=== PATIENT | female | born 1960 | race Caucasian/White ===

== ENCOUNTER → 2017-12-23 12:51 | Outpatient (CLI) | payer OTHER, MEDICAID, SELFPAY ==
[2017-12-23 13:17] LABS: Add Manual Diff / Slide Review NO; Basophils Percent Auto 0.8 % (0-2); Eosinophils Percent Auto 1.4 % (2-4); Hematocrit 26.3 % (36-46); Hemoglobin 8.2 g/dL (12.0-16.0); Mean Corpuscular HGB Conc 31.3 % (30-36); Mean Corpuscular Hemoglobin 22.5 PG (26-34); Mean Corpuscular Volume 71.9 fL (80-100); Monocytes Percent Auto 8.5 % (3-14); Neutrophils Absolute Auto 4800 /uL (3000-5900); Neutrophils Percent Auto 75.3 % (50-75); Platelet Count 290 X10^3/uL (150-400); Red Blood Cell Count 3.66 X10^6/uL (4.0-5.2); Red Cell Distribution Width 19.9 % (11.6-14.8); White Blood Cell Count 6.4 X10^3/uL (4.5-11.0)
[2017-12-23 14:29] LABS: Alanine Aminotransferase 22 IU/L (9-52); Albumin 3.9 g/dL (3.5-5.0); Albumin Globulin Ratio 1.4 (1.0-2.8); Alkaline Phosphatase 90 U/L (38-126); Aspartate Aminotransferase 16 IU/L (14-36); Bilirubin Total 0.4 mg/dL (0.2-1.3); Blood Urea Nitrogen 9 mg/dL (7-17); Calcium 8.9 mg/dL (8.4-10.2); Carbon Dioxide 27 mmol/L (22-32); Chloride 104 mmol/L (98-107); Estimated Glomerular Filt Rate > 60.0 mL/min (>60); Globulin 2.8 g/dL (1.7-4.1); Glucose 91 mg/dL (70-100); HEMOLYSIS < 15 (0-50); Potassium 4.1 mmol/L (3.4-5.1); Sodium 142 mmol/L (137-145); Total Protein 6.7 g/dL (6.3-8.2)
== END ==
PROVIDERS: PCP Family Medicine; Visit Provider Family Medicine
DX: D64.9 Anemia, unspecified (principal)
CPT/HCPCS: 36415; 80053; 85025

== ENCOUNTER → 2017-12-31 09:29 | Outpatient (CLI) | payer OTHER, MEDICAID, SELFPAY ==
--- NOTE | 2017-12-31 10:10 | DI.CT.S_ITS ---
PROCEDURE: CT ABDOMEN PELVIS W CON INDICATIONS: COLON MASS TECHNIQUE: After the administration of oral and intravenous contrast, 5 mm thick sections acquired from the diaphragms to the symphysis. 5 mm thick coronal and sagittal reformats were performed. For radiation dose reduction, the following was used: automated exposure control, adjustment of mA and/or kV according to patient size. COMPARISON: None. FINDINGS: Image quality: Excellent. ABDOMEN: Lung bases: There is a 4 mm hyperdense nodule in the right lung base, probably old granuloma. Heart size is normal. There is a [id number] sized hiatal hernia. Solid organs: There are multiple low density nodules in the liver involving both the right and left hepatic lobes. Liver is normal in size and enhancement. Gallbladder is normal. Biliary system is non-dilated. Pancreas enhances normally. Spleen is normal in size and enhancement. No adrenal nodules. Kidneys are normal in size and enhancement, without hydronephrosis. There are multiple parapelvic cysts in left kidney. No renal stone hydronephrosis. Peritoneum and bowel: Stomach, small bowel, and colon loops are normal in caliber and wall thickness. A moderate amount of stool in colon. No free fluid or air. Nodes and vessels: No retroperitoneal or mesenteric adenopathy. Aorta and inferior vena cava are normal in caliber. Miscellaneous: No ventral hernias. PELVIS: Genitourinary: Bladder wall thickness is normal. There is a long fat containing mass in the right adnexa measuring 3.5 cm, most likely an ovarian dermoid. Miscellaneous: No inguinal hernias or adenopathy. Bones: There are round lucent lesions L2 and L3 measuring 1.3 and 1.5 cm in diameter. No vertebral body compression fractures. Degenerative changes noted in lumbar spine. IMPRESSION: 1. A moderate stool in colon. No colon mass is identified. Please correlate with endoscopic exam. 2. Multiple low-density nodules in liver. Statistically, these lesions are most likely hepatic cysts; but some lesions are too small to further characterize, therefore, considered indeterminate. 3. No lymphadenopathy. 4. A 3.5 cm fat-containing mass in the right adnexa, most likely an ovarian dermoid. 5. Parapelvic cysts in left kidney. 6. Two round lucent lesions L2 and L3 measuring 1.3 and 1.5 cm in diameter, which could be intraosseous hemangiomas. If there is clinical concern for metastatic disease, MRI of lumbar spine with and without contrast is recommended. 7. Moderate to large sized hiatal hernia. Dictated by: Sally Mancini M.D. on 12/31/2017 at 15:19 Approved by: Sally Mancini M.D. on 12/31/2017 at 15:32
== END ==
PROVIDERS: Family Provider Family Medicine; PCP Family Medicine; Visit Provider Family Medicine
DX: R19.09 Other intra-abdominal and pelvic swelling, mass and lump (principal); N28.1 Cyst of kidney, acquired; K44.9 Diaphragmatic hernia without obstruction or gangrene
CPT/HCPCS: 74177; Q9967

== ENCOUNTER → 2018-01-04 13:29 | Outpatient (CLI) | payer OTHER, MEDICAID, SELFPAY ==
[2018-01-04 14:05] LABS: Hemoglobin 7.4 g/dL (12.0-16.0); Mean Corpuscular HGB Conc 30.9 % (30-36); Mean Corpuscular Hemoglobin 22.2 PG (26-34); Mean Corpuscular Volume 71.9 fL (80-100); Platelet Count 388 X10^3/uL (150-400); Red Blood Cell Count 3.35 X10^6/uL (4.0-5.2); Red Cell Distribution Width 20.7 % (11.6-14.8); White Blood Cell Count 7.6 X10^3/uL (4.5-11.0)
[2018-01-04 14:06] LABS: Hematocrit 24.1 % (36-46)
[2018-01-04 14:23] LABS: Neutrophils Absolute Manual 6232 /uL (3000-5900); Total Cells Counted 100
[2018-01-04 14:24] LABS: Anisocytosis 2+; Hypochromasia 1+; Microcytosis 1+
== END ==
PROVIDERS: Family Provider Family Medicine; PCP Family Medicine; Visit Provider Family Medicine
DX: D50.9 Iron deficiency anemia, unspecified (principal)
CPT/HCPCS: 36415; 85025

== ENCOUNTER → 2018-01-10 12:44 | Outpatient (CLI) | payer OTHER, MEDICAID, SELFPAY ==
[2018-01-10 13:00] LABS: Add Manual Diff / Slide Review NO; Eosinophils Percent Auto 1.9 % (2-4); Hematocrit 30.7 % (36-46); Hemoglobin 9.7 g/dL (12.0-16.0); Lymphocytes Percent Auto 17.1 % (25-40); Mean Corpuscular HGB Conc 31.5 % (30-36); Mean Corpuscular Hemoglobin 23.6 PG (26-34); Mean Corpuscular Volume 74.8 fL (80-100); Monocytes Percent Auto 8.8 % (3-14); Neutrophils Absolute Auto 3800 /uL (3000-5900); Neutrophils Percent Auto 71.2 % (50-75); Platelet Count 366 X10^3/uL (150-400); Red Blood Cell Count 4.11 X10^6/uL (4.0-5.2); Red Cell Distribution Width 22.1 % (11.6-14.8); White Blood Cell Count 5.3 X10^3/uL (4.5-11.0)
[2018-01-10 13:40] LABS: Anisocytosis 2+; Hypochromasia 1+
== END ==
PROVIDERS: PCP Family Medicine; Visit Provider Family Medicine
DX: D64.9 Anemia, unspecified (principal)
CPT/HCPCS: 36415; 85025

== ENCOUNTER → 2018-01-24 13:23 | Outpatient (CLI) | payer OTHER, MEDICAID, SELFPAY ==
[2018-01-24 14:41] LABS: Add Manual Diff / Slide Review NO; Basophils Percent Auto 0.7 % (0-2); Eosinophils Percent Auto 1.5 % (2-4); Hematocrit 31.1 % (36-46); Hemoglobin 9.9 g/dL (12.0-16.0); Lymphocytes Percent Auto 18.5 % (25-40); Mean Corpuscular Hemoglobin 24.4 PG (26-34); Mean Corpuscular Volume 76.2 fL (80-100); Monocytes Percent Auto 11.3 % (3-14); Neutrophils Absolute Auto 3700 /uL (3000-5900); Platelet Count 247 X10^3/uL (150-400); Red Blood Cell Count 4.07 X10^6/uL (4.0-5.2); Red Cell Distribution Width 22.3 % (11.6-14.8); White Blood Cell Count 5.4 X10^3/uL (4.5-11.0)
[2018-01-24 15:02] LABS: Anisocytosis 1+; Hypochromasia 1+; Ovalocytes 1+
== END ==
PROVIDERS: PCP Family Medicine; Visit Provider Family Medicine
DX: D64.9 Anemia, unspecified (principal)
CPT/HCPCS: 36415; 85025

== ENCOUNTER → 2018-02-28 16:58 | Outpatient (CLI) | payer OTHER, MEDICAID, SELFPAY ==
[2018-02-28 17:23] LABS: Add Manual Diff / Slide Review NO; Basophils Percent Auto 1.5 % (0-2); Eosinophils Percent Auto 2.3 % (2-4); Hemoglobin 8.1 g/dL (12.0-16.0); Lymphocytes Percent Auto 17.3 % (25-40); Mean Corpuscular HGB Conc 31.1 % (30-36); Mean Corpuscular Hemoglobin 22.1 PG (26-34); Mean Corpuscular Volume 71.1 fL (80-100); Monocytes Percent Auto 8.7 % (3-14); Neutrophils Absolute Auto 4200 /uL (3000-5900); Neutrophils Percent Auto 70.2 % (50-75); Platelet Count 331 X10^3/uL (150-400); Red Blood Cell Count 3.65 X10^6/uL (4.0-5.2)
== END ==
PROVIDERS: Family Provider Family Medicine; PCP Family Medicine; Visit Provider Family Medicine
DX: D64.9 Anemia, unspecified (principal); D50.9 Iron deficiency anemia, unspecified
CPT/HCPCS: 36415; 85025

== ENCOUNTER → 2018-03-02 08:15 | Outpatient (CLI) | payer OTHER, MEDICAID, SELFPAY | PROVIDERS: PCP Family Medicine; Visit Provider Family Medicine | DX: Z53.8 Procedure and treatment not carried out for other reasons (principal) | CPT/HCPCS: 36415 ==

== ENCOUNTER 2018-03-04 11:56 | Emergency (ER) | payer OTHER, MEDICAID, SELFPAY ==
[2018-03-04 12:01] VITALS: BP 139/79; PULSE 86; RESP 16; O2SAT 99; BMI 40.7
[2018-03-04 12:26] VITALS: BP 125/62; PULSE 78; RESP 14; O2SAT 100
--- NOTE | 2018-03-04 12:36 | ED_ITS ---
HPI - Chest Pain General Chief Complaint: Chest Pain Stated Complaint: PAIN IN JAW&NECK ON LEFT SIDE, TIGHTNESS IN CHEST Time Seen by Provider: 03/04/18 12:30 Source: patient, family and old records reviewed Mode of arrival: ambulatory Limitations: no limitations History of Present Illness HPI narrative: patient is a 57-year-old female who presents with chest pain. She had chest pain last evening she actually received a blood transfusion yesterday for anemia. She has received intermittent blood transfusions for anemia which the cannot find where she is losing blood. I think likely GI but that is currently being worked up. As she has no shortness of breath. she had chest pain last evening briefly while she was trying to go to sleep it was her all left side arm and jaw. It lasted under 30 min all and has not returned. As of this morning she was a little dizzy lightheaded She said she saw squiggly lines but no loss of vision or blackening of vision she called and was instructed to come in the emergency department for further evaluation. Her symptoms have all now completely resolved. She no longer has chest pain dizziness lightheadedness or headache. MD complaint: chest pain Duration: now resolved Onset: during rest Pain location: left chest Severity: mild Related Data Previous Rx's Medication Instructions Recorded disabled parking permit See Label Instructions .ROUTE 02/07/18 .COMPLEX #1 each Allergies Allergy/AdvReac Type Severity Reaction Status Date / Time codeine [CODEINE] Allergy Unknown Verified 03/04/18 12:00 Review of Systems Review of Systems All systems reviewed & are unremarkable except as noted in HPI and below Constitutional Denies chills, Denies fever(s), Denies lethargy and Denies weakness Eyes Reports as per HPI ENT Ears, Nose, Mouth, and Throat: Denies change in voice, Denies neck pain and Denies sore throat Cardiovascular Reports as per HPI, Denies syncope, Denies dyspnea and Denies dyspnea on exertion Respiratory Denies cough, Denies dyspnea, Denies dyspnea on exertion and Denies wheezing Gastrointestinal Gastrointestinal: Denies abdominal pain, Denies change in bowel habits, Denies diarrhea, Denies nausea and Denies vomiting Genitourinary Denies hematuria, Denies flank pain, Denies urinary incontinence and Denies urinary urgency Musculoskeletal Denies back pain and Denies neck pain Integumentary/Breasts Denies pruritus, Denies erythema, Denies rash and Denies wounds Neurologic Denies abnormal speech, Denies confusion, Denies syncope and Denies weakness Psychiatric Denies confusion and Denies hopelessness Allergic/Immunologic Denies wheezing [facility] Medical History 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) Fatigue associated with anemia (Chronic) Mass of colon (Acute) Plantar fascial fibromatosis (Chronic 07/23/17) Pain in both feet (Chronic 07/23/17) Iron deficiency anemia (Chronic 07/23/17) Female bladder prolapse (Chronic 07/23/17) Dysphagia (Chronic 09/09/17) GERD (gastroesophageal reflux disease) (Resolved) Surgical History S/P colonoscopic polypectomy (Chronic) S/P knee surgery (Chronic 1978) History of carpal tunnel release (Resolved ~1991) Hx of hernia repair (Resolved) Hx of surgical procedure (Resolved) Family History Father Age: 83 Hypertension High cholesterol Mother Age: 79 Hypertension High cholesterol Sister Age: 59 Cervical cancer Social History Smoking Status: Never smoker Exam Initial Vital Signs Initial Vital Signs: Vital Signs Pulse Rate 86 03/04/18 12:01 Respiratory Rate 16 03/04/18 12:01 Blood Pressure 139/79 03/04/18 12:01 Pulse Oximetry 99 03/04/18 12:01 GENERAL: [Well-appearing, well-nourished] and in [no acute] distress. HEENT: Head atraumatic,EOMI, pupils reactive, face symmetric CARDIOVASCULAR: Regular rate and rhythm without murmurs, rubs or gallops. RESPIRATORY: Breath sounds equal bilaterally, no wheezes rales or rhonchi. speaks in full sentences no d ABDOMEN: Soft, nontender. Normoactive bowel sounds all 4 quadrants. No guarding or rebound. EXTREMITIES: Normal range of motion, no clubbing or edema. Neurovascularly intact NEUROLOGICAL: Alert and oriented x4.Normal gait and speech. Cranial nerves II through XII grossly intact. SKIN: Warm, dry, no laceration, no petechiae, no rashes or lesions. Scores HEART Score Heart Score history: Slightly Suspicious Heart Score EKG: Normal Heart Score Age: 45-64 years old Heart Score risk factors: No known risk factors Heart Score troponin: < or = to normal limit Heart Score Total: 1 NIH Stroke Scale Level of Conciousness: Alert, keenly responsive Ask month/age: Answers both questions correctly. Open/close eyes, close hand: Performs both tasks correctly Best gaze horizontal: Normal Visual chavez: No visual loss Facial palsy: Normal symetrical movement Left arm drift: No drift for full 10 sec Right arm drift: No drift for full 10 sec Left leg drift: No drift for full 10 sec Right leg drift: No drift for full 10 sec Limb ataxia: Absent Sensory on face/arms/legs: Normal, no sensory loss Best language: No aphasia, normal Dysarthria: Normal Extinction or inattention: No abnormality Total NIH Stroke scale score: 0 Course Orders Ordered: Discontinued Medications Sodium Chloride (Normal Saline 0.9%) 1,000 mls @ 150 mls/hr IV CONT LAURENCE Vital Signs - 8 hr 03/04/18 12:01 03/04/18 12:26 Pulse Rate 86 78 Respiratory Rate 16 14 Blood Pressure 139/79 Blood Pressure [Left Arm] 125/62 Pulse Oximetry 99 100 MDM - Chest Pain Lab Data Attestation: I reviewed the patient's lab results. Result diagrams: 03/04/18 12:20 03/04/18 12:20 Lab Results 03/04/18 03/04/18 03/04/18 Range/Units 12:20 12:20 12:20 WBC 6.9 (4.5-11.0) X10^3/uL RBC 4.14 (4.0-5.2) X10^6/uL Hgb 9.9 L (12.0-16.0) g/dL Hct 30.6 L (36-46) % MCV 74.0 L D (80-100) fL MCH 23.9 L (26-34) PG MCHC 32.3 (30-36) % RDW 19.4 H (11.6-14.8) % Plt Count 319 (150-400) X10^3/uL Neut % (Auto) 76.9 H (50-75) % Lymph % (Auto) 13.1 L (25-40) % Greenlee % (Auto) 7.5 (3-14) % Eos % (Auto) 1.8 L (2-4) % Baso % (Auto) 0.7 (0-2) % Neut # (Auto) 5300 (1125-5912) /uL PT 11.6 (10.1-12.7) SECONDS INR 1.1 (0.9-1.3) APTT 28 (26.4-36.2) SECONDS Sodium (137-145) mmol/L Potassium (3.4-5.1) mmol/L Chloride (98-107) mmol/L Carbon Dioxide (22-32) mmol/L BUN (7-17) mg/dL Creatinine (0.52-1.04) mg/dL Estimated GFR (>60) mL/min BUN/Creatinine Ratio (6-22) Glucose (70-100) mg/dL Calcium (8.4-10.2) mg/dL Total Bilirubin (0.2-1.3) mg/dL AST (14-36) IU/L ALT (9-52) IU/L Alkaline Phosphatase (38-126) U/L Total Creatine Kinase (30-135) U/L Troponin I (0.01-0.034) ng/mL B-Natriuretic Peptide 284.0 H (<100) Total Protein (6.3-8.2) g/dL Albumin (3.5-5.0) g/dL Globulin (1.7-4.1) g/dL Albumin/Globulin Ratio (1.0-2.8) Lipase (23-300) U/L 03/04/18 Range/Units 12:20 WBC (4.5-11.0) X10^3/uL RBC (4.0-5.2) X10^6/uL Hgb (12.0-16.0) g/dL Hct (36-46) % MCV (80-100) fL MCH (26-34) PG MCHC (30-36) % RDW (11.6-14.8) % Plt Count (150-400) X10^3/uL Neut % (Auto) (50-75) % Lymph % (Auto) (25-40) % Greenlee % (Auto) (3-14) % Eos % (Auto) (2-4) % Baso % (Auto) (0-2) % Neut # (Auto) (3318-9455) /uL PT (10.1-12.7) SECONDS INR (0.9-1.3) APTT (26.4-36.2) SECONDS Sodium 144 (137-145) mmol/L Potassium 4.7 (3.4-5.1) mmol/L Chloride 105 (98-107) mmol/L Carbon Dioxide 30 (22-32) mmol/L BUN 12 (7-17) mg/dL Creatinine 0.60 (0.52-1.04) mg/dL Estimated GFR > 60.0 (>60) mL/min BUN/Creatinine Ratio 20.0 (6-22) Glucose 92 (70-100) mg/dL Calcium 9.2 (8.4-10.2) mg/dL Total Bilirubin 1.0 (0.2-1.3) mg/dL AST 43 H (14-36) IU/L ALT 23 (9-52) IU/L Alkaline Phosphatase 101 (38-126) U/L Total Creatine Kinase 44 (30-135) U/L Troponin I < 0.012 (0.01-0.034) ng/mL B-Natriuretic Peptide (<100) Total Protein 7.5 (6.3-8.2) g/dL Albumin 4.4 (3.5-5.0) g/dL Globulin 3.1 (1.7-4.1) g/dL Albumin/Globulin Ratio 1.4 (1.0-2.8) Lipase 71 (23-300) U/L Imaging Data Chest x-ray: Radiologist's impression: PROCEDURE: XR CHEST 1V INDICATIONS: chest pain TECHNIQUE: One view of the chest was acquired. COMPARISON: None. FINDINGS: Surgical changes and devices: None. Lungs and pleura: No pleural effusions or pneumothorax. Lungs are clear. Mediastinum: Mediastinal contours appear normal, except for a moderately large lateral hernia behind the heart. Heart size is normal. Bones and chest wall: No suspicious bony lesions. Overlying soft tissues appear unremarkable. IMPRESSION: Moderately large hiatal hernia behind the heart. Dictated by: Kevin Pavon M.D. on 03/04/2018 at 13:17 ECG Data Attestation: I personally reviewed and interpreted this ECG as follows: Prior ECG tracings: not available for review Interpretation: normal sinus rhythm rate [address] elevations no T-wave inversions no Q-waves do not appreciate ST depression MDM Narrative Medical decision making narrative: patient no longer has any symptoms. I do not suspect transfusion related reaction or TRALI. she has no respiratory distress is not hypoxic. Troponin x-ray and EKG are all reassuring. Discharge Plan Departure Patient Disposition: Home Clinical Impression: Atypical chest pain Discharge Date/Time: 03/04/18 14:41 Interventions: ED Discharge Assessment Last Done: 03/04/18 14:39 Instructions: DI for Atypical Chest Pain Activity Restrictions/Additional Instructions: *You have been diagnosed with atypical chest pain *What to do: Chest x-ray does reveal a hiatal hernia otherwise workup is negative. Continue to see her doctors for further workup of bleeding and anemia *Continue to take medications as directed *Follow up with your primary care provider in 2-3 days *Return to ER if you should have chest pain, shortness of breath lightheaded or any new, worsening or concerning symptoms Prescriptions: No Action disabled parking permit See Label Instructions .ROUTE .COMPLEX Qty: 1 RF: 0 Referrals: David Rodriguez MD [Primary Care Provider] -
--- NOTE | 2018-03-04 12:40 | DI.RAD.S_ITS ---
PROCEDURE: XR CHEST 1V INDICATIONS: chest pain TECHNIQUE: One view of the chest was acquired. COMPARISON: None. FINDINGS: Surgical changes and devices: None. Lungs and pleura: No pleural effusions or pneumothorax. Lungs are clear. Mediastinum: Mediastinal contours appear normal, except for a moderately large lateral hernia behind the heart. Heart size is normal. Bones and chest wall: No suspicious bony lesions. Overlying soft tissues appear unremarkable. IMPRESSION: Moderately large hiatal hernia behind the heart. Dictated by: Kevin Pavon M.D. on 03/04/2018 at 13:17 Approved by: Kevin Pavon M.D. on 03/04/2018 at 13:17
[2018-03-04 12:54] LABS: INR 1.1 (0.9-1.3); Prothrombin Time 11.6 SECONDS (10.1-12.7)
[2018-03-04 12:56] LABS: Add Manual Diff / Slide Review NO; Basophils Percent Auto 0.7 % (0-2); Eosinophils Percent Auto 1.8 % (2-4); Hematocrit 30.6 % (36-46); Hemoglobin 9.9 g/dL (12.0-16.0); Lymphocytes Percent Auto 13.1 % (25-40); Mean Corpuscular HGB Conc 32.3 % (30-36); Mean Corpuscular Hemoglobin 23.9 PG (26-34); Monocytes Percent Auto 7.5 % (3-14); Neutrophils Absolute Auto 5300 /uL (3000-5900); Neutrophils Percent Auto 76.9 % (50-75); Platelet Count 319 X10^3/uL (150-400); Red Blood Cell Count 4.14 X10^6/uL (4.0-5.2); Red Cell Distribution Width 19.4 % (11.6-14.8); White Blood Cell Count 6.9 X10^3/uL (4.5-11.0)
[2018-03-04 12:57] LABS: PTT Partial Thromboplastin Tim 28 SECONDS (26.4-36.2)
[2018-03-04 12:59] LABS: Alanine Aminotransferase 23 IU/L (9-52); Albumin 4.4 g/dL (3.5-5.0); Albumin Globulin Ratio 1.4 (1.0-2.8); Alkaline Phosphatase 101 U/L (38-126); Aspartate Aminotransferase 43 IU/L (14-36); Blood Urea Nitrogen 12 mg/dL (7-17); Calcium 9.2 mg/dL (8.4-10.2); Carbon Dioxide 30 mmol/L (22-32); Chloride 105 mmol/L (98-107); Creatine Kinase 44 U/L (30-135); Estimated Glomerular Filt Rate > 60.0 mL/min (>60); Globulin 3.1 g/dL (1.7-4.1); Glucose 92 mg/dL (70-100); Lipase 71 U/L (23-300); Potassium 4.7 mmol/L (3.4-5.1); Sodium 144 mmol/L (137-145); Total Protein 7.5 g/dL (6.3-8.2)
[2018-03-04 13:00] VITALS: BP 102/61; PULSE 77; RESP 24; O2SAT 100
[2018-03-04 13:03] LABS: HEMOLYSIS 72 (0-50)
[2018-03-04 13:10] LABS: Troponin I < 0.012 ng/mL (0.01-0.034)
[2018-03-04 13:30] VITALS: BP 113/77; PULSE 75; RESP 23; O2SAT 100
[2018-03-04 14:00] VITALS: BP 110/67; PULSE 72; RESP 16; O2SAT 100
[2018-03-04 14:39] VITALS: BP 117/78; PULSE 76; RESP 17; TEMP 36.6; O2SAT 99
== END 2018-03-04 14:41 | disposition home or self-care (01) ==
PROVIDERS: Emergency Provider Emergency Medicine; PCP Family Medicine
DX: R07.89 Other chest pain (principal)
CPT/HCPCS: 36591; 71045; 80053; 81003; 82550; 82553; 83690; 83880; 84484; 85025; 85610; 85730; 93005; 93010; 99283; 99285

== ENCOUNTER → 2018-03-17 16:15 | Outpatient (CLI) | payer OTHER, MEDICAID, SELFPAY ==
[2018-03-17 17:40] LABS: Add Manual Diff / Slide Review NO; Basophils Percent Auto 1.3 % (0-2); Eosinophils Percent Auto 1.4 % (2-4); Hematocrit 29.1 % (36-46); Hemoglobin 9.3 g/dL (12.0-16.0); Lymphocytes Percent Auto 17.4 % (25-40); Mean Corpuscular HGB Conc 32.1 % (30-36); Mean Corpuscular Hemoglobin 23.9 PG (26-34); Mean Corpuscular Volume 74.6 fL (80-100); Neutrophils Absolute Auto 4800 /uL (3000-5900); Neutrophils Percent Auto 71.9 % (50-75); Platelet Count 396 X10^3/uL (150-400); Red Blood Cell Count 3.91 X10^6/uL (4.0-5.2); Red Cell Distribution Width 20.3 % (11.6-14.8); White Blood Cell Count 6.6 X10^3/uL (4.5-11.0)
[2018-03-17 18:30] LABS: Poikilocytosis 1+
[2018-03-17 18:32] LABS: Anisocytosis 2+
== END ==
PROVIDERS: PCP Family Medicine; Visit Provider Family Medicine
DX: D64.9 Anemia, unspecified (principal)
CPT/HCPCS: 85025

== ENCOUNTER → 2018-03-30 15:03 | Outpatient (CLI) | payer OTHER, MEDICAID, SELFPAY ==
[2018-03-30 15:41] LABS: Add Manual Diff / Slide Review NO; Basophils Percent Auto 1.4 % (0-2); Eosinophils Percent Auto 2.5 % (2-4); Hematocrit 27.3 % (36-46); Hemoglobin 8.6 g/dL (12.0-16.0); Lymphocytes Percent Auto 18.1 % (25-40); Mean Corpuscular HGB Conc 31.5 % (30-36); Mean Corpuscular Hemoglobin 23.1 PG (26-34); Mean Corpuscular Volume 73.3 fL (80-100); Monocytes Percent Auto 8.1 % (3-14); Neutrophils Absolute Auto 4100 /uL (3000-5900); Neutrophils Percent Auto 69.9 % (50-75); Platelet Count 301 X10^3/uL (150-400); Red Blood Cell Count 3.72 X10^6/uL (4.0-5.2); Red Cell Distribution Width 20.5 % (11.6-14.8); White Blood Cell Count 5.8 X10^3/uL (4.5-11.0)
[2018-03-30 16:05] LABS: Anisocytosis 2+; Microcytosis 1+; Ovalocytes 1+
== END ==
PROVIDERS: PCP Student in an Organized Health Care Education/Training Program; Visit Provider Nurse Practitioner Family
DX: D64.9 Anemia, unspecified (principal)
CPT/HCPCS: 36415; 85025

== ENCOUNTER → 2018-04-08 15:41 | Outpatient (CLI) | payer OTHER, MEDICAID, SELFPAY ==
[2018-04-08 16:30] LABS: Reticulocyte Count, Percent 1.3 % (1.06-2.63)
[2018-04-08 16:35] LABS: Hematocrit 28.6 % (36-46); Hemoglobin 8.7 g/dL (12.0-16.0); Mean Corpuscular HGB Conc 30.4 % (30-36); Mean Corpuscular Hemoglobin 21.8 PG (26-34); Mean Corpuscular Volume 71.8 fL (80-100); Platelet Count 278 X10^3/uL (150-400); Red Blood Cell Count 3.98 X10^6/uL (4.0-5.2); Red Cell Distribution Width 19.8 % (11.6-14.8); White Blood Cell Count 7.1 X10^3/uL (4.5-11.0)
[2018-04-08 16:46] LABS: HEMOLYSIS < 15 (0-50)
[2018-04-08 16:51] LABS: Iron < 10 ug/dL (37-170)
[2018-04-08 16:54] LABS: Transferrin 322 mg/dL (206-381)
[2018-04-08 16:58] LABS: Percent Iron Saturation 3 % (15-50); Total Iron Binding Capacity 398 ug/dL (265-497)
== END ==
PROVIDERS: PCP Student in an Organized Health Care Education/Training Program; Visit Provider Student in an Organized Health Care Education/Training Program
DX: D50.9 Iron deficiency anemia, unspecified (principal); K92.2 Gastrointestinal hemorrhage, unspecified
CPT/HCPCS: 83540; 83550; 85027; 85045

== ENCOUNTER → 2018-04-12 12:09 | Outpatient (CLI) | payer OTHER, MEDICAID, SELFPAY ==
[2018-04-12 12:57] LABS: Hematocrit 29.6 % (36-46); Hemoglobin 9.2 g/dL (12.0-16.0)
[2018-04-12 13:16] LABS: HEMOLYSIS < 15 (0-50); Iron 17 ug/dL (37-170)
[2018-04-12 13:27] LABS: Percent Iron Saturation 4 % (15-50); Total Iron Binding Capacity 393 ug/dL (265-497); Transferrin 329 mg/dL (206-381)
== END ==
PROVIDERS: Nurse Practitioner Family; PCP Student in an Organized Health Care Education/Training Program; Visit Provider Student in an Organized Health Care Education/Training Program
DX: D50.9 Iron deficiency anemia, unspecified (principal); K92.2 Gastrointestinal hemorrhage, unspecified
CPT/HCPCS: 36415; 83540; 83550; 85014; 85018

== ENCOUNTER → 2018-04-28 17:06 | Outpatient (CLI) | payer OTHER, MEDICAID, SELFPAY | PROVIDERS: PCP Student in an Organized Health Care Education/Training Program; Visit Provider Physician Assistant | DX: R52 Pain, unspecified (principal) | CPT/HCPCS: 87077; 87086; 87186 ==

== ENCOUNTER → 2018-05-10 13:24 | Outpatient (CLI) | payer OTHER, MEDICAID, SELFPAY ==
[2018-05-10 13:45] LABS: Hematocrit 32.6 % (36-46); Hemoglobin 10.1 g/dL (12.0-16.0); Mean Corpuscular HGB Conc 30.8 % (30-36); Mean Corpuscular Hemoglobin 22.6 PG (26-34); Mean Corpuscular Volume 73.2 fL (80-100); Platelet Count 281 X10^3/uL (150-400); Red Blood Cell Count 4.45 X10^6/uL (4.0-5.2); White Blood Cell Count 5.9 X10^3/uL (4.5-11.0)
[2018-05-10 14:17] LABS: Anisocytosis 3+; Hypochromasia 2+; Ovalocytes 1+
[2018-05-10 14:36] LABS: HEMOLYSIS < 15 (0-50); Iron 21 ug/dL (37-170)
[2018-05-10 14:47] LABS: Percent Iron Saturation 6 % (15-50); Total Iron Binding Capacity 370 ug/dL (265-497); Transferrin 303 mg/dL (206-381)
== END ==
PROVIDERS: PCP Student in an Organized Health Care Education/Training Program; Visit Provider Student in an Organized Health Care Education/Training Program
DX: D50.9 Iron deficiency anemia, unspecified (principal)
CPT/HCPCS: 36415; 83540; 83550; 85027; 85045

== ENCOUNTER → 2018-06-20 12:07 | Outpatient (CLI) | payer OTHER, MEDICAID, SELFPAY ==
[2018-06-20 12:33] LABS: Hematocrit 37.5 % (36-46); Hemoglobin 12.1 g/dL (12.0-16.0); Mean Corpuscular HGB Conc 32.1 % (30-36); Mean Corpuscular Hemoglobin 24.7 PG (26-34); Mean Corpuscular Volume 76.9 fL (80-100); Platelet Count 294 X10^3/uL (150-400); Red Blood Cell Count 4.88 X10^6/uL (4.0-5.2); Red Cell Distribution Width 23.5 % (11.6-14.8); White Blood Cell Count 4.7 X10^3/uL (4.5-11.0)
[2018-06-20 13:04] LABS: HEMOLYSIS < 15 (0-50); Iron 82 ug/dL (37-170)
[2018-06-20 13:16] LABS: Percent Iron Saturation 25 % (15-50); Total Iron Binding Capacity 334 ug/dL (265-497); Transferrin 274 mg/dL (206-381)
[2018-06-20 13:46] LABS: Blood Urea Nitrogen 12 mg/dL (7-17); Calcium 9.5 mg/dL (8.4-10.2); Carbon Dioxide 28 mmol/L (22-32); Chloride 103 mmol/L (98-107); Estimated Glomerular Filt Rate > 60.0 mL/min (>60); Glucose 78 mg/dL (70-100); HEMOLYSIS < 15 (0-50); Potassium 5.2 mmol/L (3.4-5.1); Sodium 143 mmol/L (137-145)
[2018-06-20 19:37] LABS: Poikilocytosis 2+
[2018-06-20 19:38] LABS: Anisocytosis 1+; Microcytosis 1+; Ovalocytes 2+
== END ==
PROVIDERS: PCP Student in an Organized Health Care Education/Training Program; Visit Provider Student in an Organized Health Care Education/Training Program
DX: D50.9 Iron deficiency anemia, unspecified (principal); K25.7 Chronic gastric ulcer without hemorrhage or perforation; Z79.899 Other long term (current) drug therapy
CPT/HCPCS: 36415; 80048; 83540; 83550; 85027; 85045

== ENCOUNTER 2018-07-28 14:30 | Outpatient (RCR) | payer OTHER, MEDICAID, SELFPAY ==
--- NOTE | 2018-05-31 17:40 | PT.OIE ---
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) Fatigue associated with anemia (Chronic) Mass of colon (Acute) Plantar fascial fibromatosis (Chronic 07/23/17) Pain in both feet (Chronic 07/23/17) Iron deficiency anemia (Chronic 07/23/17) Female bladder prolapse (Chronic 07/23/17) Dysphagia (Chronic 09/09/17) Morbid obesity with BMI of 40.0-44.9, adult (Acute) GERD (gastroesophageal reflux disease) (Resolved) Past Surgical History (Last Reviewed 04/07/18 @ 07:59 by Ar Ruffin MD) S/P colonoscopic polypectomy (Chronic) S/P knee surgery (Chronic 1978) History of esophagogastroduodenoscopy (EGD) (Acute) History of carpal tunnel release (Resolved ~1991) Hx of hernia repair (Resolved) Hx of surgical procedure (Resolved) Provider Visit Care Team Role Provider Type Gavin Curry MD Primary Care Provider Physician Specialty: Internal Medicine Address: [address] [place] [address], [id number] Email: Dwight Esparza DPM Attending Provider Non-Staff Specialty: Podiatry Address: [address] [place] [address], [id number] Email: Physical Therapy Initial Evaluation PT-OP-A Visit Information Start: 06/01/18 07:14 Freq: Status: Active Protocol: Document 05/31/18 17:20 EA (Rec: 06/01/18 07:31 EA [id number]) Out-Patient Physical Therapy Visit Information Visit Information Visit Type Initial Evaluation Visit Start Time 16:00 Visit Stop Time 16:35 Total Visit Minutes 35 Visit Number 1 Evaluation Information Evaluation Date 05/31/18 PT-OP-B Current Condition Start: 06/01/18 07:14 Freq: Status: Active Protocol: Document 05/31/18 17:20 EA (Rec: 06/01/18 07:31 EA [id number]) Current Condition History of Current Condition Onset Date one year ago Current Complaints Difficulty of walking/standing due to bilat foot pain History of Current Condition Present complaint of pain to both feet has been on and off for almost 30 years with a history of left foot surgery. 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 Steroid injection 2 months ago have helped to decreased pain but not increasing deformity. Patient referred to Pt for further evaluation with no current or recent X-ray. Current referring diagnosis is bilat plantar fasciitis. Prior Treatments and Tests Steroid injection 2 months ago . Future Testing and Treatments Planned None identified. Treatment Goals Patient/Caregiver Goals 1. Patients wants decreased or prevent further clubfoot deformity 2. Decreased pain level to both feet to at least 2/10 with WB activities. 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 Patient Reported Progress Same Patient Questionnaires Foot & Ankle Ability Measure- ADL and Sports FAAM-ADL Score 25 FAAM-ADL Impairment 60 to 79% Impaired (Score 16- 32) Lower Extremity Functional Scale LEFS Score 34 LEFS Impairment 40 to 59% Impaired (Score 32- 47) OP-PT Pain Assessment Location Bilateral Volar Foot Pain Location Details Plantar side of the foot Intensity 6 Scale Used Numeric (1 - 10) Description Pulling Tender Tightness Frequency weight bearing activities Pain Aggravating Factors Activity Standing Walking Patient Stated Pain Goal 2 Home Pain Medication Use Pain Medications Used No Pain Behaviors Pain Behaviors Facial Grimacing PT-OP-D Balance Start: 06/01/18 07:14 Freq: Status: Active Protocol: Document 05/31/18 17:42 EA (Rec: 06/02/18 07:42 EA [id number]) Balance Tests Single Limb Standing Single Limb- Right unable Single Limb- Left unable PT-OP-E Functional Tests Start: 06/01/18 07:14 Freq: Status: Active Protocol: Document 05/31/18 17:41 EA (Rec: 06/02/18 07:42 EA [id number]) Functional Tests Other 2 Name of Test Toe walking Comment Unable 1 Name of Test Heel walking Comment Unable PT-OP-F Manual Assessment Start: 06/01/18 07:14 Freq: Status: Active Protocol: Document 05/31/18 17:28 EA (Rec: 06/01/18 16:45 EA [id number]) Manual Assessments Soft Tissue Assessment Soft Tissue Mobility Assessment Tightness to both platat fascia, FHL,FD, tibialis post Joint Mobility Assessment Joint Mobility Assessment Bilateral ankle joint, bilat calcaneo navicular joint hypomobility PT-OP-G Mobility & Gait Start: 06/01/18 07:14 Freq: Status: Active Protocol: Document 05/31/18 17:40 EA (Rec: 06/02/18 07:41 EA [id number]) OP Gait Assessment Comments Gait Comments Decreased push off bilateral with supinated feet. Weight bearing base mostly to lateral side of the foot. PT-OP-J Posture/Palpation/Skin Start: 06/01/18 07:14 Freq: Status: Active Protocol: Document 05/31/18 17:28 EA (Rec: 06/01/18 16:45 EA [id number]) Posture Evaluation Comments Posture Comments Bilateral knee Valgus, Bilateral mild club foot deformity Palpation Assessment Location One Palpation Location Bilateral posterior leg Palpation Findings Soft Tissue Tightness Tenderness Palpation Details Grade 2/4 tenderness to both plantar fascia PT-OP-K Range of Motion Start: 06/01/18 07:14 Freq: Status: Active Protocol: Document 06/02/18 07:31 EA (Rec: 06/02/18 07:36 EA [id number]) Ankle and Foot Goniometric Range of Motion Ankle and Foot Measured in Degrees Right Active Testing Position Sitting Dorsiflexion with Knee Flexed 10 Dorsiflexion with Knee Extended 5 Plantarflexion 30 Inversion 30 Eversion 5 Left Testing Position Sitting Dorsiflexion with Knee Flexed 10 Dorsiflexion with Knee Extended 5 Plantarflexion 30 Inversion 30 Eversion 5 PT-OP-M Strength Start: 06/01/18 07:14 Freq: Status: Active Protocol: Document 05/31/18 17:36 EA (Rec: 06/02/18 07:38 EA [id number]) Ankle/Foot Strength Ankle and Foot Manual Muscle Testing Right Dorsiflexion (L4) 4 Good Plantarflexion (S1) 4- Good- Inversion 4 Good Eversion (S1) 4- Good- Reason Not Measured Pain Left Dorsiflexion (L4) 4 Good Plantarflexion (S1) 4- Good- Inversion 4 Good Eversion (S1) 4- Good- Reason Not Measured Pain Toe Strength Toe Manual Muscle Testing Great Toe Flexion 4+ Good+ Extension 4+ Good+ PT-OP-T Assessment and Plan Start: 06/01/18 07:14 Freq: Status: Active Protocol: Document 05/31/18 17:28 EA (Rec: 06/01/18 16:45 EA [id number]) Physical Therapy Assessment Rehab Potential Rehabilitation Potential Fair Evaluation Complexity Number of Personal Factors/Comorbidities 3 or More Number of Body Systems Impaired 1-2 Clinical Presentation at Evaluation Evolving Impairments Impairments Activity Tolerance Functional Mobility Gait Pain Posture ROM Soft Tissue Mobility Strength Other Concerns Barriers to Rehabilitation Current body weight (obese) Knee pain, chronicity of the condition Goals Five Impairment FAAM score of 25 Drop Hammer Operator Helper Goal (LTG) Patient will have FAAM score of > 50 LTG Duration 5 wks Four Impairment LEFS score of 34 Senior Living Goal (LTG) Patient will have LEFS score of more than 45 LTG Duration 5 wks Three Impairment Subjective pain complaint of 6 /10 Drop Hammer Operator Helper Goal (LTG) Patient complain both feet pain to 2/10 with all standing activities. LTG Duration 4 wks Two Impairment Decreased walking tolerance Senior Living Goal (LTG) Patient will ambulate on even surface more than 1000 ft with no increase in symptoms LTG Duration 5 wks One Impairment Decreased standing tolerance Drop Hammer Operator Helper Goal (LTG) Patient will stand on both feet > 15 mins without increase in symptoms LTG Duration 5 wks Assessment Summary Assessment Pleasant 57 y/o F patient with a referring diagnosis of bilateral plantar fasciitis. Today patient presented with bilateral foot pain during weight bearing such as standing and walking activities. Supinated foot bilaterally was evident with weight distributed mostly to lateral side of the foot. 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 Palpation reveals tight posterior leg muscles ( tibialis post, FHL,FDL); plantar fascia on both feet is tight and tender with limitation of DF and eversion motion. No acute swelling noted to both feet. Sensory changes to both feet at L5 dermatome. Due to above mentioned dysfunction, patient unable to perform or tolerate weight bearing activities that is supposed to normal at her age. Patient would benefit with skilled PT to address the aforementioned issue and so to improve quality of life. Physical Therapy Plan Frequency and Duration Frequency of Treatment 2x/Week Duration of Treatment 8 wks Plan of Care Start Date 05/31/18 Plan of Care End Date 07/26/18 Therapeutic Interventions Therapeutic Interventions Home Exercise Program Joint Mobilizations Manual Therapy Patient/Caregiver Education Self-Care/Home Management Soft Tissue Mobilization Taping Therapeutic Exercises Modalities Cold Pack/Ice Massage Hot Packs Paraffin Bath Next Visit Focus/Plan Next Note Type Treatment Note
--- NOTE | 2018-05-31 17:40 | PT.OPPOC ---
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) Provider Visit Care Team Role Provider Type Gavin Curry MD Primary Care Provider Physician Specialty: Internal Medicine Address: [address] [place] [address], [id number] Email: Dwight Esparza DPM Attending Provider Non-Staff Specialty: Podiatry Address: [address] [place] [address], [phone] Email: Plan Of Care PT-OP-T Assessment and Plan Start: 06/01/18 07:14 Freq: Status: Active Protocol: Document 05/31/18 17:28 EA (Rec: 06/01/18 16:45 EA [id number]) Physical Therapy Assessment Rehab Potential Rehabilitation Potential Fair Evaluation Complexity Number of Personal Factors/Comorbidities 3 or More Number of Body Systems Impaired 1-2 Clinical Presentation at Evaluation Evolving Impairments Impairments Activity Tolerance Functional Mobility Gait Pain Posture ROM Soft Tissue Mobility Strength Other Concerns Barriers to Rehabilitation Current body weight (obese) Knee pain, chronicity of the condition Goals Five Impairment FAAM score of 25 Cigar Sorter Goal (LTG) Patient will have FAAM score of > 50 LTG Duration 5 wks Four Impairment LEFS score of 34 [facility] Goal (LTG) Patient will have LEFS score of more than 45 LTG Duration 5 wks Three Impairment Subjective pain complaint of 6 /10 Cigar Sorter Goal (LTG) Patient complain both feet pain to 2/10 with all standing activities. LTG Duration 4 wks Two Impairment Decreased walking tolerance [facility] Goal (LTG) Patient will ambulate on even surface more than 1000 ft with no increase in symptoms LTG Duration 5 wks One Impairment Decreased standing tolerance [facility] Goal (LTG) Patient will stand on both feet > 15 mins without increase in symptoms LTG Duration 5 wks Assessment Summary Assessment Pleasant 57 y/o F patient with a referring diagnosis of bilateral plantar fasciitis. Today patient presented with bilateral foot pain during weight bearing such as standing and walking activities. Supinated foot bilaterally was evident with weight distributed mostly to lateral side of the foot. 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 Palpation reveals tight posterior leg muscles ( tibialis post, FHL,FDL); plantar fascia on both feet is tight and tender with limitation of DF and eversion motion. No acute swelling noted to both feet. Sensory changes to both feet at L5 dermatome. Due to above mentioned dysfunction, patient unable to perform or tolerate weight bearing activities that is supposed to normal at her age. Patient would benefit with skilled PT to address the aforementioned issue and so to improve quality of life. Physical Therapy Plan Frequency and Duration Frequency of Treatment 2x/Week Duration of Treatment 8 wks Plan of Care Start Date 05/31/18 Plan of Care End Date 07/26/18 Therapeutic Interventions Therapeutic Interventions Home Exercise Program Joint Mobilizations Manual Therapy Patient/Caregiver Education Self-Care/Home Management Soft Tissue Mobilization Taping Therapeutic Exercises Modalities Cold Pack/Ice Massage Hot Packs Paraffin Bath Next Visit Focus/Plan Next Note Type Treatment Note Plan of Care Dates Plan of Care Start Date 05/31/18 Plan of Care End Date 07/26/18 Please Sign and Return: I have reviewed this Plan of Care and certify that the skilled therapy services above are required to meet the patient?s needs. Physician Signature Date Printed Name and Credentials Clinical Instructor Signature Printed Name and Credentials
--- NOTE | 2018-06-06 15:28 | PT.OTN ---
Current Diagnoses Plantar fascial fibromatosis (06/06/18) Pain in unspecified foot (06/06/18) Congenital metatarsus adductus (06/06/18) Physical Therapy Treatment Note PT-OP-A Visit Information Start: 06/01/18 07:14 Freq: Status: Active Protocol: Document 06/06/18 15:15 EA (Rec: 06/06/18 15:25 EA [id number]) Out-Patient Physical Therapy Visit Information Visit Information Visit Type Treatment Note Visit Start Time 09:00 Visit Stop Time 09:38 Total Visit Minutes 38 Visit Number 2 Number of RN TEAM LEADER Visits 0 PT-OP-B Current Condition Start: 06/01/18 07:14 Freq: Status: Active Protocol: Document 05/31/18 17:20 EA (Rec: 06/01/18 07:31 EA [id number]) Current Condition History of Current Condition Onset Date one year ago Current Complaints Difficulty of walking/standing due to bilat feet pain History of Current Condition Present complaint of pain to both feet has been on and off for almost 30 years with a history of left foot surgery. 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 Steroid injection 2 months ago have helped to decreased pain but not increasing deformity. Patient referred to Pt for further evaluation with no current or recent X-ray. Current reffering diagnosis is bilat plantar fasciitis. Prior Treatments and Tests Steroid injection 2 months ago . Future Testing and Treatments Planned None identified. Treatment Goals Patient/Caregiver Goals 1. Patients wants decreased or prevent further clubfoot deformity 2. Decreased pain level to both feet to at least 2/10 with WB activities. 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/Hobbies None identified Current Functional Impairments (Reported) Functional Limitations- ADL's Independent Functional Limitations- Mobility/Gait Able to ambulate Less than 500 feet with difficulty Functional Limitations- Work/School Unable to stand up more than 10 mins PT-OP-C Subjective Start: 06/01/18 07:14 Freq: Status: Active Protocol: Document 06/06/18 15:15 EA (Rec: 06/06/18 15:25 EA [id number]) OP-PT Subjective Patient Comments Patient Comments Pt brought her doctor reports and home exercises program prexcribed by the docotr; states there were no pre- cautions with a right calcaneus nondisplace fracture ; states they don't know if thats old or new fracture. Patient denies any injury to right foot in the past years. Patient Reported Progress Same PT-OP-D Balance Start: 06/01/18 07:14 Freq: Status: Active Protocol: Document 05/31/18 17:42 EA (Rec: 06/02/18 07:42 EA [id number]) Balance Tests Single Limb Standing Single Limb- Right unable Single Limb- Left unable PT-OP-E Functional Tests Start: 06/01/18 07:14 Freq: Status: Active Protocol: Document 05/31/18 17:41 EA (Rec: 06/02/18 07:42 EA [id number]) Functional Tests Other 2 Name of Test Toe walking Comment Unable 1 Name of Test Heel walking Comment Unable PT-OP-F Manual Assessment Start: 06/01/18 07:14 Freq: Status: Active Protocol: Document 05/31/18 17:28 EA (Rec: 06/01/18 16:45 EA [id number]) Manual Assessments Soft Tissue Assessment Soft Tissue Mobility Assessment Tightness to both platat fascia, FHL,FD, tibialis post Joint Mobility Assessment Joint Mobility Assessment Bilateral ankle joint, bilat calcaneo navicular joint hypomobility PT-OP-G Mobility & Gait Start: 06/01/18 07:14 Freq: Status: Active Protocol: Document 05/31/18 17:40 EA (Rec: 06/02/18 07:41 EA [id number]) OP Gait Assessment Comments Gait Comments Decreased push off bilateral with supinated feet. Weight bearing base mostly to lateral side of the foot. PT-OP-J Posture/Palpation/Skin Start: 06/01/18 07:14 Freq: Status: Active Protocol: Document 05/31/18 17:28 EA (Rec: 06/01/18 16:45 EA [id number]) Posture Evaluation Comments Posture Comments Bilateral knee Valgus, Bilateral mild club foot deformity Palpation Assessment Location One Palpation Location Bilateral posterior leg Palpation Findings Soft Tissue Tightness Tenderness Palpation Details Grade 2/4 tenderness to both planta fascia PT-OP-K Range of Motion Start: 06/01/18 07:14 Freq: Status: Active Protocol: Document 06/02/18 07:31 EA (Rec: 06/02/18 07:36 EA [id number]) Ankle and Foot Goniometric Range of Motion Ankle and Foot Measured in Degrees Right Active Testing Position Sitting Dorsiflexion with Knee Flexed 10 Dorsiflexion with Knee Extended 5 Plantarflexion 30 Inversion 30 Eversion 5 Left Testing Position Sitting Dorsiflexion with Knee Flexed 10 Dorsiflexion with Knee Extended 5 Plantarflexion 30 Inversion 30 Eversion 5 PT-OP-M Strength Start: 06/01/18 07:14 Freq: Status: Active Protocol: Document 05/31/18 17:36 EA (Rec: 06/02/18 07:38 EA [id number]) Ankle/Foot Strength Ankle and Foot Manual Muscle Testing Right Dorsiflexion (L4) 4 Good Plantarflexion (S1) 4- Good- Inversion 4 Good Eversion (S1) 4- Good- Reason Not Measured Pain Left Dorsiflexion (L4) 4 Good Plantarflexion (S1) 4- Good- Inversion 4 Good Eversion (S1) 4- Good- Reason Not Measured Pain Toe Strength Toe Manual Muscle Testing Great Toe Flexion 4+ Good+ Extension 4+ Good+ PT-OP-Q Treatments Start: 06/01/18 07:14 Freq: Status: Active Protocol: Document 06/06/18 15:15 EA (Rec: 06/06/18 15:25 EA [id number]) Cardio Equipment Recumbent Stepper (Sci-Fit) Duration (Minutes) 5 Resistance 2 Therapeutic Exercises Sitting Exercises 2 Sitting Exercise Name Passive soleus stretch Side bilateral Reps/Minutes x 15 SH x 2 reps 1 Sitting Exercise Name Ankle DF, Eversion Side bilateral Resistance Lv 1 Reps/Minutes x 12 repsx 2 sets Standing Exercises 2 Standing Exercise Name Corrected standing: weight to the medial side of the feet. Side bilateral Reps/Minutes x 10 reps x 2 sets 1 Standing Exercise Name Calves stretch straight knees Side bilateral Reps/Minutes x30SH x 2 reps Manual Therapy Treatment Soft Tissue Mobilization 1 Body Location Both plantar fascii, Tib post, FHL,FDL, Calves Mobilization Type Cross-Friction Myofascial Release Rolling Sustained Pressure Intensity/Depth Moderate Body Position Sitting Comments Start effleurage to muscle bulks PT-OP-T Assessment and Plan Start: 06/01/18 07:14 Freq: Status: Active Protocol: Document 06/06/18 15:15 EA (Rec: 06/06/18 15:25 EA [id number]) Physical Therapy Assessment Assessment Summary Assessment Pt tolerated treatment; HEP given by her doctor was reviewed. Cont. with current plan. Physical Therapy Plan Next Visit Focus/Plan Next Note Type Treatment Note
--- NOTE | 2018-06-09 12:12 | PT.OTN ---
Current Diagnoses Plantar fascial fibromatosis (06/09/18) Pain in unspecified foot (06/09/18) Congenital metatarsus adductus (06/09/18) Physical Therapy Treatment Note PT-OP-A Visit Information Start: 06/01/18 07:14 Freq: Status: Active Protocol: Document 06/09/18 09:56 EA (Rec: 06/09/18 10:43 EA [id number]) Out-Patient Physical Therapy Visit Information Visit Information Visit Type Treatment Note Visit Start Time 09:00 Visit Stop Time 09:38 Total Visit Minutes 38 Visit Number 3 Number of MOTORCYCLE ASSEMBLER Visits 0 PT-OP-B Current Condition Start: 06/01/18 07:14 Freq: Status: Active Protocol: Document 05/31/18 17:20 EA (Rec: 06/01/18 07:31 EA [id number]) Current Condition History of Current Condition Onset Date one year ago Current Complaints Difficulty of walking/standing due to bilat feet pain History of Current Condition Present complaint of pain to both feet has been on and off for almost 30 years with a history of left foot surgery. 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 Steroid injection 2 months ago have helped to decreased pain but not increasing deformity. Patient referred to Pt for further evaluation with no current or recent X-ray. Current reffering diagnosis is bilat plantar fasciitis. Prior Treatments and Tests Steroid injection 2 months ago . Future Testing and Treatments Planned None identified. Treatment Goals Patient/Caregiver Goals 1. Patients wants decreased or prevent further clubfoot deformity 2. Decreased pain level to both feet to at least 2/10 with WB activities. 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 Patient Reported Progress Improving PT-OP-D Balance Start: 06/01/18 07:14 Freq: Status: Active Protocol: Document 05/31/18 17:42 EA (Rec: 06/02/18 07:42 EA [id number]) Balance Tests Single Limb Standing Single Limb- Right unable Single Limb- Left unable PT-OP-E Functional Tests Start: 06/01/18 07:14 Freq: Status: Active Protocol: Document 05/31/18 17:41 EA (Rec: 06/02/18 07:42 EA [id number]) Functional Tests Other 2 Name of Test Toe walking Comment Unable 1 Name of Test Heel walking Comment Unable PT-OP-F Manual Assessment Start: 06/01/18 07:14 Freq: Status: Active Protocol: Document 05/31/18 17:28 EA (Rec: 06/01/18 16:45 EA [id number]) Manual Assessments Soft Tissue Assessment Soft Tissue Mobility Assessment Tightness to both platat fascia, FHL,FD, tibialis post Joint Mobility Assessment Joint Mobility Assessment Bilateral ankle joint, bilat calcaneo navicular joint hypomobility PT-OP-G Mobility & Gait Start: 06/01/18 07:14 Freq: Status: Active Protocol: Document 05/31/18 17:40 EA (Rec: 06/02/18 07:41 EA [id number]) OP Gait Assessment Comments Gait Comments Decreased push off bilateral with supinated feet. Weight bearing base mostly to lateral side of the foot. PT-OP-J Posture/Palpation/Skin Start: 06/01/18 07:14 Freq: Status: Active Protocol: Document 05/31/18 17:28 EA (Rec: 06/01/18 16:45 EA [id number]) Posture Evaluation Comments Posture Comments Bilateral knee Valgus, Bilateral mild club foot deformity Palpation Assessment Location One Palpation Location Bilateral posterior leg Palpation Findings Soft Tissue Tightness Tenderness Palpation Details Grade 2/4 tenderness to both planta fascia PT-OP-K Range of Motion Start: 06/01/18 07:14 Freq: Status: Active Protocol: Document 06/02/18 07:31 EA (Rec: 06/02/18 07:36 EA [id number]) Ankle and Foot Goniometric Range of Motion Ankle and Foot Measured in Degrees Right Active Testing Position Sitting Dorsiflexion with Knee Flexed 10 Dorsiflexion with Knee Extended 5 Plantarflexion 30 Inversion 30 Eversion 5 Left Testing Position Sitting Dorsiflexion with Knee Flexed 10 Dorsiflexion with Knee Extended 5 Plantarflexion 30 Inversion 30 Eversion 5 PT-OP-M Strength Start: 06/01/18 07:14 Freq: Status: Active Protocol: Document 05/31/18 17:36 EA (Rec: 06/02/18 07:38 EA [id number]) Ankle/Foot Strength Ankle and Foot Manual Muscle Testing Right Dorsiflexion (L4) 4 Good Plantarflexion (S1) 4- Good- Inversion 4 Good Eversion (S1) 4- Good- Reason Not Measured Pain Left Dorsiflexion (L4) 4 Good Plantarflexion (S1) 4- Good- Inversion 4 Good Eversion (S1) 4- Good- Reason Not Measured Pain Toe Strength Toe Manual Muscle Testing Great Toe Flexion 4+ Good+ Extension 4+ Good+ PT-OP-Q Treatments Start: 06/01/18 07:14 Freq: Status: Active Protocol: Document 06/09/18 09:56 EA (Rec: 06/09/18 10:43 EA [id number]) Cardio Equipment Recumbent Stepper (Sci-Fit) Duration (Minutes) 5 Resistance 2 Therapeutic Exercises Sitting Exercises 3 Sitting Exercise Name HIP ER Side bilateral Resistance Lv1 Reps/Minutes x 12 reps x 2 2 Sitting Exercise Name Passive soleus stretch Side bilateral Reps/Minutes x 15 SH x 2 reps 1 Sitting Exercise Name Ankle DF, Eversion Side bilateral Resistance Lv 1 Reps/Minutes x 12 repsx 2 sets Standing Exercises 2 Standing Exercise Name Corrected standing: weight to the medial side of the feet. Side bilateral Reps/Minutes x 10 reps x 2 sets 1 Standing Exercise Name Calves stretch straight knees Side bilateral Reps/Minutes x30SH x 2 reps Manual Therapy Treatment Soft Tissue Mobilization 1 Body Location Both plantar fascii, Tib post, FHL,FDL, Calves Mobilization Type Cross-Friction Myofascial Release Rolling Sustained Pressure Intensity/Depth Moderate Body Position Sitting Comments Start effleurage to muscle bulks PT-OP-T Assessment and Plan Start: 06/01/18 07:14 Freq: Status: Active Protocol: Document 06/09/18 09:56 EA (Rec: 06/09/18 10:43 EA [id number]) Physical Therapy Assessment Assessment Summary Assessment Pt has improved weight bearing distribution during mobility. Continue with current plan. Physical Therapy Plan Next Visit Focus/Plan Next Note Type Treatment Note
--- NOTE | 2018-06-13 12:11 | PT.OTN ---
Current Diagnoses Plantar fascial fibromatosis (06/13/18) Pain in unspecified foot (06/13/18) Congenital metatarsus adductus (06/13/18) Physical Therapy Treatment Note PT-OP-A Visit Information Start: 06/01/18 07:14 Freq: Status: Active Protocol: Document 06/13/18 10:29 EA (Rec: 06/13/18 10:33 EA [id number]) Out-Patient Physical Therapy Visit Information Visit Information Visit Type Treatment Note Visit Start Time 09:45 Visit Stop Time 10:27 Total Visit Minutes 38 Visit Number 4 Number of MEN'S GOLF COACH Visits 0 PT-OP-B Current Condition Start: 06/01/18 07:14 Freq: Status: Active Protocol: Document 05/31/18 17:20 EA (Rec: 06/01/18 07:31 EA [id number]) Current Condition History of Current Condition Onset Date one year ago Current Complaints Difficulty of walking/standing due to bilat feet pain History of Current Condition Present complaint of pain to both feet has been on and off for almost 30 years with a history of left foot surgery. 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 Steroid injection 2 months ago have helped to decreased pain but not increasing deformity. Patient referred to Pt for further evaluation with no current or recent X-ray. Current reffering diagnosis is bilat plantar fasciitis. Prior Treatments and Tests Steroid injection 2 months ago . Future Testing and Treatments Planned None identified. Treatment Goals Patient/Caregiver Goals 1. Patients wants decreased or prevent further clubfoot deformity 2. Decreased pain level to both feet to at least 2/10 with WB activities. 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 Patient Reported Progress Improving PT-OP-D Balance Start: 06/01/18 07:14 Freq: Status: Active Protocol: Document 05/31/18 17:42 EA (Rec: 06/02/18 07:42 EA [id number]) Balance Tests Single Limb Standing Single Limb- Right unable Single Limb- Left unable PT-OP-E Functional Tests Start: 06/01/18 07:14 Freq: Status: Active Protocol: Document 05/31/18 17:41 EA (Rec: 06/02/18 07:42 EA [id number]) Functional Tests Other 2 Name of Test Toe walking Comment Unable 1 Name of Test Heel walking Comment Unable PT-OP-F Manual Assessment Start: 06/01/18 07:14 Freq: Status: Active Protocol: Document 05/31/18 17:28 EA (Rec: 06/01/18 16:45 EA [id number]) Manual Assessments Soft Tissue Assessment Soft Tissue Mobility Assessment Tightness to both platat fascia, FHL,FD, tibialis post Joint Mobility Assessment Joint Mobility Assessment Bilateral ankle joint, bilat calcaneo navicular joint hypomobility PT-OP-G Mobility & Gait Start: 06/01/18 07:14 Freq: Status: Active Protocol: Document 05/31/18 17:40 EA (Rec: 06/02/18 07:41 EA [id number]) OP Gait Assessment Comments Gait Comments Decreased push off bilateral with supinated feet. Weight bearing base mostly to lateral side of the foot. PT-OP-J Posture/Palpation/Skin Start: 06/01/18 07:14 Freq: Status: Active Protocol: Document 05/31/18 17:28 EA (Rec: 06/01/18 16:45 EA [id number]) Posture Evaluation Comments Posture Comments Bilateral knee Valgus, Bilateral mild club foot deformity Palpation Assessment Location One Palpation Location Bilateral posterior leg Palpation Findings Soft Tissue Tightness Tenderness Palpation Details Grade 2/4 tenderness to both planta fascia PT-OP-K Range of Motion Start: 06/01/18 07:14 Freq: Status: Active Protocol: Document 06/02/18 07:31 EA (Rec: 06/02/18 07:36 EA [id number]) Ankle and Foot Goniometric Range of Motion Ankle and Foot Measured in Degrees Right Active Testing Position Sitting Dorsiflexion with Knee Flexed 10 Dorsiflexion with Knee Extended 5 Plantarflexion 30 Inversion 30 Eversion 5 Left Testing Position Sitting Dorsiflexion with Knee Flexed 10 Dorsiflexion with Knee Extended 5 Plantarflexion 30 Inversion 30 Eversion 5 PT-OP-M Strength Start: 06/01/18 07:14 Freq: Status: Active Protocol: Document 05/31/18 17:36 EA (Rec: 06/02/18 07:38 EA [id number]) Ankle/Foot Strength Ankle and Foot Manual Muscle Testing Right Dorsiflexion (L4) 4 Good Plantarflexion (S1) 4- Good- Inversion 4 Good Eversion (S1) 4- Good- Reason Not Measured Pain Left Dorsiflexion (L4) 4 Good Plantarflexion (S1) 4- Good- Inversion 4 Good Eversion (S1) 4- Good- Reason Not Measured Pain Toe Strength Toe Manual Muscle Testing Great Toe Flexion 4+ Good+ Extension 4+ Good+ PT-OP-Q Treatments Start: 06/01/18 07:14 Freq: Status: Active Protocol: Document 06/13/18 10:29 EA (Rec: 06/13/18 10:33 EA [id number]) Cardio Equipment Recumbent Stepper (Sci-Fit) Duration (Minutes) 7 Resistance 2 Gym Equipment Shuttle Recovery Bilateral Squats Resistance 100# Reps/Time x 15 reps x 2 Unilateral Squats Resistance 50# Reps/Time x 15 reps Bilateral Heel Raises Resistance 50# Reps/Time x 15 reps Therapeutic Exercises Sitting Exercises 3 Sitting Exercise Name HIP ER Side bilateral Resistance Lv1 Reps/Minutes x 12 reps x 2 2 Sitting Exercise Name Passive soleus stretch Side bilateral Reps/Minutes x 15 SH x 2 reps 1 Sitting Exercise Name Ankle DF, Eversion Side bilateral Resistance Lv 1, and 2 Reps/Minutes x 12 repsx 2 sets Standing Exercises 3 Standing Exercise Name Heel to toe gait Reps/Minutes x 5 lines Comments Cues to decreased lat trunk shifting. 2 Standing Exercise Name Corrected standing: weight to the medial side of the feet. Side bilateral Reps/Minutes x 10 reps x 2 sets 1 Standing Exercise Name Calves stretch straight knees Side bilateral Reps/Minutes x30SH x 2 reps Manual Therapy Treatment Soft Tissue Mobilization 1 Body Location Both plantar fascii, Tib post, FHL,FDL, Calves Mobilization Type Cross-Friction Myofascial Release Rolling Sustained Pressure Intensity/Depth Moderate Body Position Sitting Comments Start effleurage to muscle bulks PT-OP-T Assessment and Plan Start: 06/01/18 07:14 Freq: Status: Active Protocol: Document 06/13/18 10:29 EA (Rec: 06/13/18 10:33 EA [id number]) Physical Therapy Assessment Assessment Summary Assessment Tolerated treatment well; advised to practice heel to toe gait at home. Physical Therapy Plan Next Visit Focus/Plan Next Note Type Treatment Note
--- NOTE | 2018-06-15 15:12 | PT.OTN ---
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) Physical Therapy Treatment Note PT-OP-A Visit Information Start: 06/01/18 07:14 Freq: Status: Active Protocol: Document 06/15/18 12:25 EA (Rec: 06/15/18 13:09 EA [id number]) Out-Patient Physical Therapy Visit Information Visit Information Visit Type Treatment Note Visit Start Time 12:20 Visit Stop Time 13:00 Total Visit Minutes 38 Visit Number 5 Number of CONTAMINATED LAND CONSULTANT Visits 0 PT-OP-B Current Condition Start: 06/01/18 07:14 Freq: Status: Active Protocol: Document 05/31/18 17:20 EA (Rec: 06/01/18 07:31 EA [id number]) Current Condition History of Current Condition Onset Date one year ago Current Complaints Difficulty of walking/standing due to bilat feet pain History of Current Condition Present complaint of pain to both feet has been on and off for almost 30 years with a history of left foot surgery. 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 Steroid injection 2 months ago have helped to decreased pain but not increasing deformity. Patient referred to Pt for further evaluation with no current or recent X-ray. Current reffering diagnosis is bilat plantar fasciitis. Prior Treatments and Tests Steroid injection 2 months ago . Future Testing and Treatments Planned None identified. Treatment Goals Patient/Caregiver Goals 1. Patients wants decreased or prevent further clubfoot deformity 2. Decreased pain level to both feet to at least 2/10 with WB activities. 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 Patient Reported Progress Improving PT-OP-D Balance Start: 06/01/18 07:14 Freq: Status: Active Protocol: Document 05/31/18 17:42 EA (Rec: 06/02/18 07:42 EA [id number]) Balance Tests Single Limb Standing Single Limb- Right unable Single Limb- Left unable PT-OP-E Functional Tests Start: 06/01/18 07:14 Freq: Status: Active Protocol: Document 05/31/18 17:41 EA (Rec: 06/02/18 07:42 EA [id number]) Functional Tests Other 2 Name of Test Toe walking Comment Unable 1 Name of Test Heel walking Comment Unable PT-OP-F Manual Assessment Start: 06/01/18 07:14 Freq: Status: Active Protocol: Document 05/31/18 17:28 EA (Rec: 06/01/18 16:45 EA [id number]) Manual Assessments Soft Tissue Assessment Soft Tissue Mobility Assessment Tightness to both platat fascia, FHL,FD, tibialis post Joint Mobility Assessment Joint Mobility Assessment Bilateral ankle joint, bilat calcaneo navicular joint hypomobility PT-OP-G Mobility & Gait Start: 06/01/18 07:14 Freq: Status: Active Protocol: Document 05/31/18 17:40 EA (Rec: 06/02/18 07:41 EA [id number]) OP Gait Assessment Comments Gait Comments Decreased push off bilateral with supinated feet. Weight bearing base mostly to lateral side of the foot. PT-OP-J Posture/Palpation/Skin Start: 06/01/18 07:14 Freq: Status: Active Protocol: Document 05/31/18 17:28 EA (Rec: 06/01/18 16:45 EA [id number]) Posture Evaluation Comments Posture Comments Bilateral knee Valgus, Bilateral mild club foot deformity Palpation Assessment Location One Palpation Location Bilateral posterior leg Palpation Findings Soft Tissue Tightness Tenderness Palpation Details Grade 2/4 tenderness to both planta fascia PT-OP-K Range of Motion Start: 06/01/18 07:14 Freq: Status: Active Protocol: Document 06/02/18 07:31 EA (Rec: 06/02/18 07:36 EA [id number]) Ankle and Foot Goniometric Range of Motion Ankle and Foot Measured in Degrees Right Active Testing Position Sitting Dorsiflexion with Knee Flexed 10 Dorsiflexion with Knee Extended 5 Plantarflexion 30 Inversion 30 Eversion 5 Left Testing Position Sitting Dorsiflexion with Knee Flexed 10 Dorsiflexion with Knee Extended 5 Plantarflexion 30 Inversion 30 Eversion 5 PT-OP-M Strength Start: 06/01/18 07:14 Freq: Status: Active Protocol: Document 05/31/18 17:36 EA (Rec: 06/02/18 07:38 EA [id number]) Ankle/Foot Strength Ankle and Foot Manual Muscle Testing Right Dorsiflexion (L4) 4 Good Plantarflexion (S1) 4- Good- Inversion 4 Good Eversion (S1) 4- Good- Reason Not Measured Pain Left Dorsiflexion (L4) 4 Good Plantarflexion (S1) 4- Good- Inversion 4 Good Eversion (S1) 4- Good- Reason Not Measured Pain Toe Strength Toe Manual Muscle Testing Great Toe Flexion 4+ Good+ Extension 4+ Good+ PT-OP-Q Treatments Start: 06/01/18 07:14 Freq: Status: Active Protocol: Document 06/15/18 12:25 EA (Rec: 06/15/18 13:09 EA [id number]) Therapeutic Exercises Sitting Exercises 3 Sitting Exercise Name HIP ER Side bilateral Resistance Lv1 Reps/Minutes x 12 reps x 2 2 Sitting Exercise Name Passive soleus stretch Side bilateral Reps/Minutes x 15 SH x 2 reps 1 Sitting Exercise Name Ankle DF, Eversion Side bilateral Resistance Lv 1, and 2 Reps/Minutes x 12 repsx 2 sets Standing Exercises 3 Standing Exercise Name Heel to toe gait Reps/Minutes x 5 lines Comments Cues to decreased lat trunk shifting. 2 Standing Exercise Name Corrected standing: weight to the medial side of the feet. Side bilateral Reps/Minutes x 10 reps x 2 sets 1 Standing Exercise Name Calves stretch straight knees Side bilateral Reps/Minutes x30SH x 2 reps Manual Therapy Treatment Soft Tissue Mobilization 1 Body Location Both plantar fascii, Tib post, FHL,FDL, Calves Mobilization Type Cross-Friction Myofascial Release Rolling Sustained Pressure Intensity/Depth Moderate Body Position Sitting Comments Start effleurage to muscle bulks PT-OP-T Assessment and Plan Start: 06/01/18 07:14 Freq: Status: Active Protocol: Document 06/15/18 12:25 EA (Rec: 06/15/18 13:09 EA [id number]) Physical Therapy Assessment Assessment Summary Assessment [id number] tenderness to both calves. Patient able to control waddling gait at this time. Patient is progressing well. Physical Therapy Plan Next Visit Focus/Plan Next Note Type Treatment Note
--- NOTE | 2018-06-21 13:35 | PT.OTN ---
Current Diagnoses Plantar fascial fibromatosis (06/21/18) Pain in unspecified foot (06/21/18) Congenital metatarsus adductus (06/21/18) Physical Therapy Treatment Note PT-OP-A Visit Information Start: 06/01/18 07:14 Freq: Status: Active Protocol: Document 06/21/18 11:30 HH (Rec: 06/21/18 13:34 HH [email or web address]) Out-Patient Physical Therapy Visit Information Visit Information Visit Type Treatment Note Visit Start Time 11:30 Visit Stop Time 12:05 Total Visit Minutes 35 Visit Number 6 Number of COUNTER SERVER Visits 0 PT-OP-B Current Condition Start: 06/01/18 07:14 Freq: Status: Active Protocol: Document 05/31/18 17:20 EA (Rec: 06/01/18 07:31 EA [id number]) Current Condition History of Current Condition Onset Date one year ago Current Complaints Difficulty of walking/standing due to bilat feet pain History of Current Condition Present complaint of pain to both feet has been on and off for almost 30 years with a history of left foot surgery. 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 Steroid injection 2 months ago have helped to decreased pain but not increasing deformity. Patient referred to Pt for further evaluation with no current or recent X-ray. Current reffering diagnosis is bilat plantar fasciitis. Prior Treatments and Tests Steroid injection 2 months ago . Future Testing and Treatments Planned None identified. Treatment Goals Patient/Caregiver Goals 1. Patients wants decreased or prevent further clubfoot deformity 2. Decreased pain level to both feet to at least 2/10 with WB activities. 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 Patient Reported Progress Improving PT-OP-D Balance Start: 06/01/18 07:14 Freq: Status: Active Protocol: Document 05/31/18 17:42 EA (Rec: 06/02/18 07:42 EA [id number]) Balance Tests Single Limb Standing Single Limb- Right unable Single Limb- Left unable PT-OP-E Functional Tests Start: 06/01/18 07:14 Freq: Status: Active Protocol: Document 05/31/18 17:41 EA (Rec: 06/02/18 07:42 EA [id number]) Functional Tests Other 2 Name of Test Toe walking Comment Unable 1 Name of Test Heel walking Comment Unable PT-OP-F Manual Assessment Start: 06/01/18 07:14 Freq: Status: Active Protocol: Document 05/31/18 17:28 EA (Rec: 06/01/18 16:45 EA [id number]) Manual Assessments Soft Tissue Assessment Soft Tissue Mobility Assessment Tightness to both platat fascia, FHL,FD, tibialis post Joint Mobility Assessment Joint Mobility Assessment Bilateral ankle joint, bilat calcaneo navicular joint hypomobility PT-OP-G Mobility & Gait Start: 06/01/18 07:14 Freq: Status: Active Protocol: Document 05/31/18 17:40 EA (Rec: 06/02/18 07:41 EA [id number]) OP Gait Assessment Comments Gait Comments Decreased push off bilateral with supinated feet. Weight bearing base mostly to lateral side of the foot. PT-OP-J Posture/Palpation/Skin Start: 06/01/18 07:14 Freq: Status: Active Protocol: Document 05/31/18 17:28 EA (Rec: 06/01/18 16:45 EA [id number]) Posture Evaluation Comments Posture Comments Bilateral knee Valgus, Bilateral mild club foot deformity Palpation Assessment Location One Palpation Location Bilateral posterior leg Palpation Findings Soft Tissue Tightness Tenderness Palpation Details Grade 2/4 tenderness to both planta fascia PT-OP-K Range of Motion Start: 06/01/18 07:14 Freq: Status: Active Protocol: Document 06/02/18 07:31 EA (Rec: 06/02/18 07:36 EA [id number]) Ankle and Foot Goniometric Range of Motion Ankle and Foot Measured in Degrees Right Active Testing Position Sitting Dorsiflexion with Knee Flexed 10 Dorsiflexion with Knee Extended 5 Plantarflexion 30 Inversion 30 Eversion 5 Left Testing Position Sitting Dorsiflexion with Knee Flexed 10 Dorsiflexion with Knee Extended 5 Plantarflexion 30 Inversion 30 Eversion 5 PT-OP-M Strength Start: 06/01/18 07:14 Freq: Status: Active Protocol: Document 05/31/18 17:36 EA (Rec: 06/02/18 07:38 EA [id number]) Ankle/Foot Strength Ankle and Foot Manual Muscle Testing Right Dorsiflexion (L4) 4 Good Plantarflexion (S1) 4- Good- Inversion 4 Good Eversion (S1) 4- Good- Reason Not Measured Pain Left Dorsiflexion (L4) 4 Good Plantarflexion (S1) 4- Good- Inversion 4 Good Eversion (S1) 4- Good- Reason Not Measured Pain Toe Strength Toe Manual Muscle Testing Great Toe Flexion 4+ Good+ Extension 4+ Good+ PT-OP-Q Treatments Start: 06/01/18 07:14 Freq: Status: Active Protocol: Document 06/21/18 11:30 HH (Rec: 06/21/18 13:34 HH [email or web address]) Therapeutic Exercises Sitting Exercises 4 Sitting Exercise Name seated B foot eversion Resistance RTB Reps/Minutes 8 Standing Exercises 5 Standing Exercise Name Concentric PF to neutral on stair Resistance concentric Equipment Used stair Reps/Minutes 8 4 Standing Exercise Name Eccentric lowering with everted foot from stair Side bilateral Resistance eccentric Equipment Used stair Reps/Minutes 8 3 Standing Exercise Name Heel to toe gait Reps/Minutes x 5 lines Comments with mirror 1 Standing Exercise Name Calves stretch straight knees Side bilateral Reps/Minutes x30SH x 2 reps Manual Therapy Treatment Soft Tissue Mobilization 2 Body Location both posterior tibialis Mobilization Type Cross-Friction Sustained Pressure Intensity/Depth Moderate Body Position Supine PT-OP-T Assessment and Plan Start: 06/01/18 07:14 Freq: Status: Active Protocol: Document 06/21/18 11:30 HH (Rec: 06/21/18 13:34 HH [email or web address]) Physical Therapy Assessment Progress Towards Goals Progress Towards Goals Progressing Toward Goals Assessment Summary Assessment pt demonstrates significant tenderness at B post tibialis due to tighness and weak evertors. Pt also demonstrates weakness at B PFs for eccentric and concentric strengthening on stair who c/o fatigue after 8 reps. However , pt presents improved gait control with reduced waddling gait and increase WB on B big toes and plantar fascia. Pt is progressing well. Physical Therapy Plan Next Visit Focus/Plan Next Note Type Treatment Note Next Visit Plan cont eccentric and concentric strengthening of B calves, evertor strengthening, STM on invertors, hip ER and abd strengthening
--- NOTE | 2018-06-23 16:29 | PT.OTN ---
Current Diagnoses Plantar fascial fibromatosis (06/23/18) Pain in unspecified foot (06/23/18) Congenital metatarsus adductus (06/23/18) Physical Therapy Treatment Note PT-OP-A Visit Information Start: 06/01/18 07:14 Freq: Status: Active Protocol: Document 06/23/18 16:25 [facility] (Rec: 06/23/18 16:29 [facility]H [id number]) Out-Patient Physical Therapy Visit Information Visit Information Visit Type Treatment Note Visit Start Time 13:00 Visit Stop Time 13:45 Total Visit Minutes 40 Visit Number 7 Number of DIRECTOR OPERATING Visits 0 PT-OP-B Current Condition Start: 06/01/18 07:14 Freq: Status: Active Protocol: Document 05/31/18 17:20 EA (Rec: 06/01/18 07:31 EA [id number]) Current Condition History of Current Condition Onset Date one year ago Current Complaints Difficulty of walking/standing due to bilat feet pain History of Current Condition Present complaint of pain to both feet has been on and off for almost 30 years with a history of left foot surgery. 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 Steroid injection 2 months ago have helped to decreased pain but not increasing deformity. Patient referred to Pt for further evaluation with no current or recent X-ray. Current reffering diagnosis is bilat plantar fasciitis. Prior Treatments and Tests Steroid injection 2 months ago . Future Testing and Treatments Planned None identified. Treatment Goals Patient/Caregiver Goals 1. Patients wants decreased or prevent further clubfoot deformity 2. Decreased pain level to both feet to at least 2/10 with WB activities. 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 She says her pain is better overall Patient Reported Progress Improving PT-OP-D Balance Start: 06/01/18 07:14 Freq: Status: Active Protocol: Document 05/31/18 17:42 EA (Rec: 06/02/18 07:42 EA [id number]) Balance Tests Single Limb Standing Single Limb- Right unable Single Limb- Left unable PT-OP-E Functional Tests Start: 06/01/18 07:14 Freq: Status: Active Protocol: Document 05/31/18 17:41 EA (Rec: 06/02/18 07:42 EA [id number]) Functional Tests Other 2 Name of Test Toe walking Comment Unable 1 Name of Test Heel walking Comment Unable PT-OP-F Manual Assessment Start: 06/01/18 07:14 Freq: Status: Active Protocol: Document 05/31/18 17:28 EA (Rec: 06/01/18 16:45 EA [id number]) Manual Assessments Soft Tissue Assessment Soft Tissue Mobility Assessment Tightness to both platat fascia, FHL,FD, tibialis post Joint Mobility Assessment Joint Mobility Assessment Bilateral ankle joint, bilat calcaneo navicular joint hypomobility PT-OP-G Mobility & Gait Start: 06/01/18 07:14 Freq: Status: Active Protocol: Document 05/31/18 17:40 EA (Rec: 06/02/18 07:41 EA [id number]) OP Gait Assessment Comments Gait Comments Decreased push off bilateral with supinated feet. Weight bearing base mostly to lateral side of the foot. PT-OP-J Posture/Palpation/Skin Start: 06/01/18 07:14 Freq: Status: Active Protocol: Document 05/31/18 17:28 EA (Rec: 06/01/18 16:45 EA [id number]) Posture Evaluation Comments Posture Comments Bilateral knee Valgus, Bilateral mild club foot deformity Palpation Assessment Location One Palpation Location Bilateral posterior leg Palpation Findings Soft Tissue Tightness Tenderness Palpation Details Grade 2/4 tenderness to both planta fascia PT-OP-K Range of Motion Start: 06/01/18 07:14 Freq: Status: Active Protocol: Document 06/02/18 07:31 EA (Rec: 06/02/18 07:36 EA [id number]) Ankle and Foot Goniometric Range of Motion Ankle and Foot Measured in Degrees Right Active Testing Position Sitting Dorsiflexion with Knee Flexed 10 Dorsiflexion with Knee Extended 5 Plantarflexion 30 Inversion 30 Eversion 5 Left Testing Position Sitting Dorsiflexion with Knee Flexed 10 Dorsiflexion with Knee Extended 5 Plantarflexion 30 Inversion 30 Eversion 5 PT-OP-M Strength Start: 06/01/18 07:14 Freq: Status: Active Protocol: Document 05/31/18 17:36 EA (Rec: 06/02/18 07:38 EA [id number]) Ankle/Foot Strength Ankle and Foot Manual Muscle Testing Right Dorsiflexion (L4) 4 Good Plantarflexion (S1) 4- Good- Inversion 4 Good Eversion (S1) 4- Good- Reason Not Measured Pain Left Dorsiflexion (L4) 4 Good Plantarflexion (S1) 4- Good- Inversion 4 Good Eversion (S1) 4- Good- Reason Not Measured Pain Toe Strength Toe Manual Muscle Testing Great Toe Flexion 4+ Good+ Extension 4+ Good+ PT-OP-Q Treatments Start: 06/01/18 07:14 Freq: Status: Active Protocol: Document 06/23/18 16:25 [facility] (Rec: 06/23/18 16:29 AMH [email or web address]) Therapeutic Exercises Sitting Exercises 1 Sitting Exercise Name Ankle DF, Eversion Side bilateral Resistance Lv 1, and 2 Reps/Minutes x 12 repsx 2 sets Standing Exercises 5 Standing Exercise Name Concentric PF to neutral on stair Resistance concentric Equipment Used stair Reps/Minutes 8 4 Standing Exercise Name Eccentric lowering with everted foot from stair Side bilateral Resistance eccentric Equipment Used stair Reps/Minutes 8 3 Standing Exercise Name Heel to toe gait Reps/Minutes x 5 lines Comments with mirror 2 Standing Exercise Name Corrected standing: weight to the medial side of the feet. Side bilateral Reps/Minutes x 10 reps x 2 sets 1 Standing Exercise Name Calves stretch straight knees Side bilateral Reps/Minutes x30SH x 2 reps Manual Therapy Treatment Soft Tissue Mobilization 2 Body Location both posterior tibialis Mobilization Type Cross-Friction Sustained Pressure Intensity/Depth Moderate Body Position Supine PT-OP-T Assessment and Plan Start: 06/01/18 07:14 Freq: Status: Active Protocol: Document 06/23/18 16:25 AM[facility] (Rec: 12/20/18 16:29 AMH [email or web address]) Physical Therapy Assessment Assessment Summary Assessment pt reports significant decreased tenderness to bilateral tibialis posterior, no pain to palpation in the plantar fascia Physical Therapy Plan Frequency and Duration Frequency of Treatment 2x/Week Duration of Treatment 8 wks Plan of Care Start Date 05/31/18 Plan of Care End Date 07/26/18 Next Visit Focus/Plan Next Note Type Treatment Note Next Visit Plan cont eccentric and concentric strengthening of B calves, evertor strengthening, STM on invertors, hip ER and abd strengthening
--- NOTE | 2018-07-12 14:44 | PT.OTN ---
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) Physical Therapy Treatment Note PT-OP-A Visit Information Start: 06/01/18 07:14 Freq: Status: Active Protocol: Document 07/12/18 14:35 EA (Rec: 07/12/18 14:44 EA [id number]) Out-Patient Physical Therapy Visit Information Visit Information Visit Type Treatment Note Visit Start Time 13:45 Visit Stop Time 14:23 Total Visit Minutes 38 Visit Number 8 Number of [employer] Visits 0 PT-OP-B Current Condition Start: 06/01/18 07:14 Freq: Status: Active Protocol: Document 05/31/18 17:20 EA (Rec: 06/01/18 07:31 EA [id number]) Current Condition History of Current Condition Onset Date one year ago Current Complaints Difficulty of walking/standing due to bilat feet pain History of Current Condition Present complaint of pain to both feet has been on and off for almost 30 years with a history of left foot surgery. 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 Steroid injection 2 months ago have helped to decreased pain but not increasing deformity. Patient referred to Pt for further evaluation with no current or recent X-ray. Current reffering diagnosis is bilat plantar fasciitis. Prior Treatments and Tests Steroid injection 2 months ago . Future Testing and Treatments Planned None identified. Treatment Goals Patient/Caregiver Goals 1. Patients wants decreased or prevent further clubfoot deformity 2. Decreased pain level to both feet to at least 2/10 with WB activities. 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 Patient Reported Progress Improving PT-OP-D Balance Start: 06/01/18 07:14 Freq: Status: Active Protocol: Document 05/31/18 17:42 EA (Rec: 06/02/18 07:42 EA [id number]) Balance Tests Single Limb Standing Single Limb- Right unable Single Limb- Left unable PT-OP-E Functional Tests Start: 06/01/18 07:14 Freq: Status: Active Protocol: Document 05/31/18 17:41 EA (Rec: 06/02/18 07:42 EA [id number]) Functional Tests Other 2 Name of Test Toe walking Comment Unable 1 Name of Test Heel walking Comment Unable PT-OP-F Manual Assessment Start: 06/01/18 07:14 Freq: Status: Active Protocol: Document 05/31/18 17:28 EA (Rec: 06/01/18 16:45 EA [id number]) Manual Assessments Soft Tissue Assessment Soft Tissue Mobility Assessment Tightness to both platat fascia, FHL,FD, tibialis post Joint Mobility Assessment Joint Mobility Assessment Bilateral ankle joint, bilat calcaneo navicular joint hypomobility PT-OP-G Mobility & Gait Start: 06/01/18 07:14 Freq: Status: Active Protocol: Document 05/31/18 17:40 EA (Rec: 06/02/18 07:41 EA [id number]) OP Gait Assessment Comments Gait Comments Decreased push off bilateral with supinated feet. Weight bearing base mostly to lateral side of the foot. PT-OP-J Posture/Palpation/Skin Start: 06/01/18 07:14 Freq: Status: Active Protocol: Document 05/31/18 17:28 EA (Rec: 06/01/18 16:45 EA [id number]) Posture Evaluation Comments Posture Comments Bilateral knee Valgus, Bilateral mild club foot deformity Palpation Assessment Location One Palpation Location Bilateral posterior leg Palpation Findings Soft Tissue Tightness Tenderness Palpation Details Grade 2/4 tenderness to both planta fascia PT-OP-K Range of Motion Start: 06/01/18 07:14 Freq: Status: Active Protocol: Document 06/02/18 07:31 EA (Rec: 06/02/18 07:36 EA [id number]) Ankle and Foot Goniometric Range of Motion Ankle and Foot Measured in Degrees Right Active Testing Position Sitting Dorsiflexion with Knee Flexed 10 Dorsiflexion with Knee Extended 5 Plantarflexion 30 Inversion 30 Eversion 5 Left Testing Position Sitting Dorsiflexion with Knee Flexed 10 Dorsiflexion with Knee Extended 5 Plantarflexion 30 Inversion 30 Eversion 5 PT-OP-M Strength Start: 06/01/18 07:14 Freq: Status: Active Protocol: Document 05/31/18 17:36 EA (Rec: 06/02/18 07:38 EA [id number]) Ankle/Foot Strength Ankle and Foot Manual Muscle Testing Right Dorsiflexion (L4) 4 Good Plantarflexion (S1) 4- Good- Inversion 4 Good Eversion (S1) 4- Good- Reason Not Measured Pain Left Dorsiflexion (L4) 4 Good Plantarflexion (S1) 4- Good- Inversion 4 Good Eversion (S1) 4- Good- Reason Not Measured Pain Toe Strength Toe Manual Muscle Testing Great Toe Flexion 4+ Good+ Extension 4+ Good+ PT-OP-Q Treatments Start: 06/01/18 07:14 Freq: Status: Active Protocol: Document 07/12/18 14:35 EA (Rec: 07/12/18 14:44 EA [id number]) Cardio Equipment Recumbent Stepper (Sci-Fit) Duration (Minutes) 7 Resistance 2 Gym Equipment Cable Column (Body Solid) Leg Extension Resistance 10# Reps/Time x 12 reps Shuttle Recovery Bilateral Squats Resistance 100# Reps/Time x 15 reps x 2 Unilateral Squats Resistance 50# Reps/Time x 15 repsx 2 Bilateral Heel Raises Resistance 50# Reps/Time x 15 reps x 2 Therapeutic Exercises Sitting Exercises 2 Sitting Exercise Name Passive soleus stretch Side bilateral Reps/Minutes x 15 SH x 2 reps 1 Sitting Exercise Name Ankle DF, Eversion Side bilateral Resistance Lv 1, and 2 Reps/Minutes x 12 repsx 2 sets Standing Exercises 3 Standing Exercise Name Heel to toe gait Reps/Minutes x 5 lines Comments with mirror 2 Standing Exercise Name Corrected standing: weight to the medial side of the feet. Side bilateral Reps/Minutes x 10 reps x 2 sets 1 Standing Exercise Name Calves stretch straight knees Side bilateral Reps/Minutes x30SH x 2 reps Self-Care/Home Management Treatment Education Patient Education Home Exercise Program Joint Protection PT-OP-T Assessment and Plan Start: 06/01/18 07:14 Freq: Status: Active Protocol: Document 07/12/18 14:35 EA (Rec: 07/12/18 14:44 EA [id number]) Physical Therapy Assessment Assessment Summary Assessment Patient has improved gait with heel to toe gait and improved terminal knee extension at stance phase. Noted decrease in toeing of both at this time with almost equal weight bearing surface to both plantar surface. Patient to see after two weeks. Physical Therapy Plan Next Visit Focus/Plan Next Note Type Re-Evaluation Next Visit Plan discharge if nor more complaint.
--- NOTE | 2018-07-28 16:00 | PT.OTN ---
Current Diagnoses Plantar fascial fibromatosis (07/28/18) Pain in unspecified foot (07/28/18) Congenital metatarsus adductus (07/28/18) Physical Therapy Treatment Note PT-OP-A Visit Information Start: 06/01/18 07:14 Freq: Status: Active Protocol: Document 07/28/18 15:56 EA (Rec: 07/28/18 15:59 EA [id number]) Out-Patient Physical Therapy Visit Information Visit Information Visit Type Treatment Note Visit Note Discharge to this date Visit Start Time 14:30 Visit Stop Time 14:55 Total Visit Minutes 25 Visit Number 9 PT-OP-B Current Condition Start: 06/01/18 07:14 Freq: Status: Active Protocol: Document 05/31/18 17:20 EA (Rec: 06/01/18 07:31 EA [id number]) Current Condition History of Current Condition Onset Date one year ago Current Complaints Difficulty of walking/standing due to bilat feet pain History of Current Condition Present complaint of pain to both feet has been on and off for almost 30 years with a history of left foot surgery. 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 Steroid injection 2 months ago have helped to decreased pain but not increasing deformity. Patient referred to Pt for further evaluation with no current or recent X-ray. Current reffering diagnosis is bilat plantar fasciitis. Prior Treatments and Tests Steroid injection 2 months ago . Future Testing and Treatments Planned None identified. Treatment Goals Patient/Caregiver Goals 1. Patients wants decreased or prevent further clubfoot deformity 2. Decreased pain level to both feet to at least 2/10 with WB activities. 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 PT-OP-D Balance Start: 06/01/18 07:14 Freq: Status: Active Protocol: Document 05/31/18 17:42 EA (Rec: 06/02/18 07:42 EA [id number]) Balance Tests Single Limb Standing Single Limb- Right unable Single Limb- Left unable PT-OP-E Functional Tests Start: 06/01/18 07:14 Freq: Status: Active Protocol: Document 05/31/18 17:41 EA (Rec: 06/02/18 07:42 EA [id number]) Functional Tests Other 2 Name of Test Toe walking Comment Unable 1 Name of Test Heel walking Comment Unable PT-OP-F Manual Assessment Start: 06/01/18 07:14 Freq: Status: Active Protocol: Document 05/31/18 17:28 EA (Rec: 06/01/18 16:45 EA [id number]) Manual Assessments Soft Tissue Assessment Soft Tissue Mobility Assessment Tightness to both platat fascia, FHL,FD, tibialis post Joint Mobility Assessment Joint Mobility Assessment Bilateral ankle joint, bilat calcaneo navicular joint hypomobility PT-OP-G Mobility & Gait Start: 06/01/18 07:14 Freq: Status: Active Protocol: Document 05/31/18 17:40 EA (Rec: 06/02/18 07:41 EA [id number]) OP Gait Assessment Comments Gait Comments Decreased push off bilateral with supinated feet. Weight bearing base mostly to lateral side of the foot. PT-OP-J Posture/Palpation/Skin Start: 06/01/18 07:14 Freq: Status: Active Protocol: Document 05/31/18 17:28 EA (Rec: 06/01/18 16:45 EA [id number]) Posture Evaluation Comments Posture Comments Bilateral knee Valgus, Bilateral mild club foot deformity Palpation Assessment Location One Palpation Location Bilateral posterior leg Palpation Findings Soft Tissue Tightness Tenderness Palpation Details Grade 2/4 tenderness to both planta fascia PT-OP-K Range of Motion Start: 06/01/18 07:14 Freq: Status: Active Protocol: Document 06/02/18 07:31 EA (Rec: 06/02/18 07:36 EA [id number]) Ankle and Foot Goniometric Range of Motion Ankle and Foot Measured in Degrees Right Active Testing Position Sitting Dorsiflexion with Knee Flexed 10 Dorsiflexion with Knee Extended 5 Plantarflexion 30 Inversion 30 Eversion 5 Left Testing Position Sitting Dorsiflexion with Knee Flexed 10 Dorsiflexion with Knee Extended 5 Plantarflexion 30 Inversion 30 Eversion 5 PT-OP-M Strength Start: 06/01/18 07:14 Freq: Status: Active Protocol: Document 05/31/18 17:36 EA (Rec: 06/02/18 07:38 EA [id number]) Ankle/Foot Strength Ankle and Foot Manual Muscle Testing Right Dorsiflexion (L4) 4 Good Plantarflexion (S1) 4- Good- Inversion 4 Good Eversion (S1) 4- Good- Reason Not Measured Pain Left Dorsiflexion (L4) 4 Good Plantarflexion (S1) 4- Good- Inversion 4 Good Eversion (S1) 4- Good- Reason Not Measured Pain Toe Strength Toe Manual Muscle Testing Great Toe Flexion 4+ Good+ Extension 4+ Good+ PT-OP-Q Treatments Start: 06/01/18 07:14 Freq: Status: Active Protocol: Document 07/28/18 15:56 EA (Rec: 07/28/18 15:59 EA [id number]) Self-Care/Home Management Treatment Education Patient Education Fall Risk Home Exercise Program Joint Protection Pain Management Safety Other Education Discussed importance of ideal body weight to her condition and safe weight bearing activities. PT-OP-T Assessment and Plan Start: 06/01/18 07:14 Freq: Status: Active Protocol: Document 07/28/18 15:56 EA (Rec: 07/28/18 15:59 EA [id number]) Physical Therapy Assessment Assessment Summary Assessment Patient is discharge today to [facility] per patient request. Physical Therapy Plan Discharge Physical Therapy Discharge Reasons Patient Request
== END 2018-10-31 12:19 | disposition home or self-care (01) ==
LOC: PHYS 14:30
PROVIDERS: PCP Student in an Organized Health Care Education/Training Program; Visit Provider Podiatrist Foot & Ankle Surgery
DX: M79.673 Pain in unspecified foot (principal); M72.2 Plantar fascial fibromatosis; Q66.22 Congenital metatarsus adductus
CPT/HCPCS: 97110; 97140; 97162; 97535

== ENCOUNTER → 2018-09-19 17:39 | Outpatient (CLI) | payer OTHER, MEDICAID, SELFPAY ==
[2018-09-19 18:49] LABS: HEMOLYSIS < 15 (0-50); Iron 70 ug/dL (37-170)
[2018-09-19 18:53] LABS: Hemoglobin 13.2 g/dL (12.0-16.0); Mean Corpuscular HGB Conc 32.9 % (30-36); Mean Corpuscular Volume 84.9 fL (80-100); Platelet Count 300 X10^3/uL (150-400); Red Blood Cell Count 4.71 X10^6/uL (4.0-5.2); Red Cell Distribution Width 16.6 % (11.6-14.8); White Blood Cell Count 6.7 X10^3/uL (4.5-11.0)
[2018-09-19 18:56] LABS: Cholesterol 192 mg/dL (140-199); HDL Cholesterol 44 mg/dL (40-60); HEMOLYSIS < 15 (0-50); LDL Cholesterol Calculated 128 mg/dL (<100); Potassium 3.9 mmol/L (3.4-5.1); Triglycerides 101 mg/dL (35-150)
[2018-09-19 19:02] LABS: Percent Iron Saturation 19 % (15-50); Total Iron Binding Capacity 368 ug/dL (265-497); Transferrin 281 mg/dL (206-381)
[2018-09-19 19:07] LABS: Vitamin D 25 Hydroxy (D3) 23.1 ng/mL (30.0-100.0)
== END ==
PROVIDERS: PCP Student in an Organized Health Care Education/Training Program; Visit Provider Student in an Organized Health Care Education/Training Program
DX: D50.9 Iron deficiency anemia, unspecified (principal); E87.5 Hyperkalemia; E55.9 Vitamin D deficiency, unspecified; Z13.220 Encounter for screening for lipoid disorders
CPT/HCPCS: 36415; 80061; 82306; 83540; 83550; 84132; 85027

== ENCOUNTER → 2018-12-06 16:44 | Outpatient (CLI) | payer OTHER, MEDICAID, SELFPAY ==
[2018-12-06 18:39] LABS: Appearance Urine UA CLEAR; Bilirubin Urine UA NEGATIVE (NEGATIVE); Color Urine UA YELLOW; Glucose Urine UA NEGATIVE (Negative); Ketones Urine UA TRACE (NEGATIVE); Leukocyte Esterase Urine UA 2+ (NEGATIVE); Nitrite Urine UA NEGATIVE (Negative); Occult Blood Urine UA TRACE-LYSED (Negative); Protein Urine UA NEGATIVE (Negative); Urobilinogen Urine UA 0.2 E.U./dL (0.2); pH Urine UA 6.5 (4.5-8.0)
[2018-12-06 18:47] LABS: Bacteria Urine Occasional (0-1); RBC Urine 0-1/HPF (0-5/HPF); WBC Urine 5-10/HPF (0-5/HPF)
== END ==
PROVIDERS: PCP Student in an Organized Health Care Education/Training Program; Visit Provider Student in an Organized Health Care Education/Training Program
DX: R35.0 Frequency of micturition (principal)
CPT/HCPCS: 81001

== ENCOUNTER 2019-07-24 12:36 | Day surgery (SDC) | payer OTHER, MEDICAID, SELFPAY ==
[2019-07-20 14:50] VITALS: BMI 39.4
[2019-07-24] VITALS (12 sets, daily range): BP systolic 105–133; BP diastolic 38–85; PULSE 60–85; RESP 14–28; TEMP 36.6–37; O2SAT 93–99; BMI 39.4
--- NOTE | 2019-07-24 | PATH_ITS ---
[facility] Accession Number: [id number] . 01 Material submitted: . PART A: uterus - UTERUS/CERVIX PART B: ovary - RIGHT OVARIAN CYST . 02 Diagnosis: A. Uterus, Hysterectomy: 1. Adenomyosis. 2. Noncycling/inactive endometrium. 3. No evidence of neoplasia or hyperplasia. . B. 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 Please see comment. [facility] 07/28/2019 1741 Local . 02 Comment: The neoplasm shows a low Ki-67 proliferative rate, and no mitotic figures are identified, consistent with a low grade neuroendocrine tumor. The immunophenotype is compatible with a primary ovarian carcinoid, in the appripriate clinical and radiologic setting. Primary carcinoid tumor of the ovary is uncommon, but when present is most commonly associated with a mature cystic teratoma. . 02 Electronically signed: . Danielle Villeda MD, Pathologist NPI- [id number] . 01 Gross description: . (A) Received in formalin, labeled uterus/cervix, is a uterus (61 grams, 3.2 cm AP, 8.3 cm SI, 3.8 cm ML). The ovaries and fallopian tubes are absent. The cervix (2.1 cm AP, 2.7 cm ML) has a vaginal cuff (up to 0.8 cm in depth), transverse os, and patent endocervical canal. The endometrium (average thickness-0.2 cm) is rodriguez-pink and flat. The myometrium (thickness-1.5 cm) is rodriguez with a focally rodriguez-white lacy pattern. The serosa is pale rodriguez, smooth and shiny. The ectocervical and paracervical margins are inked blue. The parenchyma is rodriguez-white and unremarkable. Section code: (A1) anterior cervix; (A2) posterior cervix; (A3, A4) anterior endomyometrium; (A5, A6) posterior endomyometrium. (B) Received in formalin, labeled right ovarian cyst, is an intact ovarian cyst (4.5 x 3.8 x 2.5 cm). The serosa is rodriguez-yellow, smooth and flat. The cyst contains pale yellow paste-like and waxy material mixed with matted strands of hair. The lining is smooth and flat with no excrescences identified. A minimal amount of normal ovarian parenchyma is identified. Watch [employer] serial sections submitted in cassettes B1-B4. ([id number]) /MRV 07/25/2019 1549 Local . 02 Microscopic: . Immunohistochemical stains were performed to characterize cells of interest. All control stains showed appropriate reactivity. . Results: . Chromogranin: Occasional cells variably positive. Synaptophysin: Uniformly positive. Inhibin: Negative. Calrectinin: Negative. CDX2: Weakly variably positive. CK7: Negative. CK20: Negative. TTF-1: Negative. Ki-67: Less than 2% of cells positive. PAX8: Variably positive. . Interpretation: The immunophenotype is compatible with a carcinoid arising in a mature cystic teratoma, and mitigates against an interpretation of metastasis in the appropriate clinical and radiologic setting. . * This test was developed and its performance characteristics determined by [facility]. It has not been cleared or approved by the U.S. Food and Drug Administration. The FDA has determined that such clearance or approval is not necessary. This test is used for clinical purposes. It should not be regarded as investigational or for research. . 02 Pathologist provided ICD-10: D3A.00, N80.0 . 02 CPT . 007104, 521961, C73798, Z17483 Performed at: 01 [facility] [address] [facility] [place], [place], [place] [id number] MD Manuel David MD Phone: [phone] Performed at: 02 [facility] [address] [place], [place] [id number] MD Danielle Villeda MD Phone: [phone]
[2019-07-24] MEDS: GABAPENTIN 300 MG CAPSULE PO (13:06)
[2019-07-24] MEDS: ACETAMINOPHEN 325 MG TABLET 975 MG PO (13:06)
[2019-07-24] MEDS: SCOPOLAMINE 1 PATCH TOP (13:08)
[2019-07-24] MEDS: LACTATED RINGERS 1,000 ML 100 ML IV ×2 (13:08→16:43)
--- NOTE | 2019-07-24 13:17 | PM.PREOP ---
Pre-operative Note Interval Note History & Physical reviewed/Exam performed by Physician: Yes Changes to H&P: No ASA Class (for procedural sedation): II
[2019-07-24] MEDS: CELECOXIB 200 MG CAPSULE 400 MG PO (13:32)
[2019-07-24] MEDS: CEFOTETAN 2 GM/50 ML PIGGYBACK IV (13:38)
--- NOTE | 2019-07-24 13:54 | SUR.OPER ---
Lithotomy on padded OR bed, head on pillow, arms secured on padded arm boards at <90 degrees abduction. Legs secured in padded yellow fins stirrups.
[2019-07-24] MEDS: BUPIVACAINE 0.5% W/ EPI (PF) 30 ML VIAL INJ (14:07)
--- NOTE | 2019-07-24 15:17 | PM.GYNOP.1 ---
Operative Date/Time/Diagnoses Date of procedure: 07/24/19 Time of procedure: 15:17 Pre-op diagnosis: Uterine descensus Cystocele third-degree Post-op diagnosis: same Procedure & Clinicians Procedure: Procedures Operation Date: 07/24/19 13:30 Actual Procedures Side Surgeon p Vaginal Hysterectomy and Anterior Colporrhaphy Luis Enrique Olvera MD Surgeon: Luis Enrique Olvera Alarm Installation Technician: Sierra Bailon Anesthesia Type: General Operative Notes Findings: Patient had an apparent dermoid on her right ovary which was removed. Patient had a normal uterus and cervix. Patient had a normal left ovary in two Closure Type: primary Specimen(s): uterus and other (Right ovary) Estimated blood loss (mL): 100 Blood products transfused: none Procedure in detail: The patient was placed supine upon the operating table anesthetized. She was then placed in the dorsal lithotomy position examined under anesthesia. Under anesthesia she was felt to have a normal size uterus and no adnexal masses. Patient was draped and prepared in usual fashion. Posterior weighted retractor of set in place the anterior lip of the cervix grabbed with a double tooth tenaculum. Cervix was injected with 0.5% Marcaine 1 to [id number] epinephrine. Circumferential sharp knife incision was then made. Bladder was taken down sharply and pushed in a cephalad direction. [place] retractor was set in place. Perineum was picked up and incised. Posterior peritoneum was then picked up and incised in the long posterior weighted retractor set in place. Uterosacral ligaments were then bilaterally clamped incised and suture ligated with 1. Chromic suture. These pedicles were held. Cardinal ligaments were bilaterally clamped incised and suture ligated. Uterine vessels were bilaterally clamped incised and suture ligated. The ovarian pedicles were taken in two bites the last of which were free tied and suture ligated. At this juncture was noticed the patient had a 5 cm prominent right ovarian cyst which appears to be a dermoid. It was felt advisable to leave this in place. Utero-ovarian ligament was isolated doubly clamped inside free tied x2. This specimen was sent separately for pathologic diagnosis. The left ovary appeared to be normal as did the fallopian tubes. The posterior and anterior peritoneum were grasped with Allis clamps. Pursestring suture of 1. Chromic suture was then used in the perineum closed period angle sutures of 1. Chromic suture replaced. This having been done the anterior portions of the vagina or graft with Allis [place] clamps. The anterior vaginal waterman injected with 0.5% Marcaine and 1 to [id number] epinephrine. The epithelium was dissected in the midline and incised. Lateral edges of the vagina were grasped this incision was extended to the urethrovesical junction. Lateral edges of the vagina on the right were grasped and the pubis cervical vesical fascia was incised with a sharp knife and taken down sharply. With a moistened 4 x 4 it was pushed in a cephalad direction. Similar procedure was performed on the left-hand side. Bladder was dissected away posterior period 0 PDS two suture was then used to reapproximate the pubis cervical vesical fascia in serial bites. This having been done the excess vagina was splayed outward and excised on both sides. The vagina was then closed with 1. Chromic suture. The cuff was then closed transversely. At the end of the procedure the wound is dry. Urine was clear. The patient was taken to the CT room in satisfactory condition. Complications: none Post-operative Condition: stable Disposition: PACU Plan for aftercare: To acute care
--- NOTE | 2019-07-24 15:55 | SUR.PHASEI ---
report to Magali RN in acute care
--- NOTE | 2019-07-24 16:09 | SUR.PHASEI ---
pt transferred to room 218 in stable condition. No update to pt condition upon transfer
[2019-07-24] MEDS: DOCUSATE 250 MG CAPSULE PO (20:48)
[2019-07-24] MEDS: HYDROCODONE/ACET 5/325 TABLET 1 TAB PO (20:50)
--- NOTE | 2019-07-24 21:09 | PC.NURSE ---
Pt voiding q 60 minutes 200-300 mLs now pink urine with occ small clots. She denies pain but c/o of cramping, a feeling of fullness, and requested one [place] 09/11. Blood on pads decreased to approx 15 - 30 mLs.
[2019-07-25 00:05] VITALS: BP 122/93; PULSE 69; RESP 16; TEMP 36.6; O2SAT 94
[2019-07-25] MEDS: LACTATED RINGERS 1,000 ML 100 ML IV (01:49)
[2019-07-25] MEDS: KETOROLAC 30 MG/ML VIAL IV (01:50)
[2019-07-25 04:20] VITALS: BP 109/53; PULSE 58; RESP 16; TEMP 36.7; O2SAT 96
[2019-07-25 05:45] LABS: Add Manual Diff / Slide Review NO; Basophils Absolute Auto 0 /uL (0-100); Basophils Percent Auto 0.3 % (0-2); Eosinophils Absolute Auto 0 /uL (0-450); Hematocrit 36.8 % (36-46); Hemoglobin 12.5 g/dL (12.0-16.0); Lymphocytes Absolute Auto 700 /uL (1100-4500); Lymphocytes Percent Auto 7.2 % (25-40); Mean Corpuscular HGB Conc 33.9 % (30-36); Mean Corpuscular Hemoglobin 30.2 PG (26-34); Mean Corpuscular Volume 89.1 fL (80-100); Monocytes Absolute Auto 600 /uL (0-900); Monocytes Percent Auto 6.2 % (3-14); Neutrophils Absolute Auto 7900 /uL (1500-7000); Neutrophils Percent Auto 86.3 % (50-75); Platelet Count 239 X10^3/uL (150-400); Red Blood Cell Count 4.13 X10^6/uL (4.0-5.2); Red Cell Distribution Width 13.6 % (11.6-14.8); White Blood Cell Count 9.2 X10^3/uL (4.5-11.0)
[2019-07-25 07:40] VITALS: BP 122/69; PULSE 53; RESP 16; TEMP 37.1; O2SAT 96
--- NOTE | 2019-07-25 07:57 | PM.DS.1 ---
History of Present Illness History of Present Illness Date Patient Seen: 07/25/19 Time Patient Seen: 07:57 Chief complaint: [id number] *OPB* Narrative: The patient is a 58-year-old who presented because of uterine descensus and a large cystocele. Patient was taken to surgery where she underwent a vaginal hysterectomy and anterior colporrhaphy. What appeared to be a dermoid tumor of her right ovary was discovered time of surgery and it was removed without incident. Post surgery the patient has done well. She is ambulating well. She is taking p.o. well. And she is voiding in good volumes. Discharge Providers Provider Discharge Date: 07/25/19 Primary care physician: Gavin Curry MD Discharge provider: Luis Enrique Olvera MD Summary Hospital Course Discharge Diagnosis: Uterine descensus Cystocele Probable dermoid cyst right ovary Status post vaginal hysterectomy, anterior colporrhaphy and right oophorectomy Hospital Course: Patient was admitted for elective surgery. She underwent a vaginal hysterectomy and anterior colporrhaphy without incident. She was discovered to have a probable dermoid cyst of her right ovary approximately 5 cm which was removed at time of surgery and explained to the patient. Post surgery the patient did well. She remained afebrile with stable vital signs. She was taking p.o. well. She was ambulating well. She was voiding and good volumes. Status at Discharge Cognitive/behavioral status at discharge: oriented Functional status at discharge: independent ambulation Overall status at discharge: patient is progressing back to baseline Time Spent with Patient Time spent: Less than 30 minutes Exam Vital Signs (past 8 hours): - 07/25/19 00:05 07/25/19 04:20 Temperature 97.8 F 98.1 F Pulse Rate 69 58 L Respiratory Rate 16 16 Blood Pressure 122/93 H 109/53 L Pulse Oximetry 94 96 Oxygen Delivery Method Room Air Oxygen Flow Rate 0 Narrative Exam Narrative: Abdomen soft and nontender Vaginal drainage is scant Objective Labs Result Diagrams: 07/25/19 05:05 Labs: Laboratory Results - last 24 hr 07/25/19 05:05 WBC 9.2 RBC 4.13 Hgb 12.5 Hct 36.8 MCV 89.1 MCH 30.2 MCHC 33.9 RDW 13.6 Plt Count 239 Neut % (Auto) 86.3 H Lymph % (Auto) 7.2 L [place] % (Auto) 6.2 Eos % (Auto) 0.0 L Baso % (Auto) 0.3 Neut # (Auto) 7900 H Lymph # (Auto) 700 L [place] # (Auto) 600 Eos # (Auto) 0 Baso # (Auto) 0 Discharge Plan Discharge Plan Patient Disposition: Home Discharge Med Rec/Prescriptions Prescriptions: New ibuprofen 600 mg tablet 600 mg PO Q6H PRN (Reason: pain) Qty: 14 RF: 1 Continued disabled [address] permit See Rx Instructions .ROUTE .COMPLEX Qty: 1 RF: 0 Follow up/Referrals: Luis Enrique Olvera MD [Physician] - 2 Weeks Discharge Orders: Discharge (Order); Ordered 07/25/19 Ordered By: Luis Enrique Olvera Provider Discharge Instructions Diet: Diet as Tolerated Activity: Up ad gamal No lifting or straining Skin/Wound/Dressing Care Skin care: Keep perineum clean and dry Report to your healthcare provider any signs of infection, such as:: chills, fever, increased pain, unusual drainage and unusual redness Dressing: None Other wound treatment: None Visit Report/Discharge Packet Instructions: DI for Hysterectomy Discharge Data Primary Care Provider: Gavin Curry Attending Provider: Luis Enrique Olvera
[2019-07-25] MEDS: DOCUSATE 250 MG CAPSULE PO (09:52)
[2019-07-25] MEDS: HYDROCODONE/ACET 5/325 TABLET 1 TAB PO (09:56)
--- NOTE | 2019-07-25 11:20 | CM.DANOTE ---
pt. of Dr. Olvera s/p female surgeries. Found pt. sitting up in bed with breakfast tray. at BS. Both in good spirits and joking with this RN. Pt. denies any barriers to discharge or concerns about going home. Verbilizes her understanding about lifting restrictions... Nothing more than 5 pounds and explained to me that a gallon of milk is 8 pounds so she is sure she will be able to be compliant with husbands assistance. Left my name and extension on white board in case pt. or has any questions or concerns I could help with at discharge.
--- NOTE | 2019-07-25 11:24 | PC.NURSE ---
Nurse Note Patient alert and oriented this shift. Patient denies any increase in bleeding, patient states that pain is within a tolerable level. Orders for discharge were received. The patient and family were made aware of the plan for discharge and were agreeable to go. The patient was given teaching and handouts on signs and symptoms to be aware of, follow up instructions, scripts and teaching on their diagnosis. Patient signified understanding of this information, verified with the teach back method. The patient's asymptomatic IV was then removed intact. The patient was then dressed in her own clothing and her belongings gathered. Pt denies any belongings in the hospital safe or pharmacy. The patient then ambulated to a wheelchair and was wheeled to the main entrance where she entered a private vehicle. At the time of discharge the patient was alert and oriented, VSS, denies any new complaints or problems.
== END 2019-07-25 11:25 | disposition home or self-care (01) ==
LOC: OR 12:37 → AC 15:56
PROVIDERS: Family Provider Student in an Organized Health Care Education/Training Program; PCP Student in an Organized Health Care Education/Training Program
PROC: (CPT 58260; principal; 2019-07-24 13:30)
DX: N81.3 Complete uterovaginal prolapse (principal); E66.01 Morbid (severe) obesity due to excess calories; Z68.41 Body mass index [BMI] 40.0-44.9, adult; D50.9 Iron deficiency anemia, unspecified
CPT/HCPCS: 58260; 57240; 36415; 85025; J0330; J1100; J1885; J2405; J2704

== ENCOUNTER 2019-09-18 14:22 | Emergency (ER) | payer OTHER, MEDICAID, SELFPAY ==
[2019-07-24 16:23] VITALS: BMI 39.4
[2019-09-18 14:29] VITALS: BP 141/88; PULSE 89; RESP 16; TEMP 37.1; O2SAT 100; BMI 41.6
--- NOTE | 2019-09-18 14:36 | DI.RAD.S_ITS ---
PROCEDURE: XR CHEST 1V INDICATIONS: chest pain TECHNIQUE: One view of the chest was acquired. COMPARISON: [facility], CR, XR CHEST 2 VIEWS, 03/05/2018, 12:10. [facility], CT, CT ABDOMEN PELVIS W CON, 12/31/2017, 10:23. [facility], CR, XR CHEST 1V, 03/04/2018, 12:51. FINDINGS: Surgical changes and devices: None. Lungs and pleura: Lungs are clear. No pleural effusions or pneumothorax. Mild right diaphragmatic eventration. Mediastinum: Mediastinal contours appear normal. Heart size is normal. Had a hernia seen on the last exam is not well-seen on the current exam. Bones and chest wall: No suspicious bony lesions. Overlying soft tissues appear unremarkable. IMPRESSION: No acute cardiopulmonary disease. Dictated by: Sally Mancini M.D. on 09/18/2019 at 16:10 Approved by: Sally Mancini M.D. on 09/18/2019 at 16:11
[2019-09-18 15:00] VITALS: BP 136/86; PULSE 88; RESP 16; O2SAT 100
--- NOTE | 2019-09-18 15:23 | ED_ITS ---
HPI - Chest Pain General Chief Complaint: Chest Pain Stated Complaint: chest pain Time Seen by Provider: 09/18/19 14:44 Source: patient Mode of arrival: Ambulatory History of Present Illness HPI narrative: 59-year-old woman who notes that she has had the ?sniffles? Much of last week without feeling particularly ill, no cough and no fevers. On Wednesday she started noting that she was having left-sided upper chest pain worse with a deep breath that would radiate toward her scapula in the back upper neck and down her arm and could be reproduced with deep breathing. She has had no nausea or vomiting. And otherwise feels well. She is noticing that she is having some difficulty sleeping because moving and twisting and turning causes pain. She describes no orthopnea, no lower extremity edema. She has never had similar symptoms. Related Data Previous Rx's Medication Instructions Recorded disabled parking permit See Rx Instructions .ROUTE 02/07/18 .COMPLEX #1 each ibuprofen 600 mg PO Q6H PRN #14 tab 07/25/19 oxycodone-acetaminophen [Percocet] 1 tab PO Q8H PRN #10 tab 09/18/19 Allergies Allergy/AdvReac Type Severity Reaction Status Date / Time codeine [CODEINE] Allergy Intermediate Vomiting Verified 09/18/19 14:35 Review of Systems Review of Systems Narrative: Hot flashes related to menopause Denies ? fever ? cough ? cold ? chills ? chest pain ? dyspnea ? orthopnea ? wheezing ? abdominal pain ? change to bowel or bladder habits ? nausea vomiting ? skin changes ? rashes Patient History Medical History Basal cell carcinoma (BCC) of left shoulder (Resolved 08/16/17) Bladder prolapse (Acute) Dermoid cyst (Chronic) Diverticulosis of colon (Chronic 10/28/17) Dysphagia (Chronic 09/09/17) Fatigue associated with anemia (Chronic) Female bladder prolapse (Chronic 07/23/17) GERD (gastroesophageal reflux disease) (Resolved) GI bleed (Acute) Hiatal hernia (Chronic 10/28/17) History of gastrointestinal procedure (Resolved 04/15/18) Iron deficiency anemia (Chronic 07/23/17) Morbid obesity with BMI of 40.0-44.9, adult (Chronic) Never smoked (Acute) Pain in both feet (Chronic 07/23/17) Plantar fascial fibromatosis (Chronic 07/23/17) Tubulovillous adenoma of colon (Resolved 10/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) Uterus descensus (Acute) Surgical History History of basal cell carcinoma excision (Resolved 08/16/17) History of carpal tunnel release (Resolved ~1991) History of colonoscopy with polypectomy (Resolved 12/22/17) History of dermoid cyst excision (Acute) History of esophagogastroduodenoscopy (EGD) (Resolved 10/28/17) History of esophagogastroduodenoscopy (EGD) (Resolved 03/14/18) History of repair of hiatal hernia (Acute) Hx of hernia repair (Resolved 1986) Hx of LASIK (Acute) S/P colonoscopic polypectomy (Resolved 10/28/17) S/P knee surgery (Resolved 1979) Status post LASIK surgery (Resolved) Status post left foot surgery (Resolved ~1996) Family History Father Age: 84 Hypertension High cholesterol Mother Age: 80 Hypertension High cholesterol Sister Age: 60 Cervical cancer Social History marital status: household members: spouse lives independently: Yes housing: house Smoking Status: Never smoker second hand exposure: No alcohol intake: never substance use type: does not use Smoking Status: Never smoker Substance Use Type: does not use Exam Narrative Exam Narrative: General: Healthy appearing, in no acute distress. Able to give a complete and coherent history. Well-nourished well-developed HEENT: Moist mucous membranes, normal sclera with reactive pupils, Neck: No JVD, supple Respiratory: Lungs are clear to auscultation, no wheezing no rales no rhonchi. Full and symmetrical air movement Chest: With manipulation of upper sternum and clavicle her pain is reproduced Cardiac: Regular rate and rhythm no murmurs no bruits Abdomen: Soft nontender good bowel tones, no flank pain Skin: Warm and dry, no rashes Neurologic: Grossly neurologically intact with no obvious asymmetries or abnormalities Extremities: No trauma, well perfused Psych: Cooperative, appropriate insight and affect Initial Vital Signs Initial Vital Signs: Vital Signs Temperature 98.8 F 09/18/19 14:29 Pulse Rate 89 09/18/19 14:29 Respiratory Rate 16 09/18/19 14:29 Blood Pressure 141/88 H 09/18/19 14:29 Pulse Oximetry 100 09/18/19 14:29 Course Orders Ordered: ED Orders 09/18/19 14:36 XR chest 1V Stat EKG-12 Lead Stat 09/18/19 15:25 Complete Blood Count AUTO DIFF Stat Comprehensive Metabolic Panel Stat Lipase Stat Partial Thromboplastin Time Stat Prothrombin Time INR Stat Troponin & CK Cardiac Panel Stat Discontinued Medications Ketorolac Tromethamine (Toradol) 15 mg IV NOW ONE Stop: 09/18/19 16:54 Last Admin: 09/18/19 17:07 Dose: 15 mg Documented by: [email or web address] A Vital Signs Vital signs: Vital Signs - 8 hr 09/18/19 14:29 09/18/19 15:00 09/18/19 15:25 Temperature 98.8 F 97.6 F Pulse Rate 89 88 79 Respiratory Rate 16 16 20 Blood Pressure 141/88 H Blood Pressure [Left Arm] 136/86 123/81 Pulse Oximetry 100 100 99 09/18/19 17:00 09/18/19 17:33 Temperature Pulse Rate 82 76 Respiratory Rate 16 16 Blood Pressure Blood Pressure [Left Arm] 154/70 H 118/59 L Pulse Oximetry 99 100 MDM - Chest Pain Medical Records Data Attestation: I reviewed the patient's medical records. Lab Data Attestation: I reviewed the patient's lab results. Result diagrams: 09/18/19 15:25 09/18/19 15:25 Labs: Lab Results 09/18/19 09/18/19 09/18/19 Range/Units 15:25 15:25 15:25 WBC 8.5 (4.5-11.0) X10^3/uL RBC 4.56 (4.0-5.2) X10^6/uL Hgb 14.0 (12.0-16.0) g/dL Hct 41.1 (36-46) % MCV 90.3 (80-100) fL MCH 30.7 (26-34) PG MCHC 34.0 (30-36) % RDW 13.3 (11.6-14.8) % Plt Count 253 (150-400) X10^3/uL Neut % (Auto) 76.4 H (50-75) % Lymph % (Auto) 12.6 L (25-40) % [place] % (Auto) 9.5 (3-14) % Eos % (Auto) 1.1 L (2-4) % Baso % (Auto) 0.4 (0-2) % Neut # (Auto) 6500 (4851-3290) /uL Lymph # (Auto) 1100 (4332-3790) /uL [place] # (Auto) 800 (0-900) /uL Eos # (Auto) 100 (0-450) /uL Baso # (Auto) 0 (0-100) /uL PT 12.2 (10.1-12.7) SECONDS INR 1.1 (0.9-1.3) APTT 32 D (26.4-36.2) SECONDS Sodium 138 (137-145) mmol/L Potassium 4.3 (3.4-5.1) mmol/L Chloride 102 (98-107) mmol/L Carbon Dioxide 29 (22-32) mmol/L BUN 13 (7-17) mg/dL Creatinine 0.54 (0.52-1.04) mg/dL Estimated GFR > 60.0 (>60) mL/min BUN/Creatinine Ratio 24.1 H (6-22) Glucose 90 (70-100) mg/dL Calcium 9.7 (8.4-10.2) mg/dL Total Bilirubin 0.6 (0.2-1.3) mg/dL AST 22 (14-36) IU/L ALT 22 (<35) IU/L Alkaline Phosphatase 131 H (38-126) U/L Total Creatine Kinase 29 L (30-135) U/L CK-MB (CK-2) TNP CK-MB (CK-2) Rel Index TNP Troponin I < 0.012 (0.01-0.034) ng/mL Total Protein 8.1 (6.3-8.2) g/dL Albumin 4.4 (3.5-5.0) g/dL Globulin 3.7 (1.7-4.1) g/dL Albumin/Globulin Ratio 1.2 (1.0-2.8) Lipase 55 (23-300) U/L Imaging Data Chest x-ray: Radiologist's Impression: IMPRESSION: No acute cardiopulmonary disease. Dictated by: Sally Mancini M.D. on 09/18/2019 at 16:10 ECG Data Attestation: I personally reviewed and interpreted this ECG as follows: Interpretation: Normal sinus rhythm at a rate of 86 Normal intervals normal axis No acute ischemic changes MDM Narrative Medical decision making narrative: 59-year-old woman who has noticed increasing left upper chest pain worse with a deep breath over the last 4 days. EKG is unremarkable as are labs. While in the emergency department, she did have a recurrent episode of chest pain again reproducible pressing on the left upper chest wall and EKG taken it is time did not show any acute ischemic changes. Chest x-ray is unremarkable and does not should just acute pneumothorax or infiltrate or alternative explanation for her pain. Most likely diagnosis at this point is musculoskeletal chest pain versus pleurisy. Will discuss this with patient nonsteroidals are appropriate for both she is safe for home discharge 1745 significantly improved after IV Toradol. Discharge Plan Departure Patient Disposition: Home Clinical Impression: Pleurisy, Chest pain, musculoskeletal Instructions: DI for Pleurisy Activity Restrictions/Additional Instructions: Thank you for coming in today. I did not find any evidence of life-threatening diagnoses such as a heart attack or heart attack like syndrome. You also do not have any evidence for a pneumonia, collapsed lung or blood clots in your lungs. The fact that it is worse when you move and when he take a deep breath suggests pleurisy. When I compress on the front of your chest wall and recreate the pain it makes me think of a musculoskeletal finding. Fortunately both of these diagnoses will heal by themselves and will be better with ibuprofen. It is safe for you to go home at this time. I am going to give you a prescription for some Percocet to use at nighttime and take with the ibuprofen to help with the pain. During the day I think that you will find ibuprofen more effective. If you that you are getting worse, developing new symptoms, fevers, worsening chest pain it would be appropriate to come to the emergency room. I am happy to re-evaluate. I wish you the best Prescriptions: New oxycodone-acetaminophen [Percocet] 5-325 mg tablet 1 tab PO Q8H PRN (Reason: pain) Qty: 10 RF: 0 No Action disabled parking permit See Rx Instructions .ROUTE .COMPLEX Qty: 1 RF: 0 ibuprofen 600 mg tablet 600 mg PO Q6H PRN (Reason: pain) Qty: 14 RF: 1 Referrals: Gavin Curry MD [Primary Care Provider] -
[2019-09-18 15:25] VITALS: BP 123/81; PULSE 79; RESP 20; TEMP 36.4; O2SAT 99
[2019-09-18 15:43] LABS: Add Manual Diff / Slide Review NO; Basophils Absolute Auto 0 /uL (0-100); Basophils Percent Auto 0.4 % (0-2); Eosinophils Absolute Auto 100 /uL (0-450); Eosinophils Percent Auto 1.1 % (2-4); Hematocrit 41.1 % (36-46); Lymphocytes Absolute Auto 1100 /uL (1100-4500); Lymphocytes Percent Auto 12.6 % (25-40); Mean Corpuscular Hemoglobin 30.7 PG (26-34); Mean Corpuscular Volume 90.3 fL (80-100); Monocytes Absolute Auto 800 /uL (0-900); Monocytes Percent Auto 9.5 % (3-14); Neutrophils Absolute Auto 6500 /uL (1500-7000); Neutrophils Percent Auto 76.4 % (50-75); Platelet Count 253 X10^3/uL (150-400); Red Blood Cell Count 4.56 X10^6/uL (4.0-5.2); Red Cell Distribution Width 13.3 % (11.6-14.8); White Blood Cell Count 8.5 X10^3/uL (4.5-11.0)
[2019-09-18 15:45] LABS: INR 1.1 (0.9-1.3); Prothrombin Time 12.2 SECONDS (10.1-12.7)
[2019-09-18 15:47] LABS: PTT Partial Thromboplastin Tim 32 SECONDS (26.4-36.2)
[2019-09-18 15:49] LABS: Alanine Aminotransferase 22 IU/L (<35); Albumin 4.4 g/dL (3.5-5.0); Albumin Globulin Ratio 1.2 (1.0-2.8); Alkaline Phosphatase 131 U/L (38-126); Aspartate Aminotransferase 22 IU/L (14-36); BUN Creatinine Ratio 24.1 (6-22); Bilirubin Total 0.6 mg/dL (0.2-1.3); Blood Urea Nitrogen 13 mg/dL (7-17); Calcium 9.7 mg/dL (8.4-10.2); Carbon Dioxide 29 mmol/L (22-32); Chloride 102 mmol/L (98-107); Creatine Kinase 29 U/L (30-135); Estimated Glomerular Filt Rate > 60.0 mL/min (>60); Globulin 3.7 g/dL (1.7-4.1); Glucose 90 mg/dL (70-100); HEMOLYSIS < 15 (0-50); Lipase 55 U/L (23-300); Potassium 4.3 mmol/L (3.4-5.1); Sodium 138 mmol/L (137-145); Total Protein 8.1 g/dL (6.3-8.2)
[2019-09-18 16:01] LABS: Troponin I < 0.012 ng/mL (0.01-0.034)
[2019-09-18 17:00] VITALS: BP 154/70; PULSE 82; RESP 16; O2SAT 99
[2019-09-18] MEDS: KETOROLAC 60 MG/2 ML VIAL 15 MG IV (17:07)
[2019-09-18 17:33] VITALS: BP 118/59; PULSE 76; RESP 16; O2SAT 100
== END 2019-09-18 18:10 | disposition home or self-care (01) ==
PROVIDERS: Emergency Provider Emergency Medicine; Family Provider Student in an Organized Health Care Education/Training Program; PCP Student in an Organized Health Care Education/Training Program
DX: R09.1 Pleurisy (principal); R07.89 Other chest pain
CPT/HCPCS: 36415; 71045; 80053; 82550; 83690; 84484; 85025; 85610; 85730; 93005; 96374; 99284; J1885

== ENCOUNTER → 2020-09-18 14:33 | Outpatient (CLI) | payer OTHER, MEDICAID, SELFPAY ==
[2019-07-24 16:23] VITALS: BMI 39.4
[2020-09-18] MEDS: COVID-19 VACC #1, MRNA(MOD) 100 MCG/0.5 ML VIAL IM (14:48)
== END ==
PROVIDERS: Family Provider Student in an Organized Health Care Education/Training Program; PCP Student in an Organized Health Care Education/Training Program; Visit Provider Internal Medicine
DX: Z23 Encounter for immunization (principal)
CPT/HCPCS: 0011A; 91301

== ENCOUNTER → 2020-10-17 14:00 | Outpatient (CLI) | payer OTHER, MEDICAID, SELFPAY ==
[2019-07-24 16:23] VITALS: BMI 39.4
[2020-10-17] MEDS: COVID-19 VACC #2, MRNA(MOD) 100 MCG/0.5 ML VIAL IM (14:04)
== END ==
PROVIDERS: Family Provider Student in an Organized Health Care Education/Training Program; PCP Student in an Organized Health Care Education/Training Program; Visit Provider Internal Medicine
DX: Z23 Encounter for immunization (principal)
CPT/HCPCS: 0012A; 91301

== ENCOUNTER → 2021-03-10 14:24 | Outpatient (CLI) | payer OTHER, MEDICAID, SELFPAY ==
[2019-07-24 16:23] VITALS: BMI 39.4
[2021-03-10 16:20] LABS: COVID19 -Nasal RAPID Negative (Negative)
== END ==
PROVIDERS: Family Provider Student in an Organized Health Care Education/Training Program; PCP Student in an Organized Health Care Education/Training Program; Visit Provider Nurse Practitioner Family
DX: R51.9 Headache, unspecified (principal); Z20.822 Contact with and (suspected) exposure to COVID-19; J02.9 Acute pharyngitis, unspecified
CPT/HCPCS: 87635

== ENCOUNTER → 2021-03-21 17:22 | Outpatient (CLI) | payer OTHER, MEDICAID, SELFPAY ==
[2019-07-24 16:23] VITALS: BMI 39.4
--- NOTE | 2021-03-21 17:23 | DI.RAD.S_ITS ---
PROCEDURE: XR KNEE RT 3V INDICATIONS: Knee pain TECHNIQUE: 3 views of the knee were acquired. COMPARISON: None. FINDINGS: Bones: No acute fractures or dislocations. No suspicious bony lesions. Moderate joint space narrowing is seen in the lateral femorotibial compartment with subchondral sclerosis and marginal osteophyte formation. There is mild joint space narrowing in the medial and anterior compartments. Soft tissues: Small joint effusion. Chondrocalcinosis is noted most prominently within the medial compartment. IMPRESSION: 1. 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 2. Chondrocalcinosis. Differential diagnosis includes but is not limited to CPPD, hyperparathyroidism, and hemochromatosis. 3. Small joint effusion. Dictated by: Kev River M.D. on 03/21/2021 at 17:31 Approved by: Kev River M.D. on 03/21/2021 at 17:32
== END ==
PROVIDERS: Family Provider Student in an Organized Health Care Education/Training Program; PCP Student in an Organized Health Care Education/Training Program; Referring Provider Student in an Organized Health Care Education/Training Program; Visit Provider Student in an Organized Health Care Education/Training Program
DX: M25.561 Pain in right knee (principal); M11.261 Other chondrocalcinosis, right knee
CPT/HCPCS: 73562

== ENCOUNTER 2021-08-16 20:41 | Emergency (ER) | payer OTHER, MEDICAID, SELFPAY ==
[2019-07-24 16:23] VITALS: BMI 39.4
[2021-08-16 21:17] VITALS: BP 162/90; PULSE 90; RESP 20; TEMP 36.1; O2SAT 98
== END 2021-08-16 21:30 | disposition left against medical advice (07) ==
LOC: ED 22:08
PROVIDERS: Emergency Provider Emergency Medicine; PCP Student in an Organized Health Care Education/Training Program
DX: F12.929 Cannabis use, unspecified with intoxication, unspecified (principal)

== ENCOUNTER 2021-09-02 11:35 | Emergency (ER) | payer OTHER, MEDICAID, SELFPAY ==
[2019-07-24 16:23] VITALS: BMI 39.4
[2021-09-02 11:52] VITALS: BP 172/89; PULSE 97; RESP 18; TEMP 36.6; O2SAT 99; BMI 35.4
--- NOTE | 2021-09-02 11:57 | DI.RAD.S_ITS ---
PROCEDURE: XR CHEST 1V INDICATIONS: chest pain TECHNIQUE: One view of the chest was acquired. COMPARISON: [facility], CR, XR CHEST 1V, 03/04/2018, 12:51. FINDINGS: Surgical changes and devices: None. Lungs and pleura: Lungs are clear. No pleural effusions or pneumothorax. Mediastinum: Mediastinal contours appear normal. Heart size is normal. Bones and chest wall: No suspicious bony lesions. Overlying soft tissues appear unremarkable. IMPRESSION: No acute cardiopulmonary findings. Dictated by: Dee Dee Castle M.D. on 09/02/2021 at 12:34 Approved by: Dee Dee Castle M.D. on 09/02/2021 at 12:34
[2021-09-02 12:49] VITALS: BP 149/91; PULSE 62; RESP 16; O2SAT 99
[2021-09-02 13:00] LABS: Add Manual Diff / Slide Review NO; Basophils Absolute Auto 0 /uL (0-100); Basophils Percent Auto 0.4 % (0-2); Eosinophils Absolute Auto 0 /uL (0-450); Eosinophils Percent Auto 0.2 % (2-4); Hematocrit 40.9 % (36-46); Lymphocytes Absolute Auto 800 /uL (1100-4500); Lymphocytes Percent Auto 13.9 % (25-40); Mean Corpuscular HGB Conc 34.1 % (30-36); Mean Corpuscular Hemoglobin 30.9 PG (26-34); Mean Corpuscular Volume 90.6 fL (80-100); Monocytes Absolute Auto 300 /uL (0-900); Monocytes Percent Auto 6.1 % (3-14); Neutrophils Absolute Auto 4400 /uL (1500-7000); Neutrophils Percent Auto 79.4 % (50-75); Platelet Count 223 X10^3/uL (150-400); Red Blood Cell Count 4.51 X10^6/uL (4.0-5.2); White Blood Cell Count 5.5 X10^3/uL (4.5-11.0)
[2021-09-02 13:20] LABS: Alanine Aminotransferase 15 IU/L (<35); Albumin 4.1 g/dL (3.5-5.0); Albumin Globulin Ratio 1.4 (1.0-2.8); Alkaline Phosphatase 89 U/L (38-126); Aspartate Aminotransferase 22 IU/L (14-36); BUN Creatinine Ratio 17.3 (6-22); Bilirubin Total 0.6 mg/dL (0.2-1.3); Blood Urea Nitrogen 9 mg/dL (7-17); Carbon Dioxide 28 mmol/L (22-32); Chloride 105 mmol/L (98-107); Creatine Kinase 44 U/L (30-135); Estimated Glomerular Filt Rate > 60.0 mL/min (>60); Glucose 96 mg/dL (80-110); HEMOLYSIS < 15 (0-50); Lipase 50 U/L (23-300); Magnesium 1.9 mg/dL (1.6-2.3); Potassium 3.8 mmol/L (3.4-5.1); Sodium 139 mmol/L (137-145); Total Protein 7.1 g/dL (6.3-8.2)
[2021-09-02 13:32] LABS: Troponin I < 0.012 ng/mL (0.01-0.034)
--- NOTE | 2021-09-02 15:02 | ED.GENADULT ---
HPI - General Adult General Chief complaint: Hypertension Stated complaint: chills, palpitations, hypertensive Time Seen by Provider: 09/02/21 14:51 Source: patient Mode of arrival: Ambulatory History of Present Illness HPI narrative: Patient is a 60-year-old female who presents today with hypertension and dizziness. She says that about 2 weeks ago she accidentally 8 hours crispy treat with marijuana in it she did not like the way it made her feel. Since then she has not been feeling quite right. She has since then been having intermittent hypertension. Last night she started feeling little dizzy lightheaded she felt her heart pounding she counted her heart beats it was 110 today she feels tingling all over she denies any weakness or headache. She is ambulatory without any difficulty. She again is noted to have her blood pressure quite elevated with a systolic of 198. No shortness of breath with exertion no nausea or vomiting. She thinks that the symptoms may be related from to the marijuana rice crispy treat from a few weeks ago. Related Data Allergies Allergy/AdvReac Type Severity Reaction Status Date / Time codeine [CODEINE] Allergy Intermediate Vomiting Verified 09/02/21 11:57 Review of Systems Review of Systems Narrative: GENERAL: Denies chills, fatigue, malaise, fever, sweats, travel HEENT: Denies sinus pain, ear pain, sore throat, difficulty swallowing, neck pain RESPIRATORY: Denies dyspnea, cough, wheezing, hemoptysis, sputum. CARDIOVASCULAR: Denies chest pain, palpitations, orthopnea, edema GASTROINTESTINAL: Denies nausea, vomiting, abdominal pain, diarrhea, constipation, melena. : Denies dysuria, frequency, incontinence, hematuria, urinary retention, flank pain. MUSCULOSKELETAL: Denies weakness, joint pain, or bony pain SKIN: No rash, no erythema, no pruritus NEUROLOGIC: See HPI PSYCHIATRIC: No concerning psychosocial issues. 12 point review of systems is negative except for those stated above and HPI Patient History Medical History Basal cell carcinoma (BCC) of left shoulder (08/16/17) Bladder prolapse Dermoid cyst Diverticulosis of colon (10/28/17) Dysphagia (09/09/17) Elevated blood pressure reading (02/16/11) Fatigue associated with anemia Female bladder prolapse (07/23/17) GERD (gastroesophageal reflux disease) GI bleed Hiatal hernia (10/28/17) History of gastrointestinal procedure (04/15/18) Iron deficiency anemia (07/23/17) Morbid obesity with BMI of 40.0-44.9, adult Never smoked Plantar fascial fibromatosis (07/23/17) 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 Surgical History History of basal cell carcinoma excision (08/16/17) History of carpal tunnel release (~1991) History of colonoscopy with polypectomy (12/22/17) History of dermoid cyst excision History of esophagogastroduodenoscopy (EGD) (10/28/17) History of esophagogastroduodenoscopy (EGD) (03/14/18) History of repair of hiatal hernia Hx of hernia repair (1986) Hx of LASIK S/P colonoscopic polypectomy (10/28/17) S/P knee surgery (1979) Status post LASIK surgery Status post left foot surgery (~1996) Family History Father Age: 86 Hypertension High cholesterol Mother Age: 82 Hypertension High cholesterol Sister Age: 62 Cervical cancer Social History marital status: household members: spouse lives independently: Yes housing: house Smoking Status: Never smoker second hand exposure: No alcohol intake: never substance use type: does not use Smoking Status: Never smoker alcohol intake frequency: 0-2 drinks per day Substance Use Type: does not use Exam Initial Vital Signs Initial Vital Signs: Vital Signs Temperature 97.9 F 09/02/21 11:52 Pulse Rate 97 H 09/02/21 11:52 Respiratory Rate 18 09/02/21 11:52 Blood Pressure 172/89 H 09/02/21 11:52 Pulse Oximetry 99 09/02/21 11:52 GENERAL: Alert well-appearing 60-year-old female and in no acute distress. HEENT: Head atraumatic,EOMI, pupils reactive, face symmetric, moist mucous membranes CARDIOVASCULAR: Regular rate and rhythm without murmurs, rubs or gallops. RESPIRATORY: Breath sounds equal bilaterally, no wheezes rales or rhonchi. ABDOMEN: Soft, nontender. Normoactive bowel sounds all 4 quadrants. No guarding or rebound. EXTREMITIES: Normal range of motion, no clubbing or edema. Neurovascularly intact NEUROLOGICAL: Alert and oriented x4.Normal gait and speech. Cranial nerves II through XII grossly intact. Good [id number], good [id number], strength equal bilaterally, no dysarthria or aphasia, sensation in tact to soft touch bilaterally, no visual changes, no facial droop SKIN: Warm, dry, no laceration, no petechiae, no rashes or lesions. Scores NIH Stroke Scale Level of Conciousness: Alert, keenly responsive Ask month/age: Answers both questions correctly. Open/close eyes, close hand: Performs both tasks correctly Best gaze horizontal: Normal Visual chavez: No visual loss Facial palsy: Normal symetrical movement Left arm drift: No drift for full 10 sec Right arm drift: No drift for full 10 sec Left leg drift: No drift for full 5 sec Right leg drift: No drift for full 5 sec Limb ataxia: Absent Sensory on face/arms/legs: Normal, no sensory loss Best language: No aphasia, normal Dysarthria: Normal Extinction or inattention: No abnormality Total NIH Stroke scale score: 0 Course Orders Ordered: ED Orders 09/02/21 11:57 XR chest 1V Stat 09/02/21 12:04 EKG-12 Lead Stat 09/02/21 12:30 Complete Blood Count AUTO DIFF Stat Comprehensive Metabolic Panel Stat Lipase Stat Magnesium Stat Troponin & CK Cardiac Panel Stat Discontinued Medications Sodium Chloride (Normal Saline 0.9%) 1,000 mls @ 1,000 mls/hr IV BOLUS ONE Stop: 09/02/21 16:26 Last Infusion: 09/02/21 17:06 Dose: 0 mls/hr Documented by: Admin: 09/02/21 15:56 Dose: 1,000 mls/hr Documented by: ANNE Vital Signs Vital signs: Vital Signs - 8 hr 09/02/21 11:52 09/02/21 12:49 09/02/21 15:34 Temperature 97.9 F Pulse Rate 97 H 62 72 Respiratory Rate 18 16 Blood Pressure 172/89 H 149/91 H Pulse Oximetry 99 99 100 09/02/21 16:00 09/02/21 16:29 09/02/21 16:30 Temperature Pulse Rate 74 74 70 Respiratory Rate Blood Pressure 152/71 H 148/68 H Pulse Oximetry 100 99 100 Medical Decision Making Lab Data Result diagrams: 09/02/21 12:30 09/02/21 12:30 Labs: Lab Results 09/02/21 09/02/21 Range/Units 12:30 12:30 WBC 5.5 (4.5-11.0) X10^3/uL RBC 4.51 (4.0-5.2) X10^6/uL Hgb 14.0 (12.0-16.0) g/dL Hct 40.9 (36-46) % MCV 90.6 (80-100) fL MCH 30.9 (26-34) PG MCHC 34.1 (30-36) % RDW 13.0 (11.6-14.8) % Plt Count 223 (150-400) X10^3/uL Neut % (Auto) 79.4 H (50-75) % Lymph % (Auto) 13.9 L (25-40) % [place] % (Auto) 6.1 (3-14) % Eos % (Auto) 0.2 L (2-4) % Baso % (Auto) 0.4 (0-2) % Neut # (Auto) 4400 (0237-7245) /uL Lymph # (Auto) 800 L (5596-1145) /uL [place] # (Auto) 300 (0-900) /uL Eos # (Auto) 0 (0-450) /uL Baso # (Auto) 0 (0-100) /uL Sodium 139 (137-145) mmol/L Potassium 3.8 (3.4-5.1) mmol/L Chloride 105 (98-107) mmol/L Carbon Dioxide 28 (22-32) mmol/L BUN 9 (7-17) mg/dL Creatinine 0.52 (0.52-1.04) mg/dL Estimated GFR > 60.0 (>60) mL/min BUN/Creatinine Ratio 17.3 (6-22) Glucose 96 (80-110) mg/dL Calcium 9.0 (8.4-10.2) mg/dL Magnesium 1.9 (1.6-2.3) mg/dL Total Bilirubin 0.6 (0.2-1.3) mg/dL AST 22 (14-36) IU/L ALT 15 (<35) IU/L Alkaline Phosphatase 89 (38-126) U/L Total Creatine Kinase 44 (30-135) U/L CK-MB (CK-2) TNP CK-MB (CK-2) Rel Index TNP Troponin I < 0.012 (0.01-0.034) ng/mL Total Protein 7.1 (6.3-8.2) g/dL Albumin 4.1 (3.5-5.0) g/dL Globulin 3.0 (1.7-4.1) g/dL Albumin/Globulin Ratio 1.4 (1.0-2.8) Lipase 50 (23-300) U/L Urine Dip Bedside Urine Glucose Negative Bedside Urine Bilirubin - Negative Bedside Urine Ketone - Negative Urine Specific [place] 1.010 Bedside Urine Occult Blood - Negative Bedside Urine pH 6.0 Bedside Urine Protein - Negative Bedside Urine Urobilinogen - Negative Bedside Urine Nitrite - Negative Bedside Urine Leukocytes - Negative Esterase Point of care testing: Urine Dip Bedside Urine Glucose Negative Bedside Urine Bilirubin - Negative Bedside Urine Ketone - Negative Urine Specific [place] 1.010 Bedside Urine Occult Blood - Negative Bedside Urine pH 6.0 Bedside Urine Protein - Negative Bedside Urine Urobilinogen - Negative Bedside Urine Nitrite - Negative Bedside Urine Leukocytes - Negative Esterase Imaging Data Chest x-ray: Radiologist's Impression: PROCEDURE:? XR CHEST 1V ? INDICATIONS:? chest pain ? TECHNIQUE:? One view of the chest was acquired.? ? COMPARISON:? [facility], , XR CHEST 1V, 03/04/2018, 12:51. ? FINDINGS:? ? Surgical changes and devices:? None.? ? Lungs and pleura:? Lungs are clear.? No pleural effusions or pneumothorax.? ? Mediastinum:? Mediastinal contours appear normal.? Heart size is normal.? ? Bones and chest wall:? No suspicious bony lesions.? Overlying soft tissues appear unremarkable.? ? IMPRESSION:? No acute cardiopulmonary findings. ? ? Dictated by: Dee Dee Castle M.D. on 09/02/2021 at 12:34? ECG Data Interpretation: Normal sinus rhythm rate 83 MT interval 164 QRS [address] changes no T-wave inversions similar to previous EKG MDM Narrative Medical decision making narrative: Patient is having palpitations and tingling in her lower extremities. She actually has a lot of stress ongoing with her his health he has multiple issues. She does feel a little bit lightheaded and dizzy but it is worse when she sits down and better when she gets up and moves around. This is not consistent with vertigo she is ambulatory in the ED without any problems. Overall I think that she has some stress and anxiety. Blood work is overall reassuring here. No focal deficits. At this time no need for any further imaging. Her blood pressure has also improved while being in the emergency department, without any intervention. Encouraged her to monitor and check her blood pressure as needed follow up with her primary return as needed. Discharge Plan Departure Patient Disposition: Home Clinical Impression: Hypertension Instructions: DI for High Blood Pressure Activity Restrictions/Additional Instructions: *You have been diagnosed with hypertension *What to do: At this time please take your blood pressure once a day and record it. You may require blood pressure medication. Some of her symptoms may be related to anxiety as well. Please monitor and if symptoms are worsening return to emergency department *Continue to take medications as directed *Follow up with your primary care provider in 2-3 days or call [phone] *Return to ER if you should have increasing chest pain, headache, visual trouble, worsening dizziness, vomiting weakness or any new, worsening or concerning symptoms Referrals: Gavin Curry MD [Primary Care Provider] -
[2021-09-02 15:34] VITALS: PULSE 72; O2SAT 100
[2021-09-02] MEDS: SODIUM CHLORIDE 0.9% 1,000 ML 1000 ML IV (15:56)
[2021-09-02 16:00] VITALS: PULSE 74; O2SAT 100
[2021-09-02 16:29] VITALS: BP 152/71; PULSE 74; O2SAT 99
[2021-09-02 16:30] VITALS: BP 148/68; PULSE 70; O2SAT 100
== END 2021-09-02 17:08 | disposition home or self-care (01) ==
PROVIDERS: Emergency Provider Emergency Medicine; PCP Student in an Organized Health Care Education/Training Program
DX: I10 Essential (primary) hypertension (principal); R42 Dizziness and giddiness
CPT/HCPCS: 36415; 71045; 80053; 81003; 82550; 83690; 83735; 84484; 85025; 93005; 96360; 99284

== ENCOUNTER 2021-09-15 14:13 | Emergency (ER) | payer OTHER, MEDICAID, SELFPAY ==
[2019-07-24 16:23] VITALS: BMI 39.4
[2021-09-15] VITALS (8 sets, daily range): BP systolic 132–165; BP diastolic 61–78; PULSE 63–81; RESP 17–34; TEMP 36.6; O2SAT 97–100; BMI 36.8
--- NOTE | 2021-09-15 14:36 | DI.RAD.S_ITS ---
PROCEDURE: XR CHEST 2V INDICATIONS: chest pain TECHNIQUE: 2 views of the chest were acquired. COMPARISON: [facility], , XR CHEST 1V, 09/02/2021, 12:18. FINDINGS: Surgical changes and devices: None. Lungs and pleura: Lungs are clear. No pleural effusions or pneumothorax. Mediastinum: Mediastinal contours are normal. Heart size is normal. Bones and chest wall: No suspicious bony abnormalities. Soft tissues appear unremarkable. IMPRESSION: No acute process. Dictated by: Lester Dove M.D. on 09/15/2021 at 15:12 Approved by: Lester Dove M.D. on 09/15/2021 at 15:13
[2021-09-15 14:52] LABS: Add Manual Diff / Slide Review NO; Basophils Absolute Auto 0 /uL (0-100); Basophils Percent Auto 0.4 % (0-2); Eosinophils Absolute Auto 0 /uL (0-450); Eosinophils Percent Auto 0.6 % (2-4); Hemoglobin 15.2 g/dL (12.0-16.0); Lymphocytes Absolute Auto 900 /uL (1100-4500); Lymphocytes Percent Auto 15.4 % (25-40); Mean Corpuscular HGB Conc 33.9 % (30-36); Mean Corpuscular Hemoglobin 31.2 PG (26-34); Monocytes Absolute Auto 500 /uL (0-900); Monocytes Percent Auto 7.5 % (3-14); Neutrophils Absolute Auto 4700 /uL (1500-7000); Neutrophils Percent Auto 76.1 % (50-75); Platelet Count 252 X10^3/uL (150-400); Red Blood Cell Count 4.89 X10^6/uL (4.0-5.2); Red Cell Distribution Width 13.4 % (11.6-14.8); White Blood Cell Count 6.2 X10^3/uL (4.5-11.0)
[2021-09-15 15:08] LABS: Alanine Aminotransferase 18 IU/L (<35); Albumin 4.4 g/dL (3.5-5.0); Albumin Globulin Ratio 1.5 (1.0-2.8); Alkaline Phosphatase 84 U/L (38-126); Aspartate Aminotransferase 24 IU/L (14-36); BUN Creatinine Ratio 13.6 (6-22); Bilirubin Total 0.7 mg/dL (0.2-1.3); Blood Urea Nitrogen 9 mg/dL (7-17); Calcium 9.3 mg/dL (8.4-10.2); Carbon Dioxide 29 mmol/L (22-32); Chloride 104 mmol/L (98-107); Creatine Kinase 44 U/L (30-135); Estimated Glomerular Filt Rate > 60.0 mL/min (>60); Glucose 106 mg/dL (80-110); HEMOLYSIS < 15 (0-50); Lipase 64 U/L (23-300); Magnesium 2.1 mg/dL (1.6-2.3); Potassium 4.2 mmol/L (3.4-5.1); Sodium 139 mmol/L (137-145); Total Protein 7.4 g/dL (6.3-8.2)
[2021-09-15 15:19] LABS: Troponin I < 0.012 ng/mL (0.01-0.034)
--- NOTE | 2021-09-15 17:41 | PC.NURSE ---
Pt c/o intermittant L arm and face pressure/numbness, CP, cold chills, palpatations, and anxiety. Was just seen at her PCP and was put on a beta citlalli for said symptoms. Was seen and d/c from this ER last week for same symptoms.
--- NOTE | 2021-09-15 18:24 | ED_ITS ---
HPI - Arrhythmia/Palpitations General Chief Complaint: Arrhythmia/Palpitations Stated Complaint: AFIB, pressure in left arm, tingling in face Time Seen by Provider: 09/15/21 18:19 Source: patient Mode of arrival: Ambulatory Limitations: no limitations History of Present Illness HPI narrative: This is a 61-year-old female who is a twin with history of dermoid cyst, bladder surgery and hysterectomy. Patient denies any medical issues. She was seen recently for anxiety and an accidental ingestion of THC. Patient states that she felt like she was dying not happen she states that she has had a lot of anxiety since then. She is our primary care physician who started her propranolol 20 mg. She only takes it if her blood pressures over 130 systolic but has found helpful. She gets a sensation like there was a wave going through her body and a sensation of doom and she feels awful and her feet get very sweat y. She sometimes has had left shoulder chest discomfort but not persistently or consistently with these episodes. She had an episode today and checked her blood pressure own was in the 80 systolic. She felt lightheaded. She checked her blood pressure later and was 147/92. She denies any chest pain or pressure currently, no shortness of breath. She occasionally has nausea when she has the anxiety type episodes. No vomiting. No issues with bowel movements or urination. She has noticed her ankles swell faster during the day than normal. She denies any other past medical history, no hypertension, discuss lipidemia or diabetes. No tobacco, alcohol or illicit typically. She denies any family history of cardiac, embolic or pulmonary history. She sees Dr. Doe is her primary care physician. Related Data Previous Rx's Medication Instructions Recorded propranolol 20 mg tablet 20 mg PO BID #30 tab 09/08/21 Allergies Allergy/AdvReac Type Severity Reaction Status Date / Time codeine [CODEINE] Allergy Intermediate Vomiting Verified 09/15/21 14:35 Review of Systems Review of Systems ROS Unobtainable: All systems reviewed & are unremarkable except as noted in HPI and below Patient History Medical History Basal cell carcinoma (BCC) of left shoulder (08/16/17) Bladder prolapse Dermoid cyst Diverticulosis of colon (10/28/17) Dysphagia (09/09/17) Elevated blood pressure reading (02/16/11) GERD (gastroesophageal reflux disease) GI bleed Hiatal hernia (10/28/17) History of gastrointestinal procedure (04/15/18) Iron deficiency anemia (07/23/17) Morbid obesity with BMI of 40.0-44.9, adult Never smoked 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 Surgical History History of basal cell carcinoma excision (08/16/17) History of carpal tunnel release (~1991) History of colonoscopy with polypectomy (12/22/17) History of dermoid cyst excision History of esophagogastroduodenoscopy (EGD) (10/28/17) History of esophagogastroduodenoscopy (EGD) (03/14/18) History of repair of hiatal hernia Hx of hernia repair (1986) Hx of LASIK S/P colonoscopic polypectomy (10/28/17) S/P knee surgery (1979) Status post LASIK surgery Status post left foot surgery (~1996) Family History Father Age: 86 Hypertension High cholesterol Mother Age: 82 Hypertension High cholesterol Sister Age: 62 Cervical cancer Social History marital status: household members: spouse lives independently: Yes housing: house Smoking Status: Never smoker second hand exposure: No alcohol intake: never substance use type: does not use Smoking Status: Never smoker alcohol intake frequency: 0-2 drinks per day Substance Use Type: does not use Exam Narrative Exam Narrative: GENERAL: Alert and oriented x three, female in mild distress. HEENT: Head normocephalic, atraumatic, EOMI, pupils reactive, face symmetric, mo ist mucous membranes NECK: Supple, full range of motion CARDIOVASCULAR: Regular rate and rhythm without murmurs, rubs or gallops. No reproducible chest pain. RESPIRATORY: Breath sounds equal bilaterally, no wheezes rales or rhonchi. ABDOMEN: Soft, nontender. Normoactive bowel sounds all 4 quadrants. No guarding or rebound, rigidity, no mass : No CVA tenderness EXTREMITIES: Normal range of motion, no clubbing or edema. Neurovascularly intact NEUROLOGICAL: Cranial nerves II through XII grossly intact. Moving all extremities SKIN: Warm, dry, no petechiae, no rashes or lesions. Initial Vital Signs Initial Vital Signs: Vital Signs Temperature 98 F 09/15/21 14:31 Pulse Rate 81 09/15/21 14:31 Respiratory Rate 17 09/15/21 14:31 Blood Pressure 165/69 H 09/15/21 14:31 Pulse Oximetry 97 09/15/21 14:31 Scores HEART Score Heart Score history: Slightly Suspicious Heart Score EKG: Normal Heart Score Age: 45-64 years old Heart Score risk factors: No known risk factors Heart Score troponin: < or = to normal limit Heart Score Total: 1 Course Orders Ordered: ED Orders 09/15/21 14:36 XR chest 2V Stat EKG-12 Lead Stat 09/15/21 14:45 Complete Blood Count AUTO DIFF Stat Comprehensive Metabolic Panel Stat Lipase Stat Magnesium Stat Troponin & CK Cardiac Panel Stat 09/15/21 18:19 Trop I [Troponin I] Stat EKG-12 Lead Stat Vital Signs Vital signs: Vital Signs - 8 hr 09/15/21 14:31 09/15/21 17:28 09/15/21 17:30 Temperature 98 F Pulse Rate 81 66 63 Respiratory Rate 17 20 20 Blood Pressure 165/69 H 160/73 H Pulse Oximetry 97 100 100 MDM - Arrhythmia/Palpitations Lab Data Result diagrams: 09/15/21 14:45 09/15/21 14:45 Labs: Lab Results 09/15/21 09/15/21 09/15/21 Range/Units 14:45 14:45 18:29 WBC 6.2 (4.5-11.0) X10^3/uL RBC 4.89 (4.0-5.2) X10^6/uL Hgb 15.2 (12.0-16.0) g/dL Hct 45.0 (36-46) % MCV 92.0 (80-100) fL MCH 31.2 (26-34) PG MCHC 33.9 (30-36) % RDW 13.4 (11.6-14.8) % Plt Count 252 (150-400) X10^3/uL Neut % (Auto) 76.1 H (50-75) % Lymph % (Auto) 15.4 L (25-40) % [place] % (Auto) 7.5 (3-14) % Eos % (Auto) 0.6 L (2-4) % Baso % (Auto) 0.4 (0-2) % Neut # (Auto) 4700 (8127-8717) /uL Lymph # (Auto) 900 L (6230-6709) /uL [place] # (Auto) 500 (0-900) /uL Eos # (Auto) 0 (0-450) /uL Baso # (Auto) 0 (0-100) /uL Sodium 139 (137-145) mmol/L Potassium 4.2 (3.4-5.1) mmol/L Chloride 104 (98-107) mmol/L Carbon Dioxide 29 (22-32) mmol/L BUN 9 (7-17) mg/dL Creatinine 0.66 (0.52-1.04) mg/dL Estimated GFR > 60.0 (>60) mL/min BUN/Creatinine Ratio 13.6 (6-22) Glucose 106 (80-110) mg/dL Calcium 9.3 (8.4-10.2) mg/dL Magnesium 2.1 (1.6-2.3) mg/dL Total Bilirubin 0.7 (0.2-1.3) mg/dL AST 24 (14-36) IU/L ALT 18 (<35) IU/L Alkaline Phosphatase 84 (38-126) U/L Total Creatine Kinase 44 (30-135) U/L CK-MB (CK-2) TNP CK-MB (CK-2) Rel Index TNP Troponin I < 0.012 < 0.012 (0.01-0.034) ng/mL Total Protein 7.4 (6.3-8.2) g/dL Albumin 4.4 (3.5-5.0) g/dL Globulin 3.0 (1.7-4.1) g/dL Albumin/Globulin Ratio 1.5 (1.0-2.8) Lipase 64 (23-300) U/L Imaging Data Chest x-ray: Radiologist's Impresson: [address] [id number] XRay Report Signed Patient: Carolyn Grossman MR#: [id number] : 1960 Acct:[id number] Age/Sex: 61 / F Date of Service: 09/15/21 Loc: ED Accession Number: [id number] ?? Procedure: XR chest 2V Ordering Provider: Priya Rodriguez D.O. PROCEDURE:? XR CHEST 2V ? INDICATIONS:? chest pain ? TECHNIQUE:? 2 views of the chest were acquired.? ? COMPARISON:? [facility], CR, XR CHEST 1V, 09/02/2021, 12:18. ? FINDINGS:? ? Surgical changes and devices:? None.? ? Lungs and pleura:? Lungs are clear.? No pleural effusions or pneumothorax.? ? Mediastinum:? Mediastinal contours are normal.? Heart size is normal.? ? Bones and chest wall:? No suspicious bony abnormalities.? Soft tissues appear unremarkable.? ? IMPRESSION:? No acute process. ? ? Dictated by: Lester Dove M.D. on 09/15/2021 at 15:12 ? ? Approved by: Lester Dove M.D. on 09/15/2021 at 15:13 ECG Data Attestation: I personally reviewed and interpreted this ECG as follows: Prior ECG tracings: available for review Interpretation: EKG 1 shows sinus rhythm with a rate of 77, P are 156, QRS 86 and QTC of 423. Q-wave in [address] elevation or depression noted. Patient has prior EKG from 09/02/2021 which appears similar. EKG 2 shows sinus rhythm, rate of 60, P are 166, QRS 88 QTC of 422. Patient has slightly different T-wave morphology in 3 but no other new changes are appreciated today. MDM Narrative Medical decision making narrative: This is a 61-year-old female who comes in with complaint of anxiety type symptoms but also has some left shoulder chest discomfort. Patient's EKGs do not show acute changes with no dynamic changes from prior or today. Chest x-ray and lab work is reassuring. Heart score is 3. Discussed with patient she can continue propranolol for anxiety but would have her follow-up with her physician possibly for stress testing if she continues to have occasional left-sided chest discomfort which does not seem clearly linked to her anxiety episodes. Discharge Plan Departure Patient Disposition: Home Clinical Impression: Atypical chest pain Instructions: DI for Atypical Chest Pain Activity Restrictions/Additional Instructions: Please follow-up with your primary care physician for recheck to discuss possible outpatient stress testing. I do think it is appropriate for you to continue propranolol if your systolic blood pressure is greater than 130 Continue to monitor your blood pressure and keep a record for your physician. Please return for fevers, new or worsening chest pain, shortness of breath, lightheadedness or passing out, persistent vomiting, rapidly worsening swelling in her lower extremities or other new or concerning symptoms. Prescriptions: No Action propranolol 20 mg tablet 20 mg PO BID Qty: 30 0RF Rx Instructions: Check BP before and after dose. Titrate dose up by 20mg increments to effect. Referrals: Gavin Curry MD [Primary Care Provider] -
[2021-09-15 19:04] LABS: Troponin I < 0.012 ng/mL (0.01-0.034)
== END 2021-09-15 19:41 | disposition home or self-care (01) ==
PROVIDERS: Emergency Medicine; Emergency Provider Emergency Medicine; PCP Student in an Organized Health Care Education/Training Program
DX: R07.89 Other chest pain (principal)
CPT/HCPCS: 36415; 71046; 80053; 82550; 83690; 83735; 84484; 85025; 93005; 93010; 99284

== ENCOUNTER 2021-10-08 19:47 | Emergency (ER) | payer OTHER, MEDICAID, SELFPAY ==
[2019-07-24 16:23] VITALS: BMI 39.4
[2021-10-08] VITALS (12 sets, daily range): BP systolic 121–168; BP diastolic 62–100; PULSE 70–97; RESP 17–28; TEMP 36.7; O2SAT 97–100; BMI 36.5
--- NOTE | 2021-10-08 19:56 | DI.RAD.S_ITS ---
PROCEDURE: XR CHEST 1V INDICATIONS: chest pain TECHNIQUE: One view of the chest was acquired. COMPARISON: [facility], CR, XR CHEST 2V, 09/15/2021, 14:48. FINDINGS: Surgical changes and devices: None. Lungs and pleura: Lungs are clear. No pleural effusions or pneumothorax. Mediastinum: Mediastinal contours appear normal. Heart size is normal. Bones and chest wall: No suspicious bony lesions. Overlying soft tissues appear unremarkable. IMPRESSION: 1. No acute cardiopulmonary disease. Dictated by: Manuel Tapia M.D. on 10/08/2021 at 20:34 Approved by: Manuel Tapia M.D. on 10/08/2021 at 20:35
[2021-10-08 20:35] LABS: Add Manual Diff / Slide Review NO; Basophils Absolute Auto 100 /uL (0-100); Basophils Percent Auto 0.7 % (0-2); Eosinophils Absolute Auto 100 /uL (0-450); Eosinophils Percent Auto 1.6 % (2-4); Hematocrit 42.5 % (36-46); Hemoglobin 14.6 g/dL (12.0-16.0); Lymphocytes Absolute Auto 1600 /uL (1100-4500); Lymphocytes Percent Auto 20.7 % (25-40); Mean Corpuscular HGB Conc 34.4 % (30-36); Mean Corpuscular Hemoglobin 31.3 PG (26-34); Mean Corpuscular Volume 91.2 fL (80-100); Monocytes Absolute Auto 600 /uL (0-900); Monocytes Percent Auto 7.9 % (3-14); Neutrophils Absolute Auto 5400 /uL (1500-7000); Neutrophils Percent Auto 69.1 % (50-75); Platelet Count 267 X10^3/uL (150-400); Red Blood Cell Count 4.66 X10^6/uL (4.0-5.2); Red Cell Distribution Width 13.5 % (11.6-14.8); White Blood Cell Count 7.7 X10^3/uL (4.5-11.0)
[2021-10-08 20:50] LABS: Alanine Aminotransferase 16 IU/L (<35); Albumin 4.3 g/dL (3.5-5.0); Albumin Globulin Ratio 1.4 (1.0-2.8); Alkaline Phosphatase 104 U/L (38-126); Aspartate Aminotransferase 21 IU/L (14-36); BUN Creatinine Ratio 21.3 (6-22); Bilirubin Total 0.5 mg/dL (0.2-1.3); Blood Urea Nitrogen 17 mg/dL (7-17); Carbon Dioxide 26 mmol/L (22-32); Chloride 103 mmol/L (98-107); Creatine Kinase 40 U/L (30-135); Estimated Glomerular Filt Rate > 60.0 mL/min (>60); Globulin 3.1 g/dL (1.7-4.1); Glucose 102 mg/dL (80-110); HEMOLYSIS < 15 (0-50); Lipase 95 U/L (23-300); Magnesium 2.1 mg/dL (1.6-2.3); Potassium 3.7 mmol/L (3.4-5.1); Sodium 137 mmol/L (137-145); Total Protein 7.4 g/dL (6.3-8.2)
[2021-10-08 21:01] LABS: Troponin I < 0.012 ng/mL (0.01-0.034)
--- NOTE | 2021-10-08 21:49 | ED.CHESTPAIN ---
HPI - Chest Pain General Chief Complaint: Chest Pain Stated Complaint: chest pain, lt arm pain Time Seen by Provider: 10/08/21 21:49 Source: patient Mode of arrival: Ambulatory Limitations: no limitations History of Present Illness HPI narrative: The patient presents with dizziness for 3 weeks. She has chest discomfort, and left posterior shoulder pain for 3 days. She denies palpitations. This is her 4th ER visit in less than a month. Cardiac testing has been repeatedly normal. She has no history of coronary disease, she does take propranolol as needed for hypertension. She is not diabetic. She has no hyperlipidemia. She is a nonsmoker. There is no significant family history of early cardiac disease. Regarding the dizziness, she has recent sinus congestion, no history of allergies, and no ear pain. She has no visual changes. She has no confusion. She has no peripheral numbness or weakness. Her PCM intensity radiographer cardiac catheterization on her, apparently thinking an arrhythmia may be responsible for her symptoms. She has no history of arrhythmia. She has an overwhelming sense of doom, documented in previous ER records. She has had no syncope. Comparing past medical records, her symptoms seem to be about the same. Anxiety is noted. She has no history of cardiac stress test or echo. Related Data Previous Rx's Medication Instructions Recorded propranolol 20 mg tablet 20 mg PO BID #30 tab 10/02/21 meclizine 25 mg tablet 25 mg PO TID PRN #30 tab 10/09/21 Allergies Allergy/AdvReac Type Severity Reaction Status Date / Time codeine [CODEINE] Allergy Intermediate Vomiting Verified 10/02/21 14:59 Review of Systems Constitutional Constitutional: Reports body ache(s), Denies daytime sleepiness, Denies fatigue, Denies fever(s) and Denies weakness Eyes Eyes: Denies blurry vision, Denies change in vision and Denies loss of vision ENT Ears, Nose, Mouth, and Throat: Denies vertigo, Reports dizziness, Denies ear discharge, Denies otalgia and Denies facial pain Cardiovascular Cardiovascular: Reports as per HPI and Denies dyspnea Respiratory Respiratory: Denies chest congestion, Denies cough and Denies dyspnea Gastrointestinal Gastrointestinal: Denies abdominal pain and Denies nausea Genitourinary Genitourinary: Denies dysuria Musculoskeletal Comments: Left shoulder pain is noted HPI. Integumentary/Breasts Skin/Breast: Denies rash Neurologic Neurologic: Denies confusion, Denies vertigo, Reports dizziness, Denies loss of vision and Denies weakness Psychiatric Psychiatric: Denies confusion Endocrine Endocrine: Denies fatigue Hematologic/Lymphatic On Anticoagulants: No Patient History Medical History Basal cell carcinoma (BCC) of left shoulder (08/16/17) Bladder prolapse Dermoid cyst Diverticulosis of colon (10/28/17) Dysphagia (09/09/17) Elevated blood pressure reading (02/16/11) GERD (gastroesophageal reflux disease) GI bleed Hiatal hernia (10/28/17) History of gastrointestinal procedure (04/15/18) Iron deficiency anemia (07/23/17) Morbid obesity with BMI of 40.0-44.9, adult Never smoked 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 Surgical History History of basal cell carcinoma excision (08/16/17) History of carpal tunnel release (~1991) History of colonoscopy with polypectomy (12/22/17) History of dermoid cyst excision History of esophagogastroduodenoscopy (EGD) (10/28/17) History of esophagogastroduodenoscopy (EGD) (03/14/18) History of repair of hiatal hernia Hx of hernia repair (1986) Hx of LASIK S/P colonoscopic polypectomy (10/28/17) S/P knee surgery (1979) Status post LASIK surgery Status post left foot surgery (~1996) Family History Father Age: 86 Hypertension High cholesterol Mother Age: 82 Hypertension High cholesterol Sister Age: 62 Cervical cancer Social History marital status: household members: spouse lives independently: Yes housing: house Smoking Status: Never smoker second hand exposure: No alcohol intake: never substance use type: does not use Smoking Status: Never smoker alcohol intake frequency: 0-2 drinks per day Substance Use Type: does not use Exam Initial Vital Signs Initial Vital Signs: Vital Signs Temperature 98.0 F 10/08/21 19:49 Pulse Rate 81 10/08/21 19:49 Respiratory Rate 18 10/08/21 19:49 Blood Pressure 157/92 H 10/08/21 19:49 Pulse Oximetry 98 10/08/21 19:49 Const General: cooperative, healthy appearing, well developed, well groomed and anxious [facility] Head: normal to inspection, normocephalic and atraumatic Ears: TM's normal bilaterally and other (Hallpike positive to the left.) Face and sinus: normal facial exam and sinuses nontender Mouth: oral mucosae normal Throat: posterior oropharynx normal Eyes General: appearance normal, both eyes and all related structures Neck Neck: No lymphadenopathy and No JVD Chest Chest: normal inspection of the chest Resp Effort & Inspection: normal respiratory effort Auscultation: clear to auscultation bilaterally Percussion: percussion normal Cardio Rate: regular rate Rhythm: regular rhythm Heart Sounds: S1 normal and S2 normal GI Inspection: normal to inspection Palpation: soft and No tender Back/Spine/Pelvis Back: normal to inspection and No CVA tenderness Skin General: no rashes or lesions noted Neuro General: patient alert, patient awake, patient oriented x3, no focal motor deficits and Naima Hallpike (Normal) Coordination: [id number] test normal Extrem General: normal to inspection, full ROM, no pedal edema and no calf tenderness Other: The left shoulder shows tenderness posterior in the joint line, no limitation of motion. No palpable defects. No laxity. This is shoulder pain, not suggestive of cardiac issues. Psych Mental Status: mental status grossly normal Course Course Course Narrative: It is noted the patient has mild shoulder discomfort, nothing related to cardiac issues. Her EKG and labs are normal. She had a positive Hallpike exam, dizziness has improved but not resolved with meclizine. She is up and ambulatory without discomfort. Orders Ordered: ED Orders 10/08/21 19:56 XR chest 1V Stat EKG-12 Lead Stat 10/08/21 20:15 Complete Blood Count AUTO DIFF Stat Comprehensive Metabolic Panel Stat Lipase Stat Magnesium Stat Troponin & CK Cardiac Panel Stat Discontinued Medications Meclizine HCl (Meclizine Hcl 12.5 Mg Tablet) 50 mg PO NOW ONE Stop: 10/08/21 22:05 Last Admin: 10/08/21 22:29 Dose: 50 mg Documented by: KASSANDRA Vital Signs Vital signs: Vital Signs - 8 hr 10/08/21 19:49 10/08/21 20:51 10/08/21 21:00 Temperature 98.0 F Pulse Rate 81 76 70 Respiratory Rate 18 25 H 20 Blood Pressure 157/92 H 121/77 Pulse Oximetry 98 98 97 10/08/21 21:30 10/08/21 22:00 10/08/21 22:13 Temperature Pulse Rate 77 83 75 Respiratory Rate 19 25 H 20 Blood Pressure 131/62 143/100 H 168/85 H Pulse Oximetry 98 99 99 10/08/21 22:20 10/08/21 22:30 10/08/21 22:41 Temperature Pulse Rate 70 73 75 Respiratory Rate 18 28 H 21 Blood Pressure 156/79 H 139/81 Pulse Oximetry 100 99 99 10/08/21 23:00 Temperature Pulse Rate 79 Respiratory Rate 17 Blood Pressure 142/78 H Pulse Oximetry 97 MDM - Chest Pain Lab Data Result diagrams: 10/08/21 20:15 10/08/21 20:15 Labs: Lab Results 10/08/21 10/08/21 Range/Units 20:15 20:15 WBC 7.7 (4.5-11.0) X10^3/uL RBC 4.66 (4.0-5.2) X10^6/uL Hgb 14.6 (12.0-16.0) g/dL Hct 42.5 (36-46) % MCV 91.2 (80-100) fL MCH 31.3 (26-34) PG MCHC 34.4 (30-36) % RDW 13.5 (11.6-14.8) % Plt Count 267 (150-400) X10^3/uL Neut % (Auto) 69.1 (50-75) % Lymph % (Auto) 20.7 L (25-40) % [place] % (Auto) 7.9 (3-14) % Eos % (Auto) 1.6 L (2-4) % Baso % (Auto) 0.7 (0-2) % Neut # (Auto) 5400 (5483-0286) /uL Lymph # (Auto) 1600 (2744-0853) /uL [place] # (Auto) 600 (0-900) /uL Eos # (Auto) 100 (0-450) /uL Baso # (Auto) 100 (0-100) /uL Sodium 137 (137-145) mmol/L Potassium 3.7 (3.4-5.1) mmol/L Chloride 103 (98-107) mmol/L Carbon Dioxide 26 (22-32) mmol/L BUN 17 (7-17) mg/dL Creatinine 0.80 (0.52-1.04) mg/dL Estimated GFR > 60.0 (>60) mL/min BUN/Creatinine Ratio 21.3 (6-22) Glucose 102 (80-110) mg/dL Calcium 9.0 (8.4-10.2) mg/dL Magnesium 2.1 (1.6-2.3) mg/dL Total Bilirubin 0.5 (0.2-1.3) mg/dL AST 21 (14-36) IU/L ALT 16 (<35) IU/L Alkaline Phosphatase 104 (38-126) U/L Total Creatine Kinase 40 (30-135) U/L CK-MB (CK-2) TNP CK-MB (CK-2) Rel Index TNP Troponin I < 0.012 (0.01-0.034) ng/mL Total Protein 7.4 (6.3-8.2) g/dL Albumin 4.3 (3.5-5.0) g/dL Globulin 3.1 (1.7-4.1) g/dL Albumin/Globulin Ratio 1.4 (1.0-2.8) Lipase 95 (23-300) U/L Imaging Data Chest x-ray: Radiologist's Impression: No acute cardiopulmonary disease. ECG Data Attestation: I personally reviewed and interpreted this ECG as follows: (Normal sinus rhythm rate 80 beats per minute. Minimum avoid stage criteria for LVH. Nonspecific ST T wave changes. Specifically no ST elevation.) Discharge Plan Departure Patient Disposition: Home Clinical Impression: Atypical chest pain, Dizziness Instructions: DI for Atypical Chest Pain, Dizziness, Nonvertigo Activity Restrictions/Additional Instructions: Meclizine every 6 hours as needed for dizziness or nausea. Stop the medication if the dizziness resolves. Continue current medications. Follow-up with your PCM. For ongoing concerns for cardiac disease I would recommend a cardiac stress test as well as cardiac monitoring. Return here as needed. Prescriptions: New meclizine 25 mg tablet 25 mg PO TID PRN (Reason: dizziness) Qty: 30 0RF No Action propranolol 20 mg tablet 20 mg PO BID Qty: 30 1RF Rx Instructions: Check BP before and after dose. Titrate dose up by 20mg increments to effect. Referrals: Gavin Curry MD [Primary Care Provider] -
[2021-10-08] MEDS: MECLIZINE HCL 12.5 MG TABLET 50 MG PO (22:29)
--- NOTE | 2021-10-08 23:26 | PC.NURSE ---
Pt reports 3 days of pain in L side of chest radiating to L shoulder. pain in L shoulder is palpable to touch and goes along back of L neck. Pt appears anxious at baseline and reports taking propranolol daily or multiple times a day for anxiety. c/o labile BP's, lightheadedness, and dizziness. Ambulates with steady gait. States she did not eat dinner tonight and does not remember the last thing she ate today. Given ashok vanessa, egg salad sandwich, and crackers with PB. HR 60's NSR, BP 130-140's systolic. 99% RA. Resting on stretcher with sister at bedside. NAD. Given meclazine for vertigo.
[2021-10-08] MEDS: ACETAMINOPHEN 325 MG TABLET 650 MG PO (23:53)
[2021-10-09] VITALS: BP 131/61; PULSE 92; RESP 18; O2SAT 97
== END 2021-10-09 00:16 | disposition home or self-care (01) ==
PROVIDERS: Emergency Provider Emergency Medicine; PCP Student in an Organized Health Care Education/Training Program
DX: R07.89 Other chest pain (principal); R42 Dizziness and giddiness
CPT/HCPCS: 36415; 71045; 80053; 82550; 83690; 83735; 84484; 85025; 93005; 93010; 99284

== ENCOUNTER → 2021-10-27 14:51 | Outpatient (CLI) | payer OTHER, MEDICAID, SELFPAY ==
[2019-07-24 16:23] VITALS: BMI 39.4
== END ==
PROVIDERS: PCP Student in an Organized Health Care Education/Training Program; Referring Provider Student in an Organized Health Care Education/Training Program; Visit Provider Student in an Organized Health Care Education/Training Program
DX: Z12.31 Encounter for screening mammogram for malignant neoplasm of breast (principal); Z53.8 Procedure and treatment not carried out for other reasons

== ENCOUNTER → 2021-11-03 13:15 | Outpatient (CLI) | payer OTHER, MEDICAID, SELFPAY ==
[2019-07-24 16:23] VITALS: BMI 39.4
--- NOTE | 2021-11-03 | DI.MG.S_ITS ---
BILATERAL DIGITAL SCREENING MAMMOGRAM 3D/2D WITH CAD: 11/03/2021 CLINICAL: Routine screening. Baseline exam. No prior exams were available for comparison. There are scattered fibroglandular elements in both breasts. Current study was also evaluated with a Computer Aided Detection (CAD) system. No significant masses, calcifications, or other findings are seen in either breast. IMPRESSION: NEGATIVE There is no mammographic evidence of malignancy. A 1 year screening mammogram is recommended. This exam was interpreted at Station ID: [id number]. NOTE: For mammograms, a report in lay terms will be sent to the patient. Approximately 15% of breast malignancies will not be visualized mammographically. In the management of a palpable breast mass, a negative mammogram must not discourage biopsy of a clinically suspicious lesion. Electronically Signed By: Klaus hendrickson/she:11/03/2021 16:01:33 letter sent: Normal Exam ACR BI-RADS Category 1: Negative 3341F
== END ==
PROVIDERS: PCP Student in an Organized Health Care Education/Training Program; Referring Provider Student in an Organized Health Care Education/Training Program; Visit Provider Student in an Organized Health Care Education/Training Program
DX: Z12.31 Encounter for screening mammogram for malignant neoplasm of breast (principal)
CPT/HCPCS: 77063; 77067

== ENCOUNTER → 2022-03-05 17:42 | Outpatient (CLI) | payer OTHER, MEDICAID, SELFPAY ==
[2019-07-24 16:23] VITALS: BMI 39.4
--- NOTE | 2022-03-05 17:45 | DI.US.S_ITS ---
PROCEDURE: US PELVIC COMPLETE INDICATIONS: History of dermoid cyst, left ovary TECHNIQUE: Real-time scanning was performed of the pelvic organs, with image documentation. Additional endovaginal scanning was necessary due to incomplete visualization of the adnexal and endometrial structures by transabdominal scanning. COMPARISON: [facility], CT, CT ABDOMEN PELVIS W CON, 12/31/2017, 10:23. [facility], US, US PELVIC COMPLETE, 09/04/2019, 11:37. FINDINGS: Uterus: Removed. Ovaries: The right ovary has been removed. The left ovary measures 2.6 x 2 x 1.5 cm, with a volume of 4.1 cc. Within the left ovary, there is an apparent hyperechoic region that measures 1.4 x 0.9 x 1.1 cm. No adnexal masses are seen on either side. Other: No pathologic free abdominal or pelvic fluid. IMPRESSION: Mildly hyperechoic region seen on within the LEFT ovary. This is nonspecific and may be related to a dermoid. (It is noted that the patient previously had a RIGHT ovarian dermoid, as seen by CT.) We strive to produce accurate, complete, and clear reports of imaging services. To assist us in improving patient care, this report was composed using standard report templates and voice recognition software. Therefore, it may contain abnormal punctuation, insertions and/or omissions. Occasional wrong-word or sound-alike substitutions may occur. Though we review the report and make efforts to correct it, we do recommend that the report be read carefully in proper context to recognize any text inaccuracies. Dictated by: Ashish Cho M.D. on 03/06/2022 at 9:26 Approved by: Ashish Cho M.D. on 03/06/2022 at 9:29
== END ==
PROVIDERS: PCP Student in an Organized Health Care Education/Training Program; Referring Provider Obstetrics & Gynecology; Visit Provider Obstetrics & Gynecology
DX: D27.1 Benign neoplasm of left ovary (principal)
CPT/HCPCS: 76830; 76856

== ENCOUNTER → 2022-03-11 09:13 | Outpatient (CLI) | payer OTHER, MEDICAID, SELFPAY ==
[2019-07-24 16:23] VITALS: BMI 39.4
== END ==
PROVIDERS: PCP Student in an Organized Health Care Education/Training Program; Referring Provider Student in an Organized Health Care Education/Training Program; Visit Provider Student in an Organized Health Care Education/Training Program
DX: F41.9 Anxiety disorder, unspecified (principal)
CPT/HCPCS: 36415; 82533; 83835; 84443

== ENCOUNTER → 2022-11-04 09:41 | Outpatient (RCR) | payer OTHER, MEDICAID, SELFPAY ==
[2019-07-24 16:23] VITALS: BMI 39.4
--- NOTE | 2021-03-31 14:13 | PT-OP ANOTE ---
Pt no showed initial assessment scheduled 03/26/21 despite PT calling her and reminding her about appointment on 03/25/21. Pt's eval was rescheduled.
--- NOTE | 2021-04-07 09:19 | PT.OIE ---
Current Diagnoses Pain in right knee (04/07/21) Past Medical History (Last Updated 03/11/21 @ 08:15 by Gavin Curry MD) Basal cell carcinoma (BCC) of left shoulder (08/16/17) Bladder prolapse Dermoid cyst Diverticulosis of colon (10/28/17) Dysphagia (09/09/17) Elevated blood pressure reading (02/16/11) Fatigue associated with anemia Female bladder prolapse (07/23/17) GERD (gastroesophageal reflux disease) GI bleed Hiatal hernia (10/28/17) History of basal cell carcinoma excision (08/16/17) History of carpal tunnel release (~1991) History of colonoscopy with polypectomy (12/22/17) History of dermoid cyst excision History of esophagogastroduodenoscopy (EGD) (10/28/17) History of esophagogastroduodenoscopy (EGD) (03/14/18) History of gastrointestinal procedure (04/15/18) History of repair of hiatal hernia Hx of hernia repair (1986) Hx of LASIK Iron deficiency anemia (07/23/17) Morbid obesity with BMI of 40.0-44.9, adult Never smoked Plantar fascial fibromatosis (07/23/17) S/P colonoscopic polypectomy (10/28/17) S/P knee surgery (1979) Status post LASIK surgery Status post left foot surgery (~1996) 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 Past Surgical History (Last Updated 03/11/21 @ 08:15 by Gavin Curry MD) History of basal cell carcinoma excision (08/16/17) History of carpal tunnel release (~1991) History of colonoscopy with polypectomy (12/22/17) History of dermoid cyst excision History of esophagogastroduodenoscopy (EGD) (10/28/17) History of esophagogastroduodenoscopy (EGD) (03/14/18) History of repair of hiatal hernia Hx of hernia repair (1986) Hx of LASIK S/P colonoscopic polypectomy (10/28/17) S/P knee surgery (1979) Status post LASIK surgery Status post left foot surgery (~1996) Visit Care Team Role Provider Type Gavin Curry MD Attending Provider Physician Primary Care Provider Referring Provider Specialty: Internal Medicine Address: [address] [place] [address] [address], [address] Email: [email or web address] Physical Therapy Initial Evaluation PT-OP-A Visit Information Start: 03/25/21 13:46 Freq: Status: Active Protocol: Document 04/07/21 08:18 MB (Rec: 04/07/21 08:34 MB [id number]) Out-Patient Physical Therapy Visit Information Visit Information Visit Type Initial Evaluation Visit Note Eval only PT eval charge and then 8 visits Visit Start Time 08:18 Visit Stop Time 08:50 Total Visit Minutes 32 Visit Number 07/13 Evaluation Information Evaluation Date 04/07/21 PT-OP-B Current Condition Start: 03/25/21 13:46 Freq: Status: Active Protocol: Document 04/07/21 08:18 MB (Rec: 04/07/21 08:34 MB [id number]) Current Condition History of Current Condition Onset Date 10 years Current Complaints R knee and lateral distal leg pain and leg popping and giving History of Current Condition Pt reports her right knee cannot bend far, it tends to pop out of place. She has a history of left knee surgery after skiing injury 40 years ago. She has lost about 50 lbs and is continuing to lose weight. She has never gotten in the pool for therapy. 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 Pt reports carpel tunnel right hand, surgery to pull stomach down. Pt reports pain up to 8-9/10 right knee and 4/10 down lower lateral right leg. Pain wakes her up at night if she turns in bed. Pt does not use an AD. She has two steps to get into the house and she uses rail and takes one step at a time. Pt does state that her right great toe and second toe are numb. She thinks it could have been from the foot tumors. Pt has a stationary upright bike and she has an outdoor bike. Prior Treatments and Tests Right x-ray 03/21/21: tricompartmental OA, worst in lateral femorotibial compartment, chondrocalcinosis , CPPD vs hyperparathyroidim vs hemochromatosis, small joint effusion Treatment Goals Patient/Caregiver Goals To strengthen knee and bend it more PT-OP-C Subjective Start: 03/25/21 13:46 Freq: Status: Active Protocol: Document 04/07/21 08:18 MB (Rec: 04/07/21 08:34 MB [id number]) OP-PT Subjective Patient Comments Patient Comments See history of current condition. Patient Questionnaires Lower Extremity Functional Scale LEFS Score 44/80 LEFS Impairment 40 to 59% Impaired (Score 32- 47) PT-OP-G Mobility & Gait Start: 03/25/21 13:46 Freq: Status: Active Protocol: Document 04/07/21 08:18 MB (Rec: 04/07/21 09:19 MB [id number]) OP Gait Assessment Gait Gait Assistance Required: Independent Distance (Feet) 50 Assistive Devices Assistive Device None Gait Deviations General Gait Pattern Decreased Stride Length,Wide Based Gait Factors Limiting Gait Function Factors Limiting Gait Function Limited Range of Motion,Pain Comments Gait Comments Gait with shoes off: slow, wide MT, increased lateral foot WB B, left greater than right great toe adduction and pt walks with feet IR and great toes moving close to one anotherr PT-OP-J Posture/Palpation/Skin Start: 03/25/21 13:46 Freq: Status: Active Protocol: Document 04/07/21 08:18 MB (Rec: 04/07/21 09:19 MB [id number]) Posture Evaluation Comments Posture Comments Standing posture with shoes doffed: Dowager's hump, increased soft tissue body mass, decreased thoracic kyphosis, rounded shoulders, increased lumbar lordosis, anterior tilt pelvis, B great toes adducted, greater on the left, right shoulder slightly higher than the left, right iliac crest higher than the left. PT-OP-K Range of Motion Start: 03/25/21 13:46 Freq: Status: Active Protocol: Document 04/07/21 08:18 MB (Rec: 04/07/21 09:19 MB [id number]) Knee Goniometric Range of Motion Knee ROM Limitations Comments AROM in supine: left 2-79 deg; right 5-85 deg PT-OP-M Strength Start: 03/25/21 13:46 Freq: Status: Active Protocol: Document 04/07/21 08:18 MB (Rec: 04/07/21 09:19 MB [id number]) Hip Strength Hip Manual Muscle Testing Left Flexion (L2) 3+ Fair+ Abduction 4 Good Right Flexion (L2) 3+ Fair+ Abduction 3+ Fair+ Knee Strength Knee Manual Muscle Testing Left Flexion (S2) 5 Normal Extension (L3) 5 Normal Right Comments MMT knee deferred d/t pain Ankle/Foot Strength Ankle and Foot Manual Muscle Testing Right Dorsiflexion (L4) 5 Normal Left Dorsiflexion (L4) 5 Normal Toe Strength Toe Manual Muscle Testing Left Great Toe Extension 5 Normal Right Great Toe Extension 5 Normal PT-OP-T Assessment and Plan Start: 03/25/21 13:46 Freq: Status: Active Protocol: Document 04/07/21 08:18 MB (Rec: 04/07/21 09:12 MB [id number]) Physical Therapy Assessment Rehab Potential Rehabilitation Potential Fair Evaluation Complexity Number of Personal Factors/Comorbidities 1-2 Number of Body Systems Impaired 3 Clinical Presentation at Evaluation Evolving Impairments Impairments Activity Tolerance,Balance, Functional Mobility,Gait,Pain, Posture,ROM,Soft Tissue Mobility,Strength Other Impairments Personal factors include increased body mass. Body systems affected include musculoskeletal, neuromuscular , metabolic. Her clinical presentation is evolving in set of degenerative changes and other changes as reported on x-ray. Other Concerns Fall Risk Yes Goals 3 Certified Teacher Assistant Goal (LTG) Pt will perform progressive HEP including ROM, flexibility , strengthening, gait and balance to improve function and pain by 05/19/21. LTG Duration 5 weeks 2 Certified Teacher Assistant Goal (LTG) Pt will gait train at least 1100 feet in 6 minutes with or without walking stick to improve community ambulation by 05/19/21. LTG Duration 5 weeks 1 Impairment LEF score reflects 45% impairment Certified Teacher Assistant Goal (LTG) Pt will present with an improved LEF score to reflect no more than 30% impairment to improve mobility and quality of life by 05/19/21. LTG Duration 5 weeks Assessment Summary Assessment Pt is a 60 y/o female presenting with increased body mass, history of left knee trauma and surgery, B foot changes and decreased range and strength of both LEs. Her x-ray report reveals degenerative changes of right knee and includes other differential diagnoses that may be pursued by provider. She will benefit from PT to improve range, flexibility, strength and gait. She is only allowed 8 visits per insurance note and this will limit PT intervention. Other barriers to PT include increased body mass, chronicity of presentation and range limitations. Physical Therapy Plan Frequency and Duration Frequency of Treatment 8 visits Duration of Treatment 5 weeks Plan of Care Start Date 04/07/21 Plan of Care End Date 05/19/21 Therapeutic Interventions Therapeutic Interventions Aquatic Therapy,Balance Training,Canalithic Repositioning,Gait Training, Home Exercise Program,Joint Mobilizations,Manual Therapy, Neuromuscular Re-education, Patient/Caregiver Education, Self-Care/Home Management,Soft Tissue Mobilization,Taping, Therapeutic Activities, Therapeutic Exercises Modalities Cold Pack/Ice Massage,Hot Packs Next Visit Focus/Plan Next Note Type Treatment Note Next Visit Plan Start Sheldon, hamstring and calf stretches, teach about core engagement, use of rolling pin and upright bike
--- NOTE | 2021-04-07 09:19 | PT.OPPOC ---
Physical, Occupational & Speech Therapy At [facility] Current Diagnoses Pain in right knee (04/07/21) Visit Care Team Role Provider Type Gavin Curry MD Attending Provider Physician Primary Care Provider Referring Provider Specialty: Internal Medicine Address: [address] [place] [address], [address], [place], [address] Email: [email or web address] Plan Of Care PT-OP-T Assessment and Plan Start: 03/25/21 13:46 Freq: Status: Active Protocol: Document 04/07/21 08:18 MB (Rec: 04/07/21 09:12 MB [id number]) Physical Therapy Assessment Rehab Potential Rehabilitation Potential Fair Evaluation Complexity Number of Personal Factors/Comorbidities 1-2 Number of Body Systems Impaired 3 Clinical Presentation at Evaluation Evolving Impairments Impairments Activity Tolerance,Balance, Functional Mobility,Gait,Pain, Posture,ROM,Soft Tissue Mobility,Strength Other Impairments Personal factors include increased body mass. Body systems affected include musculoskeletal, neuromuscular , metabolic. Her clinical presentation is evolving in set of degenerative changes and other changes as reported on x-ray. Other Concerns Fall Risk Yes Goals 3 Hair Stylist Goal (LTG) Pt will perform progressive HEP including ROM, flexibility , strengthening, gait and balance to improve function and pain by 05/19/21. LTG Duration 5 weeks 2 Detention Goal (LTG) Pt will gait train at least 1100 feet in 6 minutes with or without walking stick to improve community ambulation by 05/19/21. LTG Duration 5 weeks 1 Impairment LEF score reflects 45% impairment Detention Goal (LTG) Pt will present with an improved LEF score to reflect no more than 30% impairment to improve mobility and quality of life by 05/19/21. LTG Duration 5 weeks Assessment Summary Assessment Pt is a 60 y/o female presenting with increased body mass, history of left knee trauma and surgery, B foot changes and decreased range and strength of both LEs. Her x-ray report reveals degenerative changes of right knee and includes other differential diagnoses that may be pursued by provider. She will benefit from PT to improve range, flexibility, strength and gait. She is only allowed 8 visits per insurance note and this will limit PT intervention. Other barriers to PT include increased body mass, chronicity of presentation and range limitations. Physical Therapy Plan Frequency and Duration Frequency of Treatment 8 visits Duration of Treatment 5 weeks Plan of Care Start Date 04/07/21 Plan of Care End Date 05/19/21 Therapeutic Interventions Therapeutic Interventions Aquatic Therapy,Balance Training,Canalithic Repositioning,Gait Training, Home Exercise Program,Joint Mobilizations,Manual Therapy, Neuromuscular Re-education, Patient/Caregiver Education, Self-Care/Home Management,Soft Tissue Mobilization,Taping, Therapeutic Activities, Therapeutic Exercises Modalities Cold Pack/Ice Massage,Hot Packs Next Visit Focus/Plan Next Note Type Treatment Note Next Visit Plan Start Sheldon, hamstring and calf stretches, teach about core engagement, use of rolling pin and upright bike Plan of Care Dates Plan of Care Start Date 04/07/21 Plan of Care End Date 05/19/21 Electronically Signed by: Leann Gomes, PT 04/07/21 0986 Please Sign and Return: I have reviewed this Plan of Care and certify that the skilled therapy services above are required to meet the patient?s needs. Physician Signature Date Printed Name and Credentials Clinical Instructor Signature Printed Name and Credentials
--- NOTE | 2021-04-09 13:40 | PT.OTN ---
Current Diagnoses Pain in right knee (04/09/21) Physical Therapy Treatment Note PT-OP-A Visit Information Start: 03/25/21 13:46 Freq: Status: Active Protocol: Document 04/09/21 13:00 MB (Rec: 04/09/21 13:33 MB [id number]) Out-Patient Physical Therapy Visit Information Visit Information Visit Type Treatment Note Visit Start Time 13:00 Visit Stop Time 13:40 Total Visit Minutes 40 Visit Number 2/ Evaluation Information Evaluation Date 04/07/21 PT-OP-B Current Condition Start: 03/25/21 13:46 Freq: Status: Active Protocol: Document 04/07/21 08:18 MB (Rec: 04/07/21 08:34 MB [id number]) Current Condition History of Current Condition Onset Date 10 years Current Complaints R knee and lateral distal leg pain and leg popping and giving History of Current Condition Pt reports her right knee cannot bend far, it tends to pop out of place. She has a history of left knee surgery after skiing injury 40 years ago. She has lost about 50 lbs and is continuing to lose weight. She has never gotten in the pool for therapy. 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 Pt reports carpel tunnel right hand, surgery to pull stomach down. Pt reports pain up to 8-9/10 right knee and 4/10 down lower lateral right leg. Pain wakes her up at night if she turns in bed. Pt does not use an AD. She has two steps to get into the house and she uses rail and takes one step at a time. Pt does state that her right great toe and second toe are numb. She thinks it could have been from the foot tumors. Pt has a stationary upright bike and she has an outdoor bike. Prior Treatments and Tests Right x-ray 03/21/21: tricompartmental OA, worst in lateral femorotibial compartment, chondrocalcinosis , CPPD vs hyperparathyroidim vs hemochromatosis, small joint effusion Treatment Goals Patient/Caregiver Goals To strengthen knee and bend it more PT-OP-C Subjective Start: 03/25/21 13:46 Freq: Status: Active Protocol: Document 04/09/21 13:00 MB (Rec: 04/09/21 13:33 MB [id number]) OP-PT Subjective Patient Comments Patient Comments Pt states that her knee is doing good. She is working on HS at home. PT-OP-G Mobility & Gait Start: 03/25/21 13:46 Freq: Status: Active Protocol: Document 04/07/21 08:18 MB (Rec: 04/07/21 09:19 MB [id number]) OP Gait Assessment Gait Gait Assistance Required: Independent Distance (Feet) 50 Assistive Devices Assistive Device None Gait Deviations General Gait Pattern Decreased Stride Length,Wide Based Gait Factors Limiting Gait Function Factors Limiting Gait Function Limited Range of Motion,Pain Comments Gait Comments Gait with shoes off: slow, wide MT, increased lateral foot WB B, left greater than right great toe adduction and pt walks with feet IR and great toes moving close to one anotherr PT-OP-J Posture/Palpation/Skin Start: 03/25/21 13:46 Freq: Status: Active Protocol: Document 04/07/21 08:18 MB (Rec: 04/07/21 09:19 MB [id number]) Posture Evaluation Comments Posture Comments Standing posture with shoes doffed: Dowager's hump, increased soft tissue body mass, decreased thoracic kyphosis, rounded shoulders, increased lumbar lordosis, anterior tilt pelvis, B great toes adducted, greater on the left, right shoulder slightly higher than the left, right iliac crest higher than the left. PT-OP-K Range of Motion Start: 03/25/21 13:46 Freq: Status: Active Protocol: Document 04/07/21 08:18 MB (Rec: 04/07/21 09:19 MB [id number]) Knee Goniometric Range of Motion Knee ROM Limitations Comments AROM in supine: left 2-79 deg; right 5-85 deg PT-OP-M Strength Start: 03/25/21 13:46 Freq: Status: Active Protocol: Document 04/07/21 08:18 MB (Rec: 04/07/21 09:19 MB [id number]) Hip Strength Hip Manual Muscle Testing Left Flexion (L2) 3+ Fair+ Abduction 4 Good Right Flexion (L2) 3+ Fair+ Abduction 3+ Fair+ Knee Strength Knee Manual Muscle Testing Left Flexion (S2) 5 Normal Extension (L3) 5 Normal Right Comments MMT knee deferred d/t pain Ankle/Foot Strength Ankle and Foot Manual Muscle Testing Right Dorsiflexion (L4) 5 Normal Left Dorsiflexion (L4) 5 Normal Toe Strength Toe Manual Muscle Testing Left Great Toe Extension 5 Normal Right Great Toe Extension 5 Normal PT-OP-Q Treatments Start: 03/25/21 13:46 Freq: Status: Active Protocol: Document 04/09/21 13:00 MB (Rec: 04/09/21 13:33 MB [id number]) Cardio Equipment Recumbent Elliptical (Biodex) Duration (Minutes) 10 Resistance 10 Seat Position 5 Therapeutic Exercises Supine Exercises Abdominal drawing in Comments Pelvic tilt and stomach tight, perform before Sheldon stretch Sheldon stretch Side bilateral Comments Abdominal drawing in first Hamstring stretch with AP Side bilateral Comments 20 reps AP, opposite leg bent Sitting Exercises Rolling pin massage Side right Comments See saw motion Standing Exercises Gastroc and soleus stretches Side bilateral Comments Leg behind, heel down, knee straight and bent PT-OP-T Assessment and Plan Start: 03/25/21 13:46 Freq: Status: Active Protocol: Document 04/09/21 13:00 MB (Rec: 04/09/21 13:33 MB [id number]) Physical Therapy Assessment Rehab Potential Rehabilitation Potential Fair Evaluation Complexity Number of Personal Factors/Comorbidities 1-2 Number of Body Systems Impaired 3 Clinical Presentation at Evaluation Evolving Impairments Impairments Activity Tolerance,Balance, Functional Mobility,Gait,Pain, Posture,ROM,Soft Tissue Mobility,Strength Other Impairments Personal factors include increased body mass. Body systems affected include musculoskeletal, neuromuscular , metabolic. Her clinical presentation is evolving in set of degenerative changes and other changes as reported on x-ray. Other Concerns Fall Risk Yes Goals 3 Surgical Scheduler Goal (LTG) Pt will perform progressive HEP including ROM, flexibility , strengthening, gait and balance to improve function and pain by 05/19/21. LTG Duration 5 weeks 2 Halfway Goal (LTG) Pt will gait train at least 1100 feet in 6 minutes with or without walking stick to improve community ambulation by 05/19/21. LTG Duration 5 weeks 1 Impairment LEF score reflects 45% impairment Surgical Scheduler Goal (LTG) Pt will present with an improved LEF score to reflect no more than 30% impairment to improve mobility and quality of life by 05/19/21. LTG Duration 5 weeks Assessment Summary Assessment Initiated recumbent stepper today and flexibility exercises. Will progress strengthening in future treatments. Physical Therapy Plan Frequency and Duration Frequency of Treatment 8 visits Duration of Treatment 5 weeks Plan of Care Start Date 04/07/21 Plan of Care End Date 05/19/21 Therapeutic Interventions Therapeutic Interventions Aquatic Therapy,Balance Training,Canalithic Repositioning,Gait Training, Home Exercise Program,Joint Mobilizations,Manual Therapy, Neuromuscular Re-education, Patient/Caregiver Education, Self-Care/Home Management,Soft Tissue Mobilization,Taping, Therapeutic Activities, Therapeutic Exercises Modalities Cold Pack/Ice Massage,Hot Packs Next Visit Focus/Plan Next Note Type Treatment Note Next Visit Plan Consider upright bike, core progression, bridge and clam in hook lying, ankle eversion and DF and LAQ with band, tandem standing
--- NOTE | 2021-04-14 13:43 | PT.OTN ---
Current Diagnoses Pain in right knee (04/14/21) Physical Therapy Treatment Note PT-OP-A Visit Information Start: 03/25/21 13:46 Freq: Status: Active Protocol: Document 04/14/21 13:03 MB (Rec: 04/14/21 13:42 MB [id number]) Out-Patient Physical Therapy Visit Information Visit Information Visit Type Treatment Note Visit Start Time 13:03 Visit Stop Time 13:43 Total Visit Minutes 40 Visit Number 3 Evaluation Information Evaluation Date 04/07/21 PT-OP-B Current Condition Start: 03/25/21 13:46 Freq: Status: Active Protocol: Document 04/07/21 08:18 MB (Rec: 04/07/21 08:34 MB [id number]) Current Condition History of Current Condition Onset Date 10 years Current Complaints R knee and lateral distal leg pain and leg popping and giving History of Current Condition Pt reports her right knee cannot bend far, it tends to pop out of place. She has a history of left knee surgery after skiing injury 40 years ago. She has lost about 50 lbs and is continuing to lose weight. She has never gotten in the pool for therapy. 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 Pt reports carpel tunnel right hand, surgery to pull stomach down. Pt reports pain up to 8-9/10 right knee and 4/10 down lower lateral right leg. Pain wakes her up at night if she turns in bed. Pt does not use an AD. She has two steps to get into the house and she uses rail and takes one step at a time. Pt does state that her right great toe and second toe are numb. She thinks it could have been from the foot tumors. Pt has a stationary upright bike and she has an outdoor bike. Prior Treatments and Tests Right x-ray 03/21/21: tricompartmental OA, worst in lateral femorotibial compartment, chondrocalcinosis , CPPD vs hyperparathyroidim vs hemochromatosis, small joint effusion Treatment Goals Patient/Caregiver Goals To strengthen knee and bend it more PT-OP-C Subjective Start: 03/25/21 13:46 Freq: Status: Active Protocol: Document 04/14/21 13:03 MB (Rec: 04/14/21 13:42 MB [id number]) OP-PT Subjective Patient Comments Patient Comments Pt had a flare-up of her right knee on Wednesday, yesterday it was better and today feels normal. PT-OP-G Mobility & Gait Start: 03/25/21 13:46 Freq: Status: Active Protocol: Document 04/07/21 08:18 MB (Rec: 04/07/21 09:19 MB [id number]) OP Gait Assessment Gait Gait Assistance Required: Independent Distance (Feet) 50 Assistive Devices Assistive Device None Gait Deviations General Gait Pattern Decreased Stride Length,Wide Based Gait Factors Limiting Gait Function Factors Limiting Gait Function Limited Range of Motion,Pain Comments Gait Comments Gait with shoes off: slow, wide MT, increased lateral foot WB B, left greater than right great toe adduction and pt walks with feet IR and great toes moving close to one anotherr PT-OP-J Posture/Palpation/Skin Start: 03/25/21 13:46 Freq: Status: Active Protocol: Document 04/07/21 08:18 MB (Rec: 04/07/21 09:19 MB [id number]) Posture Evaluation Comments Posture Comments Standing posture with shoes doffed: Dowager's hump, increased soft tissue body mass, decreased thoracic kyphosis, rounded shoulders, increased lumbar lordosis, anterior tilt pelvis, B great toes adducted, greater on the left, right shoulder slightly higher than the left, right iliac crest higher than the left. PT-OP-K Range of Motion Start: 03/25/21 13:46 Freq: Status: Active Protocol: Document 04/07/21 08:18 MB (Rec: 04/07/21 09:19 MB [id number]) Knee Goniometric Range of Motion Knee ROM Limitations Comments AROM in supine: left 2-79 deg; right 5-85 deg PT-OP-M Strength Start: 03/25/21 13:46 Freq: Status: Active Protocol: Document 04/07/21 08:18 MB (Rec: 04/07/21 09:19 MB [id number]) Hip Strength Hip Manual Muscle Testing Left Flexion (L2) 3+ Fair+ Abduction 4 Good Right Flexion (L2) 3+ Fair+ Abduction 3+ Fair+ Knee Strength Knee Manual Muscle Testing Left Flexion (S2) 5 Normal Extension (L3) 5 Normal Right Comments MMT knee deferred d/t pain Ankle/Foot Strength Ankle and Foot Manual Muscle Testing Right Dorsiflexion (L4) 5 Normal Left Dorsiflexion (L4) 5 Normal Toe Strength Toe Manual Muscle Testing Left Great Toe Extension 5 Normal Right Great Toe Extension 5 Normal PT-OP-Q Treatments Start: 03/25/21 13:46 Freq: Status: Active Protocol: Document 04/14/21 13:03 MB (Rec: 04/14/21 13:42 MB [id number]) Cardio Equipment Recumbent Bicycle Duration (Minutes) 11 Resistance 10 Seat Position 6 Therapeutic Exercises Supine Exercises Clam in hook lying Side bilateral Equipment Used Level 1 band around knees Comments Glute squeeze first Core progression Supine Exercise Name Abdominal drawing in and pelvic tilt first Equipment Used Level 1 band around knees for bridge Comments Knee rock, HS, mini march, bridge, knee fall out Hamstring stretch with AP Comments Performed today when cramping with bridging Manual Therapy Treatment Other Other Manual Treatments Black KT to support right knee : c trip under patella and B I strips medial and lateral knee PT-OP-T Assessment and Plan Start: 03/25/21 13:46 Freq: Status: Active Protocol: Document 04/14/21 13:03 MB (Rec: 04/14/21 13:42 MB [id number]) Physical Therapy Assessment Rehab Potential Rehabilitation Potential Fair Evaluation Complexity Number of Personal Factors/Comorbidities 1-2 Number of Body Systems Impaired 3 Clinical Presentation at Evaluation Evolving Impairments Impairments Activity Tolerance,Balance, Functional Mobility,Gait,Pain, Posture,ROM,Soft Tissue Mobility,Strength Other Impairments Personal factors include increased body mass. Body systems affected include musculoskeletal, neuromuscular , metabolic. Her clinical presentation is evolving in set of degenerative changes and other changes as reported on x-ray. Other Concerns Fall Risk Yes Goals 3 Senior Care Goal (LTG) Pt will perform progressive HEP including ROM, flexibility , strengthening, gait and balance to improve function and pain by 05/19/21. LTG Duration 5 weeks 2 Senior Care Goal (LTG) Pt will gait train at least 1100 feet in 6 minutes with or without walking stick to improve community ambulation by 05/19/21. LTG Duration 5 weeks 1 Impairment LEF score reflects 45% impairment Carpenter Cradle And Dolly Goal (LTG) Pt will present with an improved LEF score to reflect no more than 30% impairment to improve mobility and quality of life by 05/19/21. LTG Duration 5 weeks Assessment Summary Assessment Hamstring cramp on the right with bridging without pressing out into band and it improves with pressing out. Pt initiates core and hip strengthening today, con't progression. Physical Therapy Plan Frequency and Duration Frequency of Treatment 8 visits Duration of Treatment 5 weeks Plan of Care Start Date 04/07/21 Plan of Care End Date 05/19/21 Therapeutic Interventions Therapeutic Interventions Aquatic Therapy,Balance Training,Canalithic Repositioning,Gait Training, Home Exercise Program,Joint Mobilizations,Manual Therapy, Neuromuscular Re-education, Patient/Caregiver Education, Self-Care/Home Management,Soft Tissue Mobilization,Taping, Therapeutic Activities, Therapeutic Exercises Modalities Cold Pack/Ice Massage,Hot Packs Next Visit Focus/Plan Next Note Type Treatment Note Next Visit Plan Consider upright bike, ankle eversion and DF and LAQ with band, tandem standing
--- NOTE | 2021-04-16 13:51 | PT.OTN ---
Current Diagnoses Pain in right knee (04/16/21) Physical Therapy Treatment Note PT-OP-A Visit Information Start: 03/25/21 13:46 Freq: Status: Active Protocol: Document 04/16/21 13:03 MB (Rec: 04/16/21 13:48 MB [id number]) Out-Patient Physical Therapy Visit Information Visit Information Visit Type Treatment Note Visit Start Time 13:03 Visit Stop Time 13:45 Total Visit Minutes 42 Visit Number 10/11 Evaluation Information Evaluation Date 04/07/21 PT-OP-B Current Condition Start: 03/25/21 13:46 Freq: Status: Active Protocol: Document 04/07/21 08:18 MB (Rec: 04/07/21 08:34 MB [id number]) Current Condition History of Current Condition Onset Date 10 years Current Complaints R knee and lateral distal leg pain and leg popping and giving History of Current Condition Pt reports her right knee cannot bend far, it tends to pop out of place. She has a history of left knee surgery after skiing injury 40 years ago. She has lost about 50 lbs and is continuing to lose weight. She has never gotten in the pool for therapy. 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 Pt reports carpel tunnel right hand, surgery to pull stomach down. Pt reports pain up to 8-9/10 right knee and 4/10 down lower lateral right leg. Pain wakes her up at night if she turns in bed. Pt does not use an AD. She has two steps to get into the house and she uses rail and takes one step at a time. Pt does state that her right great toe and second toe are numb. She thinks it could have been from the foot tumors. Pt has a stationary upright bike and she has an outdoor bike. Prior Treatments and Tests Right x-ray 03/21/21: tricompartmental OA, worst in lateral femorotibial compartment, chondrocalcinosis , CPPD vs hyperparathyroidim vs hemochromatosis, small joint effusion Treatment Goals Patient/Caregiver Goals To strengthen knee and bend it more PT-OP-C Subjective Start: 03/25/21 13:46 Freq: Status: Active Protocol: Document 04/16/21 13:03 MB (Rec: 04/16/21 13:48 MB [id number]) OP-PT Subjective Patient Comments Patient Comments Pt states that she had a flare -up of her right heel the other day. She had some leg spasming. PT-OP-G Mobility & Gait Start: 03/25/21 13:46 Freq: Status: Active Protocol: Document 04/07/21 08:18 MB (Rec: 04/07/21 09:19 MB [id number]) OP Gait Assessment Gait Gait Assistance Required: Independent Distance (Feet) 50 Assistive Devices Assistive Device None Gait Deviations General Gait Pattern Decreased Stride Length,Wide Based Gait Factors Limiting Gait Function Factors Limiting Gait Function Limited Range of Motion,Pain Comments Gait Comments Gait with shoes off: slow, wide MT, increased lateral foot WB B, left greater than right great toe adduction and pt walks with feet IR and great toes moving close to one anotherr PT-OP-J Posture/Palpation/Skin Start: 03/25/21 13:46 Freq: Status: Active Protocol: Document 04/07/21 08:18 MB (Rec: 04/07/21 09:19 MB [id number]) Posture Evaluation Comments Posture Comments Standing posture with shoes doffed: Dowager's hump, increased soft tissue body mass, decreased thoracic kyphosis, rounded shoulders, increased lumbar lordosis, anterior tilt pelvis, B great toes adducted, greater on the left, right shoulder slightly higher than the left, right iliac crest higher than the left. PT-OP-K Range of Motion Start: 03/25/21 13:46 Freq: Status: Active Protocol: Document 04/07/21 08:18 MB (Rec: 04/07/21 09:19 MB [id number]) Knee Goniometric Range of Motion Knee ROM Limitations Comments AROM in supine: left 2-79 deg; right 5-85 deg PT-OP-M Strength Start: 03/25/21 13:46 Freq: Status: Active Protocol: Document 04/07/21 08:18 MB (Rec: 04/07/21 09:19 MB [id number]) Hip Strength Hip Manual Muscle Testing Left Flexion (L2) 3+ Fair+ Abduction 4 Good Right Flexion (L2) 3+ Fair+ Abduction 3+ Fair+ Knee Strength Knee Manual Muscle Testing Left Flexion (S2) 5 Normal Extension (L3) 5 Normal Right Comments MMT knee deferred d/t pain Ankle/Foot Strength Ankle and Foot Manual Muscle Testing Right Dorsiflexion (L4) 5 Normal Left Dorsiflexion (L4) 5 Normal Toe Strength Toe Manual Muscle Testing Left Great Toe Extension 5 Normal Right Great Toe Extension 5 Normal PT-OP-Q Treatments Start: 03/25/21 13:46 Freq: Status: Active Protocol: Document 04/16/21 13:03 MB (Rec: 04/16/21 13:48 MB [id number]) Cardio Equipment Bicycle (Upright) Duration (Minutes) 11 Resistance 11 Seat Position 3 Therapeutic Exercises Sitting Exercises LAQ with AP Side bilateral Resistance Level 2 band around ankles Comments 5 reps each with 10 AP each rep, alternating Ankle DF and eversion Side bilateral Resistance Level 2 band around feet Comments 10 reps Gait Training Gait Activity 6MWT Comments Pt gait trains 1361 feet in 6 minutes and denies pain today. Her gait is with wide MT and with Trendelenburg Neuro Re-Education Treatment Balance Activities Tandem standing Comments In // bars today: 1' each leg, good ankle strategy focus, equally difficult PT-OP-T Assessment and Plan Start: 03/25/21 13:46 Freq: Status: Active Protocol: Document 04/16/21 13:03 MB (Rec: 04/16/21 13:48 MB [id number]) Physical Therapy Assessment Rehab Potential Rehabilitation Potential Fair Evaluation Complexity Number of Personal Factors/Comorbidities 1-2 Number of Body Systems Impaired 3 Clinical Presentation at Evaluation Evolving Impairments Impairments Activity Tolerance,Balance, Functional Mobility,Gait,Pain, Posture,ROM,Soft Tissue Mobility,Strength Other Impairments Personal factors include increased body mass. Body systems affected include musculoskeletal, neuromuscular , metabolic. Her clinical presentation is evolving in set of degenerative changes and other changes as reported on x-ray. Other Concerns Fall Risk Yes Goals 3 Correction Goal (LTG) Pt will perform progressive HEP including ROM, flexibility , strengthening, gait and balance to improve function and pain by 05/19/21. LTG Duration 5 weeks 2 Accounts Receivable Manager Goal (LTG) Pt will gait train at least 1100 feet in 6 minutes with or without walking stick to improve community ambulation by 05/19/21. LTG Duration 5 weeks 1 Impairment LEF score reflects 45% impairment Correction Goal (LTG) Pt will present with an improved LEF score to reflect no more than 30% impairment to improve mobility and quality of life by 05/19/21. LTG Duration 5 weeks Assessment Summary Assessment Progressed strengthening for knees and ankles today. She did well with 6MWT. Physical Therapy Plan Frequency and Duration Frequency of Treatment 8 visits Duration of Treatment 5 weeks Plan of Care Start Date 04/07/21 Plan of Care End Date 05/19/21 Therapeutic Interventions Therapeutic Interventions Aquatic Therapy,Balance Training,Canalithic Repositioning,Gait Training, Home Exercise Program,Joint Mobilizations,Manual Therapy, Neuromuscular Re-education, Patient/Caregiver Education, Self-Care/Home Management,Soft Tissue Mobilization,Taping, Therapeutic Activities, Therapeutic Exercises Modalities Cold Pack/Ice Massage,Hot Packs Next Visit Focus/Plan Next Note Type Treatment Note Next Visit Plan Upright bike, progress hip strengthening with band in standing, teach self-KT
--- NOTE | 2021-04-21 13:51 | PT.OTN ---
Current Diagnoses Pain in right knee (04/21/21) Physical Therapy Treatment Note PT-OP-A Visit Information Start: 03/25/21 13:46 Freq: Status: Active Protocol: Document 04/21/21 13:01 SP (Rec: 04/21/21 13:58 SP [id number]) Out-Patient Physical Therapy Visit Information Visit Information Visit Type Treatment Note Visit Start Time 13:01 Visit Stop Time 13:51 Total Visit Minutes 50 Visit Number 5/9 Number of CARTOGRAPHIC AIDE Visits 1 PT-OP-B Current Condition Start: 03/25/21 13:46 Freq: Status: Active Protocol: Document 04/07/21 08:18 MB (Rec: 04/07/21 08:34 MB [id number]) Current Condition History of Current Condition Onset Date 10 years Current Complaints R knee and lateral distal leg pain and leg popping and giving History of Current Condition Pt reports her right knee cannot bend far, it tends to pop out of place. She has a history of left knee surgery after skiing injury 40 years ago. She has lost about 50 lbs and is continuing to lose weight. She has never gotten in the pool for therapy. 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 Pt reports carpel tunnel right hand, surgery to pull stomach down. Pt reports pain up to 8-9/10 right knee and 4/10 down lower lateral right leg. Pain wakes her up at night if she turns in bed. Pt does not use an AD. She has two steps to get into the house and she uses rail and takes one step at a time. Pt does state that her right great toe and second toe are numb. She thinks it could have been from the foot tumors. Pt has a stationary upright bike and she has an outdoor bike. Prior Treatments and Tests Right x-ray 03/21/21: tricompartmental OA, worst in lateral femorotibial compartment, chondrocalcinosis , CPPD vs hyperparathyroidim vs hemochromatosis, small joint effusion Treatment Goals Patient/Caregiver Goals To strengthen knee and bend it more PT-OP-C Subjective Start: 03/25/21 13:46 Freq: Status: Active Protocol: Document 04/21/21 13:01 SP (Rec: 04/21/21 13:58 SP [id number]) OP-PT Subjective Patient Comments Patient Comments Pt states compliant with exercises at home no problems with feet after last tx. Just took off K taping and wanting to know how apply self and buy for home. PT-OP-G Mobility & Gait Start: 03/25/21 13:46 Freq: Status: Active Protocol: Document 04/07/21 08:18 MB (Rec: 04/07/21 09:19 MB [id number]) OP Gait Assessment Gait Gait Assistance Required: Independent Distance (Feet) 50 Assistive Devices Assistive Device None Gait Deviations General Gait Pattern Decreased Stride Length,Wide Based Gait Factors Limiting Gait Function Factors Limiting Gait Function Limited Range of Motion,Pain Comments Gait Comments Gait with shoes off: slow, wide MT, increased lateral foot WB B, left greater than right great toe adduction and pt walks with feet IR and great toes moving close to one anotherr PT-OP-J Posture/Palpation/Skin Start: 03/25/21 13:46 Freq: Status: Active Protocol: Document 04/07/21 08:18 MB (Rec: 04/07/21 09:19 MB [id number]) Posture Evaluation Comments Posture Comments Standing posture with shoes doffed: Dowager's hump, increased soft tissue body mass, decreased thoracic kyphosis, rounded shoulders, increased lumbar lordosis, anterior tilt pelvis, B great toes adducted, greater on the left, right shoulder slightly higher than the left, right iliac crest higher than the left. PT-OP-K Range of Motion Start: 03/25/21 13:46 Freq: Status: Active Protocol: Document 04/21/21 13:01 SP (Rec: 04/21/21 13:58 SP [id number]) Knee Goniometric Range of Motion Knee R knee Knee ROM WFL No Patient Position Supine Flexion Active (degrees) 99 Extension Passive (degrees) 2 L knee Knee ROM WFL No Patient Position Supine Flexion Active (degrees) 94 Extension Passive (degrees) 1 PT-OP-M Strength Start: 03/25/21 13:46 Freq: Status: Active Protocol: Document 04/07/21 08:18 MB (Rec: 04/07/21 09:19 MB [id number]) Hip Strength Hip Manual Muscle Testing Left Flexion (L2) 3+ Fair+ Abduction 4 Good Right Flexion (L2) 3+ Fair+ Abduction 3+ Fair+ Knee Strength Knee Manual Muscle Testing Left Flexion (S2) 5 Normal Extension (L3) 5 Normal Right Comments MMT knee deferred d/t pain Ankle/Foot Strength Ankle and Foot Manual Muscle Testing Right Dorsiflexion (L4) 5 Normal Left Dorsiflexion (L4) 5 Normal Toe Strength Toe Manual Muscle Testing Left Great Toe Extension 5 Normal Right Great Toe Extension 5 Normal PT-OP-Q Treatments Start: 03/25/21 13:46 Freq: Status: Active Protocol: Document 04/21/21 13:01 SP (Rec: 04/21/21 13:58 SP [id number]) Cardio Equipment Bicycle (Upright) Duration (Minutes) 11 Resistance 11 Seat Position 3 Other cued awareness of ankle ROM into DF Therapeutic Exercises Supine Exercises AAROM Side bilateral Resistance AAROM w/ strap use Equipment Used t ball 55cm or table Reps/Minutes x10 Comments improvement in ROM from eval by 10 + degrees Sitting Exercises LAQ with AP Side bilateral Resistance Level 2 band around ankles Comments 5 reps each with 10 AP each rep, alternating Ankle DF and eversion Side bilateral Resistance Level 2 band around feet Comments 10 reps Rolling pin massage Comments discussed over calf and quad but not performed, uses at home Standing Exercises hip abd Tb Standing Exercise Name added to HEP Side bilateral Resistance Tb #1 loop Equipment Used counter light Reps/Minutes x10 Comments good feedback, cued light contact Gastroc and soleus stretches Comments discussed but not performed performs at work Manual Therapy Treatment Taping K taping Body Location R knee Treatment Focus patella stabilization (med/lat ) Type of Tape Kinesio Tape Comments static SL stance- challenged firm surface- PT-OP-T Assessment and Plan Start: 03/25/21 13:46 Freq: Status: Active Protocol: Document 04/21/21 13:01 SP (Rec: 04/21/21 13:58 SP [id number]) Physical Therapy Assessment Goals 3 Auditor Appraiser Goal (LTG) Pt will perform progressive HEP including ROM, flexibility , strengthening, gait and balance to improve function and pain by 05/19/21. LTG Duration 5 weeks 2 Auditor Appraiser Goal (LTG) Pt will gait train at least 1100 feet in 6 minutes with or without walking stick to improve community ambulation by 05/19/21. LTG Duration 5 weeks 1 Impairment LEF score reflects 45% impairment Auditor Appraiser Goal (LTG) Pt will present with an improved LEF score to reflect no more than 30% impairment to improve mobility and quality of life by 05/19/21. LTG Duration 5 weeks Assessment Summary Assessment Pt responded well to HEP review no adverse affects. Educated importance of continued ROM B knee flexion supine heel slide using gait belt for assist progression. Pt requires Min cues for DF alignment during ther ex to decrease calf recruitment for ROM on bike, supine therex. Initiated standing hip abd against resistance with good feedback painfree, cued contact table doesn't need to Moderate WB BUE. Pt stated felt pretty good end of tx. Reviewed self retaping of R knee. Pt was going to order Ktape for home when sure is really helping, she wasn't sure making significant difference. Physical Therapy Plan Frequency and Duration Frequency of Treatment 8 visits Duration of Treatment 5 weeks Plan of Care Start Date 04/07/21 Plan of Care End Date 05/19/21 Therapeutic Interventions Therapeutic Interventions Aquatic Therapy,Balance Training,Canalithic Repositioning,Gait Training, Home Exercise Program,Joint Mobilizations,Manual Therapy, Neuromuscular Re-education, Patient/Caregiver Education, Self-Care/Home Management,Soft Tissue Mobilization,Taping, Therapeutic Activities, Therapeutic Exercises Modalities Cold Pack/Ice Massage,Hot Packs Next Visit Focus/Plan Next Note Type Treatment Note Next Visit Plan recheck: resisted standing hip abd/ ext, self Ktape if helpful, continue gait and ROM progression. POC: Upright bike, progress hip strengthening with band in standing, teach self-KT
--- NOTE | 2021-04-24 10:37 | PT.OTN ---
Current Diagnoses Pain in right knee (04/24/21) Physical Therapy Treatment Note PT-OP-A Visit Information Start: 03/25/21 13:46 Freq: Status: Active Protocol: Document 04/24/21 09:51 SP (Rec: 04/24/21 10:37 SP [id number]) Out-Patient Physical Therapy Visit Information Visit Information Visit Type Treatment Note Visit Start Time 09:51 Visit Stop Time 10:37 Total Visit Minutes 46 Visit Number 6/9 Number of MEDICAL REFERRAL COORDINATOR Visits 2 Evaluation Information Evaluation Date 04/07/21 PT-OP-B Current Condition Start: 03/25/21 13:46 Freq: Status: Active Protocol: Document 04/07/21 08:18 MB (Rec: 04/07/21 08:34 MB [id number]) Current Condition History of Current Condition Onset Date 10 years Current Complaints R knee and lateral distal leg pain and leg popping and giving History of Current Condition Pt reports her right knee cannot bend far, it tends to pop out of place. She has a history of left knee surgery after skiing injury 40 years ago. She has lost about 50 lbs and is continuing to lose weight. She has never gotten in the pool for therapy. 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 Pt reports carpel tunnel right hand, surgery to pull stomach down. Pt reports pain up to 8-9/10 right knee and 4/10 down lower lateral right leg. Pain wakes her up at night if she turns in bed. Pt does not use an AD. She has two steps to get into the house and she uses rail and takes one step at a time. Pt does state that her right great toe and second toe are numb. She thinks it could have been from the foot tumors. Pt has a stationary upright bike and she has an outdoor bike. Prior Treatments and Tests Right x-ray 03/21/21: tricompartmental OA, worst in lateral femorotibial compartment, chondrocalcinosis , CPPD vs hyperparathyroidim vs hemochromatosis, small joint effusion Treatment Goals Patient/Caregiver Goals To strengthen knee and bend it more PT-OP-C Subjective Start: 03/25/21 13:46 Freq: Status: Active Protocol: Document 04/24/21 09:51 SP (Rec: 04/24/21 10:37 SP [id number]) OP-PT Subjective Patient Comments Patient Comments Pt. reports that she has had less pain recently. Indicated that normally she has pain when in bed rolling back to side but less instances last night. PT-OP-G Mobility & Gait Start: 03/25/21 13:46 Freq: Status: Active Protocol: Document 04/07/21 08:18 MB (Rec: 04/07/21 09:19 MB [id number]) OP Gait Assessment Gait Gait Assistance Required: Independent Distance (Feet) 50 Assistive Devices Assistive Device None Gait Deviations General Gait Pattern Decreased Stride Length,Wide Based Gait Factors Limiting Gait Function Factors Limiting Gait Function Limited Range of Motion,Pain Comments Gait Comments Gait with shoes off: slow, wide MT, increased lateral foot WB B, left greater than right great toe adduction and pt walks with feet IR and great toes moving close to one anotherr PT-OP-J Posture/Palpation/Skin Start: 03/25/21 13:46 Freq: Status: Active Protocol: Document 04/07/21 08:18 MB (Rec: 04/07/21 09:19 MB [id number]) Posture Evaluation Comments Posture Comments Standing posture with shoes doffed: Dowager's hump, increased soft tissue body mass, decreased thoracic kyphosis, rounded shoulders, increased lumbar lordosis, anterior tilt pelvis, B great toes adducted, greater on the left, right shoulder slightly higher than the left, right iliac crest higher than the left. PT-OP-K Range of Motion Start: 03/25/21 13:46 Freq: Status: Active Protocol: Document 04/24/21 09:51 SP (Rec: 04/24/21 10:37 SP [id number]) Knee Goniometric Range of Motion Knee R knee Knee ROM WFL No Patient Position Supine Flexion Active (degrees) 98 Flexion Passive (degrees) 103 Extension Active (degrees) 1 Extension Passive (degrees) 2 L knee Knee ROM WFL No Patient Position Supine Flexion Active (degrees) 89 Flexion Passive (degrees) 92 Comments PROM with strap, passive -4 deg. PT-OP-M Strength Start: 03/25/21 13:46 Freq: Status: Active Protocol: Document 04/07/21 08:18 MB (Rec: 04/07/21 09:19 MB [id number]) Hip Strength Hip Manual Muscle Testing Left Flexion (L2) 3+ Fair+ Abduction 4 Good Right Flexion (L2) 3+ Fair+ Abduction 3+ Fair+ Knee Strength Knee Manual Muscle Testing Left Flexion (S2) 5 Normal Extension (L3) 5 Normal Right Comments MMT knee deferred d/t pain Ankle/Foot Strength Ankle and Foot Manual Muscle Testing Right Dorsiflexion (L4) 5 Normal Left Dorsiflexion (L4) 5 Normal Toe Strength Toe Manual Muscle Testing Left Great Toe Extension 5 Normal Right Great Toe Extension 5 Normal PT-OP-Q Treatments Start: 03/25/21 13:46 Freq: Status: Active Protocol: Document 04/24/21 09:51 SP (Rec: 04/24/21 10:37 SP [id number]) Therapeutic Exercises Supine Exercises AAROM Side bilateral Resistance AAROM w/ strap use Equipment Used on table Reps/Minutes x10 Comments improvement in ROM Clam in hook lying Supine Exercise Name HEP reviewed Side bilateral Equipment Used Level 1> #2 band around knees Reps/Minutes x10 Comments Glute squeeze first Hamstring stretch with AP Side bilateral Reps/Minutes x10 Comments good response decrease HS tension post measurements Sitting Exercises hs curl band Sitting Exercise Name added to HEP Side bilateral Resistance #2 TB Reps/Minutes x10 Comments good feedback results LAQ with AP Sitting Exercise Name reveiwed HEP Side bilateral Resistance Level 2 band around ankles Comments 5 reps each with 10 AP each rep, alternating Ankle DF and eversion Sitting Exercise Name reviewed HEP Side bilateral Resistance Level 2 band around feet Reps/Minutes x10 Comments good feedback response Standing Exercises hip abd Tb Standing Exercise Name not performed but verbalize review Side bilateral Resistance Tb #1 loop Equipment Used counter light Reps/Minutes x10 Comments recheck next tx Manual Therapy Treatment Taping K taping Body Location R knee Treatment Focus patella stabilization (med/lat ) Type of Tape Kinesio Tape Comments instruction self guided application this tx- good patella stabilization PT-OP-T Assessment and Plan Start: 03/25/21 13:46 Freq: Status: Active Protocol: Document 04/24/21 09:51 SP (Rec: 04/24/21 10:37 SP [id number]) Physical Therapy Assessment Goals 3 Retirement Goal (LTG) Pt will perform progressive HEP including ROM, flexibility , strengthening, gait and balance to improve function and pain by 05/19/21. LTG Duration 5 weeks 2 Retirement Goal (LTG) Pt will gait train at least 1100 feet in 6 minutes with or without walking stick to improve community ambulation by 05/19/21. LTG Duration 5 weeks 1 Impairment LEF score reflects 45% impairment Retirement Goal (LTG) Pt will present with an improved LEF score to reflect no more than 30% impairment to improve mobility and quality of life by 05/19/21. LTG Duration 5 weeks Assessment Summary Assessment Pt good response to last tx. This tx reviewed self application of Ktaping R knee patella stabilization good feedback response at home helpful. HEP review and progressed ROM LE with use of strap for assist. Pt improving in decreased instance of pain rolling over in sleep compared to when started. Physical Therapy Plan Frequency and Duration Frequency of Treatment 8 visits Duration of Treatment 5 weeks Plan of Care Start Date 04/07/21 Plan of Care End Date 05/19/21 Therapeutic Interventions Therapeutic Interventions Aquatic Therapy,Balance Training,Canalithic Repositioning,Gait Training, Home Exercise Program,Joint Mobilizations,Manual Therapy, Neuromuscular Re-education, Patient/Caregiver Education, Self-Care/Home Management,Soft Tissue Mobilization,Taping, Therapeutic Activities, Therapeutic Exercises Modalities Cold Pack/Ice Massage,Hot Packs Next Visit Focus/Plan Next Note Type Treatment Note Next Visit Plan Start warm up on bike: recheck resisted standing hip abd/ ext, self Ktape if helpful, continue gait and ROM progression. POC: Upright bike, progress hip strengthening with band in standing, teach self-KT
--- NOTE | 2021-05-07 13:44 | PT.OTN ---
Current Diagnoses Pain in right knee (05/07/21) Physical Therapy Treatment Note PT-OP-A Visit Information Start: 03/25/21 13:46 Freq: Status: Active Protocol: Document 05/07/21 12:58 MB (Rec: 05/07/21 13:30 MB [id number]) Out-Patient Physical Therapy Visit Information Visit Information Visit Type Treatment Note Visit Start Time 12:58 Visit Stop Time 13:36 Total Visit Minutes 38 Visit Number 7/9 Number of ROOM ATTENDANT Visits 0 Evaluation Information Evaluation Date 04/07/21 PT-OP-B Current Condition Start: 03/25/21 13:46 Freq: Status: Active Protocol: Document 04/07/21 08:18 MB (Rec: 04/07/21 08:34 MB [id number]) Current Condition History of Current Condition Onset Date 10 years Current Complaints R knee and lateral distal leg pain and leg popping and giving History of Current Condition Pt reports her right knee cannot bend far, it tends to pop out of place. She has a history of left knee surgery after skiing injury 40 years ago. She has lost about 50 lbs and is continuing to lose weight. She has never gotten in the pool for therapy. 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 Pt reports carpel tunnel right hand, surgery to pull stomach down. Pt reports pain up to 8-9/10 right knee and 4/10 down lower lateral right leg. Pain wakes her up at night if she turns in bed. Pt does not use an AD. She has two steps to get into the house and she uses rail and takes one step at a time. Pt does state that her right great toe and second toe are numb. She thinks it could have been from the foot tumors. Pt has a stationary upright bike and she has an outdoor bike. Prior Treatments and Tests Right x-ray 03/21/21: tricompartmental OA, worst in lateral femorotibial compartment, chondrocalcinosis , CPPD vs hyperparathyroidim vs hemochromatosis, small joint effusion Treatment Goals Patient/Caregiver Goals To strengthen knee and bend it more PT-OP-C Subjective Start: 03/25/21 13:46 Freq: Status: Active Protocol: Document 05/07/21 12:58 MB (Rec: 05/07/21 13:30 MB [id number]) OP-PT Subjective Patient Comments Patient Comments Pt states that she does not even have as much pain on rainy days anymore. She went on a short cruise to and had a good time. She did good with her knee on the cruise. PT-OP-G Mobility & Gait Start: 03/25/21 13:46 Freq: Status: Active Protocol: Document 04/07/21 08:18 MB (Rec: 04/07/21 09:19 MB [id number]) OP Gait Assessment Gait Gait Assistance Required: Independent Distance (Feet) 50 Assistive Devices Assistive Device None Gait Deviations General Gait Pattern Decreased Stride Length,Wide Based Gait Factors Limiting Gait Function Factors Limiting Gait Function Limited Range of Motion,Pain Comments Gait Comments Gait with shoes off: slow, wide MT, increased lateral foot WB B, left greater than right great toe adduction and pt walks with feet IR and great toes moving close to one anotherr PT-OP-J Posture/Palpation/Skin Start: 03/25/21 13:46 Freq: Status: Active Protocol: Document 04/07/21 08:18 MB (Rec: 04/07/21 09:19 MB [id number]) Posture Evaluation Comments Posture Comments Standing posture with shoes doffed: Dowager's hump, increased soft tissue body mass, decreased thoracic kyphosis, rounded shoulders, increased lumbar lordosis, anterior tilt pelvis, B great toes adducted, greater on the left, right shoulder slightly higher than the left, right iliac crest higher than the left. PT-OP-K Range of Motion Start: 03/25/21 13:46 Freq: Status: Active Protocol: Document 04/24/21 09:51 SP (Rec: 04/24/21 10:37 SP [id number]) Knee Goniometric Range of Motion Knee R knee Knee ROM WFL No Patient Position Supine Flexion Active (degrees) 98 Flexion Passive (degrees) 103 Extension Active (degrees) 1 Extension Passive (degrees) 2 L knee Knee ROM WFL No Patient Position Supine Flexion Active (degrees) 89 Flexion Passive (degrees) 92 Comments PROM with strap, passive -4 deg. PT-OP-M Strength Start: 03/25/21 13:46 Freq: Status: Active Protocol: Document 04/07/21 08:18 MB (Rec: 04/07/21 09:19 MB [id number]) Hip Strength Hip Manual Muscle Testing Left Flexion (L2) 3+ Fair+ Abduction 4 Good Right Flexion (L2) 3+ Fair+ Abduction 3+ Fair+ Knee Strength Knee Manual Muscle Testing Left Flexion (S2) 5 Normal Extension (L3) 5 Normal Right Comments MMT knee deferred d/t pain Ankle/Foot Strength Ankle and Foot Manual Muscle Testing Right Dorsiflexion (L4) 5 Normal Left Dorsiflexion (L4) 5 Normal Toe Strength Toe Manual Muscle Testing Left Great Toe Extension 5 Normal Right Great Toe Extension 5 Normal PT-OP-Q Treatments Start: 03/25/21 13:46 Freq: Status: Active Protocol: Document 05/07/21 12:58 MB (Rec: 05/07/21 13:30 MB [id number]) Cardio Equipment Bicycle (Upright) Duration (Minutes) 10 Resistance 11 Seat Position 3 Therapeutic Exercises Supine Exercises Clam in hook lying Side bilateral Equipment Used Level 2 band around knees Comments 10 reps and cues to squeeze glutes first Core progression Supine Exercise Name Abd drawing in, HS, mini march , knee fall out, lumbar rotation Resistance Level 2 band around knees for bridge Comments Short reps of bridge x5, holds less than 5 sec Sheldon stretch Side bilateral Comments Tip pelvis up, opposite leg bent Hamstring stretch with AP Side bilateral Comments Hands behind thigh, 20 APs Sitting Exercises Rolling pin massage Sitting Exercise Name Lateral calf and quads Equipment Used Green roller Comments Pt rolls and PT ed to try with see saw motion Standing Exercises Gastroc and soleus stretches Side bilateral Comments Back knee straight and bent, hang out where feel need the stretch PT-OP-T Assessment and Plan Start: 03/25/21 13:46 Freq: Status: Active Protocol: Document 05/07/21 12:58 MB (Rec: 05/07/21 13:30 MB [id number]) Physical Therapy Assessment Goals 3 Senior Living Goal (LTG) Pt will perform progressive HEP including ROM, flexibility , strengthening, gait and balance to improve function and pain by 05/19/21. LTG Duration 5 weeks 2 Dye Weigher Helper Goal (LTG) Pt will gait train at least 1100 feet in 6 minutes with or without walking stick to improve community ambulation by 05/19/21. LTG Duration 5 weeks 1 Impairment LEF score reflects 45% impairment Dye Weigher Helper Goal (LTG) Pt will present with an improved LEF score to reflect no more than 30% impairment to improve mobility and quality of life by 05/19/21. LTG Duration 5 weeks Assessment Summary Assessment Initiated HEP review today for form and it is limited d/t some exercises not yet scanned in and pt does not bring in handouts. Encouraged pt to bring in her handouts next treatment date. Physical Therapy Plan Frequency and Duration Frequency of Treatment 8 visits Duration of Treatment 5 weeks Plan of Care Start Date 04/07/21 Plan of Care End Date 05/19/21 Therapeutic Interventions Therapeutic Interventions Aquatic Therapy,Balance Training,Canalithic Repositioning,Gait Training, Home Exercise Program,Joint Mobilizations,Manual Therapy, Neuromuscular Re-education, Patient/Caregiver Education, Self-Care/Home Management,Soft Tissue Mobilization,Taping, Therapeutic Activities, Therapeutic Exercises Modalities Cold Pack/Ice Massage,Hot Packs Next Visit Focus/Plan Next Note Type Treatment Note Next Visit Plan HEP review as pt to bring in handouts as her latest exercises have not been uploaded to the EMR
--- NOTE | 2021-05-09 14:32 | PT.OTN ---
Current Diagnoses Pain in right knee (05/09/21) Physical Therapy Treatment Note PT-OP-A Visit Information Start: 03/25/21 13:46 Freq: Status: Active Protocol: Document 05/09/21 13:48 MB (Rec: 05/09/21 14:32 MB [id number]) Out-Patient Physical Therapy Visit Information Visit Information Visit Type Treatment Note Visit Start Time 13:48 Visit Stop Time 14:30 Total Visit Minutes 43 Visit Number 8/9 Number of PHLEBOTOMY INSTRUCTOR Visits 0 Evaluation Information Evaluation Date 04/07/21 PT-OP-B Current Condition Start: 03/25/21 13:46 Freq: Status: Active Protocol: Document 04/07/21 08:18 MB (Rec: 04/07/21 08:34 MB [id number]) Current Condition History of Current Condition Onset Date 10 years Current Complaints R knee and lateral distal leg pain and leg popping and giving History of Current Condition Pt reports her right knee cannot bend far, it tends to pop out of place. She has a history of left knee surgery after skiing injury 40 years ago. She has lost about 50 lbs and is continuing to lose weight. She has never gotten in the pool for therapy. 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 Pt reports carpel tunnel right hand, surgery to pull stomach down. Pt reports pain up to 8-9/10 right knee and 4/10 down lower lateral right leg. Pain wakes her up at night if she turns in bed. Pt does not use an AD. She has two steps to get into the house and she uses rail and takes one step at a time. Pt does state that her right great toe and second toe are numb. She thinks it could have been from the foot tumors. Pt has a stationary upright bike and she has an outdoor bike. Prior Treatments and Tests Right x-ray 03/21/21: tricompartmental OA, worst in lateral femorotibial compartment, chondrocalcinosis , CPPD vs hyperparathyroidim vs hemochromatosis, small joint effusion Treatment Goals Patient/Caregiver Goals To strengthen knee and bend it more PT-OP-C Subjective Start: 03/25/21 13:46 Freq: Status: Active Protocol: Document 05/09/21 13:48 MB (Rec: 05/09/21 14:32 MB [id number]) OP-PT Subjective Patient Comments Patient Comments I'm feeling great. PT-OP-G Mobility & Gait Start: 03/25/21 13:46 Freq: Status: Active Protocol: Document 04/07/21 08:18 MB (Rec: 04/07/21 09:19 MB [id number]) OP Gait Assessment Gait Gait Assistance Required: Independent Distance (Feet) 50 Assistive Devices Assistive Device None Gait Deviations General Gait Pattern Decreased Stride Length,Wide Based Gait Factors Limiting Gait Function Factors Limiting Gait Function Limited Range of Motion,Pain Comments Gait Comments Gait with shoes off: slow, wide MT, increased lateral foot WB B, left greater than right great toe adduction and pt walks with feet IR and great toes moving close to one anotherr PT-OP-J Posture/Palpation/Skin Start: 03/25/21 13:46 Freq: Status: Active Protocol: Document 04/07/21 08:18 MB (Rec: 04/07/21 09:19 MB [id number]) Posture Evaluation Comments Posture Comments Standing posture with shoes doffed: Dowager's hump, increased soft tissue body mass, decreased thoracic kyphosis, rounded shoulders, increased lumbar lordosis, anterior tilt pelvis, B great toes adducted, greater on the left, right shoulder slightly higher than the left, right iliac crest higher than the left. PT-OP-K Range of Motion Start: 03/25/21 13:46 Freq: Status: Active Protocol: Document 04/24/21 09:51 SP (Rec: 04/24/21 10:37 SP [id number]) Knee Goniometric Range of Motion Knee R knee Knee ROM WFL No Patient Position Supine Flexion Active (degrees) 98 Flexion Passive (degrees) 103 Extension Active (degrees) 1 Extension Passive (degrees) 2 L knee Knee ROM WFL No Patient Position Supine Flexion Active (degrees) 89 Flexion Passive (degrees) 92 Comments PROM with strap, passive -4 deg. PT-OP-M Strength Start: 03/25/21 13:46 Freq: Status: Active Protocol: Document 04/07/21 08:18 MB (Rec: 04/07/21 09:19 MB [id number]) Hip Strength Hip Manual Muscle Testing Left Flexion (L2) 3+ Fair+ Abduction 4 Good Right Flexion (L2) 3+ Fair+ Abduction 3+ Fair+ Knee Strength Knee Manual Muscle Testing Left Flexion (S2) 5 Normal Extension (L3) 5 Normal Right Comments MMT knee deferred d/t pain Ankle/Foot Strength Ankle and Foot Manual Muscle Testing Right Dorsiflexion (L4) 5 Normal Left Dorsiflexion (L4) 5 Normal Toe Strength Toe Manual Muscle Testing Left Great Toe Extension 5 Normal Right Great Toe Extension 5 Normal PT-OP-Q Treatments Start: 03/25/21 13:46 Freq: Status: Active Protocol: Document 05/09/21 13:48 MB (Rec: 05/09/21 14:32 MB [id number]) Cardio Equipment Bicycle (Upright) Duration (Minutes) 10 Resistance 11 Seat Position 3 Therapeutic Exercises Sitting Exercises Clam with band Side bilateral Comments Squeeze glutes first, level 2 band around knees hs curl band Side bilateral Resistance Level 1 band around ankles Comments Legs out straight and then bend leg LAQ with AP Side bilateral Resistance Level 1 band around ankles Comments 5 reps each with 10 AP each rep, alternating Ankle DF and eversion Side bilateral Resistance Level 1 band around forefeet Comments 10 reps with cues to keep knees still and to move slowly Rolling pin massage Comments Pt performs well today with her rolling pin Standing Exercises Tandem with head still and turns Side bilateral Comments No trouble head still and ankles work better with head turns Side stepping and backwards walking Side bilateral Resistance Level 1 band around ankles Comments Many steps each way PT-OP-T Assessment and Plan Start: 03/25/21 13:46 Freq: Status: Active Protocol: Document 05/09/21 13:48 MB (Rec: 05/09/21 14:32 MB [id number]) Physical Therapy Assessment Goals 3 [facility] Goal (LTG) Pt will perform progressive HEP including ROM, flexibility , strengthening, gait and balance to improve function and pain by 05/19/21. LTG Duration 5 weeks 2 Welding Machine Operator Electro Gas Goal (LTG) Pt will gait train at least 1100 feet in 6 minutes with or without walking stick to improve community ambulation by 05/19/21. LTG Duration 5 weeks 1 Impairment LEF score reflects 45% impairment Welding Machine Operator [employer] Goal (LTG) Pt will present with an improved LEF score to reflect no more than 30% impairment to improve mobility and quality of life by 05/19/21. LTG Duration 5 weeks Assessment Summary Assessment Reviewed exercises today. Pt performs revised program well. Physical Therapy Plan Frequency and Duration Frequency of Treatment 8 visits Duration of Treatment 5 weeks Plan of Care Start Date 04/07/21 Plan of Care End Date 05/19/21 Therapeutic Interventions Therapeutic Interventions Aquatic Therapy,Balance Training,Canalithic Repositioning,Gait Training, Home Exercise Program,Joint Mobilizations,Manual Therapy, Neuromuscular Re-education, Patient/Caregiver Education, Self-Care/Home Management,Soft Tissue Mobilization,Taping, Therapeutic Activities, Therapeutic Exercises Modalities Cold Pack/Ice Massage,Hot Packs Next Visit Focus/Plan Next Note Type Discharge Summary
--- NOTE | 2021-05-14 14:41 | PT.OTN ---
Current Diagnoses Pain in right knee (05/14/21) Physical Therapy Treatment Note PT-OP-A Visit Information Start: 03/25/21 13:46 Freq: Status: Active Protocol: Document 05/14/21 14:00 MB (Rec: 05/14/21 14:28 MB [id number]) Out-Patient Physical Therapy Visit Information Visit Information Visit Type Treatment Note Visit Start Time 14:00 Visit Stop Time 14:30 Total Visit Minutes 30 Visit Number 03/13 Evaluation Information Evaluation Date 04/07/21 PT-OP-B Current Condition Start: 03/25/21 13:46 Freq: Status: Active Protocol: Document 04/07/21 08:18 MB (Rec: 04/07/21 08:34 MB [id number]) Current Condition History of Current Condition Onset Date 10 years Current Complaints R knee and lateral distal leg pain and leg popping and giving History of Current Condition Pt reports her right knee cannot bend far, it tends to pop out of place. She has a history of left knee surgery after skiing injury 40 years ago. She has lost about 50 lbs and is continuing to lose weight. She has never gotten in the pool for therapy. 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 Pt reports carpel tunnel right hand, surgery to pull stomach down. Pt reports pain up to 8-9/10 right knee and 4/10 down lower lateral right leg. Pain wakes her up at night if she turns in bed. Pt does not use an AD. She has two steps to get into the house and she uses rail and takes one step at a time. Pt does state that her right great toe and second toe are numb. She thinks it could have been from the foot tumors. Pt has a stationary upright bike and she has an outdoor bike. Prior Treatments and Tests Right x-ray 03/21/21: tricompartmental OA, worst in lateral femorotibial compartment, chondrocalcinosis , CPPD vs hyperparathyroidim vs hemochromatosis, small joint effusion Treatment Goals Patient/Caregiver Goals To strengthen knee and bend it more PT-OP-C Subjective Start: 03/25/21 13:46 Freq: Status: Active Protocol: Document 05/14/21 14:00 MB (Rec: 05/14/21 14:28 MB [id number]) OP-PT Subjective Patient Comments Patient Comments Pt states that she is feeling great. PT-OP-G Mobility & Gait Start: 03/25/21 13:46 Freq: Status: Active Protocol: Document 04/07/21 08:18 MB (Rec: 04/07/21 09:19 MB [id number]) OP Gait Assessment Gait Gait Assistance Required: Independent Distance (Feet) 50 Assistive Devices Assistive Device None Gait Deviations General Gait Pattern Decreased Stride Length,Wide Based Gait Factors Limiting Gait Function Factors Limiting Gait Function Limited Range of Motion,Pain Comments Gait Comments Gait with shoes off: slow, wide MT, increased lateral foot WB B, left greater than right great toe adduction and pt walks with feet IR and great toes moving close to one anotherr PT-OP-J Posture/Palpation/Skin Start: 03/25/21 13:46 Freq: Status: Active Protocol: Document 04/07/21 08:18 MB (Rec: 04/07/21 09:19 MB [id number]) Posture Evaluation Comments Posture Comments Standing posture with shoes doffed: Dowager's hump, increased soft tissue body mass, decreased thoracic kyphosis, rounded shoulders, increased lumbar lordosis, anterior tilt pelvis, B great toes adducted, greater on the left, right shoulder slightly higher than the left, right iliac crest higher than the left. PT-OP-K Range of Motion Start: 03/25/21 13:46 Freq: Status: Active Protocol: Document 04/24/21 09:51 SP (Rec: 04/24/21 10:37 SP [id number]) Knee Goniometric Range of Motion Knee R knee Knee ROM WFL No Patient Position Supine Flexion Active (degrees) 98 Flexion Passive (degrees) 103 Extension Active (degrees) 1 Extension Passive (degrees) 2 L knee Knee ROM WFL No Patient Position Supine Flexion Active (degrees) 89 Flexion Passive (degrees) 92 Comments PROM with strap, passive -4 deg. PT-OP-M Strength Start: 03/25/21 13:46 Freq: Status: Active Protocol: Document 04/07/21 08:18 MB (Rec: 04/07/21 09:19 MB [id number]) Hip Strength Hip Manual Muscle Testing Left Flexion (L2) 3+ Fair+ Abduction 4 Good Right Flexion (L2) 3+ Fair+ Abduction 3+ Fair+ Knee Strength Knee Manual Muscle Testing Left Flexion (S2) 5 Normal Extension (L3) 5 Normal Right Comments MMT knee deferred d/t pain Ankle/Foot Strength Ankle and Foot Manual Muscle Testing Right Dorsiflexion (L4) 5 Normal Left Dorsiflexion (L4) 5 Normal Toe Strength Toe Manual Muscle Testing Left Great Toe Extension 5 Normal Right Great Toe Extension 5 Normal PT-OP-Q Treatments Start: 03/25/21 13:46 Freq: Status: Active Protocol: Document 05/14/21 14:00 MB (Rec: 05/14/21 14:28 MB [id number]) Cardio Equipment Bicycle (Upright) Duration (Minutes) 11 Resistance 11 Seat Position 3 Therapeutic Exercises Other Exercises Verbally reviewed HEP Comments Performed this today in preparation for d/c Gait Training Gait Activity 6MWT Comments Pt does a great job with 6MWT today and surpasses her goal. See goals for comments. Her mal and gait throughout treatment are much improved PT-OP-T Assessment and Plan Start: 03/25/21 13:46 Freq: Status: Active Protocol: Document 05/14/21 14:00 MB (Rec: 05/14/21 14:28 MB [id number]) Physical Therapy Assessment Goals 3 Shelter Goal (LTG) Pt will perform progressive HEP including ROM, flexibility , strengthening, gait and balance to improve function and pain by 05/19/21. 05/14/21: Pt is performing progressive HEP including flexibility and strengthening exercises LTG Duration Met 2 Shelter Goal (LTG) Pt will gait train at least 1100 feet in 6 minutes with or without walking stick to improve community ambulation by 05/19/21. 05/14/21: Pt gait trains 1429 feet in 6 minutes today, surpassing goal by over 300' LTG Duration Surpassed goal 1 Impairment LEF score reflects 45% impairment Instrument Processing Tech Goal (LTG) Pt will present with an improved LEF score to reflect no more than 30% impairment to improve mobility and quality of life by 05/19/21. 05/14/21: LEF score reflects 35% impairment, which is an improvement since assessment LTG Duration Partially met Assessment Summary Assessment Pt has met HEP and surpassed 6MWT goal. She has progressed towards LEF score goal. She is out of allowed PT visits for the year. She is ready for d/c . Will d/c PT.
== END ==
LOC: PHYS 04-07 07:59
PROVIDERS: PCP Student in an Organized Health Care Education/Training Program; Referring Provider Student in an Organized Health Care Education/Training Program; Visit Provider Student in an Organized Health Care Education/Training Program
DX: M25.561 Pain in right knee (principal)
CPT/HCPCS: 97110; 97116; 97140; 97161

== ENCOUNTER 2022-11-04 12:33 | Outpatient (RCR) | payer OTHER, MEDICAID, SELFPAY ==
[2019-07-24 16:23] VITALS: BMI 39.4
--- NOTE | 2022-11-04 14:05 | PT.OIE ---
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 Past Surgical History (Last Updated 09/03/22 @ 16:58 by Liset Chung) History of basal cell carcinoma excision (08/16/17) History of carpal tunnel release (~1991) History of colonoscopy with polypectomy (12/22/17) History of dermoid cyst excision History of esophagogastroduodenoscopy (EGD) (10/28/17) History of esophagogastroduodenoscopy (EGD) (03/14/18) History of repair of hiatal hernia History of right salpingo-oophorectomy Hx of hernia repair (1986) Hx of LASIK S/P colonoscopic polypectomy (10/28/17) S/P knee surgery (1979) Status post LASIK surgery Status post left foot surgery (~1996) Visit Care Team Role Provider Type Gavin Curry MD Attending Provider Physician Family Provider Primary Care Provider Referring Provider Specialty: Internal Medicine Address: [address] [place] [address], [address], [facility] Email: [email or web address] Physical Therapy Initial Evaluation PT-OP-A Visit Information Start: 11/04/22 13:21 Freq: Status: Active Protocol: Document 11/04/22 12:45 DCW (Rec: 11/04/22 13:30 DCW [id number]) Out-Patient Physical Therapy Visit Information Visit Information Visit Type Initial Evaluation Visit Start Time 12:45 Visit Stop Time 13:15 Total Visit Minutes 30 Visit Number 1 Number of MINIATURE MODEL MAKER Visits 0 Evaluation Information Evaluation Date 11/04/22 PT-OP-B Current Condition Start: 11/04/22 13:21 Freq: Status: Active Protocol: Document 11/04/22 12:45 DCW (Rec: 11/04/22 13:30 DCW [id number]) Current Condition History of Current Condition Onset Date ~1 month Current Complaints Spontaneous episodes of dizziness History of Current Condition Pt is a 62 year old female complaining of a 1-1.5 year history of both spontaneous and motion-induced vertigo and disorientation. Pt reports episodes last a vague amount of time and are typically associated with an increased heart rate. Symptoms can provoked by bending over or standing up too fast, but can also occur out of nowhere. Pt denies recent hearing changes, diplopia, dysarthria, discoordination, or decreased mentation/consciousness. Pt reports symptoms are waxing/ waning in nature. Pt denies hx of HTN, hyperlipidemia, diabetes, arrhythmia, head trauma, seizure, migraines, back/neck problems, CVA, depression, or excessive smoking or drinking. Does admit to a history of anxiety, which she has been trying to work on. Prior Treatments and Tests Pt has undergone prior PT for unrelated issues PT-OP-C Subjective Start: 11/04/22 13:21 Freq: Status: Active Protocol: Document 11/04/22 12:45 DCW (Rec: 11/04/22 13:30 DCW [id number]) OP-PT Subjective Patient Comments Patient Comments I have taken my friend to be seen in the past for an inner ear thing, and I tried to do what helped her, I followed the instructions online, and it didn't really do anything. It didn't help, but I also didn't have any symptoms when trying it. Patient Questionnaires Dizziness Handicap Inventory DHI Score 18% PT-OP-O Vestibular Start: 11/04/22 13:21 Freq: Status: Active Protocol: Document 11/04/22 12:45 DCW (Rec: 11/04/22 13:30 DCW [id number]) Vestibular Assessment Screening Tests Vestibular Artery Screen Negative Auditory Tests Triana Test Within normal limits Rinne Test Negative Air Conduction Results Equal Visual Testing Smooth Pursuits Horizontal WNL Smooth Pursuits Vertical WNL Saccades Horizontal WNL Saccades Vertical WNL Heave Test Negative Thrust Head Negative Geo String Test WNL Convergence Test WNL DVA (Line Degradation) 2 Spontaneous Nystagmus Negative Positional Testing Naima-Hallpike Negative Left,Negative Right Rolling Test Negative Left,Negative Right Vestibular Function Tests Fukuda Test WNL PT-OP-T Assessment and Plan Start: 11/04/22 13:21 Freq: Status: Active Protocol: Document 11/04/22 12:45 DCW (Rec: 11/04/22 14:04 DCW [id number]) Physical Therapy Assessment Evaluation Complexity Number of Personal Factors/Comorbidities 0 Number of Body Systems Impaired 1-2 Clinical Presentation at Evaluation Stable Assessment Summary Assessment Pt presents with an entirely negative vestibular examination today. No indications of potential causes of pt's occasional dizziness or disorientation. Pt not exhibiting any signs of vestibular dysfunction or even age-related vestibular loss. Pt strongly feels it is associated with her ongoing struggle to control her anxiety, which may be a very strong possibility. Due to no notable deficits in vestibular system, pt is unlikely to benefit from any further vestibular rehabilitation. Pt will be discharged from skilled PT at this time. Physical Therapy Plan Frequency and Duration Plan of Care Start Date 11/04/22 Plan of Care End Date 11/05/22 Next Visit Focus/Plan Next Note Type Discharge Summary
--- NOTE | 2022-11-04 14:05 | PT.OPPOC ---
Physical, Occupational & Speech Therapy At [facility] Current Diagnoses Benign paroxysmal vertigo, unspecified ear (11/04/22) Visit Care Team Role Provider Type Gavin Curry MD Attending Provider Physician Family Provider Primary Care Provider Referring Provider Specialty: Internal Medicine Address: [address] [place] [address], [facility] Email: [email or web address] Plan Of Care PT-OP-T Assessment and Plan Start: 11/04/22 13:21 Freq: Status: Active Protocol: Document 11/04/22 12:45 DCW (Rec: 11/04/22 14:04 DCW [id number]) Physical Therapy Assessment Evaluation Complexity Number of Personal Factors/Comorbidities 0 Number of Body Systems Impaired 1-2 Clinical Presentation at Evaluation Stable Assessment Summary Assessment Pt presents with an entirely negative vestibular examination today. No indications of potential causes of pt's occasional dizziness or disorientation. Pt not exhibiting any signs of vestibular dysfunction or even age-related vestibular loss. Pt strongly feels it is associated with her ongoing struggle to control her anxiety, which may be a very strong possibility. Due to no notable deficits in vestibular system, pt is unlikely to benefit from any further vestibular rehabilitation. Pt will be discharged from skilled PT at this time. Physical Therapy Plan Frequency and Duration Plan of Care Start Date 11/04/22 Plan of Care End Date 11/05/22 Next Visit Focus/Plan Next Note Type Discharge Summary Plan of Care Dates Plan of Care Start Date 11/04/22 Plan of Care End Date 11/05/22 Electronically Signed by: Lukas Santiago PT 11/04/22 [id number] If you are in agreement with this Plan of Care, please return a signed and dated copy. I have reviewed this Plan of Care and certify that the skilled therapy services above are required to meet the patient?s needs. Physician Signature Date Printed Name and Credentials Clinical Instructor Signature Printed Name and Credentials
== END 2022-11-05 11:34 | disposition home or self-care (01) ==
LOC: PHYS 12:33
PROVIDERS: Family Provider Student in an Organized Health Care Education/Training Program; PCP Student in an Organized Health Care Education/Training Program; Referring Provider Student in an Organized Health Care Education/Training Program; Visit Provider Student in an Organized Health Care Education/Training Program
DX: H81.10 Benign paroxysmal vertigo, unspecified ear (principal)
CPT/HCPCS: 97161

== ENCOUNTER → 2022-11-20 12:08 | Outpatient (CLI) | payer OTHER, MEDICAID, SELFPAY ==
[2019-07-24 16:23] VITALS: BMI 39.4
--- NOTE | 2022-11-20 12:10 | DI.RAD.S_ITS ---
PROCEDURE: XR LUMBAR SPINE 2-3V INDICATIONS: lateral pain for a yr TECHNIQUE: 3 views of the lumbar spine were acquired. COMPARISON: None. FINDINGS: Bones: 5 [id number] vertebrae are present. There is grade 1 L5 on S1 anterolisthesis unchanged from the study dated December 31, 2017. No vertebral body compression fractures. Moderate degenerative changes are present are lower thoracic spine in the superior lumbar spine and at the lumbosacral junction. The extent of degenerative change at the lumbosacral junction is increased from 2018. No suspicious bony lesions. Soft tissues: Overlying bowel gas pattern is normal. No suspicious soft tissue calcifications. IMPRESSION: Degenerative change, increased at the lumbosacral junction from 2018. No compression deformities. Dictated by: Dee Dee Castle M.D. on 11/20/2022 at 15:26 Approved by: Dee Dee Castle M.D. on 11/20/2022 at 15:29
--- NOTE | 2022-11-20 12:10 | DI.RAD.S_ITS ---
PROCEDURE: XR ANKLE RT MIN 3V INDICATIONS: lateral pain for a yr TECHNIQUE: 3 views of the ankle were acquired. COMPARISON: None. FINDINGS: Bones: No fractures or dislocations. Ankle mortise is normally aligned. There is mild spurring at the calcaneus. No suspicious bony lesions. Soft tissues: No tibiotalar joint effusion. Achilles tendon appears normal. IMPRESSION: No acute radiographic findings. Dictated by: Dee Dee Castle M.D. on 11/20/2022 at 15:32 Approved by: Dee Dee Castle M.D. on 11/20/2022 at 15:49
[2022-11-20 13:02] LABS: Uric Acid 4.5 mg/dL (2.5-6.2)
[2022-11-20 13:23] LABS: Erythrocyte Sedimentation Rate 7 MM/HR (0-20)
== END ==
PROVIDERS: Family Provider Student in an Organized Health Care Education/Training Program; PCP Student in an Organized Health Care Education/Training Program; Referring Provider Family Medicine; Visit Provider Family Medicine
DX: M54.50 Low back pain, unspecified (principal); M25.571 Pain in right ankle and joints of right foot
CPT/HCPCS: 36415; 72100; 73610; 84550; 85651

== ENCOUNTER → 2023-02-18 16:07 | Outpatient (CLI) | payer OTHER, MEDICAID, SELFPAY ==
[2019-07-24 16:23] VITALS: BMI 39.4
== END ==
PROVIDERS: Family Provider Student in an Organized Health Care Education/Training Program; PCP Pediatrics; Visit Provider Physician Assistant
DX: R30.0 Dysuria (principal)
CPT/HCPCS: 81002; 87086

== ENCOUNTER 2023-04-13 12:30 | Outpatient (RCR) | payer OTHER, MEDICAID, SELFPAY ==
[2019-07-24 16:23] VITALS: BMI 39.4
--- NOTE | 2023-02-12 17:56 | PT.OIE ---
Current Diagnoses Other chronic pain (02/12/23) Unspecified thoracic, thoracolumbar and lumbosacral intervertebral disc disorder (02/12/23) Dorsalgia, unspecified (02/12/23) Past Medical History (Last Updated 01/25/23 @ 06:08 by Christopher Franks MD) Ankle pain, right Basal cell carcinoma (BCC) of left shoulder (08/16/17) Bladder prolapse Chronic lumbosacral pain Dermoid cyst Dermoid cyst of left ovary Diverticulosis of colon (10/28/17) Dysphagia (09/09/17) Elevated blood pressure reading (02/16/11) GERD (gastroesophageal reflux disease) GI bleed Hiatal hernia (10/28/17) History of gastrointestinal procedure (04/15/18) Iron deficiency anemia (07/23/17) Morbid obesity with BMI of 40.0-44.9, adult Never smoked 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 Past Surgical History (Last Updated 09/03/22 @ 16:58 by Liset Chung) History of basal cell carcinoma excision (08/16/17) History of carpal tunnel release (~1991) History of colonoscopy with polypectomy (12/22/17) History of dermoid cyst excision History of esophagogastroduodenoscopy (EGD) (10/28/17) History of esophagogastroduodenoscopy (EGD) (03/14/18) History of repair of hiatal hernia History of right salpingo-oophorectomy Hx of hernia repair (1986) Hx of LASIK S/P colonoscopic polypectomy (10/28/17) S/P knee surgery (1979) Status post LASIK surgery Status post left foot surgery (~1996) Visit Care Team Role Provider Type Gavin Curry MD Family Provider Physician Specialty: Internal Medicine Address: [address] [place] [address], [address], [place], [address] Email: [email or web address] Christopher Franks MD Attending Provider Physician Primary Care Provider Referring Provider Specialty: Internal Medicine Pediatrics Address: [address] [place] [address], [address] Email: [email or web address] Physical Therapy Initial Evaluation PT-OP-A Visit Information Start: 02/12/23 10:41 Freq: Status: Active Protocol: Document 02/12/23 11:18 LRN (Rec: 02/12/23 12:16 LRN [id number]) Out-Patient Physical Therapy Visit Information Visit Information Visit Type Initial Evaluation Visit Start Time 11:18 Visit Stop Time 12:10 Total Visit Minutes 52 Visit Number 1 Evaluation Information Evaluation Date 02/12/23 Precautions Precautions Arthritis-hx of knee pain PT-OP-B Current Condition Start: 02/12/23 10:41 Freq: Status: Active Protocol: Document 02/12/23 11:18 LRN (Rec: 02/12/23 12:16 LRN [id number]) Current Condition History of Current Condition Onset Date 6 months ago Current Complaints L sharp groin pain, L constant LB/buttock pain. History of Current Condition Has back pain for 3-4 yrs off/ on, but intensified in past 6 months the groin pain is new and very sharp and comes and goes. Feels like period cramping and sometimes when moves a certain way get the intense pain. Pain in the L LB and buttock is constant burn and increases intensity with movement; therefore can't reach to put socks on. Interrupts her sleep at night, must put an arthritis cream and stretches into rotation and flexion. Intermittent toes 1-3 numb, and tingling when lying in bed. Not able to get MRI until doing 6 wks of therapy. Most comfortable position is on back or side, normally sleeps on stomach ( head more to L) or side. Prior Treatments and Tests None. Future Testing and Treatments Planned MRI after 6 wks of therapy. Treatment Goals Patient/Caregiver Goals Pt goal is: - to be able to put L sock on and to tie shoes without having to do it, - improve sleep time greater than 2 hrs at a time, - be able to go down stairs with reciprocal gait rather than one a time. Personal Factors Other Personal Factors That May Effect Arthritis of R knee - pain. Therapy/Recovery PT-OP-C Subjective Start: 02/12/23 10:41 Freq: Status: Active Protocol: Document 02/12/23 11:18 LRN (Rec: 02/12/23 12:16 LRN [id number]) Patient Questionnaires Oswestry Low Back Index Oswestry Score 30 Oswestry Impairment 20 to 39% Impaired (Score 20- 39) OP-PT Pain Assessment Pain Assessment Grid Paper Pain Assessment Grid Completed Yes Location L Groin Pain Location Details L Groin Intensity 9 Scale Used Numeric (0 - 10) Description Sharp Frequency Intermittent Low Back Pain Location Details Left Low back to buttock Intensity 7 Scale Used Numeric (0 - 10) Description Burning,Throbbing Frequency Constant PT-OP-H Neuro Start: 02/12/23 10:41 Freq: Status: Active Protocol: Document 02/12/23 11:18 LRN (Rec: 02/12/23 12:16 LRN [id number]) Sensation Evaluation Gross Sensation Gross Sensation WNL Comments Summary Comments L toes 1-3 numb in area of feet. Deep Tendon Reflex & Clonus Assessment Deep Tendon Reflex Bilateral Achilles Deep Tendon Reflex 2+ Normal Bilateral Patellar Deep Tendon Reflex 2+ Normal PT-OP-J Posture/Palpation/Skin Start: 02/12/23 10:41 Freq: Status: Active Protocol: Document 02/12/23 11:18 LRN (Rec: 02/12/23 12:16 LRN [id number]) Posture Evaluation Position Standing Head/C-Spine Posture Side Bent Left,Forward Head L-Spine Posture Increased Lordosis Arm Posture (L) Internally Rotated,(R) Internally Rotated Pelvis Posture Anteriorly Tilted,(L) Rotated Posterior Weight Distribution Balanced Knee Posture (L) Genu Valgus,(R) Genu Valgus Ankle/Foot Posture (L) Calcaneal Inversion,(R) Calcaneal Inversion Palpation Assessment Location Sacrum Palpation Location Sacrum Palpation Details L side deep but at VERENICE is high . Pubic bone Palpation Location High on the left, pubic separation. ASIS Palpation Location L Innominate Palpation Details Outflare L innominate Low on L Ischial Tub PT-OP-K Range of Motion Start: 02/12/23 10:41 Freq: Status: Active Protocol: Document 02/12/23 11:18 LRN (Rec: 02/12/23 12:16 LRN [id number]) Lumbar Spine Range of Motion Lumbar Spine Active Degrees Testing Position Standing Flexion 65 Extension 10 Rotation Left 20 Rotation Right 20 Lateral Flexion Left 13 Lateral Flexion Right 10 Hip Goniometric Range of Motion Hip Right Passive Hip ROM WFL Yes Testing Position Supine Flexion w/Knee Flexed 110 Straight Leg Raise 80 Abduction 25 Internal Rotation 30 External Rotation 65 Comments PSLR created pain on lateral side of knee/dominguez Left Passive Hip ROM WFL No Testing Position Supine Flexion w/Knee Flexed 90 Straight Leg Raise 55 Abduction 20 Internal Rotation 0 External Rotation 40 Comments Pain in lateral side of knee. KTC limited by pain in buttock . PT-OP-L Special Tests Start: 02/12/23 10:41 Freq: Status: Active Protocol: Document 02/12/23 11:18 LRN (Rec: 02/12/23 12:16 LRN [id number]) Special Tests Hip Special Tests Straight Leg Raise Test Results 55 deg's Stinchfield Resisted Hip Flexion Test Results + left Comments Mild groin pain Scour Test Test Results + Left Comments Pain when moving into hip IR. Log Roll Test Test Results + Left side Comments Pain w/IR of leg SETH Test Results - Left Comments Initial positioning cause pain , but 2nd and 3rd application of overpressure did not cause pain. PT-OP-M Strength Start: 02/12/23 10:41 Freq: Status: Active Protocol: Document 02/12/23 11:18 LRN (Rec: 02/12/23 12:16 LRN [id number]) Hip Strength Hip Manual Muscle Testing Right External Rotation 5 Normal Internal Rotation 5 Normal Left External Rotation 5 Normal Internal Rotation 5 Normal Comments Hip IR causes sharp groin pain limiting mobility but strength was 5/5. PT-OP-Q Treatments Start: 02/12/23 10:41 Freq: Status: Active Protocol: Document 02/12/23 11:18 LRN (Rec: 02/12/23 12:16 LRN [id number]) Self-Care/Home Management Treatment Education Other Education Discussed results of evaluation, goals, and plan of care (POC). Pt agreeable to goals and POC. Activities Self-Care/Home Management Activities I/S pt in HEP: SKTC and LE roll in/out. PT-OP-T Assessment and Plan Start: 02/12/23 10:41 Freq: Status: Active Protocol: Document 02/12/23 11:18 LRN (Rec: 02/12/23 12:16 LRN [id number]) Physical Therapy Assessment Rehab Potential Rehabilitation Potential Excellent Evaluation Complexity Number of Personal Factors/Comorbidities 1-2 Number of Body Systems Impaired 4 or More Clinical Presentation at Evaluation Evolving Impairments Impairments Activity Tolerance,Pain, Posture,ROM,Soft Tissue Mobility,Transfers Other Impairments Tender chapito QL and L SIJ. Goals Three Impairment Decreased trunk and hip mobility Impairment Trunk flexion 65 deg's, ext 10 deg's. Hip mobility (in deg's): SLR 55 L, 80 R; Internal Rot 0 L, 30 R; External Rot 40 L, 65 R. Short Term Goal (STG) Improve L hip mobility with pt able to put L sock on and tie shoes without having to do it, STG Duration 03/29/23 Mechanical Operator Goal (LTG) Pt will be able to tolerate ambulation down stairs with reciprocal gait rather than one a time. LTG Duration 05/13/23 Two Impairment L hip pain rated 9/10, LBP rated 7/10 Short Term Goal (STG) Pt will be educated in log roll transfers, proper body mechanics for ADLs, proper sitting/standing posture and best practice sidelie positioning for nighttime. STG Duration 03/05/23 Skilled Nursing Goal (LTG) Improve sleep time greater than 2 hrs at a time. LTG Duration 05/13/23 One Impairment Pt lacks appropriate self care HEP Short Term Goal (STG) Pt will be educated in self care pain/inflammation management with cold pack and RICE technique. STG Duration 03/05/23 Skilled Nursing Goal (LTG) Pt will be independent in an effective self care HEP for core/hip strengthening and mobility ex's. LTG Duration 05/13/23 Assessment Summary Assessment Pt is a 62 yo female with L innominate outflared and posteriorly rotated and anteriorly sheared. Her sacrum appears flexed. She reports severe L groin pain that is sharp and intermittent in nature and present with weightbearing. She has secondary constant L LBP/hip that is burning in nature. Her trunk flexion is very limited with standing increased lordosis. Her L hip mobility is limited with rotation, IR (0 deg's) being much worse than ER and flexion and her Scour Test was + when moving into AD indicating possible intra-articular dysfunction. Her L hip pain may be pelvic or hip joint related, as she is somewhat inconsistent with test results for SIJ dysfunction. Hip strength was not fully assessed and will be checked at her next appointment. Pt will benefit from skilled physical therapy for education in proper transfer, body mechanics, pain management, HEP, manual STM, JMT, other manual therapy, modalities for pain, and therapeutic ex for ROM and pelvic/core stabilization. Physical Therapy Plan Frequency and Duration Frequency of Treatment 2x/Week Duration of treatment (weeks) 12 Plan of Care Start Date 02/12/23 Plan of Care End Date 05/13/23 Therapeutic Interventions Therapeutic Interventions Home Exercise Program,Joint Mobilizations,Manual Therapy, Neuromuscular Re-education, Self-Care/Home Management,Soft Tissue Mobilization, Therapeutic Activities, Therapeutic Exercises Modalities Cold Pack/Ice Massage,Hot Packs Other Referrals/Consults Referrals/Consults Recommended Recommend imaging of the L hip to rule out degeneration of the hip. Next Visit Focus/Plan Next Note Type Treatment Note Next Visit Plan Complete hip strength and joint mobility assessment. Assess LE neural glides and Trunk special tests. Manual: Normalize pelvic positioning (L innominate outflare/cafeteria director rotation and anterior shear), decrease soft tissue muscle guarding and pain (QL), sacral balancing if needed Ther ex: improve lumbar/hip mobility, hip (stretch L ER/IR , flex, AD's) and core/pelvic stabilization. Pt education will be focused on proper transfers, body mechanics, bowel care, self care HEP, pain management. Modalities: MH, cryotherapy, IFES
--- NOTE | 2023-02-12 17:56 | PT.OPPOC ---
Physical, Occupational & Speech Therapy At [facility] Current Diagnoses Other chronic pain (02/12/23) Unspecified thoracic, thoracolumbar and lumbosacral intervertebral disc disorder (02/12/23) Dorsalgia, unspecified (02/12/23) Visit Care Team Role Provider Type Gavin Curry MD Family Provider Physician Specialty: Internal Medicine Address: [address] [place] [address], [address], [address] Email: [email or web address] Christopher Franks MD Attending Provider Physician Primary Care Provider Referring Provider Specialty: Internal Medicine Pediatrics Address: [address] [place] [address], [phone] Email: [email or web address] Plan Of Care PT-OP-T Assessment and Plan Start: 02/12/23 10:41 Freq: Status: Active Protocol: Document 02/12/23 11:18 LRN (Rec: 02/12/23 12:16 LRN [id number]) Physical Therapy Assessment Rehab Potential Rehabilitation Potential Excellent Evaluation Complexity Number of Personal Factors/Comorbidities 1-2 Number of Body Systems Impaired 4 or More Clinical Presentation at Evaluation Evolving Impairments Impairments Activity Tolerance,Pain, Posture,ROM,Soft Tissue Mobility,Transfers Other Impairments Tender chapito QL and L SIJ. Goals Three Impairment Decreased trunk and hip mobility Impairment Trunk flexion 65 deg's, ext 10 deg's. Hip mobility (in deg's): SLR 55 L, 80 R; Internal Rot 0 L, 30 R; External Rot 40 L, 65 R. Short Term Goal (STG) Improve L hip mobility with pt able to put L sock on and tie shoes without having to do it, STG Duration 03/29/23 Dot Net Developer Goal (LTG) Pt will be able to tolerate ambulation down stairs with reciprocal gait rather than one a time. LTG Duration 05/13/23 Two Impairment L hip pain rated 9/10, LBP rated 7/10 Short Term Goal (STG) Pt will be educated in log roll transfers, proper body mechanics for ADLs, proper sitting/standing posture and best practice sidelie positioning for nighttime. STG Duration 03/05/23 Group Home Goal (LTG) Improve sleep time greater than 2 hrs at a time. LTG Duration 05/13/23 One Impairment Pt lacks appropriate self care HEP Short Term Goal (STG) Pt will be educated in self care pain/inflammation management with cold pack and RICE technique. STG Duration 03/05/23 Group Home Goal (LTG) Pt will be independent in an effective self care HEP for core/hip strengthening and mobility ex's. LTG Duration 05/13/23 Assessment Summary Assessment Pt is a 62 yo female with L innominate outflared and posteriorly rotated and anteriorly sheared. Her sacrum appears flexed. She reports severe L groin pain that is sharp and intermittent in nature and present with weightbearing. She has secondary constant L LBP/hip that is burning in nature. Her trunk flexion is very limited with standing increased lordosis. Her L hip mobility is limited with rotation, IR (0 deg's) being much worse than ER and flexion and her Scour Test was + when moving into AD indicating possible intra-articular dysfunction. Her L hip pain may be pelvic or hip joint related, as she is somewhat inconsistent with test results for SIJ dysfunction. Hip strength was not fully assessed and will be checked at her next appointment. Pt will benefit from skilled physical therapy for education in proper transfer, body mechanics, pain management, HEP, manual STM, JMT, other manual therapy, modalities for pain, and therapeutic ex for ROM and pelvic/core stabilization. Physical Therapy Plan Frequency and Duration Frequency of Treatment 2x/Week Duration of treatment (weeks) 12 Plan of Care Start Date 02/12/23 Plan of Care End Date 05/13/23 Therapeutic Interventions Therapeutic Interventions Home Exercise Program,Joint Mobilizations,Manual Therapy, Neuromuscular Re-education, Self-Care/Home Management,Soft Tissue Mobilization, Therapeutic Activities, Therapeutic Exercises Modalities Cold Pack/Ice Massage,Hot Packs Other Referrals/Consults Referrals/Consults Recommended Recommend imaging of the L hip to rule out degeneration of the hip. Next Visit Focus/Plan Next Note Type Treatment Note Next Visit Plan Complete hip strength and joint mobility assessment. Assess LE neural glides and Trunk special tests. Manual: Normalize pelvic positioning (L innominate outflare/process control tech rotation and anterior shear), decrease soft tissue muscle guarding and pain (QL), sacral balancing if needed Ther ex: improve lumbar/hip mobility, hip (stretch L ER/IR , flex, AD's) and core/pelvic stabilization. Pt education will be focused on proper transfers, body mechanics, bowel care, self care HEP, pain management. Modalities: MH, cryotherapy, IFES Plan of Care Dates Plan of Care Start Date 02/12/23 Plan of Care End Date 05/13/23 Electronically Signed by: Dee Dee Breen, PT 02/12/23 7090 If you are in agreement with this Plan of Care, please return a signed and dated copy. I have reviewed this Plan of Care and certify that the skilled therapy services above are required to meet the patient?s needs. Physician Signature Date Printed Name and Credentials Clinical Instructor Signature Printed Name and Credentials
--- NOTE | 2023-02-23 12:17 | PT.OTN ---
Current Diagnoses Other chronic pain (02/23/23) Unspecified thoracic, thoracolumbar and lumbosacral intervertebral disc disorder (02/23/23) Dorsalgia, unspecified (02/23/23) Physical Therapy Treatment Note PT-OP-A Visit Information Start: 02/12/23 10:41 Freq: Status: Active Protocol: Document 02/23/23 09:36 LRN (Rec: 02/23/23 10:25 LRN [id number]) Out-Patient Physical Therapy Visit Information Visit Information Visit Type Treatment Note Visit Start Time 09:36 Visit Stop Time 10:19 Total Visit Minutes 43 Visit Number 2 Evaluation Information Evaluation Date 02/12/23 Precautions Precautions Arthritis-hx of knee pain PT-OP-B Current Condition Start: 02/12/23 10:41 Freq: Status: Active Protocol: Document 02/12/23 11:18 LRN (Rec: 02/12/23 12:16 LRN [id number]) Current Condition History of Current Condition Onset Date 6 months ago Current Complaints L sharp groin pain, L constant LB/buttock pain. History of Current Condition Has back pain for 3-4 yrs off/ on, but intensified in past 6 months the groin pain is new and very sharp and comes and goes. Feels like period cramping and sometimes when moves a certain way get the intense pain. Pain in the L LB and buttock is constant burn and increases intensity with movement; therefore can't reach to put socks on. Interrupts her sleep at night, must put an arthritis cream and stretches into rotation and flexion. Intermittent toes 1-3 numb, and tingling when lying in bed. Not able to get MRI until doing 6 wks of therapy. Most comfortable position is on back or side, normally sleeps on stomach ( head more to L) or side. Prior Treatments and Tests None. Future Testing and Treatments Planned MRI after 6 wks of therapy. Treatment Goals Patient/Caregiver Goals Pt goal is: - to be able to put L sock on and to tie shoes without having to do it, - improve sleep time greater than 2 hrs at a time, - be able to go down stairs with reciprocal gait rather than one a time. Personal Factors Other Personal Factors That May Effect Arthritis of R knee - pain. Therapy/Recovery PT-OP-C Subjective Start: 02/12/23 10:41 Freq: Status: Active Protocol: Document 02/23/23 09:36 LRN (Rec: 02/23/23 10:25 LRN [id number]) OP-PT Subjective Patient Comments Patient Comments Not doing well yesterday because was scrubbing carpet, doing well today. PT-OP-H Neuro Start: 02/12/23 10:41 Freq: Status: Active Protocol: Document 02/12/23 11:18 LRN (Rec: 02/12/23 12:16 LRN [id number]) Sensation Evaluation Gross Sensation Gross Sensation WNL Comments Summary Comments L toes 1-3 numb in area of feet. Deep Tendon Reflex & Clonus Assessment Deep Tendon Reflex Bilateral Achilles Deep Tendon Reflex 2+ Normal Bilateral Patellar Deep Tendon Reflex 2+ Normal PT-OP-J Posture/Palpation/Skin Start: 02/12/23 10:41 Freq: Status: Active Protocol: Document 02/12/23 11:18 LRN (Rec: 02/12/23 12:16 LRN [id number]) Posture Evaluation Position Standing Head/C-Spine Posture Side Bent Left,Forward Head L-Spine Posture Increased Lordosis Arm Posture (L) Internally Rotated,(R) Internally Rotated Pelvis Posture Anteriorly Tilted,(L) Rotated Posterior Weight Distribution Balanced Knee Posture (L) Genu Valgus,(R) Genu Valgus Ankle/Foot Posture (L) Calcaneal Inversion,(R) Calcaneal Inversion Palpation Assessment Location Sacrum Palpation Location Sacrum Palpation Details L side deep but at VERENICE is high . Pubic bone Palpation Location High on the left, pubic separation. ASIS Palpation Location L Innominate Palpation Details Outflare L innominate Low on L Ischial Tub PT-OP-K Range of Motion Start: 02/12/23 10:41 Freq: Status: Active Protocol: Document 02/12/23 11:18 LRN (Rec: 02/12/23 12:16 LRN [id number]) Lumbar Spine Range of Motion Lumbar Spine Active Degrees Testing Position Standing Flexion 65 Extension 10 Rotation Left 20 Rotation Right 20 Lateral Flexion Left 13 Lateral Flexion Right 10 Hip Goniometric Range of Motion Hip Right Passive Hip ROM WFL Yes Testing Position Supine Flexion w/Knee Flexed 110 Straight Leg Raise 80 Abduction 25 Internal Rotation 30 External Rotation 65 Comments PSLR created pain on lateral side of knee/dominguez Left Passive Hip ROM WFL No Testing Position Supine Flexion w/Knee Flexed 90 Straight Leg Raise 55 Abduction 20 Internal Rotation 0 External Rotation 40 Comments Pain in lateral side of knee. KTC limited by pain in buttock . PT-OP-L Special Tests Start: 02/12/23 10:41 Freq: Status: Active Protocol: Document 02/23/23 09:36 LRN (Rec: 02/23/23 10:25 LRN [id number]) Special Tests Hip Special Tests Piriformis Test Results + Left Comments Pain in lateral and posterior L hip. Sheldon Test Results + bilaterally Hip IR:ER Ratios Test Results + left Comments Pain with IR Straight Leg Raise Test Results L ~50 deg's, R ~100 deg's. PT-OP-M Strength Start: 02/12/23 10:41 Freq: Status: Active Protocol: Document 02/23/23 09:36 LRN (Rec: 02/23/23 10:25 LRN [id number]) Hip Strength Hip Manual Muscle Testing Right Flexion (L2) 5 Normal Extension (S1) 3 Fair Abduction 3 Fair Adduction 5 Normal External Rotation 4 Good Internal Rotation 5 Normal Comments Hip Ext caused pain in L Gluteals. Left Flexion (L2) 5 Normal Extension (S1) 5 Normal Abduction 4+ Good+ Adduction 5 Normal External Rotation 5 Normal Internal Rotation 5 Normal PT-OP-Q Treatments Start: 02/12/23 10:41 Freq: Status: Active Protocol: Document 02/23/23 09:36 LRN (Rec: 02/23/23 10:25 LRN [id number]) Therapeutic Exercises Supine Exercises DKTC stretch Supine Exercise Name DKTC stretch Reps/Minutes 10 SH x 10 Comments cuing to hold stretch w/relax of arms for rest; cue to breath Sitting Exercises Clamshell Sitting Exercise Name Clamshell w/TA/PF/equal mvmt Side bilateral Reps/Minutes 30x Comments Cuing for symmetry of mvmt/TA/ PF contraction. Extra time for training Other Exercises Transfer training Other Exercise Name Transfer training for sup to sit with TA/PF Comments Cuing for TA/PF/keeping legs together/equal LE mvmt and WBing. Manual Therapy Treatment Joint Mobilizations R SIJ Joint R innominate Direction Correction for a R inflare Body Position Supine Reps/Duration 5 L SIJ Joint L innominate Direction Correction for L innominate outflare/posteriorly rotation x 2 Body Position Supine Reps/Duration 18 Self-Care/Home Management Treatment Activities Self-Care/Home Management Activities Issued & reviewed HEP: DKTC stretch and sitting clamshell for core/PF stabilization. PT-OP-T Assessment and Plan Start: 02/12/23 10:41 Freq: Status: Active Protocol: Document 02/23/23 09:36 LRN (Rec: 02/23/23 10:25 LRN [id number]) Physical Therapy Assessment Goals Three Impairment Decreased trunk and hip mobility Impairment Trunk flexion 65 deg's, ext 10 deg's. Hip mobility (in deg's): SLR 55 L, 80 R; Internal Rot 0 L, 30 R; External Rot 40 L, 65 R. Short Term Goal (STG) Improve L hip mobility with pt able to put L sock on and tie shoes without having to do it, STG Duration 03/29/23 Custodial Goal (LTG) Pt will be able to tolerate ambulation down stairs with reciprocal gait rather than one a time. LTG Duration 05/13/23 Two Impairment L hip pain rated 9/10, LBP rated 7/10 Short Term Goal (STG) Pt will be educated in log roll transfers, proper body mechanics for ADLs, proper sitting/standing posture and best practice sidelie positioning for nighttime. STG Duration 03/05/23 Custodial Goal (LTG) Improve sleep time greater than 2 hrs at a time. LTG Duration 05/13/23 One Impairment Pt lacks appropriate self care HEP Short Term Goal (STG) Pt will be educated in self care pain/inflammation management with cold pack and RICE technique. STG Duration 03/05/23 Custodial Goal (LTG) Pt will be independent in an effective self care HEP for core/hip strengthening and mobility ex's. LTG Duration 05/13/23 Assessment Summary Assessment Initially pt had a L innominate outflared and posteriorly rotated and anteriorly sheared. Her sacrum appears flexed. Today, she had a L innominate outflare/posteriorly rotation and R inflare. I was able to correct for the SIJ dysfunctions. There is mild weakness in the hip AB's and R hip Ext/ER. - LE neural tension noted, but poor L PSLR is present (~45 deg's L, 100 deg's R). Decreased L hip joint mobility. Pt felt decrease LB/hip pain after treatment. Pt tends to stand with R foot ahead of L; therefore future corrections may be needed. Physical Therapy Plan Frequency and Duration Frequency of Treatment 2x/Week Duration of treatment (weeks) 12 Plan of Care Start Date 02/12/23 Plan of Care End Date 05/13/23 Next Visit Focus/Plan Next Note Type Treatment Note Next Visit Plan Assess Trunk special tests. Manual: Normalize pelvic positioning (L innominate outflare/slasher sawyer rotation and anterior shear), decrease soft tissue muscle guarding and pain (QL), sacral balancing if needed Ther ex: improve lumbar/hip mobility, hip (stretch L ER/IR , flex, AD's) and core/pelvic stabilization. Pt education will be focused on proper transfers, body mechanics, bowel care, self care HEP, pain management. Modalities: MH, cryotherapy, IFES
--- NOTE | 2023-02-26 11:32 | PT.OTN ---
Current Diagnoses Other chronic pain (02/26/23) Unspecified thoracic, thoracolumbar and lumbosacral intervertebral disc disorder (02/26/23) Dorsalgia, unspecified (02/26/23) Physical Therapy Treatment Note PT-OP-A Visit Information Start: 02/12/23 10:41 Freq: Status: Active Protocol: Document 02/26/23 10:51 SP (Rec: 02/26/23 11:42 SP [id number]) Out-Patient Physical Therapy Visit Information Visit Information Visit Type Treatment Note Visit Note VEHICLE MECHANIC Nasreen observed/job shadow pt tx with permission of pt. Visit Start Time 10:51 Visit Stop Time 11:32 Total Visit Minutes 41 Visit Number 3 Number of VEHICLE MECHANIC Visits 1 Evaluation Information Evaluation Date 02/12/23 Precautions Precautions Arthritis-hx of knee pain PT-OP-B Current Condition Start: 02/12/23 10:41 Freq: Status: Active Protocol: Document 02/12/23 11:18 LRN (Rec: 02/12/23 12:16 LRN [id number]) Current Condition History of Current Condition Onset Date 6 months ago Current Complaints L sharp groin pain, L constant LB/buttock pain. History of Current Condition Has back pain for 3-4 yrs off/ on, but intensified in past 6 months the groin pain is new and very sharp and comes and goes. Feels like period cramping and sometimes when moves a certain way get the intense pain. Pain in the L LB and buttock is constant burn and increases intensity with movement; therefore can't reach to put socks on. Interrupts her sleep at night, must put an arthritis cream and stretches into rotation and flexion. Intermittent toes 1-3 numb, and tingling when lying in bed. Not able to get MRI until doing 6 wks of therapy. Most comfortable position is on back or side, normally sleeps on stomach ( head more to L) or side. Prior Treatments and Tests None. Future Testing and Treatments Planned MRI after 6 wks of therapy. Treatment Goals Patient/Caregiver Goals Pt goal is: - to be able to put L sock on and to tie shoes without having to do it, - improve sleep time greater than 2 hrs at a time, - be able to go down stairs with reciprocal gait rather than one a time. Personal Factors Other Personal Factors That May Effect Arthritis of R knee - pain. Therapy/Recovery PT-OP-C Subjective Start: 02/12/23 10:41 Freq: Status: Active Protocol: Document 02/26/23 10:51 SP (Rec: 02/26/23 11:42 SP [id number]) OP-PT Subjective Patient Comments Patient Comments Pt she felt good after tx but past 2 nights back hurting. Has been compliant with HEP and no concerns. She takes Neproxin for pain assist. Didn 't take this am.Pt reports she notices back/L hip pain improves when stands up straighter and engages TA/ pelvic floor. PT-OP-H Neuro Start: 02/12/23 10:41 Freq: Status: Active Protocol: Document 02/12/23 11:18 LRN (Rec: 02/12/23 12:16 LRN [id number]) Sensation Evaluation Gross Sensation Gross Sensation WNL Comments Summary Comments L toes 1-3 numb in area of feet. Deep Tendon Reflex & Clonus Assessment Deep Tendon Reflex Bilateral Achilles Deep Tendon Reflex 2+ Normal Bilateral Patellar Deep Tendon Reflex 2+ Normal PT-OP-J Posture/Palpation/Skin Start: 02/12/23 10:41 Freq: Status: Active Protocol: Document 02/12/23 11:18 LRN (Rec: 02/12/23 12:16 LRN [id number]) Posture Evaluation Position Standing Head/C-Spine Posture Side Bent Left,Forward Head L-Spine Posture Increased Lordosis Arm Posture (L) Internally Rotated,(R) Internally Rotated Pelvis Posture Anteriorly Tilted,(L) Rotated Posterior Weight Distribution Balanced Knee Posture (L) Genu Valgus,(R) Genu Valgus Ankle/Foot Posture (L) Calcaneal Inversion,(R) Calcaneal Inversion Palpation Assessment Location Sacrum Palpation Location Sacrum Palpation Details L side deep but at VERENICE is high . Pubic bone Palpation Location High on the left, pubic separation. ASIS Palpation Location L Innominate Palpation Details Outflare L innominate Low on L Ischial Tub PT-OP-K Range of Motion Start: 02/12/23 10:41 Freq: Status: Active Protocol: Document 02/12/23 11:18 LRN (Rec: 02/12/23 12:16 LRN [id number]) Lumbar Spine Range of Motion Lumbar Spine Active Degrees Testing Position Standing Flexion 65 Extension 10 Rotation Left 20 Rotation Right 20 Lateral Flexion Left 13 Lateral Flexion Right 10 Hip Goniometric Range of Motion Hip Right Passive Hip ROM WFL Yes Testing Position Supine Flexion w/Knee Flexed 110 Straight Leg Raise 80 Abduction 25 Internal Rotation 30 External Rotation 65 Comments PSLR created pain on lateral side of knee/dominguez Left Passive Hip ROM WFL No Testing Position Supine Flexion w/Knee Flexed 90 Straight Leg Raise 55 Abduction 20 Internal Rotation 0 External Rotation 40 Comments Pain in lateral side of knee. KTC limited by pain in buttock . PT-OP-L Special Tests Start: 02/12/23 10:41 Freq: Status: Active Protocol: Document 02/23/23 09:36 LRN (Rec: 02/23/23 10:25 LRN [id number]) Special Tests Hip Special Tests Piriformis Test Results + Left Comments Pain in lateral and posterior L hip. Sheldon Test Results + bilaterally Hip IR:ER Ratios Test Results + left Comments Pain with IR Straight Leg Raise Test Results L ~50 deg's, R ~100 deg's. PT-OP-M Strength Start: 02/12/23 10:41 Freq: Status: Active Protocol: Document 02/23/23 09:36 LRN (Rec: 02/23/23 10:25 LRN [id number]) Hip Strength Hip Manual Muscle Testing Right Flexion (L2) 5 Normal Extension (S1) 3 Fair Abduction 3 Fair Adduction 5 Normal External Rotation 4 Good Internal Rotation 5 Normal Comments Hip Ext caused pain in L Gluteals. Left Flexion (L2) 5 Normal Extension (S1) 5 Normal Abduction 4+ Good+ Adduction 5 Normal External Rotation 5 Normal Internal Rotation 5 Normal PT-OP-Q Treatments Start: 02/12/23 10:41 Freq: Status: Active Protocol: Document 02/26/23 10:51 SP (Rec: 02/26/23 11:42 SP [id number]) Therapeutic Exercises Supine Exercises FIg 4 Supine Exercise Name added HEP (hip ER) Side left Reps/Minutes 20SH x2 Comments cued TA/ PPT, Piriformis stretch Supine Exercise Name Hip IR- added HEP Side left Equipment Used use towel UE support Reps/Minutes 20 SH x2 Comments limited L, extra time comfort stretch DKTC stretch Supine Exercise Name DKTC stretch Equipment Used use towel for decrease UT recruitment Reps/Minutes 10 SH x 10 Comments cuing to hold stretch w/relax of arms for rest; cue to breath Sitting Exercises piriformis stretch Sitting Exercise Name review seated for HEP- put socks on Side left Comments tension but good stretch SPinal Rotation Sitting Exercise Name review self HEP- LS/TS rotation Side bilateral Equipment Used hands linked front Reps/Minutes x10 Comments good posture and back relief, cued slow Clamshell Sitting Exercise Name Clamshell w/TA/PF/equal mvmt- HEPreviewed Side bilateral Reps/Minutes 30x Comments Cuing for symmetry of mvmt/TA/ PF contraction. Extra time for training Other Exercises Transfer training Other Exercise Name Transfer training for sup to sit with TA/PF Comments Cuing for TA/PF/keeping legs together/equal LE mvmt and WBing. Manual Therapy Treatment Soft Tissue Mobilization B SI, Hip Body Location L>R piriformis, superior glut max Mobilization Type Strumming,Sustained Pressure, Other Intensity/Depth Moderate Body Position Prone over pillows Comments manual STMs, Sustained pressure MWW hip IR/ ER PROM/ AROM- limited L IR. Self-Care/Home Management Treatment Education Other Education Time spent discussion use pillows side sleeping,see HO. Added supine firg 4 and piriformis stretches. PT-OP-T Assessment and Plan Start: 02/12/23 10:41 Freq: Status: Active Protocol: Document 02/26/23 10:51 SP (Rec: 02/26/23 11:42 SP [id number]) Physical Therapy Assessment Goals Three Impairment Decreased trunk and hip mobility Impairment Trunk flexion 65 deg's, ext 10 deg's. Hip mobility (in deg's): SLR 55 L, 80 R; Internal Rot 0 L, 30 R; External Rot 40 L, 65 R. Short Term Goal (STG) Improve L hip mobility with pt able to put L sock on and tie shoes without having to do it, STG Duration 03/29/23 Soccer Commentator Goal (LTG) Pt will be able to tolerate ambulation down stairs with reciprocal gait rather than one a time. LTG Duration 05/13/23 Two Impairment L hip pain rated 9/10, LBP rated 7/10 Short Term Goal (STG) Pt will be educated in log roll transfers, proper body mechanics for ADLs, proper sitting/standing posture and best practice sidelie positioning for nighttime. STG Duration 03/05/23 Soccer Commentator Goal (LTG) Improve sleep time greater than 2 hrs at a time. LTG Duration 05/13/23 One Impairment Pt lacks appropriate self care HEP Short Term Goal (STG) Pt will be educated in self care pain/inflammation management with cold pack and RICE technique. STG Duration 03/05/23 Residential Goal (LTG) Pt will be independent in an effective self care HEP for core/hip strengthening and mobility ex's. LTG Duration 05/13/23 Assessment Summary Assessment Pt responded well to manual today. Decreased anterior L hip pain and little more ER rotation post added piriformis and Fig 4 stretches today. Initially uncomfortable but cued breath with stretches today but found able gain more ROM in L hip ER end tx. Improved TA/pelvic floor engagement during gait reported. Physical Therapy Plan Frequency and Duration Frequency of Treatment 2x/Week Duration of treatment (weeks) 12 Plan of Care Start Date 02/12/23 Plan of Care End Date 05/13/23 Therapeutic Interventions Therapeutic Interventions Home Exercise Program,Joint Mobilizations,Manual Therapy, Neuromuscular Re-education, Self-Care/Home Management,Soft Tissue Mobilization, Therapeutic Activities, Therapeutic Exercises Modalities Cold Pack/Ice Massage,Hot Packs Next Visit Focus/Plan Next Note Type Treatment Note Next Visit Plan Assess Trunk special tests. Manual: Normalize pelvic positioning (L innominate outflare/spindle carver rotation and anterior shear), decrease soft tissue muscle guarding and pain (QL), sacral balancing if needed Ther ex: improve lumbar/hip mobility, hip (stretch L ER/IR , flex, AD's) and core/pelvic stabilization. Pt education will be focused on proper transfers, body mechanics, bowel care, self care HEP, pain management. Modalities: MH, cryotherapy, IFES
--- NOTE | 2023-03-01 08:15 | PT.OTN ---
Current Diagnoses Other chronic pain (03/01/23) Unspecified thoracic, thoracolumbar and lumbosacral intervertebral disc disorder (03/01/23) Dorsalgia, unspecified (03/01/23) Physical Therapy Treatment Note PT-OP-A Visit Information Start: 02/12/23 10:41 Freq: Status: Active Protocol: Document 03/01/23 07:32 SP (Rec: 03/01/23 08:19 SP [id number]) Out-Patient Physical Therapy Visit Information Visit Information Visit Type Treatment Note Visit Start Time 07:32 Visit Stop Time 08:15 Total Visit Minutes 43 Visit Number 4 Number of DRY SANDER Visits 2 Evaluation Information Evaluation Date 02/12/23 Precautions Precautions Arthritis-hx of knee pain PT-OP-B Current Condition Start: 02/12/23 10:41 Freq: Status: Active Protocol: Document 02/12/23 11:18 LRN (Rec: 02/12/23 12:16 LRN [id number]) Current Condition History of Current Condition Onset Date 6 months ago Current Complaints L sharp groin pain, L constant LB/buttock pain. History of Current Condition Has back pain for 3-4 yrs off/ on, but intensified in past 6 months the groin pain is new and very sharp and comes and goes. Feels like period cramping and sometimes when moves a certain way get the intense pain. Pain in the L LB and buttock is constant burn and increases intensity with movement; therefore can't reach to put socks on. Interrupts her sleep at night, must put an arthritis cream and stretches into rotation and flexion. Intermittent toes 1-3 numb, and tingling when lying in bed. Not able to get MRI until doing 6 wks of therapy. Most comfortable position is on back or side, normally sleeps on stomach ( head more to L) or side. Prior Treatments and Tests None. Future Testing and Treatments Planned MRI after 6 wks of therapy. Treatment Goals Patient/Caregiver Goals Pt goal is: - to be able to put L sock on and to tie shoes without having to do it, - improve sleep time greater than 2 hrs at a time, - be able to go down stairs with reciprocal gait rather than one a time. Personal Factors Other Personal Factors That May Effect Arthritis of R knee - pain. Therapy/Recovery PT-OP-C Subjective Start: 02/12/23 10:41 Freq: Status: Active Protocol: Document 03/01/23 07:32 SP (Rec: 03/01/23 08:19 SP [id number]) OP-PT Subjective Patient Comments Patient Comments Pt reports doing better, able put own shoes/socks but still pain. She notices when standing when having back pain lessens alot when perfroms [place]. Fri or Sat noticed she didn't notice her pain much working in the home. She does alot of the house and yard work due to with his medical issues. They have collectible items and weeding out. No pain coming in today but was this am. Not having that bent over pinch nerve pain in back/ hip anymore when bends over to touch toes but still get pain over SI/posterior hip. PT-OP-H Neuro Start: 02/12/23 10:41 Freq: Status: Active Protocol: Document 02/12/23 11:18 LRN (Rec: 02/12/23 12:16 LRN [id number]) Sensation Evaluation Gross Sensation Gross Sensation WNL Comments Summary Comments L toes 1-3 numb in area of feet. Deep Tendon Reflex & Clonus Assessment Deep Tendon Reflex Bilateral Achilles Deep Tendon Reflex 2+ Normal Bilateral Patellar Deep Tendon Reflex 2+ Normal PT-OP-J Posture/Palpation/Skin Start: 02/12/23 10:41 Freq: Status: Active Protocol: Document 02/12/23 11:18 LRN (Rec: 02/12/23 12:16 LRN [id number]) Posture Evaluation Position Standing Head/C-Spine Posture Side Bent Left,Forward Head L-Spine Posture Increased Lordosis Arm Posture (L) Internally Rotated,(R) Internally Rotated Pelvis Posture Anteriorly Tilted,(L) Rotated Posterior Weight Distribution Balanced Knee Posture (L) Genu Valgus,(R) Genu Valgus Ankle/Foot Posture (L) Calcaneal Inversion,(R) Calcaneal Inversion Palpation Assessment Location Sacrum Palpation Location Sacrum Palpation Details L side deep but at VERENICE is high . Pubic bone Palpation Location High on the left, pubic separation. ASIS Palpation Location L Innominate Palpation Details Outflare L innominate Low on L Ischial Tub PT-OP-K Range of Motion Start: 02/12/23 10:41 Freq: Status: Active Protocol: Document 02/12/23 11:18 LRN (Rec: 02/12/23 12:16 LRN [id number]) Lumbar Spine Range of Motion Lumbar Spine Active Degrees Testing Position Standing Flexion 65 Extension 10 Rotation Left 20 Rotation Right 20 Lateral Flexion Left 13 Lateral Flexion Right 10 Hip Goniometric Range of Motion Hip Right Passive Hip ROM WFL Yes Testing Position Supine Flexion w/Knee Flexed 110 Straight Leg Raise 80 Abduction 25 Internal Rotation 30 External Rotation 65 Comments PSLR created pain on lateral side of knee/dominguez Left Passive Hip ROM WFL No Testing Position Supine Flexion w/Knee Flexed 90 Straight Leg Raise 55 Abduction 20 Internal Rotation 0 External Rotation 40 Comments Pain in lateral side of knee. KTC limited by pain in buttock . PT-OP-L Special Tests Start: 02/12/23 10:41 Freq: Status: Active Protocol: Document 02/23/23 09:36 LRN (Rec: 02/23/23 10:25 LRN [id number]) Special Tests Hip Special Tests Piriformis Test Results + Left Comments Pain in lateral and posterior L hip. Sheldon Test Results + bilaterally Hip IR:ER Ratios Test Results + left Comments Pain with IR Straight Leg Raise Test Results L ~50 deg's, R ~100 deg's. PT-OP-M Strength Start: 02/12/23 10:41 Freq: Status: Active Protocol: Document 02/23/23 09:36 LRN (Rec: 02/23/23 10:25 LRN [id number]) Hip Strength Hip Manual Muscle Testing Right Flexion (L2) 5 Normal Extension (S1) 3 Fair Abduction 3 Fair Adduction 5 Normal External Rotation 4 Good Internal Rotation 5 Normal Comments Hip Ext caused pain in L Gluteals. Left Flexion (L2) 5 Normal Extension (S1) 5 Normal Abduction 4+ Good+ Adduction 5 Normal External Rotation 5 Normal Internal Rotation 5 Normal PT-OP-Q Treatments Start: 02/12/23 10:41 Freq: Status: Active Protocol: Document 03/01/23 07:32 SP (Rec: 03/01/23 08:19 SP [id number]) Therapeutic Exercises Supine Exercises TA september Supine Exercise Name added to HEP: alternate LEs 90 /90 Side bilateral Reps/Minutes 5 reps x2 sets Comments cued TA w/ level pelvis TA Heel slide Supine Exercise Name trialed inPT Resistance AROM Reps/Minutes 5 reps Comments stopped due to R knee clicking discomfort Sheldon stretch Supine Exercise Name Initiated in PT Side left Reps/Minutes 20 SH Comments Cued PPT, initially quad stretch then got L SI pain so stopped FIg 4 Supine Exercise Name reviewed HEP (hip ER) Side left Reps/Minutes 20SH x2 Comments cued TA/ PPT, Piriformis stretch Supine Exercise Name Hip IR- added HEP Side left Equipment Used use towel UE support Reps/Minutes 20 SH x2 Comments limited L, extra time comfort stretch DKTC stretch Supine Exercise Name DKTC stretch Equipment Used use towel for decrease UT recruitment Reps/Minutes 10 SH x 10 Comments cuing to hold stretch w/relax of arms for rest; cue to breath Sidelying Exercises clamshell Sidelying Exercise Name added to HEP Side bilateral Reps/Minutes x10 reps Comments cued TA draw in gentle, lift/ lower- good form little hip abd tiring Sitting Exercises piriformis stretch Sitting Exercise Name review seated for HEP- put socks on Side left Reps/Minutes 20 SH x2 Comments Improved ROM and stretch- able put on shoes self Clamshell Sitting Exercise Name Clamshell w/TA/PF/equal mvmt- HEPreviewed Side bilateral Resistance AROM> TB #2 aqua Reps/Minutes 30x Comments Good form symmetry of mvmt/TA/ PF contraction. Standing Exercises STMs ball wall Standing Exercise Name added HEP: piriformis, glut med, ES Equipment Used racquetball wall Reps/Minutes 1 min total Comments good response- that feels good Other Exercises Transfer training Other Exercise Name Transfer training for sup <> sit with TA/PF Comments Improved Manual Therapy Treatment Soft Tissue Mobilization B SI, Hip Body Location L>R piriformis, superior glut max Mobilization Type Strumming,Sustained Pressure, Other Intensity/Depth Moderate Body Position Prone over pillows Comments manual STMs, Sustained pressure MWW hip IR/ ER PROM/ AROM- limited L IR. Joint Mobilizations L hip Direction lateral, inferior Grade II Body Position Hooklying Comments w/PROM hip flexion, Flex& IR Self-Care/Home Management Treatment Education Other Education Added self STMs use ball on wall, clamshell and TA marching to HEP. Reviewed log roll technique for spinal support with good response. PT-OP-T Assessment and Plan Start: 02/12/23 10:41 Freq: Status: Active Protocol: Document 03/01/23 07:32 SP (Rec: 03/01/23 08:19 SP [id number]) Physical Therapy Assessment Goals Three Impairment Decreased trunk and hip mobility Impairment Trunk flexion 65 deg's, ext 10 deg's. Hip mobility (in deg's): SLR 55 L, 80 R; Internal Rot 0 L, 30 R; External Rot 40 L, 65 R. Short Term Goal (STG) Improve L hip mobility with pt able to put L sock on and tie shoes without having to do it, 03/01/23: GOAL MET able to now put on shoes self. STG Duration 03/29/23 GOAL MET 03/01/23 Long-Term Goal (LTG) Pt will be able to tolerate ambulation down stairs with reciprocal gait rather than one a time. LTG Duration 05/13/23 Two Impairment L hip pain rated 9/10, LBP rated 7/10 Short Term Goal (STG) Pt will be educated in log roll transfers, proper body mechanics for ADLs, proper sitting/standing posture and best practice sidelie positioning for nighttime. 03/01/23: Initiated supine<>sit cues TA draw in keep shlds/ knee together mob. STG Duration 03/05/23 progressing 03/01/23 Long-Term Goal (LTG) Improve sleep time greater than 2 hrs at a time. 03/01/23: Has had times 4 hrs at time not necessarily due to pain and 1 night use bathroom . She gets hot flashes that does contribute to waking. LTG Duration 05/13/23 progressing 03/01/23 One Impairment Pt lacks appropriate self care HEP Short Term Goal (STG) Pt will be educated in self care pain/inflammation management with cold pack and RICE technique. 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 03/01/23: Reviewed added last tx: DKTC and piriformis stretch. Added self STMs use ball on wall to low back/post hip, clamshell and TA marching to HEP for progress support to SI and hip. LTG Duration 05/13/23 progressing 03/01/23 Assessment Summary Assessment Pt good response to ther ex, stretching with ability to complete able don socks/shoes and reach down toes end tx to tie shoes. Pt improved log roll technique with no pain reported post, cues for proper form. Physical Therapy Plan Frequency and Duration Frequency of Treatment 2x/Week Duration of treatment (weeks) 12 Plan of Care Start Date 02/12/23 Plan of Care End Date 05/13/23 Therapeutic Interventions Therapeutic Interventions Home Exercise Program,Joint Mobilizations,Manual Therapy, Neuromuscular Re-education, Self-Care/Home Management,Soft Tissue Mobilization, Therapeutic Activities, Therapeutic Exercises Modalities Cold Pack/Ice Massage,Hot Packs Next Visit Focus/Plan Next Note Type Treatment Note Next Visit Plan Next tx. Assess added self STMs, TA march, side clamshell and seated resisted clamshell response. POC: Assess Trunk special tests. Manual: Normalize pelvic positioning (L innominate outflare/vice president pharmacy rotation and anterior shear), decrease soft tissue muscle guarding and pain (QL), sacral balancing if needed Ther ex: improve lumbar/hip mobility, hip (stretch L ER/IR , flex, AD's) and core/pelvic stabilization. Pt education will be focused on proper transfers, body mechanics, bowel care, self care HEP, pain management. Modalities: MH, cryotherapy, IFES
--- NOTE | 2023-03-05 16:12 | PT.OTN ---
Current Diagnoses Other chronic pain (03/05/23) Unspecified thoracic, thoracolumbar and lumbosacral intervertebral disc disorder (03/05/23) Dorsalgia, unspecified (03/05/23) Physical Therapy Treatment Note PT-OP-A Visit Information Start: 02/12/23 10:41 Freq: Status: Active Protocol: Document 03/05/23 10:33 LRN (Rec: 03/05/23 12:22 LRN [id number]) Out-Patient Physical Therapy Visit Information Visit Information Visit Type Treatment Note Visit Note 06/27 units Visit Start Time 10:33 Visit Stop Time 11:10 Total Visit Minutes 37 Visit Number 5 Evaluation Information Evaluation Date 02/12/23 Precautions Precautions Arthritis-hx of knee pain PT-OP-B Current Condition Start: 02/12/23 10:41 Freq: Status: Active Protocol: Document 02/12/23 11:18 LRN (Rec: 02/12/23 12:16 LRN [id number]) Current Condition History of Current Condition Onset Date 6 months ago Current Complaints L sharp groin pain, L constant LB/buttock pain. History of Current Condition Has back pain for 3-4 yrs off/ on, but intensified in past 6 months the groin pain is new and very sharp and comes and goes. Feels like period cramping and sometimes when moves a certain way get the intense pain. Pain in the L LB and buttock is constant burn and increases intensity with movement; therefore can't reach to put socks on. Interrupts her sleep at night, must put an arthritis cream and stretches into rotation and flexion. Intermittent toes 1-3 numb, and tingling when lying in bed. Not able to get MRI until doing 6 wks of therapy. Most comfortable position is on back or side, normally sleeps on stomach ( head more to L) or side. Prior Treatments and Tests None. Future Testing and Treatments Planned MRI after 6 wks of therapy. Treatment Goals Patient/Caregiver Goals Pt goal is: - to be able to put L sock on and to tie shoes without having to do it, - improve sleep time greater than 2 hrs at a time, - be able to go down stairs with reciprocal gait rather than one a time. Personal Factors Other Personal Factors That May Effect Arthritis of R knee - pain. Therapy/Recovery PT-OP-C Subjective Start: 02/12/23 10:41 Freq: Status: Active Protocol: Document 03/05/23 10:33 LRN (Rec: 03/05/23 12:22 LRN [id number]) OP-PT Subjective Patient Comments Patient Comments Easier to put socks and shoes on L side with less pain. PT-OP-H Neuro Start: 02/12/23 10:41 Freq: Status: Active Protocol: Document 02/12/23 11:18 LRN (Rec: 02/12/23 12:16 LRN [id number]) Sensation Evaluation Gross Sensation Gross Sensation WNL Comments Summary Comments L toes 1-3 numb in area of feet. Deep Tendon Reflex & Clonus Assessment Deep Tendon Reflex Bilateral Achilles Deep Tendon Reflex 2+ Normal Bilateral Patellar Deep Tendon Reflex 2+ Normal PT-OP-J Posture/Palpation/Skin Start: 02/12/23 10:41 Freq: Status: Active Protocol: Document 02/12/23 11:18 LRN (Rec: 02/12/23 12:16 LRN [id number]) Posture Evaluation Position Standing Head/C-Spine Posture Side Bent Left,Forward Head L-Spine Posture Increased Lordosis Arm Posture (L) Internally Rotated,(R) Internally Rotated Pelvis Posture Anteriorly Tilted,(L) Rotated Posterior Weight Distribution Balanced Knee Posture (L) Genu Valgus,(R) Genu Valgus Ankle/Foot Posture (L) Calcaneal Inversion,(R) Calcaneal Inversion Palpation Assessment Location Sacrum Palpation Location Sacrum Palpation Details L side deep but at VERENICE is high . Pubic bone Palpation Location High on the left, pubic separation. ASIS Palpation Location L Innominate Palpation Details Outflare L innominate Low on L Ischial Tub PT-OP-K Range of Motion Start: 02/12/23 10:41 Freq: Status: Active Protocol: Document 02/12/23 11:18 LRN (Rec: 02/12/23 12:16 LRN [id number]) Lumbar Spine Range of Motion Lumbar Spine Active Degrees Testing Position Standing Flexion 65 Extension 10 Rotation Left 20 Rotation Right 20 Lateral Flexion Left 13 Lateral Flexion Right 10 Hip Goniometric Range of Motion Hip Right Passive Hip ROM WFL Yes Testing Position Supine Flexion w/Knee Flexed 110 Straight Leg Raise 80 Abduction 25 Internal Rotation 30 External Rotation 65 Comments PSLR created pain on lateral side of knee/dominguez Left Passive Hip ROM WFL No Testing Position Supine Flexion w/Knee Flexed 90 Straight Leg Raise 55 Abduction 20 Internal Rotation 0 External Rotation 40 Comments Pain in lateral side of knee. KTC limited by pain in buttock . PT-OP-L Special Tests Start: 02/12/23 10:41 Freq: Status: Active Protocol: Document 02/23/23 09:36 LRN (Rec: 02/23/23 10:25 LRN [id number]) Special Tests Hip Special Tests Piriformis Test Results + Left Comments Pain in lateral and posterior L hip. Sheldon Test Results + bilaterally Hip IR:ER Ratios Test Results + left Comments Pain with IR Straight Leg Raise Test Results L ~50 deg's, R ~100 deg's. PT-OP-M Strength Start: 02/12/23 10:41 Freq: Status: Active Protocol: Document 02/23/23 09:36 LRN (Rec: 02/23/23 10:25 LRN [id number]) Hip Strength Hip Manual Muscle Testing Right Flexion (L2) 5 Normal Extension (S1) 3 Fair Abduction 3 Fair Adduction 5 Normal External Rotation 4 Good Internal Rotation 5 Normal Comments Hip Ext caused pain in L Gluteals. Left Flexion (L2) 5 Normal Extension (S1) 5 Normal Abduction 4+ Good+ Adduction 5 Normal External Rotation 5 Normal Internal Rotation 5 Normal PT-OP-Q Treatments Start: 02/12/23 10:41 Freq: Status: Active Protocol: Document 03/05/23 10:33 LRN (Rec: 03/05/23 12:22 LRN [id number]) Therapeutic Exercises Supine Exercises S/P SIJ correction Supine Exercise Name s/p SIJ correction: DKTC stretch & Bridging Reps/Minutes 10 SH x 6 stretch, x 5 reps bridge Comments Cuing for when hamstring ms spasm. Self SIJ correction Supine Exercise Name Self resisted L hip flex/R hip ext. Reps/Minutes x 3 Comments Cuing for proper mvmt. I/S pt in best sidelie positioning w /pillows. TA september Supine Exercise Name added to HEP: alternate LEs 90 /90 Side bilateral Reps/Minutes 10 reps x 2 Comments cued TA w/ level pelvis TA Heel slide Supine Exercise Name Heel slide in non-pain range on R. Resistance AROM Reps/Minutes 10x Comments Cued at TA and avoiding R knee pain range. Sheldon stretch Supine Exercise Name Hip flexor stretch Side left Reps/Minutes 60 SH Comments Cued PPT, initially quad stretch then got L SI pain so stopped FIg 4 Supine Exercise Name Fig 4 stretch Side bilateral Reps/Minutes 60 SH x 2 L, 60 SH x 1 R. Comments Phy & v cuing for positioning Piriformis stretch Supine Exercise Name Hip IR- added HEP Side left Equipment Used use towel UE support Reps/Minutes 10 SH x6 Comments limited L, extra time comfort stretch DKTC stretch Supine Exercise Name DKTC stretch Equipment Used use towel for decrease UT recruitment Reps/Minutes 10 SH x 5 Comments cuing to hold stretch w/relax of arms for rest; cue to breath Manual Therapy Treatment Joint Mobilizations R SIJ Joint R innominate Direction Correction for a R inflare/ anter rot Body Position Supine Reps/Duration x2 L SIJ Joint L innominate Direction Correction for L innominate outflare/posterior rotation x1 Body Position Supine Reps/Duration x1 PT-OP-T Assessment and Plan Start: 02/12/23 10:41 Freq: Status: Active Protocol: Document 03/05/23 10:33 LRN (Rec: 03/05/23 12:22 LRN [id number]) Physical Therapy Assessment Goals Three Impairment Decreased trunk and hip mobility Impairment Trunk flexion 65 deg's, ext 10 deg's. Hip mobility (in deg's): SLR 55 L, 80 R; Internal Rot 0 L, 30 R; External Rot 40 L, 65 R. Short Term Goal (STG) Improve L hip mobility with pt able to put L sock on and tie shoes without having to do it, 03/01/23: GOAL MET able to now put on shoes self. STG Duration 03/29/23 GOAL MET 03/01/23 Diamond Polisher Goal (LTG) Pt will be able to tolerate ambulation down stairs with reciprocal gait rather than one a time. LTG Duration 05/13/23 Two Impairment L hip pain rated 9/10, LBP rated 7/10 Short Term Goal (STG) Pt will be educated in log roll transfers, proper body mechanics for ADLs, proper sitting/standing posture and best practice sidelie positioning for nighttime. 03/01/23: Initiated supine<>sit cues TA draw in keep shlds/ knee together mob. 03/05/23: Discussed sidelie positioning with pillow between legs and pillow in front of thighs. STG Duration 03/05/23 progressing 03/05/23 (need trng transfer, body mech/ADL,posture) Diamond Polisher Goal (LTG) Improve sleep time greater than 2 hrs at a time. 03/01/23: Has had times 4 hrs at time not necessarily due to pain and 1 night use bathroom . She gets hot flashes that does contribute to waking. LTG Duration 05/13/23 progressing 03/01/23 One Impairment Pt lacks appropriate self care HEP Short Term Goal (STG) Pt will be educated in self care pain/inflammation management with cold pack and RICE technique. STG Duration 03/05/23 Diamond Polisher Goal (LTG) Pt will be independent in an effective self care HEP for core/hip strengthening and mobility ex's. 03/01/23: Reviewed added last tx: DKTC and piriformis stretch. Added self STMs use ball on wall to low back/post hip, clamshell and TA marching to HEP for progress support to SI and hip. LTG Duration 05/13/23 progressing 03/01/23 Assessment Summary Assessment Pt initially with L innominate outflared and posteriorly rotated and anteriorly sheared and sacrum appears flexed. She had severe L groin sharp intermittent pain and intermittent with weightbearing and secondary constant burning L LBP/hip pain. Today she is w/outflare L innominate & post rot/ inflare R innominate & anter rot, not corrected with MFR mobs. Pt needed review of previouisly issued stretch ex' s to be done in correct position and review of TA marching to perform as pt forgot exercise; therefore was not able to review STM and other recently added ex's. Pt to use modalities at home if needed. Physical Therapy Plan Frequency and Duration Frequency of Treatment 2x/Week Duration of treatment (weeks) 12 Plan of Care Start Date 02/12/23 Plan of Care End Date 05/13/23 Next Visit Focus/Plan Next Note Type Treatment Note Next Visit Plan Next tx. Assess added self STMs, TA march, side clamshell and seated resisted clamshell response. POC: Assess Trunk special tests. Assess other areas holding SIJ in dysfunction and add SIJ dysfunction - Phase 1 . Sacral balancing if needed Manual: Normalize pelvic positioning (?L innominate outflare/wastewater superintendent rotation and anterior shear), decrease soft tissue muscle guarding and pain (QL). Ther ex: improve lumbar/hip mobility, hip (stretch L ER/IR , flex, AD's) and core/pelvic stabilization. Pt education will be focused on proper transfers, body mechanics, bowel care, self care HEP, pain management.
--- NOTE | 2023-03-10 14:11 | PT.OTN ---
Current Diagnoses Other chronic pain (03/10/23) Unspecified thoracic, thoracolumbar and lumbosacral intervertebral disc disorder (03/10/23) Dorsalgia, unspecified (03/10/23) Physical Therapy Treatment Note PT-OP-A Visit Information Start: 02/12/23 10:41 Freq: Status: Active Protocol: Document 03/10/23 13:34 SP (Rec: 03/10/23 14:21 SP [id number]) Out-Patient Physical Therapy Visit Information Visit Information Visit Type Treatment Note Visit Note units *6 more visits at 2 units each allowed Visit Start Time 13:34 Visit Stop Time 14:11 Total Visit Minutes 37 Visit Number 6 Number of BRINELL TESTER Visits 1 Evaluation Information Evaluation Date 02/12/23 Precautions Precautions Arthritis-hx of knee pain PT-OP-B Current Condition Start: 02/12/23 10:41 Freq: Status: Active Protocol: Document 02/12/23 11:18 LRN (Rec: 02/12/23 12:16 LRN [id number]) Current Condition History of Current Condition Onset Date 6 months ago Current Complaints L sharp groin pain, L constant LB/buttock pain. History of Current Condition Has back pain for 3-4 yrs off/ on, but intensified in past 6 months the groin pain is new and very sharp and comes and goes. Feels like period cramping and sometimes when moves a certain way get the intense pain. Pain in the L LB and buttock is constant burn and increases intensity with movement; therefore can't reach to put socks on. Interrupts her sleep at night, must put an arthritis cream and stretches into rotation and flexion. Intermittent toes 1-3 numb, and tingling when lying in bed. Not able to get MRI until doing 6 wks of therapy. Most comfortable position is on back or side, normally sleeps on stomach ( head more to L) or side. Prior Treatments and Tests None. Future Testing and Treatments Planned MRI after 6 wks of therapy. Treatment Goals Patient/Caregiver Goals Pt goal is: - to be able to put L sock on and to tie shoes without having to do it, - improve sleep time greater than 2 hrs at a time, - be able to go down stairs with reciprocal gait rather than one a time. Personal Factors Other Personal Factors That May Effect Arthritis of R knee - pain. Therapy/Recovery PT-OP-C Subjective Start: 02/12/23 10:41 Freq: Status: Active Protocol: Document 03/10/23 13:34 SP (Rec: 03/10/23 14:21 SP [id number]) OP-PT Subjective Patient Comments Patient Comments Pt reports compliant with stretches, R groin awareness today even though pain always on L. Reports hard time getting in van to high and twists trunk, wants to work together how can get in without pain. PT-OP-H Neuro Start: 02/12/23 10:41 Freq: Status: Active Protocol: Document 02/12/23 11:18 LRN (Rec: 02/12/23 12:16 LRN [id number]) Sensation Evaluation Gross Sensation Gross Sensation WNL Comments Summary Comments L toes 1-3 numb in area of feet. Deep Tendon Reflex & Clonus Assessment Deep Tendon Reflex Bilateral Achilles Deep Tendon Reflex 2+ Normal Bilateral Patellar Deep Tendon Reflex 2+ Normal PT-OP-J Posture/Palpation/Skin Start: 02/12/23 10:41 Freq: Status: Active Protocol: Document 02/12/23 11:18 LRN (Rec: 02/12/23 12:16 LRN [id number]) Posture Evaluation Position Standing Head/C-Spine Posture Side Bent Left,Forward Head L-Spine Posture Increased Lordosis Arm Posture (L) Internally Rotated,(R) Internally Rotated Pelvis Posture Anteriorly Tilted,(L) Rotated Posterior Weight Distribution Balanced Knee Posture (L) Genu Valgus,(R) Genu Valgus Ankle/Foot Posture (L) Calcaneal Inversion,(R) Calcaneal Inversion Palpation Assessment Location Sacrum Palpation Location Sacrum Palpation Details L side deep but at VERENICE is high . Pubic bone Palpation Location High on the left, pubic separation. ASIS Palpation Location L Innominate Palpation Details Outflare L innominate Low on L Ischial Tub PT-OP-K Range of Motion Start: 02/12/23 10:41 Freq: Status: Active Protocol: Document 02/12/23 11:18 LRN (Rec: 02/12/23 12:16 LRN [id number]) Lumbar Spine Range of Motion Lumbar Spine Active Degrees Testing Position Standing Flexion 65 Extension 10 Rotation Left 20 Rotation Right 20 Lateral Flexion Left 13 Lateral Flexion Right 10 Hip Goniometric Range of Motion Hip Right Passive Hip ROM WFL Yes Testing Position Supine Flexion w/Knee Flexed 110 Straight Leg Raise 80 Abduction 25 Internal Rotation 30 External Rotation 65 Comments PSLR created pain on lateral side of knee/dominguez Left Passive Hip ROM WFL No Testing Position Supine Flexion w/Knee Flexed 90 Straight Leg Raise 55 Abduction 20 Internal Rotation 0 External Rotation 40 Comments Pain in lateral side of knee. KTC limited by pain in buttock . PT-OP-L Special Tests Start: 02/12/23 10:41 Freq: Status: Active Protocol: Document 02/23/23 09:36 LRN (Rec: 02/23/23 10:25 LRN [id number]) Special Tests Hip Special Tests Piriformis Test Results + Left Comments Pain in lateral and posterior L hip. Sheldon Test Results + bilaterally Hip IR:ER Ratios Test Results + left Comments Pain with IR Straight Leg Raise Test Results L ~50 deg's, R ~100 deg's. PT-OP-M Strength Start: 02/12/23 10:41 Freq: Status: Active Protocol: Document 02/23/23 09:36 LRN (Rec: 02/23/23 10:25 LRN [id number]) Hip Strength Hip Manual Muscle Testing Right Flexion (L2) 5 Normal Extension (S1) 3 Fair Abduction 3 Fair Adduction 5 Normal External Rotation 4 Good Internal Rotation 5 Normal Comments Hip Ext caused pain in L Gluteals. Left Flexion (L2) 5 Normal Extension (S1) 5 Normal Abduction 4+ Good+ Adduction 5 Normal External Rotation 5 Normal Internal Rotation 5 Normal PT-OP-Q Treatments Start: 02/12/23 10:41 Freq: Status: Active Protocol: Document 03/10/23 13:34 SP (Rec: 03/10/23 14:21 SP [id number]) Therapeutic Exercises Supine Exercises S/P SIJ correction Supine Exercise Name s/p SIJ correction: 1. DKTC stretch 2. Bridging Resistance added to HEP w/ HO Reps/Minutes 1. 10 SH x 6 stretch 2. 5 reps bridge Comments Cuing for when hamstring ms spasm. Self SIJ correction Supine Exercise Name Self resisted L hip flex/R hip ext. Resistance Added to HEP w/ HO Reps/Minutes 5 SH x3 each Comments cued gentle pressure TA september Supine Exercise Name HEP reviewed : alternate LEs 90/90 Side bilateral Reps/Minutes 10 reps x 2 Comments cued TA draw in back side of both sides pelvis on table TA Heel slide Supine Exercise Name Heel slide in non-pain range on R. Side bilateral Resistance AROM Reps/Minutes 10x single, 3 reps double leg Comments Cued at TA and avoiding R knee pain range. FIg 4 Supine Exercise Name Fig 4 stretch Side bilateral Reps/Minutes 60 SH x 2 L, 60 SH x 1 R. Comments feedback increase L ROM into ER, better AROM R Piriformis stretch Supine Exercise Name Hip IR- added HEP Side left Equipment Used use towel UE support Reps/Minutes 10 SH x6 Comments limited L, extra time comfort stretch DKTC stretch Supine Exercise Name DKTC stretch- HEP reviewed Equipment Used use towel for decrease UT recruitment Reps/Minutes 10 SH x 5 Comments cuing to hold stretch w/relax of arms for rest; cue to breath Sidelying Exercises clamshell Sidelying Exercise Name HEP Side bilateral Resistance AROM (next add TB) Reps/Minutes 20 x2 sets Comments cued TA draw in gentle, lift/ lower- good form little hip abd tiring Therapeutic Activity Therapeutic Activity in/out car Reps/Minutes 5 Comments Pt challenged with height lifting RLE into car then pulling self into seat. Discussed with good demonstration enter through back seat, side step L between B front seated and sit, then swing BLE together front with good feedback response painfree hip/back. log roll technique Name 3 min Reps/Minutes 3 reps Comments Time spent ed to roll fully on side then use 1-2 UEs to come to sitting for spinal support . Reverse: Lean onto arm/elbow then shld with leg up on table on side then roll onto back- reports less stress on back. She reports keeps forgeting to slow down and do correctly. Manual Therapy Treatment Soft Tissue Mobilization B SI, Hip Body Location L>R piriformis, superior glut max Mobilization Type Strumming,Sustained Pressure, Other Intensity/Depth Moderate Body Position Prone over pillows Comments manual STMs, Sustained pressure MWW hip IR/ ER PROM, decreased B hip tension. PT-OP-T Assessment and Plan Start: 02/12/23 10:41 Freq: Status: Active Protocol: Document 03/10/23 13:34 SP (Rec: 03/10/23 14:21 SP [id number]) Physical Therapy Assessment Goals Three Impairment Decreased trunk and hip mobility Impairment Trunk flexion 65 deg's, ext 10 deg's. Hip mobility (in deg's): SLR 55 L, 80 R; Internal Rot 0 L, 30 R; External Rot 40 L, 65 R. Short Term Goal (STG) Improve L hip mobility with pt able to put L sock on and tie shoes without having to do it, 03/01/23: GOAL MET able to now put on shoes self. STG Duration 03/29/23 GOAL MET 03/01/23 Senior Living Goal (LTG) Pt will be able to tolerate ambulation down stairs with reciprocal gait rather than one a time. LTG Duration 05/13/23 Two Impairment L hip pain rated 9/10, LBP rated 7/10 Short Term Goal (STG) Pt will be educated in log roll transfers, proper body mechanics for ADLs, proper sitting/standing posture and best practice sidelie positioning for nighttime. 03/01/23: Initiated supine<>sit cues TA draw in keep shlds/ knee together mob. 03/05/23: Discussed sidelie positioning with pillow between legs and pillow in front of thighs. 03/10/23: time spent log roll technique, in/out car through back seat side step L sit and BLE swing front to keep pelvis neutral- painfree. STG Duration 03/05/23 progressing 03/10/23 (need body mech/ADL,posture) Device Processing Engineer Goal (LTG) Improve sleep time greater than 2 hrs at a time. 03/01/23: Has had times 4 hrs at time not necessarily due to pain and 1 night use bathroom . She gets hot flashes that does contribute to waking. LTG Duration 05/13/23 progressing 03/01/23 One Impairment Pt lacks appropriate self care HEP Short Term Goal (STG) Pt will be educated in self care pain/inflammation management with cold pack and RICE technique. STG Duration 03/05/23 Device Processing Engineer Goal (LTG) Pt will be independent in an effective self care HEP for core/hip strengthening and mobility ex's. 03/01/23: Reviewed added last tx: DKTC and piriformis stretch. Added self STMs use ball on wall to low back/post hip, clamshell and TA marching to HEP for progress support to SI and hip. LTG Duration 05/13/23 progressing 03/01/23 Assessment Summary Assessment Pt initially with L innominate outflared and posteriorly rotated and anteriorly sheared . Pt good response to manual sustained pressure over piriformis during MWM PROM hip IR/ER, discussion self ball wall review home application releases. Added with HOs L hip flexion isometric and RLE hip ext isometric with good feedback response less discomfort in B hips to carryover at home continuance. Time spent proper log roll technique and equal pelvic positioning getting in/out car with reports hips feel alot better to perform this way for now. Physical Therapy Plan Frequency and Duration Frequency of Treatment 2x/Week Duration of treatment (weeks) 12 Plan of Care Start Date 02/12/23 Plan of Care End Date 05/13/23 Therapeutic Interventions Therapeutic Interventions Home Exercise Program,Joint Mobilizations,Manual Therapy, Neuromuscular Re-education, Self-Care/Home Management,Soft Tissue Mobilization, Therapeutic Activities, Therapeutic Exercises Modalities Cold Pack/Ice Massage,Hot Packs Next Visit Focus/Plan Next Note Type Treatment Note Next Visit Plan Check appts next tx. REcheck how doing in/out car. Next tx assess stair mgt goal, add resisted clam on side. POC: Assess Trunk special tests. Assess other areas holding SIJ in dysfunction and add SIJ dysfunction - Phase 1 . Sacral balancing if needed Manual: Normalize pelvic positioning (?L innominate outflare/generator assembler rotation and anterior shear), decrease soft tissue muscle guarding and pain (QL). Ther ex: improve lumbar/hip mobility, hip (stretch L ER/IR , flex, AD's) and core/pelvic stabilization. Pt education will be focused on proper transfers, body mechanics, bowel care, self care HEP, pain management.
--- NOTE | 2023-03-12 09:36 | PT.OTN ---
Current Diagnoses Other chronic pain (03/12/23) Unspecified thoracic, thoracolumbar and lumbosacral intervertebral disc disorder (03/12/23) Dorsalgia, unspecified (03/12/23) Physical Therapy Treatment Note PT-OP-A Visit Information Start: 02/12/23 10:41 Freq: Status: Active Protocol: Document 03/12/23 09:00 SP (Rec: 03/12/23 09:49 SP [id number]) Out-Patient Physical Therapy Visit Information Visit Information Visit Type Treatment Note Visit Note units *5 more visits at 2 units each allowed Visit Start Time 09:00 Visit Stop Time 09:36 Total Visit Minutes 36 Visit Number 7 Number of IMPROVEMENT ANALYST Visits 2 Evaluation Information Evaluation Date 02/12/23 Precautions Precautions Arthritis-hx of knee pain PT-OP-B Current Condition Start: 02/12/23 10:41 Freq: Status: Active Protocol: Document 02/12/23 11:18 LRN (Rec: 02/12/23 12:16 LRN [id number]) Current Condition History of Current Condition Onset Date 6 months ago Current Complaints L sharp groin pain, L constant LB/buttock pain. History of Current Condition Has back pain for 3-4 yrs off/ on, but intensified in past 6 months the groin pain is new and very sharp and comes and goes. Feels like period cramping and sometimes when moves a certain way get the intense pain. Pain in the L LB and buttock is constant burn and increases intensity with movement; therefore can't reach to put socks on. Interrupts her sleep at night, must put an arthritis cream and stretches into rotation and flexion. Intermittent toes 1-3 numb, and tingling when lying in bed. Not able to get MRI until doing 6 wks of therapy. Most comfortable position is on back or side, normally sleeps on stomach ( head more to L) or side. Prior Treatments and Tests None. Future Testing and Treatments Planned MRI after 6 wks of therapy. Treatment Goals Patient/Caregiver Goals Pt goal is: - to be able to put L sock on and to tie shoes without having to do it, - improve sleep time greater than 2 hrs at a time, - be able to go down stairs with reciprocal gait rather than one a time. Personal Factors Other Personal Factors That May Effect Arthritis of R knee - pain. Therapy/Recovery PT-OP-C Subjective Start: 02/12/23 10:41 Freq: Status: Active Protocol: Document 03/12/23 09:00 SP (Rec: 03/12/23 09:49 SP [id number]) OP-PT Subjective Patient Comments Patient Comments Pt reports back doing better today. Yesterday she over did it working around house 6 hrs straight, then sister came and helped. PT-OP-H Neuro Start: 02/12/23 10:41 Freq: Status: Active Protocol: Document 02/12/23 11:18 LRN (Rec: 02/12/23 12:16 LRN [id number]) Sensation Evaluation Gross Sensation Gross Sensation WNL Comments Summary Comments L toes 1-3 numb in area of feet. Deep Tendon Reflex & Clonus Assessment Deep Tendon Reflex Bilateral Achilles Deep Tendon Reflex 2+ Normal Bilateral Patellar Deep Tendon Reflex 2+ Normal PT-OP-J Posture/Palpation/Skin Start: 02/12/23 10:41 Freq: Status: Active Protocol: Document 02/12/23 11:18 LRN (Rec: 02/12/23 12:16 LRN [id number]) Posture Evaluation Position Standing Head/C-Spine Posture Side Bent Left,Forward Head L-Spine Posture Increased Lordosis Arm Posture (L) Internally Rotated,(R) Internally Rotated Pelvis Posture Anteriorly Tilted,(L) Rotated Posterior Weight Distribution Balanced Knee Posture (L) Genu Valgus,(R) Genu Valgus Ankle/Foot Posture (L) Calcaneal Inversion,(R) Calcaneal Inversion Palpation Assessment Location Sacrum Palpation Location Sacrum Palpation Details L side deep but at VERENICE is high . Pubic bone Palpation Location High on the left, pubic separation. ASIS Palpation Location L Innominate Palpation Details Outflare L innominate Low on L Ischial Tub PT-OP-K Range of Motion Start: 02/12/23 10:41 Freq: Status: Active Protocol: Document 02/12/23 11:18 LRN (Rec: 02/12/23 12:16 LRN [id number]) Lumbar Spine Range of Motion Lumbar Spine Active Degrees Testing Position Standing Flexion 65 Extension 10 Rotation Left 20 Rotation Right 20 Lateral Flexion Left 13 Lateral Flexion Right 10 Hip Goniometric Range of Motion Hip Right Passive Hip ROM WFL Yes Testing Position Supine Flexion w/Knee Flexed 110 Straight Leg Raise 80 Abduction 25 Internal Rotation 30 External Rotation 65 Comments PSLR created pain on lateral side of knee/dominguez Left Passive Hip ROM WFL No Testing Position Supine Flexion w/Knee Flexed 90 Straight Leg Raise 55 Abduction 20 Internal Rotation 0 External Rotation 40 Comments Pain in lateral side of knee. KTC limited by pain in buttock . PT-OP-L Special Tests Start: 02/12/23 10:41 Freq: Status: Active Protocol: Document 02/23/23 09:36 LRN (Rec: 02/23/23 10:25 LRN [id number]) Special Tests Hip Special Tests Piriformis Test Results + Left Comments Pain in lateral and posterior L hip. Sheldon Test Results + bilaterally Hip IR:ER Ratios Test Results + left Comments Pain with IR Straight Leg Raise Test Results L ~50 deg's, R ~100 deg's. PT-OP-M Strength Start: 02/12/23 10:41 Freq: Status: Active Protocol: Document 02/23/23 09:36 LRN (Rec: 02/23/23 10:25 LRN [id number]) Hip Strength Hip Manual Muscle Testing Right Flexion (L2) 5 Normal Extension (S1) 3 Fair Abduction 3 Fair Adduction 5 Normal External Rotation 4 Good Internal Rotation 5 Normal Comments Hip Ext caused pain in L Gluteals. Left Flexion (L2) 5 Normal Extension (S1) 5 Normal Abduction 4+ Good+ Adduction 5 Normal External Rotation 5 Normal Internal Rotation 5 Normal PT-OP-Q Treatments Start: 02/12/23 10:41 Freq: Status: Active Protocol: Document 03/12/23 09:00 SP (Rec: 03/12/23 09:49 SP [id number]) Therapeutic Exercises Supine Exercises S/P SIJ correction Supine Exercise Name s/p SIJ correction: 1. DKTC stretch 2. Bridging Reps/Minutes 1. 10 SH x 6 stretch 2. 5 reps bridge Comments Cuing for when hamstring ms spasm, stop/rest. Self SIJ correction Supine Exercise Name Self resisted L hip flex/R hip ext. Reps/Minutes 5 SH x3 each Comments cued gentle pressure FIg 4 Supine Exercise Name Fig 4 stretch Side bilateral Reps/Minutes 60 SH x 2 L, 60 SH x 1 R. Comments feedback increase L ROM into ER, better AROM R DKTC stretch Supine Exercise Name DKTC stretch- HEP reviewed Equipment Used use towel for decrease UT recruitment Reps/Minutes 10 SH x 5 Comments cuing to hold stretch w/relax of arms for rest; cue to breath Sidelying Exercises clamshell Sidelying Exercise Name HEP Side bilateral Resistance AROM> TB #2 (aqua) Reps/Minutes 10 Comments cued TA draw in gentle, lift/ lower Sitting Exercises TA Sit<>stands Sitting Exercise Name initiated in PT Resistance arms across chest Equipment Used mesh chair Reps/Minutes 2x10 Comments RLE more forward lessened R knee irritation- improved hiphinge/slow descent Clamshell Sitting Exercise Name Clamshell w/TA/PF/equal mvmt- HEPreviewed Side bilateral Resistance TB #2 aqua Reps/Minutes 30x Comments Good form symmetry of mvmt/TA/ PF contraction. Therapeutic Activity Therapeutic Activity body mechanics Name squat hip hinge plunger ( caitie litter scoop) Reps/Minutes 5' squat ball/ pods transfer Name squat while reach cross body transfer golf ball R<>L Reps/Minutes 5' Comments Improved straight back, squat hip hinge. Reported decrease lifting leg over objects Name seated Reps/Minutes 10 reps x2 Comments lift and move leg over block on floor (assimulate leg in/ out car)- good hip flexor and abductor muscle tiring. Neuro Re-Education Treatment Balance Activities diane stepping Details fwd, lateral Equipment 6 hurdles 3 laps each Comments cued increase hip flexion, no circumduction- improved Self-Care/Home Management Treatment Education Other Education Education on importance of rest breaks, incorporate stretching/exercises during rest breaks for flexibility and strengthening needed for recovery. Verbalized understanding and probably a good idea. PT-OP-T Assessment and Plan Start: 02/12/23 10:41 Freq: Status: Active Protocol: Document 03/12/23 09:00 SP (Rec: 03/12/23 09:49 SP [id number]) Physical Therapy Assessment Goals Three Impairment Decreased trunk and hip mobility Impairment Trunk flexion 65 deg's, ext 10 deg's. Hip mobility (in deg's): SLR 55 L, 80 R; Internal Rot 0 L, 30 R; External Rot 40 L, 65 R. Short Term Goal (STG) Improve L hip mobility with pt able to put L sock on and tie shoes without having to do it, 03/01/23: GOAL MET able to now put on shoes self. STG Duration 03/29/23 GOAL MET 03/01/23 Dry Pan Charger Goal (LTG) Pt will be able to tolerate ambulation down stairs with reciprocal gait rather than one a time. LTG Duration 05/13/23 Two Impairment L hip pain rated 9/10, LBP rated 7/10 Short Term Goal (STG) Pt will be educated in log roll transfers, proper body mechanics for ADLs, proper sitting/standing posture and best practice sidelie positioning for nighttime. 03/01/23: Initiated supine<>sit cues TA draw in keep shlds/ knee together mob. 03/05/23: Discussed sidelie positioning with pillow between legs and pillow in front of thighs. 03/10/23: time spent log roll technique, in/out car through back seat side step L sit and BLE swing front to keep pelvis neutral- painfree. STG Duration 03/05/23 progressing 03/10/23 (need body mech/ADL,posture) Mcc Goal (LTG) Improve sleep time greater than 2 hrs at a time. 03/01/23: Has had times 4 hrs at time not necessarily due to pain and 1 night use bathroom . She gets hot flashes that does contribute to waking. LTG Duration 05/13/23 progressing 03/01/23 One Impairment Pt lacks appropriate self care HEP Short Term Goal (STG) Pt will be educated in self care pain/inflammation management with cold pack and RICE technique. STG Duration 03/05/23 Mcc Goal (LTG) Pt will be independent in an effective self care HEP for core/hip strengthening and mobility ex's. 03/01/23: Reviewed added last tx: DKTC and piriformis stretch. Added self STMs use ball on wall to low back/post hip, clamshell and TA marching to HEP for progress support to SI and hip. LTG Duration 05/13/23 progressing 03/01/23 Assessment Summary Assessment Pt reports good response to HEP review with occasional cue for set up isometric LE each performance identified in HO. She reports is gaining increase ROM during Fig 4 stretch now getting the on R adductor stretch. She responded well to repeated STS with awareness of back and hip hinge form didn't flop last 1 . Extra time spent functional mobility hip hinge/ wt shift between BLEs carryover squat to assimualte mechanics clean litter box and posture with foot clearance during diane stepping. I feel alot better, less to no pain reported end tx. Better understanding of time recovery while building up endurance and proper body mechanics for back health. Physical Therapy Plan Frequency and Duration Frequency of Treatment 2x/Week Duration of treatment (weeks) 12 Plan of Care Start Date 02/12/23 Plan of Care End Date 05/13/23 Therapeutic Interventions Therapeutic Interventions Home Exercise Program,Joint Mobilizations,Manual Therapy, Neuromuscular Re-education, Self-Care/Home Management,Soft Tissue Mobilization, Therapeutic Activities, Therapeutic Exercises Modalities Cold Pack/Ice Massage,Hot Packs Next Visit Focus/Plan Next Note Type Treatment Note Next Visit Plan Check appts with PT follow up and adding allowed 12 visits at next tx. REcheck how pain level in/out car. Next tx assess stair mgt goal. Check response added resistance and functional squating. POC: Assess Trunk special tests. Assess other areas holding SIJ in dysfunction and add SIJ dysfunction - Phase 1 . Sacral balancing if needed Manual: Normalize pelvic positioning (?L innominate outflare/educational sign language interpreter rotation and anterior shear), decrease soft tissue muscle guarding and pain (QL). Ther ex: improve lumbar/hip mobility, hip (stretch L ER/IR , flex, AD's) and core/pelvic stabilization. Pt education will be focused on proper transfers, body mechanics, bowel care, self care HEP, pain management.
--- NOTE | 2023-03-16 15:12 | PT.OTN ---
Current Diagnoses Other chronic pain (03/16/23) Unspecified thoracic, thoracolumbar and lumbosacral intervertebral disc disorder (03/16/23) Dorsalgia, unspecified (03/16/23) Physical Therapy Treatment Note PT-OP-A Visit Information Start: 02/12/23 10:41 Freq: Status: Active Protocol: Document 03/16/23 14:35 SP (Rec: 03/16/23 15:40 SP [id number]) Out-Patient Physical Therapy Visit Information Visit Information Visit Type Treatment Note Visit Note units *4 more visits at 2 units each allowed Visit Start Time 14:35 Visit Stop Time 15:12 Total Visit Minutes 37 Visit Number 8 Number of DIRECTOR CONSUMER Visits 3 Evaluation Information Evaluation Date 02/12/23 Precautions Precautions Arthritis-hx of knee pain PT-OP-B Current Condition Start: 02/12/23 10:41 Freq: Status: Active Protocol: Document 02/12/23 11:18 LRN (Rec: 02/12/23 12:16 LRN [id number]) Current Condition History of Current Condition Onset Date 6 months ago Current Complaints L sharp groin pain, L constant LB/buttock pain. History of Current Condition Has back pain for 3-4 yrs off/ on, but intensified in past 6 months the groin pain is new and very sharp and comes and goes. Feels like period cramping and sometimes when moves a certain way get the intense pain. Pain in the L LB and buttock is constant burn and increases intensity with movement; therefore can't reach to put socks on. Interrupts her sleep at night, must put an arthritis cream and stretches into rotation and flexion. Intermittent toes 1-3 numb, and tingling when lying in bed. Not able to get MRI until doing 6 wks of therapy. Most comfortable position is on back or side, normally sleeps on stomach ( head more to L) or side. Prior Treatments and Tests None. Future Testing and Treatments Planned MRI after 6 wks of therapy. Treatment Goals Patient/Caregiver Goals Pt goal is: - to be able to put L sock on and to tie shoes without having to do it, - improve sleep time greater than 2 hrs at a time, - be able to go down stairs with reciprocal gait rather than one a time. Personal Factors Other Personal Factors That May Effect Arthritis of R knee - pain. Therapy/Recovery PT-OP-C Subjective Start: 02/12/23 10:41 Freq: Status: Active Protocol: Document 03/16/23 14:35 SP (Rec: 03/16/23 15:40 SP [id number]) OP-PT Subjective Patient Comments Patient Comments Pt reports did alot on Wednesday cleaning out carport maybe to much, tried to perform squats. She stated her L low back worse than R now. Wednesday still tried to walk and do exercises and improved but still pain. She reported Neproxin before came to and when was doing cleaning out carport 8am- 2pm. PT-OP-H Neuro Start: 02/12/23 10:41 Freq: Status: Active Protocol: Document 02/12/23 11:18 LRN (Rec: 02/12/23 12:16 LRN [id number]) Sensation Evaluation Gross Sensation Gross Sensation WNL Comments Summary Comments L toes 1-3 numb in area of feet. Deep Tendon Reflex & Clonus Assessment Deep Tendon Reflex Bilateral Achilles Deep Tendon Reflex 2+ Normal Bilateral Patellar Deep Tendon Reflex 2+ Normal PT-OP-J Posture/Palpation/Skin Start: 02/12/23 10:41 Freq: Status: Active Protocol: Document 02/12/23 11:18 LRN (Rec: 02/12/23 12:16 LRN [id number]) Posture Evaluation Position Standing Head/C-Spine Posture Side Bent Left,Forward Head L-Spine Posture Increased Lordosis Arm Posture (L) Internally Rotated,(R) Internally Rotated Pelvis Posture Anteriorly Tilted,(L) Rotated Posterior Weight Distribution Balanced Knee Posture (L) Genu Valgus,(R) Genu Valgus Ankle/Foot Posture (L) Calcaneal Inversion,(R) Calcaneal Inversion Palpation Assessment Location Sacrum Palpation Location Sacrum Palpation Details L side deep but at VERENICE is high . Pubic bone Palpation Location High on the left, pubic separation. ASIS Palpation Location L Innominate Palpation Details Outflare L innominate Low on L Ischial Tub PT-OP-K Range of Motion Start: 02/12/23 10:41 Freq: Status: Active Protocol: Document 02/12/23 11:18 LRN (Rec: 02/12/23 12:16 LRN [id number]) Lumbar Spine Range of Motion Lumbar Spine Active Degrees Testing Position Standing Flexion 65 Extension 10 Rotation Left 20 Rotation Right 20 Lateral Flexion Left 13 Lateral Flexion Right 10 Hip Goniometric Range of Motion Hip Right Passive Hip ROM WFL Yes Testing Position Supine Flexion w/Knee Flexed 110 Straight Leg Raise 80 Abduction 25 Internal Rotation 30 External Rotation 65 Comments PSLR created pain on lateral side of knee/dominguez Left Passive Hip ROM WFL No Testing Position Supine Flexion w/Knee Flexed 90 Straight Leg Raise 55 Abduction 20 Internal Rotation 0 External Rotation 40 Comments Pain in lateral side of knee. KTC limited by pain in buttock . PT-OP-L Special Tests Start: 02/12/23 10:41 Freq: Status: Active Protocol: Document 02/23/23 09:36 LRN (Rec: 02/23/23 10:25 LRN [id number]) Special Tests Hip Special Tests Piriformis Test Results + Left Comments Pain in lateral and posterior L hip. Sheldon Test Results + bilaterally Hip IR:ER Ratios Test Results + left Comments Pain with IR Straight Leg Raise Test Results L ~50 deg's, R ~100 deg's. PT-OP-M Strength Start: 02/12/23 10:41 Freq: Status: Active Protocol: Document 02/23/23 09:36 LRN (Rec: 02/23/23 10:25 LRN [id number]) Hip Strength Hip Manual Muscle Testing Right Flexion (L2) 5 Normal Extension (S1) 3 Fair Abduction 3 Fair Adduction 5 Normal External Rotation 4 Good Internal Rotation 5 Normal Comments Hip Ext caused pain in L Gluteals. Left Flexion (L2) 5 Normal Extension (S1) 5 Normal Abduction 4+ Good+ Adduction 5 Normal External Rotation 5 Normal Internal Rotation 5 Normal PT-OP-Q Treatments Start: 02/12/23 10:41 Freq: Status: Active Protocol: Document 03/16/23 14:35 SP (Rec: 03/16/23 15:40 SP [id number]) Therapeutic Exercises Supine Exercises Self SIJ correction Supine Exercise Name Self resisted L hip flex/R hip ext. Resistance isometric Reps/Minutes 5 SH x3 each Comments cued gentle pressure TA september Supine Exercise Name HEP reviewed : alternate LEs 90/90 Side bilateral Reps/Minutes 10 reps x 2 Comments cued TA draw in back side of both sides pelvis on table FIg 4 Supine Exercise Name Fig 4 stretch Side bilateral Reps/Minutes 60 SH x 2 L, 60 SH x 1 R. Comments Cued opp LE straight, relax muscles with breath Therapeutic Activity Therapeutic Activity lateral step up/down Name assimulate in/out high van w/ use stirring wheel Reps/Minutes x6 reps Comments Improved ability to lift RLE onto 8>12 step and with UE support step up onto and eccentric control to step down . Pt stated that's much better, suprised I could do this without as much effort of pulling up to get on step, it 's getting better. lifting leg over objects Name 1. seated 2. standing facing rail Reps/Minutes 10 reps Comments 1.lift each LE over/back balance beam+pods (assimulate leg in/out low car)- good hip flexor and ab/adductor muscle tiring. 2. RLE lift abduction on/off 8 step, 12 step support rail front for support assist Manual Therapy Treatment Soft Tissue Mobilization B SI, Hip Body Location L>R piriformis, superior glut max Mobilization Type Sustained Pressure,Other Intensity/Depth Moderate Body Position Prone over pillows Comments MWM PROM> AROM hip IR, ER limited IR, improved with contract relax Self-Care/Home Management Treatment Education Other Education Education on importance of rest breaks, incorporate stretching/exercises during cleaning/chore activities. PT-OP-T Assessment and Plan Start: 02/12/23 10:41 Freq: Status: Active Protocol: Document 03/16/23 14:35 SP (Rec: 03/16/23 15:40 SP [id number]) Physical Therapy Assessment Goals Three Impairment Decreased trunk and hip mobility Impairment Trunk flexion 65 deg's, ext 10 deg's. Hip mobility (in deg's): SLR 55 L, 80 R; Internal Rot 0 L, 30 R; External Rot 40 L, 65 R. Short Term Goal (STG) Improve L hip mobility with pt able to put L sock on and tie shoes without having to do it, 03/01/23: GOAL MET able to now put on shoes self. STG Duration 03/29/23 GOAL MET 03/01/23 Mcfp Goal (LTG) Pt will be able to tolerate ambulation down stairs with reciprocal gait rather than one a time. LTG Duration 05/13/23 Two Impairment L hip pain rated 9/10, LBP rated 7/10 Short Term Goal (STG) Pt will be educated in log roll transfers, proper body mechanics for ADLs, proper sitting/standing posture and best practice sidelie positioning for nighttime. 03/01/23: Initiated supine<>sit cues TA draw in keep shlds/ knee together mob. 03/05/23: Discussed sidelie positioning with pillow between legs and pillow in front of thighs. 03/10/23: time spent log roll technique, in/out car through back seat side step L sit and BLE swing front to keep pelvis neutral- painfree. STG Duration 03/05/23 progressing 03/10/23 (need body mech/ADL,posture) Mcfp Goal (LTG) Improve sleep time greater than 2 hrs at a time. 03/01/23: Has had times 4 hrs at time not necessarily due to pain and 1 night use bathroom . She gets hot flashes that does contribute to waking. LTG Duration 05/13/23 progressing 03/01/23 One Impairment Pt lacks appropriate self care HEP Short Term Goal (STG) Pt will be educated in self care pain/inflammation management with cold pack and RICE technique. STG Duration 03/05/23 Stone Circular Sawyer Goal (LTG) Pt will be independent in an effective self care HEP for core/hip strengthening and mobility ex's. 03/01/23: Reviewed added last tx: DKTC and piriformis stretch. Added self STMs use ball on wall to low back/post hip, clamshell and TA marching to HEP for progress support to SI and hip. LTG Duration 05/13/23 progressing 03/01/23 Assessment Summary Assessment Pt continues to have hip pain L>R today. She responded well to manual, stretching and and ther ex lift w/ ABD/ ADD hip ROM seated and standing with progression of lateral step up/down on 12step today with support of rail to assimulate getting in/out of drivers side of van. Pt reports very low discomfort in L hip and no pain in R hip post ther ex. Physical Therapy Plan Frequency and Duration Frequency of Treatment 2x/Week Duration of treatment (weeks) 12 Plan of Care Start Date 02/12/23 Plan of Care End Date 05/13/23 Therapeutic Interventions Therapeutic Interventions Home Exercise Program,Joint Mobilizations,Manual Therapy, Neuromuscular Re-education, Self-Care/Home Management,Soft Tissue Mobilization, Therapeutic Activities, Therapeutic Exercises Modalities Cold Pack/Ice Massage,Hot Packs Next Visit Focus/Plan Next Note Type Treatment Note Next Visit Plan 10th visit in 2 tx, last approved 12th visit in 4 visits, may request further visit if needed. REcheck goal feedback. Next tx assess stair mgt goal. Check response added resistance and functional squating. POC: Assess Trunk special tests. Assess other areas holding SIJ in dysfunction and add SIJ dysfunction - Phase 1 . Sacral balancing if needed Manual: Normalize pelvic positioning (?L innominate outflare/diamond grader rotation and anterior shear), decrease soft tissue muscle guarding and pain (QL). Ther ex: improve lumbar/hip mobility, hip (stretch L ER/IR , flex, AD's) and core/pelvic stabilization. Pt education will be focused on proper transfers, body mechanics, bowel care, self care HEP, pain management.
--- NOTE | 2023-03-22 15:05 | PT.OTN ---
Current Diagnoses Other chronic pain (03/22/23) Unspecified thoracic, thoracolumbar and lumbosacral intervertebral disc disorder (03/22/23) Dorsalgia, unspecified (03/22/23) Physical Therapy Treatment Note PT-OP-A Visit Information Start: 02/12/23 10:41 Freq: Status: Active Protocol: Document 03/22/23 14:30 SP (Rec: 03/22/23 15:58 SP [id number]) Out-Patient Physical Therapy Visit Information Visit Information Visit Type Treatment Note Visit Note units *3 more visits at 2 units each allowed Visit Start Time 14:30 Visit Stop Time 15:05 Total Visit Minutes 35 Visit Number 9 Number of TURBINE MECHANIC Visits 4 Evaluation Information Evaluation Date 02/12/23 Precautions Precautions Arthritis-hx of knee pain PT-OP-B Current Condition Start: 02/12/23 10:41 Freq: Status: Active Protocol: Document 02/12/23 11:18 LRN (Rec: 02/12/23 12:16 LRN [id number]) Current Condition History of Current Condition Onset Date 6 months ago Current Complaints L sharp groin pain, L constant LB/buttock pain. History of Current Condition Has back pain for 3-4 yrs off/ on, but intensified in past 6 months the groin pain is new and very sharp and comes and goes. Feels like period cramping and sometimes when moves a certain way get the intense pain. Pain in the L LB and buttock is constant burn and increases intensity with movement; therefore can't reach to put socks on. Interrupts her sleep at night, must put an arthritis cream and stretches into rotation and flexion. Intermittent toes 1-3 numb, and tingling when lying in bed. Not able to get MRI until doing 6 wks of therapy. Most comfortable position is on back or side, normally sleeps on stomach ( head more to L) or side. Prior Treatments and Tests None. Future Testing and Treatments Planned MRI after 6 wks of therapy. Treatment Goals Patient/Caregiver Goals Pt goal is: - to be able to put L sock on and to tie shoes without having to do it, - improve sleep time greater than 2 hrs at a time, - be able to go down stairs with reciprocal gait rather than one a time. Personal Factors Other Personal Factors That May Effect Arthritis of R knee - pain. Therapy/Recovery PT-OP-C Subjective Start: 02/12/23 10:41 Freq: Status: Active Protocol: Document 03/22/23 14:30 SP (Rec: 03/22/23 15:58 SP [id number]) OP-PT Subjective Patient Comments Patient Comments Pt reports had a pop in back when bent over to bead picker something and back now feels better. She can now cross LEs over opp dominguez for Fig 4 stretch now and don her own shoes. She has going bike riding regular and electric assisted bike over level surfaces. At first she had limited stability due to lack of R>L hip/knee ROM but states improving and feels more confident. She reports continues to get in/out tall van through back seat and walking up front to sit. PT-OP-H Neuro Start: 02/12/23 10:41 Freq: Status: Active Protocol: Document 02/12/23 11:18 LRN (Rec: 02/12/23 12:16 LRN [id number]) Sensation Evaluation Gross Sensation Gross Sensation WNL Comments Summary Comments L toes 1-3 numb in area of feet. Deep Tendon Reflex & Clonus Assessment Deep Tendon Reflex Bilateral Achilles Deep Tendon Reflex 2+ Normal Bilateral Patellar Deep Tendon Reflex 2+ Normal PT-OP-J Posture/Palpation/Skin Start: 02/12/23 10:41 Freq: Status: Active Protocol: Document 02/12/23 11:18 LRN (Rec: 02/12/23 12:16 LRN [id number]) Posture Evaluation Position Standing Head/C-Spine Posture Side Bent Left,Forward Head L-Spine Posture Increased Lordosis Arm Posture (L) Internally Rotated,(R) Internally Rotated Pelvis Posture Anteriorly Tilted,(L) Rotated Posterior Weight Distribution Balanced Knee Posture (L) Genu Valgus,(R) Genu Valgus Ankle/Foot Posture (L) Calcaneal Inversion,(R) Calcaneal Inversion Palpation Assessment Location Sacrum Palpation Location Sacrum Palpation Details L side deep but at VERENICE is high . Pubic bone Palpation Location High on the left, pubic separation. ASIS Palpation Location L Innominate Palpation Details Outflare L innominate Low on L Ischial Tub PT-OP-K Range of Motion Start: 02/12/23 10:41 Freq: Status: Active Protocol: Document 02/12/23 11:18 LRN (Rec: 02/12/23 12:16 LRN [id number]) Lumbar Spine Range of Motion Lumbar Spine Active Degrees Testing Position Standing Flexion 65 Extension 10 Rotation Left 20 Rotation Right 20 Lateral Flexion Left 13 Lateral Flexion Right 10 Hip Goniometric Range of Motion Hip Right Passive Hip ROM WFL Yes Testing Position Supine Flexion w/Knee Flexed 110 Straight Leg Raise 80 Abduction 25 Internal Rotation 30 External Rotation 65 Comments PSLR created pain on lateral side of knee/dominguez Left Passive Hip ROM WFL No Testing Position Supine Flexion w/Knee Flexed 90 Straight Leg Raise 55 Abduction 20 Internal Rotation 0 External Rotation 40 Comments Pain in lateral side of knee. KTC limited by pain in buttock . PT-OP-L Special Tests Start: 02/12/23 10:41 Freq: Status: Active Protocol: Document 02/23/23 09:36 LRN (Rec: 02/23/23 10:25 LRN [id number]) Special Tests Hip Special Tests Piriformis Test Results + Left Comments Pain in lateral and posterior L hip. Sheldon Test Results + bilaterally Hip IR:ER Ratios Test Results + left Comments Pain with IR Straight Leg Raise Test Results L ~50 deg's, R ~100 deg's. PT-OP-M Strength Start: 02/12/23 10:41 Freq: Status: Active Protocol: Document 02/23/23 09:36 LRN (Rec: 02/23/23 10:25 LRN [id number]) Hip Strength Hip Manual Muscle Testing Right Flexion (L2) 5 Normal Extension (S1) 3 Fair Abduction 3 Fair Adduction 5 Normal External Rotation 4 Good Internal Rotation 5 Normal Comments Hip Ext caused pain in L Gluteals. Left Flexion (L2) 5 Normal Extension (S1) 5 Normal Abduction 4+ Good+ Adduction 5 Normal External Rotation 5 Normal Internal Rotation 5 Normal PT-OP-Q Treatments Start: 02/12/23 10:41 Freq: Status: Active Protocol: Document 03/22/23 14:30 SP (Rec: 03/22/23 15:58 SP [id number]) Cardio Equipment Bicycle (Upright) Duration (Minutes) 6 Resistance 4 Seat Position 3>4 Other cued forefoot on pedal and allow ankle ROM- limited R>L knee ROM Therapeutic Exercises Supine Exercises Self SIJ correction Supine Exercise Name Self resisted L hip flex/R hip ext. Resistance isometric Reps/Minutes 5 SH x3 each (report home does 10 reps) Comments cued gentle pressure isometric hold TA Heel slide Supine Exercise Name Heel slide in non-pain range on R. Side bilateral Resistance AROM (limted range RLE due to R knee pain) Reps/Minutes single x8 reps Comments Good TA and muscular control Sheldon stretch Supine Exercise Name Hip flexor stretch Side bilateral Equipment Used declined HO Reps/Minutes 60 SH Comments good feedback stretch to hip flexor FIg 4 Supine Exercise Name Modified Fig 4 stretch Side bilateral Resistance R foot over L dominguez, L foot over R Reps/Minutes 60 SH each side Comments cued able to get foot to cross over opp dominguez now Standing Exercises knee flexion/DF ROM Standing Exercise Name trialed R foot on 2 step Side right Resistance AROM Equipment Used rail support Reps/Minutes 5 reps x2 Comments limited R knee flexion due to pain- stopped Therapeutic Activity Therapeutic Activity don shoes Name trunk & hip flexion Comments able to reach forward to don/ doff shoes. Gait Training Gait Activity stairs Device Used 1-2 HR Level of Assistance S/Mod I Distance/Duration 4 stairs x4 reps Treatment Focus improve receiprocal stepping Comments receiprocal stepping ascend 1 L HR, step to descend R HR due to decrease R knee ROM into flexion but noted trunk and hip alignment compensations potentially causing hip/ knee/ back pain, able receiprocal stepping with BUE support R HR and SPC in LUE better hip and LE alignment and pain free reports. Discussed use of BUE for now and allow body to properly receiprocal pattern alignment. Manual Therapy Treatment Soft Tissue Mobilization B SI, Hip Body Location L>R piriformis, superior glut max Mobilization Type Sustained Pressure,Other Intensity/Depth Moderate Body Position Prone over pillows Comments MWM PROM> AROM hip IR, ER limited IR, improved with contract relax PT-OP-T Assessment and Plan Start: 02/12/23 10:41 Freq: Status: Active Protocol: Document 03/22/23 14:30 SP (Rec: 03/22/23 15:58 SP [id number]) Physical Therapy Assessment Goals Three Impairment Decreased trunk and hip mobility Impairment Trunk flexion 65 deg's, ext 10 deg's. Hip mobility (in deg's): SLR 55 L, 80 R; Internal Rot 0 L, 30 R; External Rot 40 L, 65 R. Short Term Goal (STG) Improve L hip mobility with pt able to put L sock on and tie shoes without having to do it, 03/01/23: GOAL MET able to now put on shoes self. STG Duration 03/29/23 GOAL MET 03/01/23 Switchboard Clerk Goal (LTG) Pt will be able to tolerate ambulation down stairs with reciprocal gait rather than one a time. 03/22/23: able receiprocal stepping ascend LHR, descend typically step to R HR leading RLE but able receiprocal stepping with BUE support B HR or R HR& SPC in LUE. LTG Duration 05/13/23 progressing 03/22/23 Two Impairment L hip pain rated 9/10, LBP rated 7/10 Short Term Goal (STG) Pt will be educated in log roll transfers, proper body mechanics for ADLs, proper sitting/standing posture and best practice sidelie positioning for nighttime. 03/01/23: Initiated supine<>sit cues TA draw in keep shlds/ knee together mob. 03/05/23: Discussed sidelie positioning with pillow between legs and pillow in front of thighs. 03/10/23: time spent log roll technique, in/out car through back seat side step L sit and BLE swing front to keep pelvis neutral- painfree. 03/12/23: reviewed proper body mechanics with sifting bambi litter, better understanding and able to squat ball transfer assimulation. STG Duration 03/05/23 progressing 03/12/23 Switchboard Clerk Goal (LTG) Improve sleep time greater than 2 hrs at a time. 03/01/23: Has had times 4 hrs at time not necessarily due to pain and 1 night use bathroom . She gets hot flashes that does contribute to waking. LTG Duration 05/13/23 progressing 03/01/23 One Impairment Pt lacks appropriate self care HEP Short Term Goal (STG) Pt will be educated in self care pain/inflammation management with cold pack and RICE technique. STG Duration 03/05/23 Switchboard Clerk Goal (LTG) Pt will be independent in an effective self care HEP for core/hip strengthening and mobility ex's. 03/01/23: Reviewed added last tx: DKTC and piriformis stretch. Added self STMs use ball on wall to low back/post hip, clamshell and TA marching to HEP for progress support to SI and hip. 03/22/23: reviewed stretching: fig4, sheldon stretch better response today for increase ROM flexibility L hip. Able to reach down and don socks herself. LTG Duration 05/13/23 progressing 03/22/23 Assessment Summary Assessment Pt reports is able to complete trunk and hip flexion with ability to don her shoes herself now vs her doing for her. Pt stated her back pain is nearly gone but her R >L hip still having pain but reported decrease post manual, stretching, self SI alignment isometrics Flexion R /extension L and core HEP review. She continues to be limited in receiprocal stepping descending stairs without BUE support, due to R knee pain. Physical Therapy Plan Frequency and Duration Frequency of Treatment 2x/Week Duration of treatment (weeks) 12 Plan of Care Start Date 02/12/23 Plan of Care End Date 05/13/23 Therapeutic Interventions Therapeutic Interventions Home Exercise Program,Joint Mobilizations,Manual Therapy, Neuromuscular Re-education, Self-Care/Home Management,Soft Tissue Mobilization, Therapeutic Activities, Therapeutic Exercises Modalities Cold Pack/Ice Massage,Hot Packs Next Visit Focus/Plan Next Note Type Progress Note Next Visit Plan 10th visit next tx, last approved 12th visit in 4 visits, may request further visit if needed. REcheck hip/ sacral alignment beginning tx. REview clamshell, lateral step ups (if ok add for home for strengthening). POC: Assess Trunk special tests. Assess other areas holding SIJ in dysfunction and add SIJ dysfunction - Phase 1 . Sacral balancing if needed Manual: Normalize pelvic positioning (?L innominate outflare/licensed sales producer rotation and anterior shear), decrease soft tissue muscle guarding and pain (QL). Ther ex: improve lumbar/hip mobility, hip (stretch L ER/IR , flex, AD's) and core/pelvic stabilization. Pt education on proper alignment during bowel care, self care HEP, pain management .
--- NOTE | 2023-03-25 16:10 | PT.OTN ---
Current Diagnoses Other chronic pain (03/25/23) Unspecified thoracic, thoracolumbar and lumbosacral intervertebral disc disorder (03/25/23) Dorsalgia, unspecified (03/25/23) Physical Therapy Treatment Note PT-OP-A Visit Information Start: 02/12/23 10:41 Freq: Status: Active Protocol: Document 03/25/23 15:02 LRN (Rec: 03/25/23 15:56 LRN [id number]) Out-Patient Physical Therapy Visit Information Visit Information Visit Type Progress Note Visit Note units 1 more visits at 2 units allowed Visit Start Time 15:02 Visit Stop Time 15:37 Total Visit Minutes 35 Visit Number 10 Evaluation Information Evaluation Date 02/12/23 Precautions Precautions Arthritis-hx of knee pain PT-OP-B Current Condition Start: 02/12/23 10:41 Freq: Status: Active Protocol: Document 02/12/23 11:18 LRN (Rec: 02/12/23 12:16 LRN [id number]) Current Condition History of Current Condition Onset Date 6 months ago Current Complaints L sharp groin pain, L constant LB/buttock pain. History of Current Condition Has back pain for 3-4 yrs off/ on, but intensified in past 6 months the groin pain is new and very sharp and comes and goes. Feels like period cramping and sometimes when moves a certain way get the intense pain. Pain in the L LB and buttock is constant burn and increases intensity with movement; therefore can't reach to put socks on. Interrupts her sleep at night, must put an arthritis cream and stretches into rotation and flexion. Intermittent toes 1-3 numb, and tingling when lying in bed. Not able to get MRI until doing 6 wks of therapy. Most comfortable position is on back or side, normally sleeps on stomach ( head more to L) or side. Prior Treatments and Tests None. Future Testing and Treatments Planned MRI after 6 wks of therapy. Treatment Goals Patient/Caregiver Goals Pt goal is: - to be able to put L sock on and to tie shoes without having to do it, - improve sleep time greater than 2 hrs at a time, - be able to go down stairs with reciprocal gait rather than one a time. Personal Factors Other Personal Factors That May Effect Arthritis of R knee - pain. Therapy/Recovery PT-OP-C Subjective Start: 02/12/23 10:41 Freq: Status: Active Protocol: Document 03/25/23 15:02 LRN (Rec: 03/25/23 15:56 LRN [id number]) OP-PT Subjective Patient Comments Patient Comments Rides a real bike for 30 min or more. States today for the first time was able to put her socks/shoes on, being able to bend over without a lot of pain. States she has done squat work that may have helped. Both knees are painful all around the knees and both groins are painful. PT-OP-H Neuro Start: 02/12/23 10:41 Freq: Status: Active Protocol: Document 02/12/23 11:18 LRN (Rec: 02/12/23 12:16 LRN [id number]) Sensation Evaluation Gross Sensation Gross Sensation WNL Comments Summary Comments L toes 1-3 numb in area of feet. Deep Tendon Reflex & Clonus Assessment Deep Tendon Reflex Bilateral Achilles Deep Tendon Reflex 2+ Normal Bilateral Patellar Deep Tendon Reflex 2+ Normal PT-OP-J Posture/Palpation/Skin Start: 02/12/23 10:41 Freq: Status: Active Protocol: Document 02/12/23 11:18 LRN (Rec: 02/12/23 12:16 LRN [id number]) Posture Evaluation Position Standing Head/C-Spine Posture Side Bent Left,Forward Head L-Spine Posture Increased Lordosis Arm Posture (L) Internally Rotated,(R) Internally Rotated Pelvis Posture Anteriorly Tilted,(L) Rotated Posterior Weight Distribution Balanced Knee Posture (L) Genu Valgus,(R) Genu Valgus Ankle/Foot Posture (L) Calcaneal Inversion,(R) Calcaneal Inversion Palpation Assessment Location Sacrum Palpation Location Sacrum Palpation Details L side deep but at VERENICE is high . Pubic bone Palpation Location High on the left, pubic separation. ASIS Palpation Location L Innominate Palpation Details Outflare L innominate Low on L Ischial Tub PT-OP-K Range of Motion Start: 02/12/23 10:41 Freq: Status: Active Protocol: Document 02/12/23 11:18 LRN (Rec: 02/12/23 12:16 LRN [id number]) Lumbar Spine Range of Motion Lumbar Spine Active Degrees Testing Position Standing Flexion 65 Extension 10 Rotation Left 20 Rotation Right 20 Lateral Flexion Left 13 Lateral Flexion Right 10 Hip Goniometric Range of Motion Hip Right Passive Hip ROM WFL Yes Testing Position Supine Flexion w/Knee Flexed 110 Straight Leg Raise 80 Abduction 25 Internal Rotation 30 External Rotation 65 Comments PSLR created pain on lateral side of knee/dominguez Left Passive Hip ROM WFL No Testing Position Supine Flexion w/Knee Flexed 90 Straight Leg Raise 55 Abduction 20 Internal Rotation 0 External Rotation 40 Comments Pain in lateral side of knee. KTC limited by pain in buttock . PT-OP-L Special Tests Start: 02/12/23 10:41 Freq: Status: Active Protocol: Document 02/23/23 09:36 LRN (Rec: 02/23/23 10:25 LRN [id number]) Special Tests Hip Special Tests Piriformis Test Results + Left Comments Pain in lateral and posterior L hip. Sheldon Test Results + bilaterally Hip IR:ER Ratios Test Results + left Comments Pain with IR Straight Leg Raise Test Results L ~50 deg's, R ~100 deg's. PT-OP-M Strength Start: 02/12/23 10:41 Freq: Status: Active Protocol: Document 02/23/23 09:36 LRN (Rec: 02/23/23 10:25 LRN [id number]) Hip Strength Hip Manual Muscle Testing Right Flexion (L2) 5 Normal Extension (S1) 3 Fair Abduction 3 Fair Adduction 5 Normal External Rotation 4 Good Internal Rotation 5 Normal Comments Hip Ext caused pain in L Gluteals. Left Flexion (L2) 5 Normal Extension (S1) 5 Normal Abduction 4+ Good+ Adduction 5 Normal External Rotation 5 Normal Internal Rotation 5 Normal PT-OP-Q Treatments Start: 02/12/23 10:41 Freq: Status: Active Protocol: Document 03/25/23 15:02 LRN (Rec: 03/25/23 15:56 LRN [id number]) Cardio Equipment Bicycle (Upright) Duration (Minutes) 6 Resistance 4 Seat Position 4 Other cued forefoot on pedal and allow ankle ROM- limited R>L knee ROM Therapeutic Exercises Supine Exercises Self lumbar traction Supine Exercise Name Self lumbar traction Equipment Used plinth, floor mat Reps/Minutes 4' September Supine Exercise Name Verbal review TA Heel slide Supine Exercise Name Verbal review Sheldon stretch Supine Exercise Name Hip flexor stretch Side bilateral Equipment Used declined HO Reps/Minutes 60 SH Comments good feedback stretch to hip flexor FIg 4 Supine Exercise Name Modified Fig 4 stretch Side bilateral Resistance R foot over L dominguez, L foot over R Reps/Minutes 60 SH each side Comments cued able to get foot to cross over opp dominguez now Piriformis stretch Supine Exercise Name Hip IR- added HEP Side left Equipment Used use towel UE support Reps/Minutes 60 SH Comments limited L, extra time comfort stretch DKTC stretch Supine Exercise Name DKTC stretch- HEP reviewed Equipment Used use towel for decrease UT recruitment Reps/Minutes 60 SH Comments cuing to hold stretch w/relax of arms for rest; cue to breath Therapeutic Activity Therapeutic Activity Floor to stand transfer Name Floor to stand transfer Reps/Minutes 8' Manual Therapy Treatment Manual Traction Lumbar Details Lumbar Body Position Hooklying Reps/Duration 9' Comments Elimination of L hip groin pain. PT-OP-T Assessment and Plan Start: 02/12/23 10:41 Freq: Status: Active Protocol: Document 03/25/23 15:02 LRN (Rec: 03/25/23 15:56 LRN [id number]) Physical Therapy Assessment Rehab Potential Rehabilitation Potential Excellent Evaluation Complexity Number of Personal Factors/Comorbidities 1-2 Number of Body Systems Impaired 4 or More Clinical Presentation at Evaluation Evolving Impairments Impairments Activity Tolerance,Pain, Posture,ROM,Soft Tissue Mobility,Transfers Other Impairments Tender chapito QL and L SIJ. Goals Three Impairment Decreased trunk and hip mobility Impairment Trunk flexion 65 deg's, ext 10 deg's. Hip mobility (in deg's): SLR 55 L, 80 R; Internal Rot 0 L, 30 R; External Rot 40 L, 65 R. Short Term Goal (STG) Improve L hip mobility with pt able to put L sock on and tie shoes without having to do it, 03/01/23: GOAL MET able to now put on shoes self. STG Duration 03/29/23 GOAL MET 03/01/23 Halfway Goal (LTG) Pt will be able to tolerate ambulation down stairs with reciprocal gait rather than one a time. 03/22/23: able receiprocal stepping ascend LHR, descend typically step to R HR leading RLE but able receiprocal stepping with BUE support B HR or R HR& SPC in LUE. LTG Duration 05/13/23 progressing 03/22/23 Two Impairment L hip pain rated 9/10, LBP rated 7/10 Short Term Goal (STG) Pt will be educated in log roll transfers, proper body mechanics for ADLs, proper sitting/standing posture and best practice sidelie positioning for nighttime. 03/01/23: Initiated supine<>sit cues TA draw in keep shlds/ knee together mob. 03/05/23: Discussed sidelie positioning with pillow between legs and pillow in front of thighs. 03/10/23: time spent log roll technique, in/out car through back seat side step L sit and BLE swing front to keep pelvis neutral- painfree. 03/12/23: reviewed proper body mechanics with sifting bambi litter, better understanding and able to squat ball transfer assimulation. STG Duration 03/05/23 progressing 03/12/23 (need body mech & posture trng) Halfway Goal (LTG) Improve sleep time greater than 2 hrs at a time. 03/01/23: Has had times 4 hrs at time not necessarily due to pain and 1 night use bathroom . She gets hot flashes that does contribute to waking. LTG Duration 05/13/23 progressing 03/01/23 One Impairment Pt lacks appropriate self care HEP Short Term Goal (STG) Pt will be educated in self care pain/inflammation management with cold pack and RICE technique. STG Duration 03/05/23 Breakfast Server Goal (LTG) Pt will be independent in an effective self care HEP for core/hip strengthening and mobility ex's. 03/01/23: Reviewed added last tx: DKTC and piriformis stretch. Added self STMs use ball on wall to low back/post hip, clamshell and TA marching to HEP for progress support to SI and hip. 03/22/23: reviewed stretching: fig4, sheldon stretch better response today for increase ROM flexibility L hip. Able to reach down and don socks herself. 03/25/23: HEP: Beena hip AD, DKTC stretch, Hip Ext-Bridging . LTG Duration 05/13/23 progressing 03/25/23 (?sitting hip strengthening resisted BKFO) Assessment Summary Assessment Pt is a 62 yo female who had a L innominate outflared and posteriorly rotated and anteriorly sheared that is now normalized. She has had severe L groin pain that was sharp and intermittent in nature and present with weightbearing, but now occasional. Today her pelvis is level and she is able to don socks/shoes w/o pain, and was able to get up/down off floor w/o having to pull self up while in 1/2 kneel (after training). Pt had no groin pain after manual lumbar traction; therefore she may have a lumbar component to her groin pain. Her chapito knee pain is probably arthritic in nature. The pt will be seen for one more visit to complete her HEP at her request due to insurance limitations; therefore the pt will be discharged from therapy at her next appt. Physical Therapy Plan Frequency and Duration Frequency of Treatment 2x/Week Duration of treatment (weeks) 12 Plan of Care Start Date 02/12/23 Plan of Care End Date 05/13/23 Therapeutic Interventions Therapeutic Interventions Home Exercise Program,Joint Mobilizations,Manual Therapy, Neuromuscular Re-education, Self-Care/Home Management,Soft Tissue Mobilization, Therapeutic Activities, Therapeutic Exercises Modalities Cold Pack/Ice Massage,Hot Packs Next Visit Focus/Plan Next Note Type Discharge Summary Next Visit Plan DC in a week per pt due to insurance limit. Educ pt in proper body mech & posture trng, and self care pain/ inflammation management with cold pack and RICE technique ( STG 1 & 2). Assess LTG #2. Complete HEP: Add sitting resisted BKFO and Pelvic bracing walking/stairs. Pt education on proper alignment during bowel care. Assess Trunk special tests ( PSLR, standing Compression or repetitive flex/ext). POC: Manual: Monitor for pt ability to maintain normal pelvic positioning (?L innominate outflare/sales team recruiter rotation and anterior shear), Ther ex: improve lumbar/hip mobility, hip (stretch L ER/IR , flex, AD's) and core/pelvic stabilization, Pt education HEP.
--- NOTE | 2023-04-13 17:08 | PT.OTN ---
Current Diagnoses Other chronic pain (04/13/23) Unspecified thoracic, thoracolumbar and lumbosacral intervertebral disc disorder (04/13/23) Dorsalgia, unspecified (04/13/23) Physical Therapy Treatment Note PT-OP-A Visit Information Start: 02/12/23 10:41 Freq: Status: Active Protocol: Document 04/13/23 12:35 LRN (Rec: 04/13/23 13:18 LRN [id number]) Out-Patient Physical Therapy Visit Information Visit Information Visit Type Treatment Note Visit Note units 1 more visits at 2 units allowed Visit Start Time 12:34 Visit Stop Time 13:15 Total Visit Minutes 41 Visit Number 11 Evaluation Information Evaluation Date 02/12/23 Precautions Precautions Arthritis-hx of knee pain PT-OP-B Current Condition Start: 02/12/23 10:41 Freq: Status: Active Protocol: Document 02/12/23 11:18 LRN (Rec: 02/12/23 12:16 LRN [id number]) Current Condition History of Current Condition Onset Date 6 months ago Current Complaints L sharp groin pain, L constant LB/buttock pain. History of Current Condition Has back pain for 3-4 yrs off/ on, but intensified in past 6 months the groin pain is new and very sharp and comes and goes. Feels like period cramping and sometimes when moves a certain way get the intense pain. Pain in the L LB and buttock is constant burn and increases intensity with movement; therefore can't reach to put socks on. Interrupts her sleep at night, must put an arthritis cream and stretches into rotation and flexion. Intermittent toes 1-3 numb, and tingling when lying in bed. Not able to get MRI until doing 6 wks of therapy. Most comfortable position is on back or side, normally sleeps on stomach ( head more to L) or side. Prior Treatments and Tests None. Future Testing and Treatments Planned MRI after 6 wks of therapy. Treatment Goals Patient/Caregiver Goals Pt goal is: - to be able to put L sock on and to tie shoes without having to do it, - improve sleep time greater than 2 hrs at a time, - be able to go down stairs with reciprocal gait rather than one a time. Personal Factors Other Personal Factors That May Effect Arthritis of R knee - pain. Therapy/Recovery PT-OP-C Subjective Start: 02/12/23 10:41 Freq: Status: Active Protocol: Document 04/13/23 12:35 LRN (Rec: 04/13/23 13:18 LRN [id number]) OP-PT Subjective Patient Comments Patient Comments Having sharp chapito groin pain and in posterior hip L>R. States it is not terrible, but present. Hoping to now be able to have an MRI. Haven't needed to do the SIJ correction program. Patient Questionnaires Lower Extremity Functional Scale LEFS Score 55 LEFS Impairment 20 to 39% Impaired (Score 48- 62) Oswestry Low Back Index Oswestry Score 5 Oswestry Impairment 1 to 19% Impaired (Score 1-19) PT-OP-H Neuro Start: 02/12/23 10:41 Freq: Status: Active Protocol: Document 02/12/23 11:18 LRN (Rec: 02/12/23 12:16 LRN [id number]) Sensation Evaluation Gross Sensation Gross Sensation WNL Comments Summary Comments L toes 1-3 numb in area of feet. Deep Tendon Reflex & Clonus Assessment Deep Tendon Reflex Bilateral Achilles Deep Tendon Reflex 2+ Normal Bilateral Patellar Deep Tendon Reflex 2+ Normal PT-OP-J Posture/Palpation/Skin Start: 02/12/23 10:41 Freq: Status: Active Protocol: Document 02/12/23 11:18 LRN (Rec: 02/12/23 12:16 LRN [id number]) Posture Evaluation Position Standing Head/C-Spine Posture Side Bent Left,Forward Head L-Spine Posture Increased Lordosis Arm Posture (L) Internally Rotated,(R) Internally Rotated Pelvis Posture Anteriorly Tilted,(L) Rotated Posterior Weight Distribution Balanced Knee Posture (L) Genu Valgus,(R) Genu Valgus Ankle/Foot Posture (L) Calcaneal Inversion,(R) Calcaneal Inversion Palpation Assessment Location Sacrum Palpation Location Sacrum Palpation Details L side deep but at VERENICE is high . Pubic bone Palpation Location High on the left, pubic separation. ASIS Palpation Location L Innominate Palpation Details Outflare L innominate Low on L Ischial Tub PT-OP-K Range of Motion Start: 02/12/23 10:41 Freq: Status: Active Protocol: Document 02/12/23 11:18 LRN (Rec: 02/12/23 12:16 LRN [id number]) Lumbar Spine Range of Motion Lumbar Spine Active Degrees Testing Position Standing Flexion 65 Extension 10 Rotation Left 20 Rotation Right 20 Lateral Flexion Left 13 Lateral Flexion Right 10 Hip Goniometric Range of Motion Hip Right Passive Hip ROM WFL Yes Testing Position Supine Flexion w/Knee Flexed 110 Straight Leg Raise 80 Abduction 25 Internal Rotation 30 External Rotation 65 Comments PSLR created pain on lateral side of knee/dominguez Left Passive Hip ROM WFL No Testing Position Supine Flexion w/Knee Flexed 90 Straight Leg Raise 55 Abduction 20 Internal Rotation 0 External Rotation 40 Comments Pain in lateral side of knee. KTC limited by pain in buttock . PT-OP-L Special Tests Start: 02/12/23 10:41 Freq: Status: Active Protocol: Document 02/23/23 09:36 LRN (Rec: 02/23/23 10:25 LRN [id number]) Special Tests Hip Special Tests Piriformis Test Results + Left Comments Pain in lateral and posterior L hip. Sheldon Test Results + bilaterally Hip IR:ER Ratios Test Results + left Comments Pain with IR Straight Leg Raise Test Results L ~50 deg's, R ~100 deg's. PT-OP-M Strength Start: 02/12/23 10:41 Freq: Status: Active Protocol: Document 02/23/23 09:36 LRN (Rec: 02/23/23 10:25 LRN [id number]) Hip Strength Hip Manual Muscle Testing Right Flexion (L2) 5 Normal Extension (S1) 3 Fair Abduction 3 Fair Adduction 5 Normal External Rotation 4 Good Internal Rotation 5 Normal Comments Hip Ext caused pain in L Gluteals. Left Flexion (L2) 5 Normal Extension (S1) 5 Normal Abduction 4+ Good+ Adduction 5 Normal External Rotation 5 Normal Internal Rotation 5 Normal PT-OP-Q Treatments Start: 02/12/23 10:41 Freq: Status: Active Protocol: Document 04/13/23 12:35 LRN (Rec: 04/13/23 13:18 LRN [id number]) Cardio Equipment Bicycle (Upright) Duration (Minutes) 9 Resistance 4 Seat Position 4 Other cued forefoot on pedal and allow ankle ROM- limited R>L knee ROM Therapeutic Exercises Supine Exercises Sheldon stretch Supine Exercise Name Hip flexor stretch Side bilateral Equipment Used declined HO Reps/Minutes 60 SH Comments good feedback stretch to hip flexor FIg 4 Supine Exercise Name Modified Fig 4 stretch Side bilateral Resistance R foot over L dominguez, L foot over R Reps/Minutes 60 SH each side Comments cued able to get foot to cross over opp dominguez now Piriformis stretch Supine Exercise Name Hip IR- added HEP Side left Equipment Used use towel UE support Reps/Minutes 60 SH Comments limited L, extra time comfort stretch DKTC stretch Supine Exercise Name DKTC stretch- HEP reviewed Equipment Used use towel for decrease UT recruitment Reps/Minutes 60 SH Comments cuing to hold stretch w/relax of arms for rest; cue to breath Sitting Exercises piriformis stretch Sitting Exercise Name review seated for HEP- put socks on Side left Reps/Minutes 20 SH x2 Comments Improved ROM and stretch- able put on shoes self Clamshell Sitting Exercise Name Clamshell w/TA/PF/equal mvmt- written HEP I/S's Side bilateral Resistance TB #2 Reps/Minutes 30x Comments Good form symmetry of mvmt/TA/ PF contraction. Other Exercises Gait up/down stairs Other Exercise Name Up/down stairs with reciprocal gait and railing Side bilateral Reps/Minutes 4 steps x 2 Transfer training Other Exercise Name Transfer training for sup <> sit with TA/PF Comments Reviewed, pt demonstrated proper transfer. Self-Care/Home Management Treatment Education Patient Education Home Exercise Program Activities Self-Care/Home Management Activities Issued & reviewed HEP: Sitting Clamshell w/TBand PT-OP-T Assessment and Plan Start: 02/12/23 10:41 Freq: Status: Active Protocol: Document 04/13/23 12:35 LRN (Rec: 04/13/23 13:18 LRN [id number]) Physical Therapy Assessment Goals Three Impairment Decreased trunk and hip mobility Impairment Trunk flexion 65 deg's, ext 10 deg's. Hip mobility (in deg's): SLR 55 L, 80 R; Internal Rot 0 L, 30 R; External Rot 40 L, 65 R. Short Term Goal (STG) Improve L hip mobility with pt able to put L sock on and tie shoes without having to do it, 03/01/23: GOAL MET able to now put on shoes self. STG Duration 03/29/23 (03/01/23: MET GOAL) Compliance Nurse Goal (LTG) Pt will be able to tolerate ambulation down stairs with reciprocal gait rather than one a time. 03/22/23: able receiprocal stepping ascend LHR, descend typically step to R HR leading RLE but able receiprocal stepping with BUE support B HR or R HR& SPC in LUE. 04/13/23: Pt able to ambulate up/down stairs with reciprocal gait, needing with use of railing due to R knee pain. LTG Duration 05/13/23 (04/13/23: MET GOAL) Two Impairment L hip pain rated 9/10, LBP rated 7/10 Short Term Goal (STG) Pt will be educated in log roll transfers, proper body mechanics for ADLs, proper sitting/standing posture and best practice sidelie positioning for nighttime. 03/01/23: Initiated supine<>sit cues TA draw in keep shlds/ knee together mob. 03/05/23: Discussed sidelie positioning with pillow between legs and pillow in front of thighs. 03/10/23: time spent log roll technique, in/out car through back seat side step L sit and BLE swing front to keep pelvis neutral- painfree. 03/12/23: reviewed proper body mechanics with sifting bambi litter, better understanding and able to squat ball transfer assimulation. Reviewed in log roll transfers , proper body mechanics for ADLs, proper sitting/standing posture and best practice sidelie positioning for nighttime. STG Duration 03/05/23 (03/12/23: MET GOAL) Compliance Nurse Goal (LTG) Improve sleep time greater than 2 hrs at a time. 03/01/23: Has had times 4 hrs at time not necessarily due to pain and 1 night use bathroom . She gets hot flashes that does contribute to waking. 04/13/23: Has been sleeping 6 hrs at time. LTG Duration 05/13/23 (04/13/23: MET GOAL) One Impairment Pt lacks appropriate self care HEP Short Term Goal (STG) Pt will be educated in self care pain/inflammation management with cold pack and RICE technique. 04/13/23: Pt educated in self care pain management with RICE handout issued. STG Duration 03/05/23 (04/13/23: MET GOAL) Compliance Nurse Goal (LTG) Pt will be independent in an effective self care HEP for core/hip strengthening and mobility ex's. 03/01/23: Reviewed added last tx: DKTC and piriformis stretch. Added self STMs use ball on wall to low back/post hip, clamshell and TA marching to HEP for progress support to SI and hip. 03/22/23: reviewed stretching: fig4, sheldon stretch better response today for increase ROM flexibility L hip. Able to reach down and don socks herself. 03/25/23: HEP: Beena hip AD, DKTC stretch, Hip Ext-Bridging . 04/13/23: HEP: Sitting Clamshell w/TBand LTG Duration 05/13/23 (04/13/23: MET GOAL) Assessment Summary Assessment Pt is a 62 yo female who had a L innominate posteriorly rotated/outflared, and anteriorly sheared that is now normalized. She is having some sharp chapito groin pain and in mostly tolerable posterior hip pain, L>R. She has improved function per SUSAN score from 15 (20-30% impaired ) to 5 (1-19% impaired). LEFS score indicates LE function is 20-30% impaired. She appears to have obtained the most consistent relief of her pain with mobility flexibility exercises. Further medical imaging would be appropriate in her low back and possibly hips. The pt is being discharged to her self care HEP. Physical Therapy Plan Discharge Physical Therapy Discharge Reasons Goals Met Discharge Comments Thank you for your referral.
== END 2023-04-15 15:41 | disposition home or self-care (01) ==
LOC: PHYS 12:30
PROVIDERS: Family Provider Student in an Organized Health Care Education/Training Program; PCP Pediatrics; Referring Provider Pediatrics; Visit Provider Pediatrics
DX: M54.9 Dorsalgia, unspecified (principal); G89.29 Other chronic pain; M51.9 Unspecified thoracic, thoracolumbar and lumbosacral intervertebral disc disorder
CPT/HCPCS: 97110; 97140; 97162; 97530; 97535

== ENCOUNTER → 2023-05-31 15:00 | Outpatient (CLI) | payer OTHER, MEDICAID, SELFPAY ==
[2019-07-24 16:23] VITALS: BMI 39.4
== END ==
PROVIDERS: Family Provider Student in an Organized Health Care Education/Training Program; PCP Pediatrics; Visit Provider Nurse Practitioner Family
DX: R30.0 Dysuria (principal)
CPT/HCPCS: 81002; 87077; 87086; 87186; 87210

== ENCOUNTER → 2023-06-18 18:14 | Outpatient (CLI) | payer OTHER, MEDICAID, SELFPAY ==
[2019-07-24 16:23] VITALS: BMI 39.4
== END ==
PROVIDERS: Family Provider Student in an Organized Health Care Education/Training Program; PCP Pediatrics; Visit Provider Physician Assistant
DX: R30.0 Dysuria (principal)
CPT/HCPCS: 81002; 87077; 87086; 87186

== ENCOUNTER → 2023-08-25 19:17 | Outpatient (CLI) | payer OTHER, MEDICAID, SELFPAY ==
[2019-07-24 16:23] VITALS: BMI 39.4
--- NOTE | 2023-08-25 19:18 | DI.MRI.S_ITS ---
PROCEDURE: MR PELVIS WO CON INDICATIONS: low back pain, pain in hip TECHNIQUE: Noncontrast coronal and sagittal T1 spin echo and STIR, and axial T1 spin echo T2 fast spin echo with fat saturation through the bony pelvis. COMPARISON: [facility], CR, XR LUMBAR SPINE 2-3V, 11/20/2022, 12:14. [facility], CT, CT ABDOMEN PELVIS W CON, 12/31/2017, 10:23. FINDINGS: Image quality: Excellent. Bones: Bone marrow of the pelvic ring, sacrum, and proximal femurs show normal signal throughout. No intraosseous lesions or fractures identified. Full-thickness joint space narrowing is seen in the superior hips bilaterally. Subchondral cystic changes and subchondral edema are more prominent on the left than on the right. Small marginal osteophytes and small hip effusions are seen bilaterally. Disc desiccation and facet hypertrophy are seen in the included lumbar spine. Bilateral spondylolysis of L5 with grade 1 anterolisthesis of L5 on S1, as previously demonstrated. Degenerative changes are seen at the pubic symphysis and sacroiliac joints. Tendons: The gluteus medius and minimus tendons appear intact, without disproportionate muscle atrophy. The proximal iliotibial band also appears intact. The iliopsoas tendon appears intact, without adjacent bursal fluid collections. The origin of the hamstring tendon is intact at the ischial tuberosity. The straight and reflected heads of the rectus femoris muscle origin appear intact, as well as the conjoint tendon. Soft tissues: Mild generalized grade 2 fatty infiltration of the visualized musculature. No free pelvic fluid. Bladder wall thickness is normal. Multiple diverticula are seen in the included colon. IMPRESSION: 1. Severe left and moderate to severe right hip osteoarthrosis with subchondral cystic changes and edema and small joint effusions. 2. Degenerative changes also noted at the pubic symphysis, sacroiliac joints, and included spine. Approved by: Kev River M.D. on 08/26/2023 at 14:16
== END ==
LOC: MRI 19:17
PROVIDERS: Family Provider Student in an Organized Health Care Education/Training Program; PCP Pediatrics; Referring Provider Family Medicine; Visit Provider Family Medicine
DX: M51.36 Other intervertebral disc degeneration, lumbar region (principal); M47.816 Spondylosis without myelopathy or radiculopathy, lumbar region; M47.818 Spondylosis without myelopathy or radiculopathy, sacral and sacrococcygeal region; M16.0 Bilateral primary osteoarthritis of hip; M25.452 Effusion, left hip; M25.451 Effusion, right hip; M54.50 Low back pain, unspecified; G89.29 Other chronic pain
CPT/HCPCS: 72195

== ENCOUNTER → 2023-11-01 12:41 | Outpatient (CLI) | payer OTHER, MEDICAID, SELFPAY ==
[2019-07-24 16:23] VITALS: BMI 39.4
--- NOTE | 2023-11-01 12:42 | DI.MRI.S_ITS ---
PROCEDURE: MR LUMBAR SPINE WO CON INDICATIONS: imaging of patient's spine needed prior to hip surgery TECHNIQUE: Noncontrast sagittal T1 spin echo and T2 fast echo, sagittal STIR, and T2 fast spin echo through the lumbar spine. In cases with scoliosis, additional coronal T2 fast spin echo may be performed. COMPARISON: [facility], CT, CT ABDOMEN PELVIS W CON, 12/31/2017, 10:23. FINDINGS: Image quality: Excellent. Alignment and Curvature: Grade 1 anterolisthesis of L5 on S1 due to pars defects. Bone Marrow: Marrow is of normal overall signal. No acute vertebral body compression fractures. Presumed hemangioma in the L2 vertebral body and L3 vertebral body. Spinal Cord: Conus medullaris terminates at the L1 level. Visualized cord demonstrates normal signal and size. Paraspinous Soft Tissues: No paravertebral masses. T12-L1: Moderate disc height loss. Asymmetric anterior disc bulge. L1-L2: Moderate disc height loss, broad-based disc bulge, trace facet effusions. Mild right and ceye-vm-nejssiyg left neural foraminal narrowing. L2-L3: Broad-based disc bulge, facet arthrosis and hypertrophy with ligamentum flavum hypertrophy. Moderate to severe left and mild right neural foraminal narrowing. L3-L4: Broad-based disc bulge, facet hypertrophy, left facet effusion. Moderate left and mild right neural foraminal narrowing. L4-L5: Broad-based disc bulge, facet hypertrophy. Mild neural foraminal narrowing. L5-S1: Broad-based disc bulge. Moderate to severe bilateral neural foraminal narrowing. IMPRESSION: Grade 1 anterolisthesis of L5 on S1 due to pars defects. Multilevel degenerative disc disease and facet arthrosis. Of note: No significant spinal canal narrowing. Up to moderate to severe neural foraminal narrowing at L2-3 and L5-S1. Dictated by: Thierno Stoddard M.D. on 11/01/2023 at 15:13 Approved by: Thierno Stoddard M.D. on 11/01/2023 at 15:17
== END ==
LOC: MRI 12:42
PROVIDERS: Family Provider Student in an Organized Health Care Education/Training Program; PCP Pediatrics; Referring Provider Physician Assistant Surgical; Visit Provider Physician Assistant Surgical
DX: Z01.818 Encounter for other preprocedural examination (principal); M51.36 Other intervertebral disc degeneration, lumbar region; M47.816 Spondylosis without myelopathy or radiculopathy, lumbar region; M51.37 Other intervertebral disc degeneration, lumbosacral region; M48.061 Spinal stenosis, lumbar region without neurogenic claudication; M48.07 Spinal stenosis, lumbosacral region; M43.17 Spondylolisthesis, lumbosacral region; M54.50 Low back pain, unspecified
CPT/HCPCS: 72148

== ENCOUNTER → 2023-12-16 11:19 | Outpatient (CLI) | payer OTHER, MEDICAID, SELFPAY ==
[2019-07-24 16:23] VITALS: BMI 39.4
[2023-12-16 12:50] LABS: Add Manual Diff / Slide Review NO; Basophils Absolute Auto 0 /uL (0-100); Basophils Percent Auto 0.9 % (0-2); Eosinophils Absolute Auto 100 /uL (0-450); Eosinophils Percent Auto 1.7 % (2-4); Hematocrit 30.3 % (36-46); Hemoglobin 9.6 g/dL (12.0-16.0); Lymphocytes Absolute Auto 1200 /uL (1100-4500); Lymphocytes Percent Auto 22.1 % (25-40); Mean Corpuscular HGB Conc 31.9 % (30-36); Mean Corpuscular Hemoglobin 23.8 PG (26-34); Mean Corpuscular Volume 74.8 fL (80-100); Monocytes Absolute Auto 500 /uL (0-900); Monocytes Percent Auto 9.6 % (3-14); Neutrophils Absolute Auto 3500 /uL (1500-7000); Neutrophils Percent Auto 65.7 % (50-75); Platelet Count 316 X10^3/uL (150-400); Red Blood Cell Count 4.05 X10^6/uL (4.0-5.2); Red Cell Distribution Width 17.7 % (11.6-14.8); White Blood Cell Count 5.3 X10^3/uL (4.5-11.0)
[2023-12-16 12:58] LABS: Reticulocyte Count, Percent 1.4 % (1.1-2.6)
[2023-12-16 13:26] LABS: Alanine Aminotransferase 12 IU/L (<35); Albumin 3.9 g/dL (3.5-5.0); Albumin Globulin Ratio 1.7 (1.0-2.8); Alkaline Phosphatase 91 U/L (38-126); Aspartate Aminotransferase 19 IU/L (14-36); BUN Creatinine Ratio 20.7 (6-22); Bilirubin Total 0.4 mg/dL (0.2-1.3); Blood Urea Nitrogen 12 mg/dL (7-17); Calcium 8.7 mg/dL (8.4-10.2); Carbon Dioxide 29 mmol/L (22-32); Chloride 106 mmol/L (98-107); Estimated Glomerular Filt Rate > 60 mL/min (>60); Globulin 2.3 g/dL (1.7-4.1); Glucose 83 mg/dL (80-110); HEMOLYSIS < 15 (0-50); Iron 29 ug/dL (37-170); Potassium 5.1 mmol/L (3.4-5.1); Sodium 138 mmol/L (137-145); Total Protein 6.2 g/dL (6.3-8.2)
[2023-12-16 13:39] LABS: Percent Iron Saturation 7 % (15-50); Total Iron Binding Capacity 391 ug/dL (265-497); Transferrin 294 mg/dL (206-381)
== END ==
PROVIDERS: Family Provider Student in an Organized Health Care Education/Training Program; PCP Family Medicine; Referring Provider Family Medicine; Visit Provider Family Medicine
DX: Z51.81 Encounter for therapeutic drug level monitoring (principal); D64.9 Anemia, unspecified; Z79.1 Long term (current) use of non-steroidal anti-inflammatories (NSAID); D50.9 Iron deficiency anemia, unspecified; K92.2 Gastrointestinal hemorrhage, unspecified
CPT/HCPCS: 36415; 80053; 83540; 83550; 85025; 85045

== ENCOUNTER → 2023-12-20 16:59 | Outpatient (CLI) | payer OTHER, MEDICAID, SELFPAY ==
[2019-07-24 16:23] VITALS: BMI 39.4
[2023-12-22 06:11] LABS: Fecal Immunochemical Test Negative (Negative)
== END ==
PROVIDERS: Family Provider Student in an Organized Health Care Education/Training Program; PCP Family Medicine; Referring Provider Family Medicine; Visit Provider Family Medicine
DX: Z51.81 Encounter for therapeutic drug level monitoring (principal); D64.9 Anemia, unspecified; D50.9 Iron deficiency anemia, unspecified; Z79.1 Long term (current) use of non-steroidal anti-inflammatories (NSAID)
CPT/HCPCS: 82274

== ENCOUNTER → 2024-01-03 13:12 | Outpatient (CLI) | payer OTHER, MEDICAID, SELFPAY ==
[2019-07-24 16:23] VITALS: BMI 39.4
[2024-01-03 14:07] LABS: Reticulocyte Count, Percent 2.8 % (1.1-2.6)
[2024-01-03 14:12] LABS: Add Manual Diff / Slide Review NO; Basophils Absolute Auto 0 /uL (0-100); Basophils Percent Auto 0.7 % (0-2); Eosinophils Absolute Auto 100 /uL (0-450); Eosinophils Percent Auto 2.3 % (2-4); Hematocrit 35.5 % (36-46); Hemoglobin 11.3 g/dL (12.0-16.0); Lymphocytes Absolute Auto 900 /uL (1100-4500); Mean Corpuscular HGB Conc 31.8 % (30-36); Mean Corpuscular Hemoglobin 25.7 PG (26-34); Mean Corpuscular Volume 80.8 fL (80-100); Monocytes Absolute Auto 500 /uL (0-900); Monocytes Percent Auto 9.4 % (3-14); Neutrophils Absolute Auto 3400 /uL (1500-7000); Neutrophils Percent Auto 69.6 % (50-75); Platelet Count 245 X10^3/uL (150-400); Red Blood Cell Count 4.39 X10^6/uL (4.0-5.2); Red Cell Distribution Width 25.1 % (11.6-14.8); White Blood Cell Count 4.9 X10^3/uL (4.5-11.0)
[2024-01-03 14:22] LABS: Anisocytosis 2+; Ovalocytes 1+
[2024-01-03 14:27] LABS: HEMOLYSIS < 15 (0-50); Iron 104 ug/dL (37-170)
[2024-01-03 14:41] LABS: Percent Iron Saturation 36 % (15-50); Total Iron Binding Capacity 288 ug/dL (265-497); Transferrin 221 mg/dL (206-381)
== END ==
PROVIDERS: Family Provider Student in an Organized Health Care Education/Training Program; PCP Family Medicine; Referring Provider Family Medicine; Visit Provider Family Medicine
DX: D64.9 Anemia, unspecified (principal)
CPT/HCPCS: 36415; 83540; 83550; 85025; 85045

== ENCOUNTER → 2024-02-02 10:04 | Outpatient (CLI) | payer OTHER, MEDICAID, SELFPAY ==
[2019-07-24 16:23] VITALS: BMI 39.4
== END ==
PROVIDERS: Family Provider Student in an Organized Health Care Education/Training Program; PCP Family Medicine; Visit Provider Nurse Practitioner Family
DX: R30.0 Dysuria (principal)
CPT/HCPCS: 87077; 87086

== ENCOUNTER 2024-03-16 11:15 | Outpatient (RCR) | payer OTHER, MEDICAID, SELFPAY ==
[2019-07-24 16:23] VITALS: BMI 39.4
--- NOTE | 2024-02-24 12:00 | PT.OIE ---
Current Diagnoses Unilateral primary osteoarthritis, left hip (02/29/24) Pain in left hip (02/29/24) Stiffness of left hip, not elsewhere classified (02/29/24) Muscle weakness (generalized) (02/29/24) Presence of left artificial hip joint (02/29/24) Past Medical History (Last Updated 01/14/24 @ 11:25 by Usha Matta DO) Ankle pain, right Basal cell carcinoma (BCC) of left shoulder (08/16/17) Bladder prolapse Chronic lumbosacral pain Dermoid cyst Dermoid cyst of left ovary Diverticulosis of colon (10/28/17) Dysphagia (09/09/17) Elevated blood pressure reading (02/16/11) GERD (gastroesophageal reflux disease) GI bleed Hiatal hernia (10/28/17) History of gastrointestinal procedure (04/15/18) Iron deficiency anemia (07/23/17) Morbid obesity with BMI of 40.0-44.9, adult Never smoked 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 Past Surgical History (Last Reviewed 02/18/23 @ 16:28 by Gisele Gifford PA-C) History of basal cell carcinoma excision (08/16/17) History of carpal tunnel release (~1991) History of colonoscopy with polypectomy (12/22/17) History of dermoid cyst excision History of esophagogastroduodenoscopy (EGD) (10/28/17) History of esophagogastroduodenoscopy (EGD) (03/14/18) History of repair of hiatal hernia History of right salpingo-oophorectomy Hx of hernia repair (1986) Hx of LASIK S/P colonoscopic polypectomy (10/28/17) S/P knee surgery (1979) Status post LASIK surgery Status post left foot surgery (~1996) Visit Care Team Role Provider Type Usha Matta DO Primary Care Provider Physician Specialty: Family Practice Address: [address] [place] [address], [address], [id number] Email: [email or web address] Gavin Curry MD Family Provider Non-Staff Specialty: Internal Medicine Address: [address] [place] [address], [address], [address] Email: Usha Woo PA-C Attending Provider Non-Staff Referring Provider Specialty: General Surgery Address: [address] [place] [address], [id number] Email: Physical Therapy Initial Evaluation PT-OP-A Visit Information Start: 02/24/24 08:01 Freq: Status: Active Protocol: Document 02/24/24 10:30 [facility] (Rec: 02/24/24 16:52 [facility] [id number]) Out-Patient Physical Therapy Visit Information Visit Information Visit Type Initial Evaluation Visit Start Time 10:30 Visit Stop Time 11:15 Visit Number 1 Evaluation Information Evaluation Date 02/24/24 PT-OP-B Current Condition Start: 02/24/24 08:01 Freq: Status: Active Protocol: Document 02/24/24 10:30 [facility] (Rec: 02/24/24 11:22 [facility] [id number]) Current Condition History of Current Condition Onset Date 02/04/24 Current Complaints left hip pain, decreased strength and mobility History of Current Condition 02/04/24 posterior hip replacement [address] Dr Chung left hip pt used the walker for the first week and then she progressed to the cane at times she doesn't have pain but with walking she does have pain. She did take 2 Tylenol today but that is the only pain medication she is taking She notes she is able to go up and down stairs using her hand rail at home she feels better than she did prior to surgery already Treatment Goals Patient/Caregiver Goals she wants to be able to stand without support and be able to put on shoes and socks PT-OP-C Subjective Start: 02/24/24 08:01 Freq: Status: Active Protocol: Document 02/24/24 10:30 [facility] (Rec: 02/29/24 10:54 [facility] [id number]) Patient Questionnaires Lower Extremity Functional Scale LEFS Score 15 LEFS Impairment 1 to 19% Impaired (Score 63-79 ) OP-PT Pain Assessment Pain Assessment Grid Paper Pain Assessment Grid Completed Yes Location left lateral and posterior hip Intensity 6 Scale Used Numeric (0 - 10) Description With Movement Frequency Intermittent Home Pain Medication Use Pain Medications Used Yes: pt is just using tynelol at this time PT-OP-F Manual Assessment Start: 02/24/24 08:01 Freq: Status: Active Protocol: Document 02/24/24 10:30 [facility] (Rec: 02/29/24 10:54 [facility] [id number]) Manual Assessments Soft Tissue Assessment Soft Tissue Mobility Assessment with scar inspection over the left lateral hip the scar is healing really well. There is some scar tissue present throughout the length of the incision. There is fascial tightness especially at the distal end of the scar PT-OP-J Posture/Palpation/Skin Start: 02/24/24 08:01 Freq: Status: Active Protocol: Document 02/24/24 10:30 [facility] (Rec: 02/29/24 10:54 [facility] [id number]) Palpation Assessment Location left lateral hip Palpation Findings Soft Tissue Tightness,Muscle Guarding,Tenderness PT-OP-K Range of Motion Start: 02/29/24 08:19 Freq: Status: Active Protocol: Document 02/24/24 10:30 [facility] (Rec: 02/29/24 10:54 [facility] [id number]) Hip Goniometric Range of Motion Hip Left Testing Position Supine Flexion w/Knee Flexed 90 Straight Leg Raise 45 Extension 0 Abduction 10 External Rotation 10 Hip ROM Limitations Hip ROM Limitations Soft Tissue Tightness,Pain, Swelling Comments pt with posterior hip precautions on the left side PT-OP-M Strength Start: 02/29/24 08:19 Freq: Status: Active Protocol: Document 02/24/24 10:30 [facility] (Rec: 02/29/24 11:03 [facility] [id number]) Hip Strength Hip Manual Muscle Testing Left Flexion (L2) 2+ Poor+ Extension (S1) 2+ Poor+ Abduction 2+ Poor+ External Rotation 2+ Poor+ Knee Strength Knee Manual Muscle Testing Left Flexion (S2) 4 Good Extension (L3) 3 Fair PT-OP-Q Treatments Start: 02/24/24 08:01 Freq: Status: Active Protocol: Document 02/24/24 10:30 [facility] (Rec: 02/24/24 16:52 [facility] [id number]) Therapeutic Exercises Supine Exercises bridges Reps/Minutes x 10 reps quad set Reps/Minutes 5 sec hold x 10 reps Standing Exercises mini squats Reps/Minutes 2x 10 reps standing hip abduction Reps/Minutes x 10 each side side steps at the counter Reps/Minutes 4 min PT-OP-T Assessment and Plan Start: 02/24/24 08:01 Freq: Status: Active Protocol: Document 02/24/24 10:30 [facility] (Rec: 02/29/24 10:54 [facility] [id number]) Physical Therapy Assessment Rehab Potential Rehabilitation Potential Excellent Evaluation Complexity Number of Personal Factors/Comorbidities 0 Number of Body Systems Impaired 1-2 Clinical Presentation at Evaluation Stable Impairments Impairments Activity Tolerance,Functional Activities,Functional Mobility ,Gait,Pain,Posture,ROM,Soft Tissue Mobility,Strength Goals 3 Impairment Left sided hip pain rated 6/10 [facility] Goal (LTG) Carolyn reports a overall reduction in her hip pain symptoms from 6/10 to 1-2/10 LTG Duration 8 weeks 2 Impairment Decreased hip ROM especially into hip abduction Short Term Goal (STG) Carolyn is able to perform supine hip Abduction AROM STG Duration 4 weeks Proposal Development Manager Goal (LTG) Carolyn is able to perform standing hip abduction without increased pain LTG Duration 8 weeks 1 Impairment Decreased hip strength and pt has difficulty with activities such as sit to stand [facility] Goal (LTG) Carolyn is able to perform sit- stand without use of UE and presents with improved hip strength LTG Duration 8 weeks Assessment Summary Assessment Carolyn is a 63 year old female who presents to PT 3 weeks post op left total hip replacement with posterior hip precautions. Carolyn is aware of her hip precautions and she is ambulating with a SPC. She has been doing her exercises she was given in the hospital. Maggie goals increase being able to put on her shoes and socks and being able to stand without support. With evaluation today Carolyn has Ind bed mobility and is able to transfer from chair to bed with her assistive device and use of hands. She is aware of posterior hip precautions. Her incision is healing really well. There is some scar tissue along the length of the scar and fascial restrictions especially at the proximal portion of the scar. With ROM and Strength Carolyn has decreased hip abduction and it is painful for her to take her L LE into hip abduction in supine. She presents with LE weakness of the L LE and will benefit from a strengthening program. She rates her pain as 6/10 at this time. Carolyn is a good candidate for PT following her left sided total hip surgery. Physical Therapy Plan Frequency and Duration Frequency of Treatment 2x/Week Duration of treatment (weeks) 8 Plan of Care Start Date 02/24/24 Plan of Care End Date 04/20/24 Therapeutic Interventions Therapeutic Interventions Gait Training,Home Exercise Program,Manual Therapy,Patient /Caregiver Education,Self-Care /Home Management,Soft Tissue Mobilization,Therapeutic Exercises Modalities Cold Pack/Ice Massage Next Visit Focus/Plan Next Note Type Treatment Note Next Visit Plan begin standing mini squats at counter top and step ups, review all exercises given today
--- NOTE | 2024-02-24 12:00 | PT.OPPOC ---
Physical, Occupational & Speech Therapy At [facility] Current Diagnoses Unilateral primary osteoarthritis, left hip (02/29/24) Pain in left hip (02/29/24) Stiffness of left hip, not elsewhere classified (02/29/24) Muscle weakness (generalized) (02/29/24) Presence of left artificial hip joint (02/29/24) Visit Care Team Role Provider Type Usha Matta DO Primary Care Provider Physician Specialty: Family Practice Address: [address] [place] [address], [address], [address] Email: [email or web address] Gavin Curry MD Family Provider Non-Staff Specialty: Internal Medicine Address: [address] [place] [address], [address] Email: Usha Woo PA-C Attending Provider Non-Staff Referring Provider Specialty: General Surgery Address: [address] [place] [address], [id number] Email: Plan Of Care PT-OP-B Current Condition Start: 02/24/24 08:01 Freq: Status: Active Protocol: Document 02/24/24 10:30 [facility] (Rec: 02/24/24 11:22 [facility] [id number]) Current Condition History of Current Condition Onset Date 02/04/24 Current Complaints left hip pain, decreased strength and mobility History of Current Condition 02/04/[address] Chung left hip pt used the walker for the first week and then she progressed to the cane at times she doesn't have pain but with walking she does have pain. She did take 2 Tylenol today but that is the only pain medication she is taking She notes she is able to go up and down stairs using her hand rail at home she feels better than she did prior to surgery already Treatment Goals Patient/Caregiver Goals she wants to be able to stand without support and be able to put on shoes and socks PT-OP-T Assessment and Plan Start: 02/24/24 08:01 Freq: Status: Active Protocol: Document 02/24/24 10:30 [facility] (Rec: 02/29/24 10:54 [facility] [id number]) Physical Therapy Assessment Rehab Potential Rehabilitation Potential Excellent Evaluation Complexity Number of Personal Factors/Comorbidities 0 Number of Body Systems Impaired 1-2 Clinical Presentation at Evaluation Stable Impairments Impairments Activity Tolerance,Functional Activities,Functional Mobility ,Gait,Pain,Posture,ROM,Soft Tissue Mobility,Strength Goals 3 Impairment Left sided hip pain rated 6/10 Fruit Buying Grader Goal (LTG) Carolyn reports a overall reduction in her hip pain symptoms from 6/10 to 1-2/10 LTG Duration 8 weeks 2 Impairment Decreased hip ROM especially into hip abduction Short Term Goal (STG) Carolyn is able to perform supine hip Abduction AROM STG Duration 4 weeks Fruit Buying Grader Goal (LTG) Carolyn is able to perform standing hip abduction without increased pain LTG Duration 8 weeks 1 Impairment Decreased hip strength and pt has difficulty with activities such as sit to stand Fruit Buying Grader Goal (LTG) Carolyn is able to perform sit- stand without use of UE and presents with improved hip strength LTG Duration 8 weeks Assessment Summary Assessment Carolyn is a 63 year old female who presents to PT 3 weeks post op left total hip replacement with posterior hip precautions. Carolyn is aware of her hip precautions and she is ambulating with a SPC. She has been doing her exercises she was given in the hospital. Maggie goals increase being able to put on her shoes and socks and being able to stand without support. With evaluation today Carolyn has Ind bed mobility and is able to transfer from chair to bed with her assistive device and use of hands. She is aware of posterior hip precautions. Her incision is healing really well. There is some scar tissue along the length of the scar and fascial restrictions especially at the proximal portion of the scar. With ROM and Strength Carolyn has decreased hip abduction and it is painful for her to take her L LE into hip abduction in supine. She presents with LE weakness of the L LE and will benefit from a strengthening program. She rates her pain as 6/10 at this time. Carolyn is a good candidate for PT following her left sided total hip surgery. Physical Therapy Plan Frequency and Duration Frequency of Treatment 2x/Week Duration of treatment (weeks) 8 Plan of Care Start Date 02/24/24 Plan of Care End Date 04/20/24 Therapeutic Interventions Therapeutic Interventions Gait Training,Home Exercise Program,Manual Therapy,Patient /Caregiver Education,Self-Care /Home Management,Soft Tissue Mobilization,Therapeutic Exercises Modalities Cold Pack/Ice Massage Next Visit Focus/Plan Next Note Type Treatment Note Next Visit Plan begin standing mini squats at counter top and step ups, review all exercises given today Plan of Care Dates Plan of Care Start Date 02/24/24 Plan of Care End Date 04/20/24 Electronically Signed by: Ольга Sena, PT 02/29/24 [id number] If you are in agreement with this Plan of Care, please return a signed and dated copy. I have reviewed this Plan of Care and certify that the skilled therapy services above are required to meet the patient?s needs. Physician Signature Date Printed Name and Credentials Clinical Instructor Signature Printed Name and Credentials
--- NOTE | 2024-02-29 11:13 | PT.OTN ---
Current Diagnoses Unilateral primary osteoarthritis, left hip (02/29/24) Pain in left hip (02/29/24) Stiffness of left hip, not elsewhere classified (02/29/24) Muscle weakness (generalized) (02/29/24) Presence of left artificial hip joint (02/29/24) Physical Therapy Treatment Note PT-OP-A Visit Information Start: 02/24/24 08:01 Freq: Status: Active Protocol: Document 02/29/24 11:07 [facility] (Rec: 02/29/24 11:13 [facility] [id number]) Out-Patient Physical Therapy Visit Information Visit Information Visit Type Treatment Note Visit Start Time 08:15 Visit Stop Time 09:00 Visit Number 2 Evaluation Information Evaluation Date 02/24/24 PT-OP-B Current Condition Start: 02/24/24 08:01 Freq: Status: Active Protocol: Document 02/24/24 10:30 [facility] (Rec: 02/24/24 11:22 [facility] [id number]) Current Condition History of Current Condition Onset Date 02/04/24 Current Complaints left hip pain, decreased strength and mobility History of Current Condition 02/04/[address] Chung left hip pt used the walker for the first week and then she progressed to the cane at times she doesn't have pain but with walking she does have pain. She did take 2 Tylenol today but that is the only pain medication she is taking She notes she is able to go up and down stairs using her hand rail at home she feels better than she did prior to surgery already Treatment Goals Patient/Caregiver Goals she wants to be able to stand without support and be able to put on shoes and socks PT-OP-C Subjective Start: 02/24/24 08:01 Freq: Status: Active Protocol: Document 02/29/24 11:07 [facility] (Rec: 02/29/24 11:13 [facility] [id number]) OP-PT Subjective Patient Comments Patient Comments Carolyn reports she has been doing all her exercsises, she likes the side steps and has been doing them in her kitchen . PT-OP-F Manual Assessment Start: 02/24/24 08:01 Freq: Status: Active Protocol: Document 02/24/24 10:30 [facility] (Rec: 02/29/24 10:54 [facility] [id number]) Manual Assessments Soft Tissue Assessment Soft Tissue Mobility Assessment with scar inspection over the left lateral hip the scar is healing really well. There is some scar tissue present throughout the length of the incision. There is fascial tightness especially at the distal end of the scar PT-OP-J Posture/Palpation/Skin Start: 02/24/24 08:01 Freq: Status: Active Protocol: Document 02/24/24 10:30 [facility] (Rec: 02/29/24 10:54 [facility] [id number]) Palpation Assessment Location left lateral hip Palpation Findings Soft Tissue Tightness,Muscle Guarding,Tenderness PT-OP-K Range of Motion Start: 02/29/24 08:19 Freq: Status: Active Protocol: Document 02/24/24 10:30 [facility] (Rec: 02/29/24 10:54 [facility] [id number]) Hip Goniometric Range of Motion Hip Left Testing Position Supine Flexion w/Knee Flexed 90 Straight Leg Raise 45 Extension 0 Abduction 10 External Rotation 10 Hip ROM Limitations Hip ROM Limitations Soft Tissue Tightness,Pain, Swelling Comments pt with posterior hip precautions on the left side PT-OP-M Strength Start: 02/29/24 08:19 Freq: Status: Active Protocol: Document 02/24/24 10:30 [facility] (Rec: 02/29/24 11:03 [facility] [id number]) Hip Strength Hip Manual Muscle Testing Left Flexion (L2) 2+ Poor+ Extension (S1) 2+ Poor+ Abduction 2+ Poor+ External Rotation 2+ Poor+ Knee Strength Knee Manual Muscle Testing Left Flexion (S2) 4 Good Extension (L3) 3 Fair PT-OP-Q Treatments Start: 02/24/24 08:01 Freq: Status: Active Protocol: Document 02/29/24 11:07 [facility] (Rec: 02/29/24 11:13 [facility] [id number]) Therapeutic Exercises Supine Exercises AROM hip abduction with quad set Supine Exercise Name needs AAROM as AROM is painful Side left Reps/Minutes x 10 bridges Reps/Minutes x 10 reps quad set Reps/Minutes 5 sec hold x 10 reps Standing Exercises weight shifts onto the left leg Reps/Minutes 3 x 15 sec holds standing calf raise Side bilateral Reps/Minutes 2 x 30 sec hold side step ups 4 Side left Reps/Minutes 2 x 10 Comments at the railing for hand support step ups 4 step Side left Reps/Minutes 2 x 10 Comments at the railing for hand support Manual Therapy Treatment Soft Tissue Mobilization scar tissue massage over the lateral left hip Mobilization Type Myofascial Release Intensity/Depth Superficial Body Position Supine PT-OP-T Assessment and Plan Start: 02/24/24 08:01 Freq: Status: Active Protocol: Document 02/29/24 11:07 [facility] (Rec: 02/29/24 11:13 [facility] [id number]) Physical Therapy Assessment Assessment Summary Assessment Carolyn tolerates standing hip abduction better than supine hip abduction. She did really well with the addition of step ups today. I started some scar tissue work and she tolerated this well. Her incision is healing well. She was reminded of hip precautions and is aware of her precautions Physical Therapy Plan Frequency and Duration Frequency of Treatment 2x/Week Duration of treatment (weeks) 8 Plan of Care Start Date 02/24/24 Plan of Care End Date 04/20/24 Therapeutic Interventions Therapeutic Interventions Gait Training,Home Exercise Program,Manual Therapy,Patient /Caregiver Education,Self-Care /Home Management,Soft Tissue Mobilization,Therapeutic Exercises Modalities Cold Pack/Ice Massage Next Visit Focus/Plan Next Note Type Treatment Note Next Visit Plan progress standing exercises, work on hip hinge with mini squats and progress sit-stand
--- NOTE | 2024-03-03 14:55 | PT.OTN ---
Current Diagnoses Unilateral primary osteoarthritis, left hip (03/03/24) Pain in left hip (03/03/24) Stiffness of left hip, not elsewhere classified (03/03/24) Muscle weakness (generalized) (03/03/24) Presence of left artificial hip joint (03/03/24) Physical Therapy Treatment Note PT-OP-A Visit Information Start: 02/24/24 08:01 Freq: Status: Active Protocol: Document 03/03/24 12:56 AB (Rec: 03/03/24 13:48 AB [id number]) Out-Patient Physical Therapy Visit Information Visit Information Visit Type Treatment Note Visit Start Time 01:04 Visit Stop Time 01:45 Visit Number 3 Number of BLUEPRINT TRIMMER Visits 1 Evaluation Information Evaluation Date 02/24/24 PT-OP-B Current Condition Start: 02/24/24 08:01 Freq: Status: Active Protocol: Document 02/24/24 10:30 [facility] (Rec: 02/24/24 11:22 [facility] [id number]) Current Condition History of Current Condition Onset Date 02/04/24 Current Complaints left hip pain, decreased strength and mobility History of Current Condition 02/04/24 posterior hip replacement with Dr Chung left hip pt used the walker for the first week and then she progressed to the cane at times she doesn't have pain but with walking she does have pain. She did take 2 Tylenol today but that is the only pain medication she is taking She notes she is able to go up and down stairs using her hand rail at home she feels better than she did prior to surgery already Treatment Goals Patient/Caregiver Goals she wants to be able to stand without support and be able to put on shoes and socks PT-OP-C Subjective Start: 02/24/24 08:01 Freq: Status: Active Protocol: Document 03/03/24 12:56 AB (Rec: 03/03/24 13:48 AB [id number]) OP-PT Subjective Patient Comments Patient Comments Patient reports having a good day, comments she forgets the cane sometimes when in the home. Patient rates left hip pain 1/10 start of session. Patient reports surgeon appt in 2 weeks, SLS 15+ seconds left LE, balance impacted with a few seconds with visual scanning. PT-OP-F Manual Assessment Start: 02/24/24 08:01 Freq: Status: Active Protocol: Document 02/24/24 10:30 [facility] (Rec: 02/29/24 10:54 [facility] [id number]) Manual Assessments Soft Tissue Assessment Soft Tissue Mobility Assessment with scar inspection over the left lateral hip the scar is healing really well. There is some scar tissue present throughout the length of the incision. There is fascial tightness especially at the distal end of the scar PT-OP-J Posture/Palpation/Skin Start: 02/24/24 08:01 Freq: Status: Active Protocol: Document 02/24/24 10:30 AM[facility] (Rec: 02/29/24 10:54 [facility] [id number]) Palpation Assessment Location left lateral hip Palpation Findings Soft Tissue Tightness,Muscle Guarding,Tenderness PT-OP-K Range of Motion Start: 02/29/24 08:19 Freq: Status: Active Protocol: Document 02/24/24 10:30 [facility] (Rec: 02/29/24 10:54 [facility] [id number]) Hip Goniometric Range of Motion Hip Left Testing Position Supine Flexion w/Knee Flexed 90 Straight Leg Raise 45 Extension 0 Abduction 10 External Rotation 10 Hip ROM Limitations Hip ROM Limitations Soft Tissue Tightness,Pain, Swelling Comments pt with posterior hip precautions on the left side PT-OP-M Strength Start: 02/29/24 08:19 Freq: Status: Active Protocol: Document 02/24/24 10:30 AM[facility] (Rec: 02/29/24 11:03 [facility] [id number]) Hip Strength Hip Manual Muscle Testing Left Flexion (L2) 2+ Poor+ Extension (S1) 2+ Poor+ Abduction 2+ Poor+ External Rotation 2+ Poor+ Knee Strength Knee Manual Muscle Testing Left Flexion (S2) 4 Good Extension (L3) 3 Fair PT-OP-Q Treatments Start: 02/24/24 08:01 Freq: Status: Active Protocol: Document 03/03/24 12:56 AB (Rec: 03/03/24 13:48 AB [id number]) Therapeutic Exercises Supine Exercises SLR Supine Exercise Name HEP Side right Reps/Minutes X10 AROM hip abduction with quad set Supine Exercise Name AROM Side left Reps/Minutes x 10 Comments verbal cues to avoid toeing out bridges Side bilateral Reps/Minutes x 10 reps Comments Verbal cues to push into heels to avoid HS cramping Sitting Exercises seated hip abduction with band Side bilateral Resistance Level one band Reps/Minutes X15 without hold then one one minute hold X 1 Standing Exercises mini squats Reps/Minutes 2x 10 reps Neuro Re-Education Treatment Balance Activities Romberg Surface on and off air ex Comments CGA with eyes closed, open, visual scanning tandem Surface on and off air ex Comments CGA with eyes closed, open, visual scanning SLS Details CGA Reps/Duration X2 Comments with and without head turns, visual scanning PT-OP-T Assessment and Plan Start: 02/24/24 08:01 Freq: Status: Active Protocol: Document 03/03/24 12:56 AB (Rec: 03/03/24 13:48 AB [id number]) Physical Therapy Assessment Goals 3 Impairment Left sided hip pain rated 6/10 Care Home Goal (LTG) Carolyn reports a overall reduction in her hip pain symptoms from 6/10 to 1-2/10 LTG Duration 8 weeks 2 Impairment Decreased hip ROM especially into hip abduction Short Term Goal (STG) Carolyn is able to perform supine hip Abduction AROM STG Duration 4 weeks [employer] Goal (LTG) Carolyn is able to perform standing hip abduction without increased pain LTG Duration 8 weeks 1 Impairment Decreased hip strength and pt has difficulty with activities such as sit to stand [employer] Goal (LTG) Carolyn is able to perform sit- stand without use of UE and presents with improved hip strength LTG Duration 8 weeks Three Impairment Trunk flexion 65 deg's, ext 10 deg's. Hip mobility (in deg's): SLR 55 L, 80 R; Internal Rot 0 L, 30 R; External Rot 40 L, 65 R. Assessment Summary Assessment Carolyn rates pain 0/10 ambulating out of session with SPC. Patient advised to continue to use SPC in home due to reports of increased pain with SLS and increased pain with increased ambulation in home when forgets to use SPC. Physical Therapy Plan Frequency and Duration Frequency of Treatment 2x/Week Duration of treatment (weeks) 8 Plan of Care Start Date 02/24/24 Plan of Care End Date 04/20/24 Next Visit Focus/Plan Next Note Type Treatment Note Next Visit Plan review/progress standing exercises, work on hip hinge with mini squats and progress sit-stand, Reassess dariana to SLS
--- NOTE | 2024-03-08 16:15 | PT.OTN ---
Current Diagnoses Unilateral primary osteoarthritis, left hip (03/08/24) Pain in left hip (03/08/24) Stiffness of left hip, not elsewhere classified (03/08/24) Muscle weakness (generalized) (03/08/24) Presence of left artificial hip joint (03/08/24) Physical Therapy Treatment Note PT-OP-A Visit Information Start: 02/24/24 08:01 Freq: Status: Active Protocol: Document 03/08/24 13:03 AB (Rec: 03/08/24 13:47 AB [id number]) Out-Patient Physical Therapy Visit Information Visit Information Visit Type Treatment Note Visit Note [id number] Visit Start Time 13:03 Visit Stop Time 13:45 Visit Number 4 Number of SEASONAL PACKAGE HANDLER Visits 1 Evaluation Information Evaluation Date 02/24/24 PT-OP-B Current Condition Start: 02/24/24 08:01 Freq: Status: Active Protocol: Document 02/24/24 10:30 AM[facility] (Rec: 02/24/24 11:22 [facility] [id number]) Current Condition History of Current Condition Onset Date 02/04/24 Current Complaints left hip pain, decreased strength and mobility History of Current Condition 02/04/24 posterior hip replacement with Dr Chung left hip pt used the walker for the first week and then she progressed to the cane at times she doesn't have pain but with walking she does have pain. She did take 2 Tylenol today but that is the only pain medication she is taking She notes she is able to go up and down stairs using her hand rail at home she feels better than she did prior to surgery already Treatment Goals Patient/Caregiver Goals she wants to be able to stand without support and be able to put on shoes and socks PT-OP-C Subjective Start: 02/24/24 08:01 Freq: Status: Active Protocol: Document 03/08/24 13:03 AB (Rec: 03/08/24 13:47 AB [id number]) OP-PT Subjective Patient Comments Patient Comments Patient reports she over did it on Wednesday and had increased pain through yesterday, but was less yesterday. Patient rates pain 2/10 left hip start of session. SLS 15+ seconds without UE use, loses balance within 2 head turns post 15 seconds. PT-OP-F Manual Assessment Start: 02/24/24 08:01 Freq: Status: Active Protocol: Document 02/24/24 10:30 AMH (Rec: 02/29/24 10:54 [facility] [id number]) Manual Assessments Soft Tissue Assessment Soft Tissue Mobility Assessment with scar inspection over the left lateral hip the scar is healing really well. There is some scar tissue present throughout the length of the incision. There is fascial tightness especially at the distal end of the scar PT-OP-J Posture/Palpation/Skin Start: 02/24/24 08:01 Freq: Status: Active Protocol: Document 02/24/24 10:30 AMH (Rec: 02/29/24 10:54 [facility] [id number]) Palpation Assessment Location left lateral hip Palpation Findings Soft Tissue Tightness,Muscle Guarding,Tenderness PT-OP-K Range of Motion Start: 02/29/24 08:19 Freq: Status: Active Protocol: Document 02/24/24 10:30 AMH (Rec: 02/29/24 10:54 [facility] [id number]) Hip Goniometric Range of Motion Hip Left Testing Position Supine Flexion w/Knee Flexed 90 Straight Leg Raise 45 Extension 0 Abduction 10 External Rotation 10 Hip ROM Limitations Hip ROM Limitations Soft Tissue Tightness,Pain, Swelling Comments pt with posterior hip precautions on the left side PT-OP-M Strength Start: 02/29/24 08:19 Freq: Status: Active Protocol: Document 02/24/24 10:30 AMH (Rec: 02/29/24 11:03 [facility] [id number]) Hip Strength Hip Manual Muscle Testing Left Flexion (L2) 2+ Poor+ Extension (S1) 2+ Poor+ Abduction 2+ Poor+ External Rotation 2+ Poor+ Knee Strength Knee Manual Muscle Testing Left Flexion (S2) 4 Good Extension (L3) 3 Fair PT-OP-Q Treatments Start: 02/24/24 08:01 Freq: Status: Active Protocol: Document 03/08/24 13:03 AB (Rec: 03/08/24 13:47 AB [id number]) Therapeutic Exercises Supine Exercises heel slide Supine Exercise Name AROM Side left Reps/Minutes X10 SLR Supine Exercise Name HEP Side right Reps/Minutes X10 AROM hip abduction with quad set Supine Exercise Name AROM Side left Reps/Minutes x 10 Comments verbal cues to avoid toeing out bridges Side bilateral Reps/Minutes x 10 reps Comments Verbal cues to push into heels to avoid HS cramping quad set Reps/Minutes 5 sec hold x 15 reps Sitting Exercises seated hip abduction with band Side bilateral Resistance Level one band Reps/Minutes X15 without hold then one one minute hold X 1 Standing Exercises mini squats Reps/Minutes x 10 reps Manual Therapy Treatment Consent Patient gave verbal consent for manual Yes treatment Soft Tissue Mobilization scar tissue massage over the lateral left hip Mobilization Type Myofascial Release Intensity/Depth Superficial to moderate Body Position Sidelying Neuro Re-Education Treatment Balance Activities SLS Details distant supervision HEP Reps/Duration X2 Comments with and without head turns, visual scanning PT-OP-T Assessment and Plan Start: 02/24/24 08:01 Freq: Status: Active Protocol: Document 03/08/24 13:03 AB (Rec: 03/08/24 13:47 AB [id number]) Physical Therapy Assessment Goals 3 Impairment Left sided hip pain rated 6/10 Bag Machine Operator Goal (LTG) Carolyn reports a overall reduction in her hip pain symptoms from 6/10 to 1-2/10 LTG Duration 8 weeks 2 Impairment Decreased hip ROM especially into hip abduction Short Term Goal (STG) Carolyn is able to perform supine hip Abduction AROM STG Duration 4 weeks Bag Machine Operator Goal (LTG) Carolyn is able to perform standing hip abduction without increased pain LTG Duration 8 weeks 1 Impairment Decreased hip strength and pt has difficulty with activities such as sit to stand Bag Machine Operator Goal (LTG) Carolyn is able to perform sit- stand without use of UE and presents with improved hip strength LTG Duration 8 weeks Three Impairment Trunk flexion 65 deg's, ext 10 deg's. Hip mobility (in deg's): SLR 55 L, 80 R; Internal Rot 0 L, 30 R; External Rot 40 L, 65 R. Assessment Summary Assessment Carolyn rates left hip pain 1/ 10 end of session ambulating out of session with SPC. Physical Therapy Plan Frequency and Duration Frequency of Treatment 2x/Week Duration of treatment (weeks) 8 Plan of Care Start Date 02/24/24 Plan of Care End Date 04/20/24 Next Visit Focus/Plan Next Note Type Treatment Note Next Visit Plan review/progress standing exercises, work on hip hinge with mini squats and progress sit-stand,
--- NOTE | 2024-03-10 12:16 | PT.OTN ---
Current Diagnoses Unilateral primary osteoarthritis, left hip (03/10/24) Pain in left hip (03/10/24) Stiffness of left hip, not elsewhere classified (03/10/24) Muscle weakness (generalized) (03/10/24) Presence of left artificial hip joint (03/10/24) Physical Therapy Treatment Note PT-OP-A Visit Information Start: 02/24/24 08:01 Freq: Status: Active Protocol: Document 03/10/24 09:15 AB (Rec: 03/10/24 12:15 AB [id number]) Out-Patient Physical Therapy Visit Information Visit Information Visit Type Treatment Note Visit Note [id number] Visit Start Time 11:20 Visit Stop Time 12:06 Visit Number 5 Number of RESIDENT CARE DIRECTOR Visits 3 Evaluation Information Evaluation Date 02/24/24 PT-OP-B Current Condition Start: 02/24/24 08:01 Freq: Status: Active Protocol: Document 02/24/24 10:30 AMH (Rec: 02/24/24 11:22 [facility] [id number]) Current Condition History of Current Condition Onset Date 02/04/24 Current Complaints left hip pain, decreased strength and mobility History of Current Condition 02/04/24 posterior hip replacement with Dr Chung left hip pt used the walker for the first week and then she progressed to the cane at times she doesn't have pain but with walking she does have pain. She did take 2 Tylenol today but that is the only pain medication she is taking She notes she is able to go up and down stairs using her hand rail at home she feels better than she did prior to surgery already Treatment Goals Patient/Caregiver Goals she wants to be able to stand without support and be able to put on shoes and socks PT-OP-C Subjective Start: 02/24/24 08:01 Freq: Status: Active Protocol: Document 03/10/24 09:15 AB (Rec: 03/10/24 12:15 AB [id number]) OP-PT Subjective Patient Comments Patient Comments Patient reports she did her exercises and has been going to [facility]. Patient rates left hip pain 07/14 start of session. Patient reports she is able to lie on the left side without pain anymore. PT-OP-F Manual Assessment Start: 02/24/24 08:01 Freq: Status: Active Protocol: Document 02/24/24 10:30 AM[facility] (Rec: 02/29/24 10:54 [facility] [id number]) Manual Assessments Soft Tissue Assessment Soft Tissue Mobility Assessment with scar inspection over the left lateral hip the scar is healing really well. There is some scar tissue present throughout the length of the incision. There is fascial tightness especially at the distal end of the scar PT-OP-J Posture/Palpation/Skin Start: 02/24/24 08:01 Freq: Status: Active Protocol: Document 02/24/24 10:30 AMH (Rec: 02/29/24 10:54 [facility] [id number]) Palpation Assessment Location left lateral hip Palpation Findings Soft Tissue Tightness,Muscle Guarding,Tenderness PT-OP-K Range of Motion Start: 02/29/24 08:19 Freq: Status: Active Protocol: Document 02/24/24 10:30 AMH (Rec: 02/29/24 10:54 [facility] [id number]) Hip Goniometric Range of Motion Hip Left Testing Position Supine Flexion w/Knee Flexed 90 Straight Leg Raise 45 Extension 0 Abduction 10 External Rotation 10 Hip ROM Limitations Hip ROM Limitations Soft Tissue Tightness,Pain, Swelling Comments pt with posterior hip precautions on the left side PT-OP-M Strength Start: 02/29/24 08:19 Freq: Status: Active Protocol: Document 02/24/24 10:30 AMH (Rec: 02/29/24 11:03 AM[facility] [id number]) Hip Strength Hip Manual Muscle Testing Left Flexion (L2) 2+ Poor+ Extension (S1) 2+ Poor+ Abduction 2+ Poor+ External Rotation 2+ Poor+ Knee Strength Knee Manual Muscle Testing Left Flexion (S2) 4 Good Extension (L3) 3 Fair PT-OP-Q Treatments Start: 02/24/24 08:01 Freq: Status: Active Protocol: Document 03/10/24 09:15 AB (Rec: 03/10/24 12:15 AB [id number]) Gym Equipment Shuttle Balance red Details wide MT, normal MT, stagger Reps/Duration CGA Therapeutic Exercises Supine Exercises heel slide Supine Exercise Name AROM Side left Reps/Minutes X15 SLR Supine Exercise Name HEP Side right Reps/Minutes X15 Comments VC to rest a moment between repetitions AROM hip abduction with quad set Supine Exercise Name AROM Side left Reps/Minutes X15 Comments verbal cues to avoid toeing out Sitting Exercises seated hip abduction with band Side bilateral Resistance Level 3 band Reps/Minutes X15 without hold then one one minute hold X 1 Standing Exercises standing calf raise Side bilateral Reps/Minutes 1 x 30 sec hold Manual Therapy Treatment Soft Tissue Mobilization scar tissue massage over the lateral left hip Mobilization Type Myofascial Release Intensity/Depth Superficial to moderate Body Position Sidelying Neuro Re-Education Treatment Balance Activities step up taps Details standing on air ex Reps/Duration X10 Comments CGA hands above parallel bars tandem Details stepping Reps/Duration 10 feet X 6 Comments CGA SLS Details on and off air ex Comments CGA PT-OP-T Assessment and Plan Start: 02/24/24 08:01 Freq: Status: Active Protocol: Document 03/10/24 09:15 AB (Rec: 03/10/24 12:15 AB [id number]) Physical Therapy Assessment Goals 3 Impairment Left sided hip pain rated 6/10 Mounted Police Goal (LTG) Carolyn reports a overall reduction in her hip pain symptoms from 6/10 to 1-2/10 LTG Duration 8 weeks 2 Impairment Decreased hip ROM especially into hip abduction Short Term Goal (STG) Carolyn is able to perform supine hip Abduction AROM STG Duration 4 weeks Alf Goal (LTG) Carolyn is able to perform standing hip abduction without increased pain LTG Duration 8 weeks 1 Impairment Decreased hip strength and pt has difficulty with activities such as sit to stand Mounted Police Goal (LTG) Carolyn is able to perform sit- stand without use of UE and presents with improved hip strength LTG Duration 8 weeks Three Impairment Trunk flexion 65 deg's, ext 10 deg's. Hip mobility (in deg's): SLR 55 L, 80 R; Internal Rot 0 L, 30 R; External Rot 40 L, 65 R. Assessment Summary Assessment Carolyn rates pain 0/10 end of session ambulating out of session with SPC. Physical Therapy Plan Frequency and Duration Frequency of Treatment 2x/Week Duration of treatment (weeks) 8 Plan of Care Start Date 02/24/24 Plan of Care End Date 04/20/24 Next Visit Focus/Plan Next Note Type Treatment Note Next Visit Plan review/progress standing exercises, work on hip hinge with mini squats and progress sit-stand,
--- NOTE | 2024-03-14 10:30 | PT.OTN ---
Current Diagnoses Unilateral primary osteoarthritis, left hip (03/14/24) Pain in left hip (03/14/24) Stiffness of left hip, not elsewhere classified (03/14/24) Muscle weakness (generalized) (03/14/24) Presence of left artificial hip joint (03/14/24) Physical Therapy Treatment Note PT-OP-A Visit Information Start: 02/24/24 08:01 Freq: Status: Active Protocol: Document 03/14/24 09:48 [facility] (Rec: 03/14/24 10:27 [facility] [id number]) Out-Patient Physical Therapy Visit Information Visit Information Visit Type Treatment Note PT-OP-B Current Condition Start: 02/24/24 08:01 Freq: Status: Active Protocol: Document 02/24/24 10:30 AMH (Rec: 02/24/24 11:22 [facility] [id number]) Current Condition History of Current Condition Onset Date 02/04/24 Current Complaints left hip pain, decreased strength and mobility History of Current Condition 02/04/24 posterior hip replacement [address] Dr Chung left hip pt used the walker for the first week and then she progressed to the cane at times she doesn't have pain but with walking she does have pain. She did take 2 Tylenol today but that is the only pain medication she is taking She notes she is able to go up and down stairs using her hand rail at home she feels better than she did prior to surgery already Treatment Goals Patient/Caregiver Goals she wants to be able to stand without support and be able to put on shoes and socks PT-OP-C Subjective Start: 02/24/24 08:01 Freq: Status: Active Protocol: Document 03/14/24 09:48 [facility] (Rec: 03/14/24 10:27 [facility] [id number]) OP-PT Subjective Patient Comments Patient Comments pt notes she has taken two ferries to the [facility] and she is still a . SHe is still working on her hip precautions Tommorrow is her post op appt. PT-OP-F Manual Assessment Start: 02/24/24 08:01 Freq: Status: Active Protocol: Document 02/24/24 10:30 [facility] (Rec: 02/29/24 10:54 [facility] [id number]) Manual Assessments Soft Tissue Assessment Soft Tissue Mobility Assessment with scar inspection over the left lateral hip the scar is healing really well. There is some scar tissue present throughout the length of the incision. There is fascial tightness especially at the distal end of the scar PT-OP-J Posture/Palpation/Skin Start: 02/24/24 08:01 Freq: Status: Active Protocol: Document 02/24/24 10:30 [facility] (Rec: 02/29/24 10:54 [facility] [id number]) Palpation Assessment Location left lateral hip Palpation Findings Soft Tissue Tightness,Muscle Guarding,Tenderness PT-OP-K Range of Motion Start: 02/29/24 08:19 Freq: Status: Active Protocol: Document 02/24/24 10:30 [facility] (Rec: 02/29/24 10:54 [facility] [id number]) Hip Goniometric Range of Motion Hip Left Testing Position Supine Flexion w/Knee Flexed 90 Straight Leg Raise 45 Extension 0 Abduction 10 External Rotation 10 Hip ROM Limitations Hip ROM Limitations Soft Tissue Tightness,Pain, Swelling Comments pt with posterior hip precautions on the left side PT-OP-M Strength Start: 02/29/24 08:19 Freq: Status: Active Protocol: Document 02/24/24 10:30 [facility] (Rec: 02/29/24 11:03 [facility] [id number]) Hip Strength Hip Manual Muscle Testing Left Flexion (L2) 2+ Poor+ Extension (S1) 2+ Poor+ Abduction 2+ Poor+ External Rotation 2+ Poor+ Knee Strength Knee Manual Muscle Testing Left Flexion (S2) 4 Good Extension (L3) 3 Fair PT-OP-Q Treatments Start: 02/24/24 08:01 Freq: Status: Active Protocol: Document 03/14/24 09:48 [facility] (Rec: 03/14/24 10:27 [facility] [id number]) Therapeutic Exercises Standing Exercises staning hamstring stretch Reps/Minutes hold 30 sec standing quad stretch Reps/Minutes hold 1-2 min weight shifts onto the left leg Reps/Minutes 3 x 15 sec holds standing calf raise Side bilateral Reps/Minutes 1 x 30 sec hold side step ups 4 Side left Reps/Minutes 2 x 10 Comments at the railing for hand support step ups 4 step Side left Reps/Minutes 2 x 10 Comments at the railing for hand support mini squats Reps/Minutes x 10 reps side steps at the counter Reps/Minutes with level 2 TB 3 x 10 reps Other Exercises stair training Comments worked on step over step today on 4 stair PT-OP-T Assessment and Plan Start: 02/24/24 08:01 Freq: Status: Active Protocol: Document 03/14/24 09:45 [facility] (Rec: 03/15/24 08:07 [facility] [id number]) Physical Therapy Assessment Assessment Summary Assessment Carolyn is making great progress with PT, we worked on sit-stand and stand to sit and she still has a little difficulty with descending to the chair without hand use. I added theraband resistance to her side steps and we worked on standing mini squats with theraband around her thighs. She has one visit left in PT and she will then be discharged to a [facility] Physical Therapy Plan Frequency and Duration Frequency of Treatment 2x/Week Duration of treatment (weeks) 8 Plan of Care Start Date 02/24/24 Plan of Care End Date 04/20/24 Therapeutic Interventions Therapeutic Interventions Gait Training,Home Exercise Program,Manual Therapy,Patient /Caregiver Education,Self-Care /Home Management,Soft Tissue Mobilization,Therapeutic Exercises Modalities Cold Pack/Ice Massage
--- NOTE | 2024-03-16 12:20 | PT.OTN ---
Current Diagnoses Unilateral primary osteoarthritis, left hip (03/16/24) Pain in left hip (03/16/24) Stiffness of left hip, not elsewhere classified (03/16/24) Muscle weakness (generalized) (03/16/24) Presence of left artificial hip joint (03/16/24) Physical Therapy Treatment Note PT-OP-A Visit Information Start: 02/24/24 08:01 Freq: Status: Active Protocol: Document 03/16/24 11:56 [facility] (Rec: 03/16/24 12:20 [facility] [id number]) Out-Patient Physical Therapy Visit Information Visit Information Visit Type Treatment Note Visit Start Time 11:20 Visit Stop Time 12:00 Visit Number 6 PT-OP-B Current Condition Start: 02/24/24 08:01 Freq: Status: Active Protocol: Document 02/24/24 10:30 [facility] (Rec: 02/24/24 11:22 [facility] [id number]) Current Condition History of Current Condition Onset Date 02/04/24 Current Complaints left hip pain, decreased strength and mobility History of Current Condition 02/04/24 posterior hip replacement [address] Dr Chung left hip pt used the walker for the first week and then she progressed to the cane at times she doesn't have pain but with walking she does have pain. She did take 2 Tylenol today but that is the only pain medication she is taking She notes she is able to go up and down stairs using her hand rail at home she feels better than she did prior to surgery already Treatment Goals Patient/Caregiver Goals she wants to be able to stand without support and be able to put on shoes and socks PT-OP-C Subjective Start: 02/24/24 08:01 Freq: Status: Active Protocol: Document 03/16/24 11:56 [facility] (Rec: 03/16/24 12:20 [facility] [id number]) OP-PT Subjective Patient Comments Patient Comments pt notes sheis doing great and saw her and she is cleared to start riding her bike and to sit to put on her shoes and socks. SHe denies any pain and is no longer taking any tylenol PT-OP-F Manual Assessment Start: 02/24/24 08:01 Freq: Status: Active Protocol: Document 02/24/24 10:30 [facility] (Rec: 02/29/24 10:54 [facility] [id number]) Manual Assessments Soft Tissue Assessment Soft Tissue Mobility Assessment with scar inspection over the left lateral hip the scar is healing really well. There is some scar tissue present throughout the length of the incision. There is fascial tightness especially at the distal end of the scar PT-OP-J Posture/Palpation/Skin Start: 02/24/24 08:01 Freq: Status: Active Protocol: Document 02/24/24 10:30 [facility] (Rec: 02/29/24 10:54 [facility] [id number]) Palpation Assessment Location left lateral hip Palpation Findings Soft Tissue Tightness,Muscle Guarding,Tenderness PT-OP-K Range of Motion Start: 02/29/24 08:19 Freq: Status: Active Protocol: Document 02/24/24 10:30 [facility] (Rec: 02/29/24 10:54 [facility] [id number]) Hip Goniometric Range of Motion Hip Left Testing Position Supine Flexion w/Knee Flexed 90 Straight Leg Raise 45 Extension 0 Abduction 10 External Rotation 10 Hip ROM Limitations Hip ROM Limitations Soft Tissue Tightness,Pain, Swelling Comments pt with posterior hip precautions on the left side PT-OP-M Strength Start: 02/29/24 08:19 Freq: Status: Active Protocol: Document 02/24/24 10:30 [facility] (Rec: 02/29/24 11:03 [facility] [id number]) Hip Strength Hip Manual Muscle Testing Left Flexion (L2) 2+ Poor+ Extension (S1) 2+ Poor+ Abduction 2+ Poor+ External Rotation 2+ Poor+ Knee Strength Knee Manual Muscle Testing Left Flexion (S2) 4 Good Extension (L3) 3 Fair PT-OP-Q Treatments Start: 02/24/24 08:01 Freq: Status: Active Protocol: Document 03/16/24 11:56 [facility] (Rec: 03/16/24 12:20 [facility] [id number]) Therapeutic Exercises Supine Exercises hip flexion to 90 with ER Comments gentle hip flexion to 90 with hip ER heel slide Supine Exercise Name AROM Side left Reps/Minutes X15 Standing Exercises staning hamstring stretch Reps/Minutes hold 30 sec standing quad stretch Reps/Minutes hold 1-2 min side step ups 4 Side left Reps/Minutes 2 x 10 Comments at the railing for hand support mini squats Reps/Minutes x 10 reps side steps at the counter Standing Exercise Name side steps without counter support Reps/Minutes with level 2 TB 3 x 10 reps Other Exercises stair training Comments worked on step over step today on 4 stair Manual Therapy Treatment Soft Tissue Mobilization STM left quadricep Body Location left quadricep Mobilization Type Myofascial Release Intensity/Depth Moderate Comments MFR to the left quad, good tolerance and pt responded well with fascial release Manual Techniques manual quad stretch in supine Reps/Duration hold 1-2 min Comments worked into gentle hip extension with quad stretch PT-OP-T Assessment and Plan Start: 02/24/24 08:01 Freq: Status: Active Protocol: Document 03/16/24 11:56 [facility] (Rec: 03/16/24 12:20 [facility] [id number]) Physical Therapy Assessment Goals 3 Impairment Left sided hip pain rated 6/10 Long-Term Goal (LTG) Carolyn reports a overall reduction in her hip pain symptoms from 6/10 to 1-2/10 GOAL met as Carolyn denies pain at this time LTG Duration 8 weeks 2 Impairment Decreased hip ROM especially into hip abduction Short Term Goal (STG) Carolyn is able to perform supine hip Abduction AROM goal met STG Duration 4 weeks Houseperson Goal (LTG) Carolyn is able to perform standing hip abduction without increased pain goal met LTG Duration 8 weeks 1 Impairment Decreased hip strength and pt has difficulty with activities such as sit to stand Long-Term Goal (LTG) Carolyn is able to perform sit- stand without use of UE and presents with improved hip strength excellent profress LTG Duration 8 weeks Assessment Summary Assessment Carolyn has made great overall progress with PT. She has met all her goals and will be discharged from PT at this time to a [facility] Physical Therapy Plan Discharge Physical Therapy Discharge Reasons Goals Met
--- NOTE | 2024-03-16 12:20 | PT.OPDS ---
Current Diagnoses Unilateral primary osteoarthritis, left hip (03/16/24) Pain in left hip (03/16/24) Stiffness of left hip, not elsewhere classified (03/16/24) Muscle weakness (generalized) (03/16/24) Presence of left artificial hip joint (03/16/24) Visit Care Team Role Provider Type Usha Matta DO Primary Care Provider Physician Specialty: Family Practice Address: [address] [place] [address], [address], [address] Email: [email or web address] Gavin Curry MD Family Provider Non-Staff Specialty: Internal Medicine Address: [address] [place] [address], [address], [place], [address] Email: Usha Woo PA-C Attending Provider Non-Staff Referring Provider Specialty: General Surgery Address: [address] [place] [address], [id number] Email: Visit Number Visit Number 6 Discharge Summary PT-OP-B Current Condition Start: 02/24/24 08:01 Freq: Status: Active Protocol: Document 02/24/24 10:30 [facility] (Rec: 02/24/24 11:22 [facility] [id number]) Current Condition History of Current Condition Onset Date 02/04/24 Current Complaints left hip pain, decreased strength and mobility History of Current Condition 02/04/24 posterior hip replacement [address] Dr Chung left hip pt used the walker for the first week and then she progressed to the cane at times she doesn't have pain but with walking she does have pain. She did take 2 Tylenol today but that is the only pain medication she is taking She notes she is able to go up and down stairs using her hand rail at home she feels better than she did prior to surgery already Treatment Goals Patient/Caregiver Goals she wants to be able to stand without support and be able to put on shoes and socks PT-OP-C Subjective Start: 02/24/24 08:01 Freq: Status: Active Protocol: Document 03/16/24 11:56 [facility] (Rec: 03/16/24 12:20 [facility] [id number]) OP-PT Subjective Patient Comments Patient Comments pt notes sheis doing great and saw her Dr. and she is cleared to start riding her bike and to sit to put on her shoes and socks. SHe denies any pain and is no longer taking any tylenol PT-OP-F Manual Assessment Start: 02/24/24 08:01 Freq: Status: Active Protocol: Document 02/24/24 10:30 [facility] (Rec: 02/29/24 10:54 [facility] [id number]) Manual Assessments Soft Tissue Assessment Soft Tissue Mobility Assessment with scar inspection over the left lateral hip the scar is healing really well. There is some scar tissue present throughout the length of the incision. There is fascial tightness especially at the distal end of the scar PT-OP-J Posture/Palpation/Skin Start: 02/24/24 08:01 Freq: Status: Active Protocol: Document 02/24/24 10:30 [facility] (Rec: 02/29/24 10:54 [facility] [id number]) Palpation Assessment Location left lateral hip Palpation Findings Soft Tissue Tightness,Muscle Guarding,Tenderness PT-OP-K Range of Motion Start: 02/29/24 08:19 Freq: Status: Active Protocol: Document 02/24/24 10:30 [facility] (Rec: 02/29/24 10:54 [facility] [id number]) Hip Goniometric Range of Motion Hip Left Testing Position Supine Flexion w/Knee Flexed 90 Straight Leg Raise 45 Extension 0 Abduction 10 External Rotation 10 Hip ROM Limitations Hip ROM Limitations Soft Tissue Tightness,Pain, Swelling Comments pt with posterior hip precautions on the left side PT-OP-M Strength Start: 02/29/24 08:19 Freq: Status: Active Protocol: Document 02/24/24 10:30 [facility] (Rec: 02/29/24 11:03 [facility] [id number]) Hip Strength Hip Manual Muscle Testing Left Flexion (L2) 2+ Poor+ Extension (S1) 2+ Poor+ Abduction 2+ Poor+ External Rotation 2+ Poor+ Knee Strength Knee Manual Muscle Testing Left Flexion (S2) 4 Good Extension (L3) 3 Fair PT-OP-T Assessment and Plan Start: 02/24/24 08:01 Freq: Status: Active Protocol: Document 03/16/24 11:56 [facility] (Rec: 03/16/24 12:20 [facility] [id number]) Physical Therapy Assessment Goals 3 Impairment Left sided hip pain rated 6/10 Care Home Goal (LTG) Carolyn reports a overall reduction in her hip pain symptoms from 6/10 to 1-2/10 GOAL met as Carolyn denies pain at this time LTG Duration 8 weeks 2 Impairment Decreased hip ROM especially into hip abduction Short Term Goal (STG) Carolyn is able to perform supine hip Abduction AROM goal met STG Duration 4 weeks Care Home Goal (LTG) Carolyn is able to perform standing hip abduction without increased pain goal met LTG Duration 8 weeks 1 Impairment Decreased hip strength and pt has difficulty with activities such as sit to stand Care Home Goal (LTG) Carolyn is able to perform sit- stand without use of UE and presents with improved hip strength excellent progress LTG Duration 8 weeks Assessment Summary Assessment Carolyn has made great overall progress with PT. She has met all her goals and will be discharged from PT at this time to a [facility] Physical Therapy Plan Discharge Physical Therapy Discharge Reasons Goals Met
== END 2024-03-21 14:17 | disposition home or self-care (01) ==
LOC: PHYS 11:15
PROVIDERS: Family Provider Student in an Organized Health Care Education/Training Program; PCP Family Medicine; Referring Provider Physician Assistant; Visit Provider Physician Assistant
DX: M16.12 Unilateral primary osteoarthritis, left hip (principal); Z96.642 Presence of left artificial hip joint; M25.652 Stiffness of left hip, not elsewhere classified; M62.81 Muscle weakness (generalized); M25.552 Pain in left hip
CPT/HCPCS: 97110; 97112; 97140; 97161

== ENCOUNTER → 2024-03-17 09:26 | Outpatient (CLI) | payer OTHER, MEDICAID, SELFPAY ==
[2019-07-24 16:23] VITALS: BMI 39.4
[2024-03-17 10:44] LABS: Add Manual Diff / Slide Review NO; Basophils Absolute Auto 0 /uL (0-100); Basophils Percent Auto 0.7 % (0-2); Eosinophils Absolute Auto 100 /uL (0-450); Eosinophils Percent Auto 2.2 % (2-4); Hematocrit 29.5 % (36-46); Hemoglobin 9.5 g/dL (12.0-16.0); Lymphocytes Absolute Auto 800 /uL (1100-4500); Mean Corpuscular HGB Conc 32.3 % (30-36); Mean Corpuscular Hemoglobin 27.2 PG (26-34); Mean Corpuscular Volume 84.4 fL (80-100); Monocytes Absolute Auto 400 /uL (0-900); Monocytes Percent Auto 7.2 % (3-14); Neutrophils Absolute Auto 3600 /uL (1500-7000); Neutrophils Percent Auto 73.9 % (50-75); Platelet Count 341 X10^3/uL (150-400); Red Blood Cell Count 3.49 X10^6/uL (4.0-5.2); Red Cell Distribution Width 17.5 % (11.6-14.8); White Blood Cell Count 4.9 X10^3/uL (4.5-11.0)
[2024-03-17 11:14] LABS: HEMOLYSIS < 15 (0-50); Iron 26 ug/dL (37-170)
[2024-03-17 11:19] LABS: Alanine Aminotransferase 11 IU/L (<35); Albumin 3.7 g/dL (3.5-5.0); Albumin Globulin Ratio 1.3 (1.0-2.8); Alkaline Phosphatase 109 U/L (38-126); Aspartate Aminotransferase 18 IU/L (14-36); BUN Creatinine Ratio 27.5 (6-22); Bilirubin Total 0.4 mg/dL (0.2-1.3); Blood Urea Nitrogen 14 mg/dL (7-17); Calcium 9.3 mg/dL (8.4-10.2); Carbon Dioxide 28 mmol/L (22-32); Chloride 104 mmol/L (98-107); Estimated Glomerular Filt Rate > 60 mL/min (>60); Globulin 2.8 g/dL (1.7-4.1); Glucose 85 mg/dL (80-110); HEMOLYSIS < 15 (0-50); Potassium 4.4 mmol/L (3.4-5.1); Sodium 136 mmol/L (137-145); Total Protein 6.5 g/dL (6.3-8.2)
[2024-03-17 11:29] LABS: Percent Iron Saturation 7 % (15-50); Total Iron Binding Capacity 358 ug/dL (265-497); Transferrin 270 mg/dL (206-381)
[2024-03-17 11:42] LABS: TSH w/ Reflex to FT4 1.51 uIU/mL (0.47-4.68)
== END ==
PROVIDERS: Family Provider Student in an Organized Health Care Education/Training Program; PCP Family Medicine; Referring Provider Family Medicine; Visit Provider Family Medicine
DX: D50.9 Iron deficiency anemia, unspecified (principal); R61 Generalized hyperhidrosis; Z98.890 Other specified postprocedural states; Z79.1 Long term (current) use of non-steroidal anti-inflammatories (NSAID); Z51.81 Encounter for therapeutic drug level monitoring; Z79.899 Other long term (current) drug therapy
CPT/HCPCS: 36415; 80053; 82672; 83540; 83550; 84144; 84443; 84999; 85025

== ENCOUNTER → 2024-03-18 15:01 | Outpatient (CLI) | payer OTHER, MEDICAID, SELFPAY ==
[2019-07-24 16:23] VITALS: BMI 39.4
== END ==
LOC: LAB 15:01
PROVIDERS: Family Provider Student in an Organized Health Care Education/Training Program; PCP Family Medicine; Referring Provider Family Medicine; Visit Provider Family Medicine
DX: R61 Generalized hyperhidrosis (principal); D3A.00 Benign carcinoid tumor of unspecified site
CPT/HCPCS: 83497

== ENCOUNTER → 2024-03-25 11:18 | Outpatient (CLI) | payer OTHER, MEDICAID, SELFPAY ==
[2019-07-24 16:23] VITALS: BMI 39.4
== END ==
PROVIDERS: Family Provider Student in an Organized Health Care Education/Training Program; PCP Family Medicine; Visit Provider Physician Assistant Surgical
DX: R30.0 Dysuria (principal)
CPT/HCPCS: 87077; 87086

== ENCOUNTER → 2024-04-06 17:17 | Outpatient (CLI) | payer OTHER, MEDICAID, SELFPAY ==
[2019-07-24 16:23] VITALS: BMI 39.4
== END ==
PROVIDERS: Family Provider Student in an Organized Health Care Education/Training Program; PCP Family Medicine; Visit Provider Nurse Practitioner Family
DX: R30.0 Dysuria (principal)
CPT/HCPCS: 87210

== ENCOUNTER 2024-04-10 00:13 | Observation (INO) | payer OTHER, MEDICAID, SELFPAY ==
[2019-07-24 16:23] VITALS: BMI 39.4
[2024-04-10] VITALS (16 sets, daily range): BP systolic 92–140; BP diastolic 52–86; PULSE 72–113; RESP 12–26; TEMP 36.3–37.1; O2SAT 96–100; BMI 35.0
--- NOTE | 2024-04-10 00:27 | EKG_ITS ---
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
--- NOTE | 2024-04-10 00:44 | ED_ITS ---
HPI - General Adult General Chief complaint: Abdominal Pain Stated complaint: abd pain, heart rate elevated Time Seen by Provider: 04/10/24 00:25 Source: patient Mode of arrival: Family Vehicle History of Present Illness HPI narrative: Patient is a 63-year-old female who is here for evaluation of abdominal discomfort. She states that earlier today she started to have generalized abdominal discomfort that now is localized down to the right lower quadrant. She denies any urinary symptoms although she was on a course of cefdinir for a urinary tract infection. This is the 2nd round of antibiotics that she has been on. She completed a course of Macrobid already. She stated that she did have a bowel movement this morning although she feels like she was constipated. Some occasional nausea but no vomiting. She felt like she had a fever earlier this morning. She was also having episodes of tachycardia. This has been going on occasionally for some time. She noticed that today whenever she was up walking around her heart rate was elevated today. No shortness of breath. Related Data Home Medications Medication Instructions Recorded Confirmed d-mannose 500 mg capsule mg PO 12/29/23 04/06/24 Previous Rx's Medication Instructions Recorded estradiol 2 mg (7.5 mcg/24 hour) 1 vag ring vaginal [id number] #1 ea 01/14/24 vaginal ring (Estring) cefdinir 300 mg capsule 300 mg PO BID #14 caps 04/06/24 Allergies Allergy/AdvReac Type Severity Reaction Status Date / Time codeine [CODEINE] Allergy Intermediate Vomiting Verified 03/25/24 11:23 hydroxyzine AdvReac Mild nightmares Verified 03/25/24 11:23 Review of Systems Review of Systems ROS Unobtainable: All systems reviewed & are unremarkable except as noted in HPI and below Patient History Medical History Knee pain, right Chronic lumbosacral pain Ankle pain, right Dermoid cyst of left ovary Elevated blood pressure reading (02/16/11) GI bleed Bladder prolapse Uterus descensus Never smoked History of gastrointestinal procedure (04/15/18) Basal cell carcinoma (BCC) of left shoulder (08/16/17) Diverticulosis of colon (10/28/17) Morbid obesity with BMI of 40.0-44.9, adult Hiatal hernia (10/28/17) GERD (gastroesophageal reflux disease) Dermoid cyst 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) Dysphagia (09/09/17) Iron deficiency anemia (07/23/17) Surgical History History of right salpingo-oophorectomy History of repair of hiatal hernia Hx of LASIK History of dermoid cyst excision History of esophagogastroduodenoscopy (EGD) (03/14/18) History of colonoscopy with polypectomy (12/22/17) Status post LASIK surgery Status post left foot surgery (~1996) History of basal cell carcinoma excision (08/16/17) History of esophagogastroduodenoscopy (EGD) (10/28/17) Hx of hernia repair (1986) History of carpal tunnel release (~1991) S/P colonoscopic polypectomy (10/28/17) S/P knee surgery (1979) Family History Father Age: 89 Hypertension High cholesterol Mother Age: 85 Hypertension High cholesterol Sister Age: 65 Cervical cancer Social History marital status: household members: spouse lives independently: Yes housing: house Smoking Status: Never smoker second hand exposure: No alcohol intake: never substance use type: does not use Smoking Status: Never smoker alcohol intake frequency: 0-2 drinks per day Substance Use Type: does not use Exam Initial Vital Signs Initial Vital Signs: Vital Signs Temperature 98.5 F 04/10/24 00:15 Pulse Rate 113 H 04/10/24 00:15 Respiratory Rate 17 04/10/24 00:15 Blood Pressure 129/61 04/10/24 00:15 Pulse Oximetry 100 04/10/24 00:15 Oxygen Delivery Method Room Air 04/10/24 00:15 Const General: cooperative and No ill appearing HENMT Head: normal to inspection and normocephalic Resp Effort & Inspection: normal respiratory effort Auscultation: clear to auscultation bilaterally Cardio Rate: tachycardic Rhythm: regular rhythm GI Inspection: normal to inspection and non-distended Palpation: soft, No firm, No guarding and tender (Right lower quadrant) Skin General: no rashes or lesions noted Neuro General: patient alert, patient awake and moves all extremities Extrem General: normal to inspection Scores GCS [place] coma scale eye opening: Spontaneous Jonathan coma scale verbal response: Orientated Jonathan coma scale motor response: Obey commands [place] coma scale total score: 15 Course Orders Ordered: ED Orders 04/10/24 Basic Metabolic Panel Routine Complete Blood Count AUTO DIFF Routine 04/10/24 00:21 EKG-12 Lead Stat 04/10/24 00:38 Complete Blood Count AUTO DIFF Stat Comprehensive Metabolic Panel Stat Lipase Stat 04/10/24 00:44 CT abdomen pelvis w con Stat 04/10/24 02:17 Consult to General Surgery Stat 04/10/24 02:44 Education, smoking cessation ONGOING Acetaminophen (Acetaminophen 325 Mg Tablet) 650 mg PO Q6H PRN PRN Reason: Fever/Mild Pain (1-3) Sodium Chloride (Normal Saline 0.9%) 1,000 mls @ 100 mls/hr IV CONT LAURENCE Ceftriaxone Sodium 1,000 mg/ (Sodium Chloride) 100 mls @ 200 mls/hr IV Q24H LAURENCE Morphine Sulfate (Morphine 4 Mg/Ml Inj) 2 mg IV Q2HR PRN PRN Reason: Pain, Severe (7-10) Naloxone HCl (Naloxone 0.4 Mg/Ml Vial) 0.2 mg IV Q2MIN PRN PRN Reason: Opiate Reversal Ondansetron HCl (Ondansetron 4 Mg/2 Ml Inj) 4 mg IV Q8HR PRN PRN Reason: Nausea And Vomiting Vital Signs Vital signs: Vital Signs - 8 hr 04/10/24 00:15 04/10/24 00:30 04/10/24 00:30 Temperature 98.5 F Pulse Rate 113 H 103 H Respiratory Rate 17 22 Blood Pressure 129/61 115/61 Pulse Oximetry 100 97 Oxygen Delivery Method Room Air 04/10/24 01:00 04/10/24 01:00 04/10/24 01:41 Temperature Pulse Rate 100 H 89 Respiratory Rate 23 24 Blood Pressure 96/54 L Pulse Oximetry 97 97 Oxygen Delivery Method 04/10/24 01:42 04/10/24 01:42 04/10/24 02:00 Temperature Pulse Rate 87 89 Respiratory Rate 24 24 Blood Pressure 107/57 L Pulse Oximetry 97 96 Oxygen Delivery Method 04/10/24 02:00 04/10/24 02:30 10/07/24 02:31 Temperature Pulse Rate 94 H 91 H Respiratory Rate 26 H 23 Blood Pressure 92/52 L Pulse Oximetry 100 Oxygen Delivery Method Room Air 04/10/24 02:32 04/10/24 02:32 04/10/24 02:39 Temperature Pulse Rate 91 H Respiratory Rate 21 Blood Pressure 127/69 120/63 Pulse Oximetry 99 Oxygen Delivery Method 04/10/24 02:39 Temperature Pulse Rate 90 Respiratory Rate 20 Blood Pressure Pulse Oximetry 98 Oxygen Delivery Method Medical Decision Making Lab Data Lab results reviewed: Yes I reviewed the patient's lab results. 04/10/24 00:38 04/10/24 00:38 Labs: Lab Results 04/10/24 Range/Units 00:38 WBC 16.2 H (4.5-11.0) X10^3/uL RBC 3.66 L (4.0-5.2) X10^6/uL Hgb 9.3 L (12.0-16.0) g/dL Hct 28.8 L (36-46) % MCV 78.6 L (80-100) fL MCH 25.4 L (26-34) PG MCHC 32.3 (30-36) % RDW 17.0 H (11.6-14.8) % Plt Count 364 (150-400) X10^3/uL Neut % (Auto) 89.6 H (50-75) % Lymph % (Auto) 4.9 L (25-40) % [place] % (Auto) 4.9 (3-14) % Eos % (Auto) 0.1 L (2-4) % Baso % (Auto) 0.5 (0-2) % Neut # (Auto) 05017 H (0102-7872) /uL Lymph # (Auto) 800 L (2086-5550) /uL [place] # (Auto) 800 (0-900) /uL Eos # (Auto) 0 (0-450) /uL Baso # (Auto) 100 (0-100) /uL Sodium 134 L (137-145) mmol/L Potassium 3.6 (3.4-5.1) mmol/L Chloride 101 (98-107) mmol/L Carbon Dioxide 24 (22-32) mmol/L BUN 10 (7-17) mg/dL Creatinine 0.63 (0.52-1.04) mg/dL Estimated GFR > 60 (>60) mL/min BUN/Creatinine Ratio 15.9 (6-22) Glucose 141 H (80-110) mg/dL Calcium 9.6 (8.4-10.2) mg/dL Total Bilirubin 1.0 (0.2-1.3) mg/dL AST 17 (14-36) IU/L ALT 14 (<35) IU/L Alkaline Phosphatase 95 (38-126) U/L Total Protein 6.8 (6.3-8.2) g/dL Albumin 3.9 (3.5-5.0) g/dL Globulin 2.9 (1.7-4.1) g/dL Albumin/Globulin Ratio 1.3 (1.0-2.8) Lipase 73 (23-300) U/L Imaging Data CT scan - abdomen/pelvis: Radiologist's Impression: PROCEDURE: CT ABDOMEN PELVIS W CON INDICATIONS: Right lower quadrant abdominal pain TECHNIQUE: After the administration of intravenous contrast, axial sections acquired from the lung bases to the pubic symphysis. Coronal and sagittal reformats were performed. For radiation dose reduction, the following was used: automated exposure control, adjustment of mA and/or kV according to patient size. COMPARISON: None. FINDINGS: Image quality: Diagnostic. Lower Chest: Lung bases are clear. Small hiatal hernia. ABDOMEN: Liver: No solid mass. Simple appearing cysts and subcentimeter hypodensities which are too small to accurately characterize. Gallbladder: No radiopaque gallstones or wall thickening. Biliary ducts: No biliary dilation. Pancreas: No ductal dilation. Spleen: Size is within normal limits. Adrenal Glands: No adrenal nodules. Kidneys and Ureters: Partially duplicated left renal collecting system. No hydronephrosis. No solid mass. No complex renal cystic lesion which requires follow up. Stomach and Bowel: Diverticulosis without evidence of acute diverticulitis. Moderate to large stool burden. Small area of wall thickening and surrounding fat stranding of the cecum. Dilated loops of small bowel with air-fluid levels measuring up to 4.1 centimeters. Possible transition point within the mid abdomen (). Peritoneum: No abnormal intraperitoneal fluid. No free air. Ventral Wall: No significant ventral hernia. Abdominal Nodes: Prominent right lower quadrant lymph nodes are noted. No retroperitoneal or mesenteric adenopathy by size criteria. Vessels: Aorta and inferior vena cava are normal in size. PELVIS: Pelvic Organs: Unremarkable. Bladder: No bladder wall thickening, accounting for underdistention. Pelvic Nodes: No enlarged lymph nodes. Miscellaneous: No inguinal hernias are seen. Bones: No aggressive osseous abnormality. Left hip arthroplasty. Decreased osseous mineralization. Degenerative changes of the spine. Grade 1 anterolisthesis of L5 on S1 with bilateral pars interarticularis defects. IMPRESSION: 1. Findings concerning for small-bowel obstruction with transition point in the mid abdomen. 2. Focal area of wall thickening in the cecum with surrounding fat stranding. There adjacent lymph nodes within the right lower quadrant. Findings are concerning for underlying neoplasm and colonoscopy is recommended. Colitis is also in the differential. 3. Small hiatal hernia. No significant umbilical hernia. ECG Data Attestation: I personally reviewed and interpreted this ECG as follows: Interpretation: Sinus tachycardia Ventricular rate of 102 Normal axis Normal QRS No ST T wave changes MDM Narrative Medical decision making narrative: Patient does have leukocytosis however she has a known urinary tract infection in his on antibiotics. CT scan shows what appears to be a small bowel obstruction with transition point in the mid abdomen. She does have enlarged lymph nodes in the right lower quadrant. She did have an open hiatal hernia repair approximately 6 years ago. I did discuss the case with Dr. Ortiz on- call for General surgery who stated that she would be happy to see the patient after admission. Discussed the case with Dr. mena hospitalist on-call who will admit. Discussed the findings of the CT scan with the patient and the need for admission and she expressed understanding and agreement as well. Discharge Plan Departure Patient Disposition: Home Clinical Impression: Small bowel obstruction
[2024-04-10 00:56] LABS: Add Manual Diff / Slide Review NO; Basophils Absolute Auto 100 /uL (0-100); Basophils Percent Auto 0.5 % (0-2); Eosinophils Absolute Auto 0 /uL (0-450); Eosinophils Percent Auto 0.1 % (2-4); Hematocrit 28.8 % (36-46); Hemoglobin 9.3 g/dL (12.0-16.0); Lymphocytes Absolute Auto 800 /uL (1100-4500); Lymphocytes Percent Auto 4.9 % (25-40); Mean Corpuscular HGB Conc 32.3 % (30-36); Mean Corpuscular Hemoglobin 25.4 PG (26-34); Mean Corpuscular Volume 78.6 fL (80-100); Monocytes Absolute Auto 800 /uL (0-900); Monocytes Percent Auto 4.9 % (3-14); Neutrophils Absolute Auto 14500 /uL (1500-7000); Neutrophils Percent Auto 89.6 % (50-75); Platelet Count 364 X10^3/uL (150-400); Red Blood Cell Count 3.66 X10^6/uL (4.0-5.2); White Blood Cell Count 16.2 X10^3/uL (4.5-11.0)
[2024-04-10 01:10] LABS: Alanine Aminotransferase 14 IU/L (<35); Albumin 3.9 g/dL (3.5-5.0); Albumin Globulin Ratio 1.3 (1.0-2.8); Alkaline Phosphatase 95 U/L (38-126); Aspartate Aminotransferase 17 IU/L (14-36); BUN Creatinine Ratio 15.9 (6-22); Blood Urea Nitrogen 10 mg/dL (7-17); Calcium 9.6 mg/dL (8.4-10.2); Carbon Dioxide 24 mmol/L (22-32); Chloride 101 mmol/L (98-107); Estimated Glomerular Filt Rate > 60 mL/min (>60); Globulin 2.9 g/dL (1.7-4.1); Glucose 141 mg/dL (80-110); HEMOLYSIS < 15 (0-50); Lipase 73 U/L (23-300); Potassium 3.6 mmol/L (3.4-5.1); Sodium 134 mmol/L (137-145); Total Protein 6.8 g/dL (6.3-8.2)
[2024-04-10] MEDS: SODIUM CHLORIDE 0.9% 1,000 ML 100 ML IV (03:46)
[2024-04-10] MEDS: cefTRIAXone 1,000 MG in SODIUM CHLORIDE 0.9% 100 ML 200 MG IV (03:53)
--- NOTE | 2024-04-10 05:07 | P.HP_ITS ---
History of Present Illness History of Present Illness Chief complaint: abd pain, heart rate elevated Narrative: 63-year-old female with past medical history of right salpingo -oophorectomy and repair of hiatal hernia presents with abdominal pain. Per the patient's report, the patient started to have an acute onset of abdominal discomfort earlier yesterday. The patient states that her abdominal pain is generalized but later localized down to the right lower quadrant. Recently the patient was diagnosed with UTI and was initially treated with macrobid. The patient then was started on cefdinir for her second course of antibiotic which she is still taking today. The patients also has associated nausea but denies any vomiting or diarrhea. The patient last bowel movement was earlier yesterday. The patient also has subjective fever but denies any chills, GI bleeding, chest pain or shortness of breath. The patient does have intermittent palpitation.? In our emergency room, the patient was hemodynamically stable. Laboratory workup shows a WBC of [address] scan of the abdomen shows signs of small bowel obstruction with focal area of thickening in the cecum amd there's also adjacent lymph nodes elargement in the right lower quadrant. Findings are concerned for underlying neoplasm and colonoscopy is recommended. Colitis is also in the differential. General surgery was consulted and recommended to admit the patient for observation. 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) Dysphagia (09/09/17) Iron deficiency anemia (07/23/17) Surgical History History of right salpingo-oophorectomy History of repair of hiatal hernia Chloe of LASIK History of dermoid cyst excision History of esophagogastroduodenoscopy (EGD) (03/14/18) History of colonoscopy with polypectomy (12/22/17) Status post LASIK surgery Status post left foot surgery (~1996) History of basal cell carcinoma excision (08/16/17) History of esophagogastroduodenoscopy (EGD) (10/28/17) Hx of hernia repair (1986) History of carpal tunnel release (~1991) S/P colonoscopic polypectomy (10/28/17) S/P knee surgery (1979) Family History Father Age: 89 Hypertension High cholesterol Mother Age: 85 Hypertension High cholesterol Sister Age: 65 Cervical cancer Social History marital status: household members: spouse lives independently: Yes housing: house Smoking Status: Never smoker second hand exposure: No alcohol intake: never substance use type: does not use Meds Home Medications and Allergies Home Medications Medication Instructions Recorded Confirmed Type d-mannose 500 mg capsule 500 mg PO DAILY 12/29/23 04/10/24 History estradiol 2 mg (7.5 mcg/24 hour) 1 vag ring vaginal [id number] #1 ea 01/14/24 04/10/24 Rx vaginal ring (Estring) cefdinir 300 mg capsule 300 mg PO BID #14 caps 04/06/24 04/10/24 Rx Allergies Allergy/AdvReac Type Severity Reaction Status Date / Time codeine [CODEINE] Allergy Intermediate Vomiting Verified 03/25/24 11:23 hydroxyzine AdvReac Mild nightmares Verified 03/25/24 11:23 Review of Systems Review of Systems ROS: Yes All systems reviewed with the patient and are negative except as otherwise documented Exam Vital Signs (past 8 hours): - 04/10/24 00:15 04/10/24 00:30 04/10/24 00:30 Temperature 98.5 F Pulse Rate 113 H 103 H Respiratory Rate 17 22 Blood Pressure 129/61 115/61 Pulse Oximetry 100 97 Oxygen Delivery Method Room Air Oxygen Flow Rate 04/10/24 01:00 04/10/24 01:00 04/10/24 01:41 Temperature Pulse Rate 100 H 89 Respiratory Rate 23 24 Blood Pressure 96/54 L Pulse Oximetry 97 97 Oxygen Delivery Method Oxygen Flow Rate 04/10/24 01:42 04/10/24 01:42 04/10/24 02:00 Temperature Pulse Rate 87 89 Respiratory Rate 24 24 Blood Pressure 107/57 L Pulse Oximetry 97 96 Oxygen Delivery Method Oxygen Flow Rate 04/10/24 02:00 04/10/24 02:30 04/10/24 02:31 Temperature Pulse Rate 94 H 91 H Respiratory Rate 26 H 23 Blood Pressure 92/52 L Pulse Oximetry 100 Oxygen Delivery Method Room Air Oxygen Flow Rate 04/10/24 02:32 04/10/24 02:32 04/10/24 02:39 Temperature Pulse Rate 91 H Respiratory Rate 21 Blood Pressure 127/69 120/63 Pulse Oximetry 99 Oxygen Delivery Method Oxygen Flow Rate 04/10/24 02:39 04/10/24 03:00 04/10/24 03:00 Temperature Pulse Rate 90 88 Respiratory Rate 20 20 Blood Pressure 108/52 L Pulse Oximetry 98 97 Oxygen Delivery Method Room Air Room Air Oxygen Flow Rate 04/10/24 03:18 Temperature 97.9 F Pulse Rate 87 Respiratory Rate 12 Blood Pressure 121/75 Pulse Oximetry 98 Oxygen Delivery Method Oxygen Flow Rate 0 Oxygen Delivery Method Room Air Oxygen Flow Rate 0 Narrative Exam Narrative: GENERAL: The patient is not in any acute distressed. Awake and alert. HEENT: Nonicteric sclerae, PERRLA, EOMI. Oropharynx clear. Moist mucous membranes. Conjunctivae appear well perfused. HEART: Regular rate and rhythm without murmurs. No lower extremities edema. LUNGS: Clear to auscultation bilaterally. No wheezing, crackles or rhonchi ABDOMEN: Soft, positive bowel sounds, nontender. SKIN: No rash, no excessive bruising, petechiae, or purpura. NEUROLOGIC: AxO x 3. Cranial nerves II-XII intact without motor/sensory deficit. Objective Labs 04/10/24 00:38 04/10/24 00:38 Labs: Laboratory Results - last 24 hr 04/10/24 00:38 WBC 16.2 H RBC 3.66 L Hgb 9.3 L Hct 28.8 L MCV 78.6 L MCH 25.4 L MCHC 32.3 RDW 17.0 H Plt Count 364 Neut % (Auto) 89.6 H Lymph % (Auto) 4.9 L [place] % (Auto) 4.9 Eos % (Auto) 0.1 L Baso % (Auto) 0.5 Neut # (Auto) 01799 H Lymph # (Auto) 800 L [place] # (Auto) 800 Eos # (Auto) 0 Baso # (Auto) 100 Sodium 134 L Potassium 3.6 Chloride 101 Carbon Dioxide 24 BUN 10 Creatinine 0.63 Estimated GFR > 60 BUN/Creatinine Ratio 15.9 Glucose 141 H Calcium 9.6 Total Bilirubin 1.0 AST 17 ALT 14 Alkaline Phosphatase 95 Total Protein 6.8 Albumin 3.9 Globulin 2.9 Albumin/Globulin Ratio 1.3 Lipase 73 Assessment & Plan Assessment & Plan narrative: Small bowel obstruction. Admit the patient to medical observation. NPO. IV fluid. IV pain medication and IV antiemetics. Appreciate general surgery input and management. Of note as stated above there's finding that is concerning for possible neoplasm versus colitis and recommendation for colonoscopy. Appreciates further input from general surgery. Leukocytosis. Could be from stress related from small bowel obstruction as well as ongoing UTI. Manage underlying cause and monitor for sepsis . UTI. Patient report that this is the second rounds of antibiotic which she is on cefdinir as outpatient. Hold oral antibiotic and switch to IV Ceftriaxone. Dehydration. IV fluid . DVT prophylaxis Heparin sub q . Code status full code.? Disposition likely home in 1-2 days . Time-Based Coding :: [TOTAL MINUTES] spent with patient and on the chart (including review of chart, obtaining history, exam, reviewing outside data, placing orders, documenting exam and treatment plan, and counseling patient) on [DATE].
[2024-04-10 05:51] LABS: Add Manual Diff / Slide Review NO; Basophils Absolute Auto 0 /uL (0-100); Basophils Percent Auto 0.4 % (0-2); Eosinophils Absolute Auto 0 /uL (0-450); Eosinophils Percent Auto 0.3 % (2-4); Hematocrit 26.2 % (36-46); Hemoglobin 8.5 g/dL (12.0-16.0); Lymphocytes Absolute Auto 1000 /uL (1100-4500); Lymphocytes Percent Auto 9.5 % (25-40); Mean Corpuscular HGB Conc 32.4 % (30-36); Mean Corpuscular Hemoglobin 25.5 PG (26-34); Mean Corpuscular Volume 78.7 fL (80-100); Monocytes Absolute Auto 800 /uL (0-900); Monocytes Percent Auto 7.7 % (3-14); Neutrophils Absolute Auto 8800 /uL (1500-7000); Neutrophils Percent Auto 82.1 % (50-75); Platelet Count 333 X10^3/uL (150-400); Red Blood Cell Count 3.33 X10^6/uL (4.0-5.2); Red Cell Distribution Width 16.9 % (11.6-14.8); White Blood Cell Count 10.7 X10^3/uL (4.5-11.0)
[2024-04-10 06:06] LABS: BUN Creatinine Ratio 17.2 (6-22); Blood Urea Nitrogen 10 mg/dL (7-17); Calcium 9.3 mg/dL (8.4-10.2); Carbon Dioxide 29 mmol/L (22-32); Chloride 100 mmol/L (98-107); Estimated Glomerular Filt Rate > 60 mL/min (>60); Glucose 110 mg/dL (80-110); HEMOLYSIS < 15 (0-50); Potassium 3.6 mmol/L (3.4-5.1); Sodium 135 mmol/L (137-145)
--- NOTE | 2024-04-10 07:41 | PM.HP.1 ---
History of Present Illness History of Present Illness Date Patient Seen: 04/10/24 Chief complaint: abd pain, heart rate elevated Narrative: From night doctor: 63-year-old female with past medical history of right salpingo -oophorectomy and repair of hiatal hernia presents with abdominal pain. Per the patient's report, the patient started to have an acute onset of abdominal discomfort earlier yesterday. The patient states that her abdominal pain is generalized but later localized down to the right lower quadrant. Recently the patient was diagnosed with UTI and was initially treated with macrobid. The patient then was started on cefdinir for her second course of antibiotic which she is still taking today. The patients also has associated nausea but denies any vomiting or diarrhea. The patient last bowel movement was earlier yesterday. The patient also has subjective fever but denies any chills, GI bleeding, chest pain or shortness of breath. The patient does have intermittent palpitation.? In our emergency room, the patient was hemodynamically stable. Laboratory workup shows a WBC of [address] scan of the abdomen shows signs of small bowel obstruction with focal area of thickening in the cecum amd there's also adjacent lymph nodes elargement in the right lower quadrant. Findings are concerned for underlying neoplasm and colonoscopy is recommended. Colitis is also in the differential. General surgery was consulted and recommended to admit the patient for observation. The patient did not require an NGT. S: She feels improved today compared to yesterday but still having some rumbling in her abdomen. She has a history of a open hiatal hernia repair several years ago. She denies history of bowel obstruction. She was passing gas this morning. She denies any nausea. Her pain began yesterday. She would minimal abdominal distention imaging was consistent with a bowel obstruction with transition point. There was also abnormality of the colon. She notes a colonoscopy 2 years ago where she had a lesion removed which was ultimately described as not being cancerous. She denies any rectal bleeding and does note a chronic anemia. She denies recent weight loss. She also denies recent rectal bleeding. No fevers, or chills. No hematemesis. 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) Dysphagia (09/09/17) Iron deficiency anemia (07/23/17) Surgical History History of right salpingo-oophorectomy History of repair of hiatal hernia Hx of LASIK History of dermoid cyst excision History of esophagogastroduodenoscopy (EGD) (03/14/18) History of colonoscopy with polypectomy (12/22/17) Status post LASIK surgery Status post left foot surgery (~1996) History of basal cell carcinoma excision (08/16/17) History of esophagogastroduodenoscopy (EGD) (10/28/17) Hx of hernia repair (1986) History of carpal tunnel release (~1991) S/P colonoscopic polypectomy (10/28/17) S/P knee surgery (1979) Family History Father Age: 89 Hypertension High cholesterol Mother Age: 85 Hypertension High cholesterol Sister Age: 65 Cervical cancer Social History marital status: household members: spouse lives independently: Yes housing: house Smoking Status: Never smoker second hand exposure: No alcohol intake: never substance use type: does not use Meds Home Medications and Allergies Home Medications Medication Instructions Recorded Confirmed Type d-mannose 500 mg capsule 500 mg PO DAILY 12/29/23 04/10/24 History estradiol 2 mg (7.5 mcg/24 hour) 1 vag ring vaginal [id number] #1 ea 01/14/24 04/10/24 Rx vaginal ring (Estring) cefdinir 300 mg capsule 300 mg PO BID #14 caps 04/06/24 04/10/24 Rx Allergies Allergy/AdvReac Type Severity Reaction Status Date / Time codeine [CODEINE] Allergy Intermediate Vomiting Verified 03/25/24 11:23 hydroxyzine AdvReac Mild nightmares Verified 03/25/24 11:23 Review of Systems Review of Systems Narrative: All else reviewed and otherwise unremarkable except as noted in the history and physical. Exam Vital Signs (past 8 hours): - 04/10/24 00:15 04/10/24 00:30 04/10/24 00:30 Temperature 98.5 F Pulse Rate 113 H 103 H Respiratory Rate 17 22 Blood Pressure 129/61 115/61 Pulse Oximetry 100 97 Oxygen Delivery Method Room Air Oxygen Flow Rate 04/10/24 01:00 04/10/24 01:00 04/10/24 01:41 Temperature Pulse Rate 100 H 89 Respiratory Rate 23 24 Blood Pressure 96/54 L Pulse Oximetry 97 97 Oxygen Delivery Method Oxygen Flow Rate 04/10/24 01:42 04/10/24 01:42 04/10/24 02:00 Temperature Pulse Rate 87 89 Respiratory Rate 24 24 Blood Pressure 107/57 L Pulse Oximetry 97 96 Oxygen Delivery Method Oxygen Flow Rate 04/10/24 02:00 04/10/24 02:30 04/10/24 02:31 Temperature Pulse Rate 94 H 91 H Respiratory Rate 26 H 23 Blood Pressure 92/52 L Pulse Oximetry 100 Oxygen Delivery Method Room Air Oxygen Flow Rate 04/10/24 02:32 04/10/24 02:32 04/10/24 02:39 Temperature Pulse Rate 91 H Respiratory Rate 21 Blood Pressure 127/69 120/63 Pulse Oximetry 99 Oxygen Delivery Method Oxygen Flow Rate 04/10/24 02:39 04/10/24 03:00 04/10/24 03:00 Temperature Pulse Rate 90 88 Respiratory Rate 20 20 Blood Pressure 108/52 L Pulse Oximetry 98 97 Oxygen Delivery Method Room Air Room Air Oxygen Flow Rate 04/10/24 03:18 Temperature 97.9 F Pulse Rate 87 Respiratory Rate 12 Blood Pressure 121/75 Pulse Oximetry 98 Oxygen Delivery Method Oxygen Flow Rate 0 Oxygen Delivery Method Room Air Oxygen Flow Rate 0 Narrative Exam Narrative: NAD, alert and oriented, fluent speech, calm. Normocephalic skull, EOMI, anicteric sclera, symmetric pupils. Oropharynx unremarkable, no droop. Neck supple, midline trachea, no adenopathy. Lungs clear, normal rate and effort. Heart regular, no murmur gallop or rub. Abdomen is soft, non distended and non tender. Ventral incisional scar. Hypoactive bowel tones. Normotympanic. Extremities are free of edema. Skin is free of rash or lesions. Joints are not swollen or deformed. Judgment appears to be normal. Objective Imaging CT scan - abdomen: Radiologist's impression: 1. Findings concerning for small-bowel obstruction with transition point in the mid abdomen. 2. Focal area of wall thickening in the cecum with surrounding fat stranding. There adjacent lymph nodes within the right lower quadrant. Findings are concerning for underlying neoplasm and colonoscopy is recommended. Colitis is also in the differential. 3. Small hiatal hernia. No significant umbilical hernia. Labs 04/10/24 05:36 04/10/24 05:36 Labs: Laboratory Results - last 24 hr 04/10/24 04/10/24 00:38 05:36 WBC 16.2 H 10.7 RBC 3.66 L 3.33 L Hgb 9.3 L 8.5 L Hct 28.8 L 26.2 L MCV 78.6 L 78.7 L MCH 25.4 L 25.5 L MCHC 32.3 32.4 RDW 17.0 H 16.9 H Plt Count 364 333 Neut % (Auto) 89.6 H 82.1 H Lymph % (Auto) 4.9 L 9.5 L [place] % (Auto) 4.9 7.7 Eos % (Auto) 0.1 L 0.3 L Baso % (Auto) 0.5 0.4 Neut # (Auto) 66326 H 8800 H Lymph # (Auto) 800 L 1000 L [place] # (Auto) 800 800 Eos # (Auto) 0 0 Baso # (Auto) 100 0 Sodium 134 L 135 L Potassium 3.6 3.6 Chloride 101 100 Carbon Dioxide 24 29 BUN 10 10 Creatinine 0.63 0.58 Estimated GFR > 60 > 60 BUN/Creatinine Ratio 15.9 17.2 Glucose 141 H 110 Calcium 9.6 9.3 Total Bilirubin 1.0 AST 17 ALT 14 Alkaline Phosphatase 95 Total Protein 6.8 Albumin 3.9 Globulin 2.9 Albumin/Globulin Ratio 1.3 Lipase 73 Assessment & Plan Assessment & Plan narrative: 1. Small bowel obstruction. Admit the patient to medical observation. NPO. IV fluid. IV pain medication and IV antiemetics. Appreciate general surgery input and management. Of note as stated above there's finding that is concerning for possible neoplasm versus colitis and recommendation for colonoscopy. Appreciates further input from general surgery. 2. Leukocytosis. Could be from stress related from small bowel obstruction as well as ongoing UTI. Manage underlying cause and monitor for sepsis . 3. UTI. Patient report that this is the second rounds of antibiotic which she is on cefdinir as outpatient. Hold oral antibiotic and switch to IV Ceftriaxone. 4. Dehydration. IV fluid . PLAN: Admit the patient to medical observation. NPO. IV fluid. IV pain medication and IV antiemetics. Appreciate general surgery input and management. Of note as stated above there's finding that is concerning for possible neoplasm versus colitis and recommendation for colonoscopy. Appreciates further input from general surgery. DVT prophylaxis Heparin sub q . Code status full code.? Observation status, anticipate 1 midnight hospital stay. CARMELLA is April 12. Time-Based Coding :: 30 min spent with patient and on the chart (including review of chart, obtaining history, exam, reviewing outside data, placing orders, documenting exam and treatment plan, and counseling patient) on 04/10. Quality MIPS - Admit I confirm the patient?s Advance Care Plan is present, Code status is documented, Surrogate decision maker is in patient?s record [If Yes, STOP here]: Yes The patient?s Advance Care plan is not present because I confirmed today that the patient does not wish or was not able to name a surrogate decision maker or provide an Advance Care Plan.: Yes
--- NOTE | 2024-04-10 10:27 | P.CONS_ITS ---
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 One week of abdominal pain RLQ and feeling unwell. I reviewed CT scan and agree with partial SBO with transition of caliber in mid abdomen. And area of cecum that is c/w mass vs inflammation. WBC is normal, last colonoscopy was here in 2018. Patient reports a polyps removed from the cecum. H/o chronic anemia with iron deficiency and previous EGD showing stomach as source. Did has episode of black diarrhea last week. 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 Meds Home Medications and Allergies Home Medications Medication Instructions Recorded Confirmed Type d-mannose 500 mg capsule 500 mg PO DAILY 12/29/23 04/10/24 History estradiol 2 mg (7.5 mcg/24 hour) 1 vag ring vaginal [id number] #1 ea 01/14/24 04/10/24 Rx vaginal ring (Estring) cefdinir 300 mg capsule 300 mg PO BID #14 caps 04/06/24 04/10/24 Rx Allergies Allergy/AdvReac Type Severity Reaction Status Date / Time codeine [CODEINE] Allergy Intermediate Vomiting Verified 03/25/24 11:23 hydroxyzine AdvReac Mild nightmares Verified 03/25/24 11:23 Review of Systems Review of Systems Narrative: RLQ abdominal pain, diarrhea, fatigue, anorexia. ROS: Yes All systems reviewed with the patient and are negative except as otherwise documented Exam Vital Signs (past 8 hours): - 04/10/24 02:30 04/10/24 02:31 04/10/24 02:32 Temperature Pulse Rate 94 H 91 H Respiratory Rate 26 H 23 Blood Pressure 127/69 Pulse Oximetry 100 Oxygen Delivery Method Room Air Oxygen Flow Rate 04/10/24 02:32 04/10/24 02:39 04/10/24 02:39 Temperature Pulse Rate 91 H 90 Respiratory Rate 21 20 Blood Pressure 120/63 Pulse Oximetry 99 98 Oxygen Delivery Method Oxygen Flow Rate 04/10/24 03:00 04/10/24 03:00 04/10/24 03:18 Temperature 97.9 F Pulse Rate 88 87 Respiratory Rate 20 12 Blood Pressure 108/52 L 121/75 Pulse Oximetry 97 98 Oxygen Delivery Method Room Air Room Air Oxygen Flow Rate 0 04/10/24 08:04 Temperature 97.3 F L Pulse Rate 76 Respiratory Rate 12 Blood Pressure 102/53 L Pulse Oximetry 98 Oxygen Delivery Method Oxygen Flow Rate 0 Oxygen Delivery Method Room Air Oxygen Flow Rate 0 Const General: cooperative, comfortable and anxious Nutritional Appearance: well nourished and overweight [facility] Head: normocephalic and atraumatic Ears: hearing grossly normal bilaterally Eyes General: appearance normal, both eyes and all related structures Sclera: sclerae normal Neck Neck: trachea midline and No JVD Resp Effort & Inspection: normal respiratory effort and able to speak in complete sentences Cardio Rate: regular rate Rhythm: regular rhythm GI Inspection: non-distended Palpation: soft and tender (mild RLQ tenderness) Skin General: atrophy and pallor Neuro General: patient alert, patient awake and patient oriented x3 Cognition: normal cognition Extrem General: normal to inspection Psych Mental Status: mental status grossly normal Affect: normal affect Judgment: judgment good Objective Labs 04/10/24 05:36 04/10/24 05:36 Labs: Laboratory Results - last 24 hr 04/10/24 04/10/24 00:38 05:36 WBC 16.2 H 10.7 RBC 3.66 L 3.33 L Hgb 9.3 L 8.5 L Hct 28.8 L 26.2 L MCV 78.6 L 78.7 L MCH 25.4 L 25.5 L MCHC 32.3 32.4 RDW 17.0 H 16.9 H Plt Count 364 333 Neut % (Auto) 89.6 H 82.1 H Lymph % (Auto) 4.9 L 9.5 L [place] % (Auto) 4.9 7.7 Eos % (Auto) 0.1 L 0.3 L Baso % (Auto) 0.5 0.4 Neut # (Auto) 52728 H 8800 H Lymph # (Auto) 800 L 1000 L [place] # (Auto) 800 800 Eos # (Auto) 0 0 Baso # (Auto) 100 0 Sodium 134 L 135 L Potassium 3.6 3.6 Chloride 101 100 Carbon Dioxide 24 29 BUN 10 10 Creatinine 0.63 0.58 Estimated GFR > 60 > 60 BUN/Creatinine Ratio 15.9 17.2 Glucose 141 H 110 Calcium 9.6 9.3 Total Bilirubin 1.0 AST 17 ALT 14 Alkaline Phosphatase 95 Total Protein 6.8 Albumin 3.9 Globulin 2.9 Albumin/Globulin Ratio 1.3 Lipase 73 PFSH Medical History Knee pain, right Chronic lumbosacral pain Ankle pain, right Dermoid cyst of left ovary Elevated blood pressure reading (02/16/11) GI bleed Bladder prolapse Uterus descensus Never smoked History of gastrointestinal procedure (04/15/18) Basal cell carcinoma (BCC) of left shoulder (08/16/17) Diverticulosis of colon (10/28/17) Morbid obesity with BMI of 40.0-44.9, adult Hiatal hernia (10/28/17) GERD (gastroesophageal reflux disease) Dermoid cyst 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) Dysphagia (09/09/17) Iron deficiency anemia (07/23/17) Surgical History History of right salpingo-oophorectomy History of repair of hiatal hernia Hx of LASIK History of dermoid cyst excision History of esophagogastroduodenoscopy (EGD) (03/14/18) History of colonoscopy with polypectomy (12/22/17) Status post LASIK surgery Status post left foot surgery (~1996) History of basal cell carcinoma excision (08/16/17) History of esophagogastroduodenoscopy (EGD) (10/28/17) Hx of hernia repair (1986) History of carpal tunnel release (~1991) S/P colonoscopic polypectomy (10/28/17) S/P knee surgery (1979) Family History Father Age: 89 Hypertension High cholesterol Mother Age: 85 Hypertension High cholesterol Sister Age: 65 Cervical cancer Social History marital status: household members: spouse lives independently: Yes housing: house Tobacco & Substance Use Smoking Status: Never smoker second hand exposure: No alcohol intake: never substance use type: does not use Assessment & Plan Assessment & Plan narrative: Recent hip surgery Chronic anemia with h/o gastric bleeding, s/p open hiatal hernia, recent black diarrhea partial SBO that is resolving Chronic UTI currently on antibiotics Abnormal appearance of RLQ on CT with thickening vs inflammation of cecum. Last colonoscopy (with polypectomy) 2018. She has had vague symptoms that may represent appendicitis that is resolving(not certain how the antibiotics for UTI is affecting the process) Plan: Advance diet as tolerated and possible discharge home PPI for possible gastritis Continue antibiotics for UTI vitamin for iron Colonoscopy and EGD next week so as to allow another week of recovery for possible appendicitis. Time-Based Coding :: 55mins spent with patient and on the chart (including review of chart, obtaining history, exam, reviewing outside data, placing orders, documenting exam and treatment plan, and counseling patient) on 04/10/2024
[2024-04-10] MEDS: ACETAMINOPHEN 325 MG TABLET 650 MG PO ×2 (10:47→21:58)
[2024-04-10] MEDS: PANTOPRAZOLE DR 40 MG TABLET PO ×2 (12:04→21:58)
[2024-04-10] MEDS: PRENATAL VIT,CALC/IRON/FOLIC 1 TABLET 1 TAB PO (12:04)
--- NOTE | 2024-04-10 14:56 | CM.DANOTE ---
Patient is a 63 yo female who was admitted OBS Status on 04/10/24 for Abd Pain. Pt has [employer] and [employer] for insurance and her PCP is Usha Matta. EMR was reviewed. Per MD, pt with hx of hernia repair, treated outpt for UTI, and recent hip surgery and admitted for SBO with concern for neoplasm vs colitis and inflamed appendix. Pt to have IV-Abx, fluids, and now advancing diet as tolerated. Per Surgeon, recommend outpt colonoscopy next week once symptoms have improved, no surgical intervention at this time. Per RN, pt had a regular diet for lunch but having some spasms and diarrhea now and likely remain overnight with possible d/c tomorrow. SW met bedside with pt and explained role and she confirms she lives in [place] with her and is active and independent at baseline and has local supportive sister who was bedside earlier. Pt had hip surgery a few weeks ago and has been able to ambulate halls independently while sister was visiting and has a cane for steadiness due to her UTI. Pt denies hx of HH or SNF. Pt drives and preference is home with her assist when medically stable and does not anticipate any d/c needs at this time. Confirms she ate regular diet for lunch and due to cramping/spasms she does not yet feel stable for discharge. Plan: SW to follow for plan of discharge home via spouse or sister POV when medically stable and then outpt colonoscopy next week for follow up. SANDY Levy Discharge Planning/Care Management CM Discharge Assessment Start: 04/10/24 14:54 Freq: Status: Active Protocol: Document 04/10/24 14:54 BF (Rec: 04/10/24 14:56 BF [id number]) Discharge Planning Assessment Assigned Geriatric Psychiatrist SANDY Ram DPOA/Assigned Designee Name spouse informally Advance Directives? No Advance Directives on File No History Provided By Patient,Medical Record Has Patient been admitted in last 30 No days? Comment Had recent hip surgery and ambulating well Prior Living Arrangements House Household Members spouse Type of transporation used prior to Drives own vehicle admit Independent with ADL's Yes Is patient alert and oriented? Yes Caregiver for Another No Community Services used prior to Physical Therapy admission: DME Already Rented / Owned Cane Barriers to Discharge No Comment excitied about leaving Discharge Plan Home Transportation Arrangement will drive home Referrals Initiated None needed Whiteboard Updated in Patient Room with Yes name and ext. # of Geriatric Psychiatrist Review Status In Process Please Provide Date Initial DC 04/10/24 Assessment Was Performed Next Review Type Continued Stay Review
[2024-04-11] VITALS: BP 93/45; PULSE 68; RESP 18; TEMP 36.5; O2SAT 97
[2024-04-11] MEDS: cefTRIAXone 1,000 MG in SODIUM CHLORIDE 0.9% 100 ML 200 MG IV (02:56)
[2024-04-11 03:14] VITALS: BP 103/63; PULSE 68; RESP 18; TEMP 36.5; O2SAT 97
[2024-04-11] MEDS: PANTOPRAZOLE DR 40 MG TABLET PO (08:12)
[2024-04-11] MEDS: PRENATAL VIT,CALC/IRON/FOLIC 1 TABLET 1 TAB PO (08:12)
[2024-04-11 08:34] LABS: Hematocrit 25.7 % (36-46); Hemoglobin 8.2 g/dL (12.0-16.0)
--- NOTE | 2024-04-11 09:15 | PM.DS.1 ---
History of Present Illness History of Present Illness Chief complaint: abd pain, heart rate elevated Narrative: From night doctor: 63-year-old female with past medical history of right salpingo -oophorectomy and repair of hiatal hernia presents with abdominal pain. Per the patient's report, the patient started to have an acute onset of abdominal discomfort earlier yesterday. The patient states that her abdominal pain is generalized but later localized down to the right lower quadrant. Recently the patient was diagnosed with UTI and was initially treated with macrobid. The patient then was started on cefdinir for her second course of antibiotic which she is still taking today. The patients also has associated nausea but denies any vomiting or diarrhea. The patient last bowel movement was earlier yesterday. The patient also has subjective fever but denies any chills, GI bleeding, chest pain or shortness of breath. The patient does have intermittent palpitation.? In our emergency room, the patient was hemodynamically stable. Laboratory workup shows a WBC of [address] scan of the abdomen shows signs of small bowel obstruction with focal area of thickening in the cecum amd there's also adjacent lymph nodes elargement in the right lower quadrant. Findings are concerned for underlying neoplasm and colonoscopy is recommended. Colitis is also in the differential. General surgery was consulted and recommended to admit the patient for observation. The patient did not require an NGT. S: She feels improved today compared to yesterday but still having some rumbling in her abdomen. She has a history of a open hiatal hernia repair several years ago. She denies history of bowel obstruction. She was passing gas this morning. She denies any nausea. Her pain began yesterday. She would minimal abdominal distention imaging was consistent with a bowel obstruction with transition point. There was also abnormality of the colon. She notes a colonoscopy 2 years ago where she had a lesion removed which was ultimately described as not being cancerous. She denies any rectal bleeding and does note a chronic anemia. She denies recent weight loss. She also denies recent rectal bleeding. No fevers, or chills. No hematemesis. Discharge Providers Provider Date of admission: 04/10/24 02:47 Discharge Date: 04/11/24 Primary care physician: Usha Matta DO Consults: 04/10/24 02:17 Consult to General Surgery Stat Comment: Consulting Provider: Shahla Ortiz Reason for consultation: SBO Has provider been notified: Yes Discharge provider: Krishna Styles MD Summary Hospital Course Discharge Diagnosis: 1. Small bowel obstruction, present on admission and resolved. 2. Leukocytosis, present on admission and improved. 3. UTI. Present on admission and active. 4. Dehydration. Present on admission and improved. 5. Colon lesion, present on admission and active. Hospital Course: She was admitted with presumptive small-bowel obstruction and did well with conservative care. She was seen by surgery and able to advance her diet over the course of the afternoon of April 10. She would some residual pain on April 10 but this resolved by the morning of discharge. The patient did have a lesion noted on her CT scan in the colon. This will be followed up with a colonoscopy and general surgery with Dr. Ortiz next week Wednesday. In the meantime she will follow a low residue diet and knows to follow up in the emergency department she was recurrent, or severe pain. She will finish her antibiotics at her doctor gave her for her urinary tract infection, this is cefdinir. Status at Discharge Cognitive/behavioral status at discharge: oriented Functional status at discharge: independent ambulation Overall status at discharge: patient is back to baseline Time Spent with Patient Time spent: Greater than 30 minutes Exam Vital Signs (past 8 hours): - 04/11/24 03:14 Temperature 97.7 F Pulse Rate 68 Respiratory Rate 18 Blood Pressure 103/63 Pulse Oximetry 97 Oxygen Flow Rate 0 Oxygen Delivery Method Room Air Oxygen Flow Rate 0 Narrative Exam Narrative: NAD, alert and oriented. Fluent speech. Lungs are clear, normal rate and effort. Heart is regular, no murmur gallop or rub. Abdomen is soft, non distended. Hypoactive BT's. Extremities are free of edema. Objective ECG Impression: Sinus tachycardia Possible Left atrial enlargement Possible Lateral infarct , age undetermined Imaging CT scan - abdomen: Radiologist's impression: CT scan - abdomen: Radiologist's impression: 1. Findings concerning for small-bowel obstruction with transition point in the mid abdomen. 2. Focal area of wall thickening in the cecum with surrounding fat stranding. There adjacent lymph nodes within the right lower quadrant. Findings are concerning for underlying neoplasm and colonoscopy is recommended. Colitis is also in the differential. 3. Small hiatal hernia. No significant umbilical hernia. 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) Dysphagia (09/09/17) Iron deficiency anemia (07/23/17) Surgical History History of right salpingo-oophorectomy History of repair of hiatal hernia Hx of LASIK History of dermoid cyst excision History of esophagogastroduodenoscopy (EGD) (03/14/18) History of colonoscopy with polypectomy (12/22/17) Status post LASIK surgery Status post left foot surgery (~1996) History of basal cell carcinoma excision (08/16/17) History of esophagogastroduodenoscopy (EGD) (10/28/17) Hx of hernia repair (1986) History of carpal tunnel release (~1991) S/P colonoscopic polypectomy (10/28/17) S/P knee surgery (1979) Family History Father Age: 89 Hypertension High cholesterol Mother Age: 85 Hypertension High cholesterol Sister Age: 65 Cervical cancer Social History marital status: household members: spouse lives independently: Yes housing: house Smoking Status: Never smoker second hand exposure: No alcohol intake: never substance use type: does not use Discharge Assessment & Plan Assessment and Plan Assessment: 1. Small bowel obstruction, present on admission and resolved. 2. Leukocytosis, present on admission and improved. 3. UTI. Present on admission and active. 4. Dehydration. Present on admission and improved. 5. Colon lesion, present on admission and active. Plan of Treatment: Discharge home on low residue diet. She will see Dr. Ortiz for colonoscopy next Wednesday. She will come back to the ER in the meantime as she was acute nausea, vomiting, or abdominal pain. Discharge Plan Discharge Plan Patient Disposition: Home Provider Discharge Comment: Stable for discharge home, will follow up with Dr. Ortiz for colonoscopy next week. Discharge orders & Medications Prescriptions: Continued d-mannose 500 mg capsule 500 mg PO DAILY cefdinir 300 mg capsule 300 mg PO BID Qty: 14 0RF Rx Instructions: taking it for 7 days for a dental procedure Estring 2 mg (7.5 mcg /24 hour) ring 1 vag ring vaginal [id number] Qty: 1 3RF Rx Instructions: 2 mg intravaginally; following insertion, ring should remain in place for 90 days. hasn't been using due to uit No Action peg 3350-electrolytes [Golytely] 236-22.74-6.74 -5.86 gram recon soln 240 ml PO Q10M Qty: 4000 0RF Rx Instructions: take as directed by Physician Medication counseling provided by Pharmacist: No Follow up/Referrals: Usha Matta DO [Primary Care Provider] - Discharge Health Status Multidrug resistant organism: No MDRO Diet/Activity/Treatments Diet: Diet as Tolerated Diet comment: Low residue Skin/Wound/Dressing Care Report to your healthcare provider any signs of infection, such as:: chills, fever and increased pain Visit Report/Discharge Packet Instructions: DI for Small Bowel Obstruction Stand Alone Forms: Patient Portal/API Discharge Data Primary Care Provider: Usha Matta Attending Provider: Pablo Jhaveri Admit Date/Time: 04/10/24 02:47
[2024-04-11 11:00] VITALS: BP 112/48; PULSE 90; RESP 22; O2SAT 100
--- NOTE | 2024-04-11 11:05 | CM.DPC ---
DCP Cont. Reviewed EMR and team rounds for status updates. Pt has been medically cleared for home d/c, family are transporting her home. No further d/c needs identified at this time.
--- NOTE | 2024-04-11 13:26 | PC.NURSE ---
D/c instructions reviewed with patient. Pt showered and dressed independently, confirmed she had all of her belongings, and exited via w/c with RN to her private vehicle.
== END 2024-04-11 12:26 | disposition home or self-care (01) ==
LOC: ED 02:17 → AC 02:48
PROVIDERS: Internal Medicine; Admitting Provider Internal Medicine; Emergency Provider Emergency Medicine; Family Provider Student in an Organized Health Care Education/Training Program; PCP Family Medicine; Referring Provider Emergency Medicine; Visit Provider Internal Medicine
DX: R10.31 Right lower quadrant pain (principal); K56.600 Partial intestinal obstruction, unspecified as to cause; N39.0 Urinary tract infection, site not specified; R00.0 Tachycardia, unspecified; E86.0 Dehydration; D72.829 Elevated white blood cell count, unspecified; R93.3 Abnormal findings on diagnostic imaging of other parts of digestive tract
CPT/HCPCS: 36415; 74177; 80048; 80053; 83690; 85014; 85018; 85025; 93005; 96361; 96365; 96366; 99284; G0378; J0696; Q9967

== ENCOUNTER 2024-04-18 10:48 | Day surgery (SDC) | payer OTHER, MEDICAID, SELFPAY ==
[2024-04-10 04:09] VITALS: BMI 35.0
--- NOTE | 2024-04-18 | PATH_ITS ---
[facility] Accession Number: [id number] No. of containers..01 Tissue . 01 Material submitted: . colon - CECAL MASS . 01 Diagnosis: CECAL MASS, BIOPSY: Colonic tissue with invasive adenocarcinoma, moderately differentiated. No lymphovascular or perineural invasion identified. See comment. [facility] 04/20/2024 1036 Local . 01 Comment: Immunohistochemical staining for markers of microsatellite instability (MSI) will be performed, and the results will be reported as an addendum. . This case has also been reviewed by Dr. Danielle Villeda, who concurs with the diagnosis. . This case was called to Dr. Ortiz's medical secretary receptionist, Ms Marie by Dr. Jonas on 04/20/2024 at 1318 hours. . 01 Electronically signed: . Jane Jonas MD, Pathologist NPI- [id number] . 01 Gross description: . Received in formalin with two patient identifiers and cecal mass, are five rodriguez soft tissue fragments ranging from 0.4 x 0.2 x 0.2 cm to 1.8 x 0.8 x 0.9 cm. The largest fragment is inked and sectioned. All specimen submitted entirely in A1-A2. ([id number]) /MRV 04/19/2024 1413 Local . 01 Pathologist provided ICD-10: C18.0 . 01 CPT . 856579 Specimen Comment: A courtesy copy of this report has been sent to [phone] Performed at: [address] [facility] [address], [place], [place] [id number] MD Manuel David MD Phone: [phone]
[2024-04-18 11:03] VITALS: BP 138/83; PULSE 95; RESP 16; TEMP 36; O2SAT 98
--- NOTE | 2024-04-18 11:44 | PM.HP.1 ---
History of Present Illness History of Present Illness Date Patient Seen: 04/18/24 Time Patient Seen: 11:44 Chief complaint: EGD/Colonoscopy Narrative: Severe iron deficiency anemia, h/o polyps COUNT INCLUDES THE [facility] Medical History Knee pain, right Chronic lumbosacral pain Ankle pain, right Dermoid cyst of left ovary Elevated blood pressure reading (02/16/11) GI bleed Bladder prolapse Uterus descensus Never smoked History of gastrointestinal procedure (04/15/18) Basal cell carcinoma (BCC) of left shoulder (08/16/17) Diverticulosis of colon (10/28/17) Morbid obesity with BMI of 40.0-44.9, adult Hiatal hernia (10/28/17) GERD (gastroesophageal reflux disease) Dermoid cyst 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) Dysphagia (09/09/17) Iron deficiency anemia (07/23/17) Surgical History History of right salpingo-oophorectomy History of repair of hiatal hernia Hx of LASIK History of dermoid cyst excision History of esophagogastroduodenoscopy (EGD) (03/14/18) History of colonoscopy with polypectomy (12/22/17) Status post LASIK surgery Status post left foot surgery (~1996) History of basal cell carcinoma excision (08/16/17) History of esophagogastroduodenoscopy (EGD) (10/28/17) Hx of hernia repair (1986) History of carpal tunnel release (~1991) S/P colonoscopic polypectomy (10/28/17) S/P knee surgery (1979) Family History Father Age: 89 Hypertension High cholesterol Mother Age: 85 Hypertension High cholesterol Sister Age: 65 Cervical cancer Social History marital status: household members: spouse lives independently: Yes housing: house Smoking Status: Never smoker second hand exposure: No alcohol intake: never substance use type: does not use Meds Home Medications and Allergies Home Medications Medication Instructions Recorded Confirmed Type d-mannose 500 mg capsule 500 mg PO DAILY 12/29/23 04/18/24 History estradiol 2 mg (7.5 mcg/24 hour) 1 vag ring vaginal [id number] #1 ea 01/14/24 04/10/24 Rx vaginal ring (Estring) peg 3350-electrolytes 236 240 ml PO Q10M #4,000 mL 04/11/24 Rx gram-22.74 gram-6.74 gram-5.86 gram solution (Golytely) Allergies Allergy/AdvReac Type Severity Reaction Status Date / Time codeine [CODEINE] Allergy Intermediate Vomiting Verified 04/18/24 10:52 hydroxyzine AdvReac Mild nightmares Verified 04/18/24 10:52 Review of Systems Review of Systems ROS: Yes All systems reviewed with the patient and are negative except as otherwise documented Exam Vital Signs (past 8 hours): - 04/18/24 11:03 Temperature 96.8 F L Pulse Rate 95 H Respiratory Rate 16 Blood Pressure 138/83 Pulse Oximetry 98 Oxygen Delivery Method Room Air Oxygen Delivery Method Room Air Const General: cooperative and healthy appearing Nutritional Appearance: overweight HENMT Head: normocephalic and atraumatic Ears: hearing grossly normal bilaterally Eyes Periorbital: periorbital findings normal Sclera: sclerae normal Neck Neck: trachea midline and No JVD Resp Effort & Inspection: normal respiratory effort and able to speak in complete sentences Cardio Rate: regular rate Rhythm: regular rhythm GI Palpation: soft and No tender Skin General: atrophy and pallor Neuro General: patient alert, patient awake and patient oriented x3 Cranial Nerves: tongue midline Cognition: normal cognition Psych Mental Status: mental status grossly normal Judgment: judgment good Assessment & Plan Assessment & Plan narrative: Iron deficiency anemia, h/o colon polyps Plan: EGD and colonoscopy with anesthesia Time-Based Coding :: [TOTAL MINUTES] spent with patient and on the chart (including review of chart, obtaining history, exam, reviewing outside data, placing orders, documenting exam and treatment plan, and counseling patient) on [DATE].
--- NOTE | 2024-04-18 11:48 | SUR.OPER ---
EGD SCOPE 043
--- NOTE | 2024-04-18 12:26 | PM.OP.EC ---
Operative Date/Time/Diagnoses Date of procedure: 04/18/24 Time of procedure: 12:26 Pre-op diagnosis: Iron-deficiency anemia, history of colon polyps Post-op diagnosis: same Procedure & Clinicians Study performed: EGD followed by colonoscopy with hot snare polypectomy retrieved basket Same procedure as scheduled: Yes Indications: Iron-deficiency anemia, history of colon polyps Surgeon: Shahla Ortiz Procedure Notes Procedure in detail: Preop diagnosis: Iron-deficiency anemia, history of colon polyps Postop diagnosis: Same Operative procedure: EGD followed by colonoscopy with hot snare polypectomy retrieved with endo basket Surgeon: Shefali Ortiz MD Findings: Stomach was within normal limits. There was a small gastric diverticulum on the lesser curve benign. Duodenal, esophagus, stomach otherwise normal. Colonoscopy had diverticulosis of the descending colon. And an ulcerated colonic mass in the cecum consistent colon cancer. Procedure: Patient placed in a lateral position. Began with EGD. With help of a jaw lift the scope was inserted into the esophagus and advanced into the stomach. Insufflation allowed me to identify the pylorus and intubate into the duodenal. First and 2nd portion duodenal easily visualized. Insufflation extraction of the scope including retroflex had the above findings. Patient was then spun and colonoscopy was carried out extending the same sedation. Rectal exam performed showing normal tone no masses. Colonoscope inserted into the rectum and advanced to ileocecal valve with minimal difficulty. There was minimal amount of abdominal pressure to into the cecum. Cecal mass grossly resembles adenocarcinoma. Estimated size 5 cm. Hot snare was used for biopsy. Previous tattoo also visualized in the same area. Impression: Cecal mass likely source of anemia. Plan: Discussed with patient and family right colectomy and further staging. Findings: possible cancer Specimen(s): other (Cecal mass biopsy) Complications: none Post-procedure Recommendations: Colonscopy in 1 year Follow up: as needed Disposition: PACU
[2024-04-18 12:30] VITALS: BP 125/75; PULSE 79; RESP 21; TEMP 36.6; O2SAT 99
[2024-04-18 12:34] VITALS: BP 135/76; PULSE 79; RESP 17; O2SAT 100
[2024-04-18 12:37] VITALS: BP 130/70; PULSE 80; RESP 11; O2SAT 100
[2024-04-18 12:40] VITALS: BP 149/85; PULSE 78; RESP 20; O2SAT 100
[2024-04-18 12:44] VITALS: BP 149/85; PULSE 70; RESP 16; O2SAT 98
--- NOTE | 2024-04-18 13:36 | SUR.PHASEII ---
Labs drawn prior to patient discharge. Dr Ortiz having extended conversation with patient regarding cecal mass and plan of care for future.
[2024-04-18 13:38] LABS: Add Manual Diff / Slide Review NO; Basophils Absolute Auto 100 /uL (0-100); Basophils Percent Auto 0.9 % (0-2); Eosinophils Absolute Auto 100 /uL (0-450); Eosinophils Percent Auto 1.3 % (2-4); Hematocrit 30.8 % (36-46); Hemoglobin 9.7 g/dL (12.0-16.0); Lymphocytes Absolute Auto 700 /uL (1100-4500); Lymphocytes Percent Auto 8.8 % (25-40); Mean Corpuscular HGB Conc 31.5 % (30-36); Mean Corpuscular Hemoglobin 25.2 PG (26-34); Mean Corpuscular Volume 80.2 fL (80-100); Monocytes Absolute Auto 500 /uL (0-900); Monocytes Percent Auto 6.1 % (3-14); Neutrophils Absolute Auto 6600 /uL (1500-7000); Neutrophils Percent Auto 82.9 % (50-75); Platelet Count 368 X10^3/uL (150-400); Red Blood Cell Count 3.84 X10^6/uL (4.0-5.2); Red Cell Distribution Width 17.2 % (11.6-14.8); White Blood Cell Count 7.9 X10^3/uL (4.5-11.0)
[2024-04-18 14:11] LABS: Carcinoembryonic Antigen < 0.3 ng/mL (0.1-3.0)
== END 2024-04-18 13:37 | disposition home or self-care (01) ==
PROVIDERS: Family Provider Student in an Organized Health Care Education/Training Program; PCP Family Medicine; Referring Provider Surgery; Visit Provider Surgery
PROC: 0DJ08ZZ Inspection of Upper Intestinal Tract, Via Natural or Artificial Opening Endoscopic (ICD-10-PCS; CPT 43235; principal; 2024-04-18 11:45)
PROC: 0DJD8ZZ Inspection of Lower Intestinal Tract, Via Natural or Artificial Opening Endoscopic (ICD-10-PCS; CPT 45378; 2024-04-18 11:45)
DX: C18.0 Malignant neoplasm of cecum; D50.9 Iron deficiency anemia, unspecified; K31.4 Gastric diverticulum; K57.30 Diverticulosis of large intestine without perforation or abscess without bleeding; E66.01 Morbid (severe) obesity due to excess calories; Z68.41 Body mass index [BMI] 40.0-44.9, adult; Z86.0100 Personal history of colon polyps, unspecified
CPT/HCPCS: 45385; 43235; 82378; 85025; J2704

== ENCOUNTER → 2024-04-19 13:30 | Oncology outpatient (ONC) | payer OTHER, MEDICAID, SELFPAY ==
[2018-01-06 15:00] VITALS: BP 104/68; PULSE 65; RESP 18; TEMP 37.3
[2018-01-06] MEDS: SODIUM CHLORIDE 0.9% 250 ML 21 ML IV (15:00)
[2018-01-06 15:16] VITALS: BP 116/74; PULSE 65; RESP 18; TEMP 36.6
[2018-01-06 17:17] VITALS: BP 110/76; PULSE 76; RESP 18; TEMP 36.6
--- NOTE | 2018-01-06 17:36 | PC.NURSE ---
Pt completed first unit of blood w/o difficulty. Ambulated pt and SO to nursing floor for second unit. Pt denies chest pain and SOB at rest. Report given to VERONICA Bolanos. All questions answered.
[2018-01-06 17:44] VITALS: BP 117/76; PULSE 80; RESP 16; TEMP 37.2
[2018-01-06 18:07] VITALS: BP 129/50; PULSE 72; RESP 17; TEMP 37.2
[2018-01-06 19:14] VITALS: BP 110/53; PULSE 67; RESP 18; TEMP 36.9
[2018-01-06 20:48] LABS: Hematocrit 27.7 % (36-46); Hemoglobin 8.8 g/dL (12.0-16.0)
[2018-03-02 08:58] LABS: Add Manual Diff / Slide Review NO; Basophils Percent Auto 1.2 % (0-2); Eosinophils Percent Auto 2.1 % (2-4); Hematocrit 23.5 % (36-46); Hemoglobin 7.4 g/dL (12.0-16.0); Lymphocytes Percent Auto 17.3 % (25-40); Mean Corpuscular HGB Conc 31.5 % (30-36); Mean Corpuscular Hemoglobin 22.4 PG (26-34); Neutrophils Absolute Auto 4200 /uL (3000-5900); Neutrophils Percent Auto 71.4 % (50-75); Platelet Count 284 X10^3/uL (150-400); Red Cell Distribution Width 19.5 % (11.6-14.8); White Blood Cell Count 5.8 X10^3/uL (4.5-11.0)
[2018-03-03 09:52] VITALS: BP 101/69; PULSE 72; RESP 18; TEMP 37
[2018-03-03 10:07] VITALS: BP 113/60; PULSE 67; RESP 18; TEMP 37
[2018-03-03 12:15] VITALS: BP 116/49; PULSE 76; RESP 18; TEMP 36.9
[2018-03-03 12:38] VITALS: BP 116/49; PULSE 76; RESP 18; TEMP 36.9
[2018-03-03 12:53] VITALS: BP 104/67; PULSE 70; RESP 18; TEMP 36.9
[2018-03-03 12:56] VITALS: BP 123/61; PULSE 83; RESP 18; TEMP 36.8
[2018-03-03 15:30] LABS: Hematocrit 28.4 % (36-46); Hemoglobin 9.2 g/dL (12.0-16.0)
[2018-04-13] MEDS: IRON SUCROSE 200 MG in SODIUM CHLORIDE 0.9% 100 ML 220 ML IV (14:53)
[2018-04-13 15:13] VITALS: BP 120/72; PULSE 78; RESP 18; TEMP 37.2; O2SAT 98
[2018-06-17 09:45] VITALS: BP 115/72; PULSE 60; RESP 16; TEMP 36.6; O2SAT 96
[2018-06-17] MEDS: IRON SUCROSE 200 MG in SODIUM CHLORIDE 0.9% 100 ML 220 ML IV (09:49)
--- NOTE | 2018-06-17 10:39 | PC.NURSE ---
Pt seen in clinic for iron infusion, tolerated well. Reports feeling better overall. No s/s of acute distress noted. Reports improved energy compared to previous visits. RR equal and unlabored, denies complaints or concerns at this time I'm feeling good.
[2023-12-23 13:20] VITALS: BP 115/66; PULSE 71; RESP 16; TEMP 36.4; O2SAT 100
[2023-12-23] MEDS: ferumoxytoL 510 MG in SODIUM CHLORIDE 0.9% 100 ML 468 MG IV (13:39)
[2023-12-23 14:45] VITALS: BP 116/72; PULSE 80; RESP 16; TEMP 36.4; O2SAT 98
[2023-12-28 13:23] VITALS: BP 113/69; PULSE 68; RESP 16; TEMP 36.9; O2SAT 98
[2023-12-28] MEDS: ferumoxytoL 510 MG in SODIUM CHLORIDE 0.9% 100 ML 468 MG IV (13:36)
[2023-12-28 15:13] VITALS: BP 132/78; PULSE 72; RESP 18; TEMP 36.7; O2SAT 97
[2024-04-13 13:30] VITALS: BP 108/60; PULSE 80; RESP 18; TEMP 36.7; O2SAT 98
[2024-04-13] MEDS: ferumoxytoL 510 MG in SODIUM CHLORIDE 0.9% 100 ML 468 MG IV (13:56)
--- NOTE | 2024-04-13 14:40 | PC.NURSE ---
Pt tolerated feraheme (dose #1 round 2) denied symptoms of reaction. Observed for 30 mins post infusion. See Flowsheet for VSS.
[2024-04-13 14:56] VITALS: BP 108/61; PULSE 72; RESP 18; TEMP 36.6; O2SAT 97
[2024-04-19 14:20] VITALS: PULSE 70; RESP 16; TEMP 37; O2SAT 97
[2024-04-19] MEDS: ferumoxytoL 510 MG in SODIUM CHLORIDE 0.9% 100 ML 468 MG IV (14:24)
[2024-04-19 15:15] VITALS: BP 114/63; PULSE 75; RESP 16; TEMP 37.2; O2SAT 98
== END ==
PROVIDERS: Family Medicine; Family Provider Student in an Organized Health Care Education/Training Program; PCP Family Medicine; Referring Provider Family Medicine; Visit Provider Family Medicine
DX: D50.9 Iron deficiency anemia, unspecified (principal)
CPT/HCPCS: 36430; 85014; 85018; 85025; 86850; 86900; 86901; 96365; 96366; P9016; J1756; Q0138

== ENCOUNTER → 2024-04-24 18:55 | Outpatient (CLI) | payer OTHER, MEDICAID, SELFPAY ==
[2024-04-10 04:09] VITALS: BMI 35.0
== END ==
PROVIDERS: Family Provider Student in an Organized Health Care Education/Training Program; PCP Family Medicine; Visit Provider Student in an Organized Health Care Education/Training Program
DX: R30.0 Dysuria (principal)
CPT/HCPCS: 87086

== ENCOUNTER → 2024-12-01 08:57 | Outpatient (CLI) | payer OTHER, SELFPAY ==
[2024-04-10 04:09] VITALS: BMI 35.0
[2024-12-01 10:17] LABS: Uric Acid 5.1 mg/dL (2.5-6.2)
[2024-12-01 10:32] LABS: Free T3, Triiodothyronine Free 4.39 pg/mL (2.77-5.27)
[2024-12-01 10:46] LABS: TSH w/ Reflex to FT4 1.59 uIU/mL (0.47-4.68)
[2024-12-03 16:09] LABS: Anti Thyroglobulin Antibody <1.0 IU/mL (0.0-0.9); Thyroid Peroxidase Antibodies <9 IU/mL (0-34)
== END ==
PROVIDERS: PCP Family Medicine; Referring Provider Family Medicine; Visit Provider Family Medicine
DX: M25.571 Pain in right ankle and joints of right foot (principal); G89.29 Other chronic pain; Z83.49 Family history of other endocrine, nutritional and metabolic diseases
CPT/HCPCS: 36415; 84443; 84481; 84550; 86376; 86800

== ENCOUNTER → 2025-01-26 15:04 | Outpatient (CLI) | payer OTHER, SELFPAY ==
[2024-04-10 04:09] VITALS: BMI 35.0
[2025-01-26 16:00] LABS: Add Manual Diff / Slide Review NO; Hematocrit 44.7 % (36-46); Hemoglobin 15.5 g/dL (12.0-16.0); Lymphocytes Absolute Auto 1100 /uL (1100-4500); Mean Corpuscular HGB Conc 34.5 % (30-36); Mean Corpuscular Hemoglobin 32.2 PG (26-34); Mean Corpuscular Volume 93.4 fL (80-100); Platelet Count 255 X10^3/uL (150-400)
[2025-01-26 16:10] LABS: Hemoglobin A1C% w Est Avg Glu 5.0 % (4.0-6.0)
[2025-01-26 16:24] LABS: Alanine Aminotransferase 18 IU/L (<35); Albumin 4.5 g/dL (3.5-5.0); Albumin Globulin Ratio 1.5 (1.0-2.8); Alkaline Phosphatase 87 U/L (38-126); Blood Urea Nitrogen 16 mg/dL (7-17); Calcium 9.4 mg/dL (8.4-10.2); Carbon Dioxide 29 mmol/L (22-32); Chloride 103 mmol/L (98-107); Estimated Glomerular Filt Rate > 60 mL/min (>60); Globulin 3.1 g/dL (1.7-4.1); Glucose 85 mg/dL (70-99); HEMOLYSIS < 15 (0-50); Potassium 4.8 mmol/L (3.4-5.1); Sodium 140 mmol/L (137-145); Total Protein 7.6 g/dL (6.3-8.2)
== END ==
PROVIDERS: PCP Family Medicine; Referring Provider Family Medicine; Visit Provider Family Medicine
DX: Z01.818 Encounter for other preprocedural examination (principal); Z68.36 Body mass index [BMI] 36.0-36.9, adult
CPT/HCPCS: 36415; 80053; 83036; 85025

== ENCOUNTER → 2025-01-31 06:48 | Outpatient (CLI) | payer OTHER, SELFPAY ==
[2024-04-10 04:09] VITALS: BMI 35.0
--- NOTE | 2025-01-31 06:48 | DI.ECHO.S_ITS ---
[facility] : : [id number] : : [place] : : [id number] : : Phone: [phone] Echocardiogram Report + + :Name: REVA PUENTES Study Date: 01/31/2025 Height: 63 in : :[facility] ReadingLocation: Weight: 207 lb : : Gender: Female BSA: 2.0 m2 : :: 1960 Age: 64 yrs BP: 136/89 mmHg: :Reason For Study: HISTORY OF AORTIC REGURGITATION : :Ordering Physician: HUBER, : :ELVA Performed By: Alberto Lorenzana : :Referring: ELVA MEJIA : + + Interpretation Summary 1) Normal left ventricular thickness, size, wall motion, and systolic function (EF 55-60%). 2) Normal right ventricular size and function. 3) There is mild aortic regurgitation. 4) No prior Echo available for comparison. Procedure: A two-dimensional transthoracic echocardiogram with color flow and Doppler was performed. The study quality was technically good. There is no prior echocardiogram noted for this patient. The patient was in normal sinus rhythm during the exam. Left Ventricle: The left ventricle is normal in size. There is normal left ventricular wall thickness. There is no ventricular septal defect visualized. The ejection fraction is estimated to be 55-60%. There are no focal wall motion abnormalities. Diastolic parameters suggest probable normal left ventricular diastolic function and normal filling pressures. Right Ventricle: The right ventricle is normal in size and function. Atria: The left atrial size is normal. Right atrial size is normal. There is no Doppler evidence for an interatrial shunt. The atrial septum is aneurysmal. Mitral Valve: The mitral valve leaflets appear normal. There is no evidence of stenosis, fluttering, or prolapse. There is trace mitral regurgitation. Aortic Valve: The aortic valve is trileaflet. The aortic valve opens well. There is no aortic valve stenosis. There is mild aortic regurgitation. Tricuspid Valve: The tricuspid valve leaflets are thin and pliable. There is trace tricuspid regurgitation. The right ventricular systolic pressure is estimated to be at least 26 mmHg based on an estimated right atrial pressure of 3 mm Hg. Pulmonic Valve: The pulmonic valve is not well seen, but is grossly normal. There is trace pulmonic regurgitation. Great Vessels: The aortic root is normal size. The ascending aorta is at the upper limits of normal in size. The pulmonary artery is normal size. The IVC is of normal diameter and collapses greater than 50% with a sniff. This suggests a low right atrial pressure of 3 mm Hg. Pericardium/ Pleura There is no pericardial effusion. There is no pleural effusion. MMode/2D Measurements & Calculations LVIDd: 5.2 cm LVOT diam: 2.1 cm LVIDs: 3.8 cm Ao root diam: 3.3 cm FS: 26.5 % asc Aorta Diam: 3.9 cm EPSS: 0.84 cm Ao Arch Diam (Prox Trans): 1.7 cm IVSd: 0.97 cm LVPWd: 1.0 cm LV ordaz. diameter/BSA (cm/m^2): 2.6 LV sys. diameter/BSA (cm/m^2): 1.9 LA A2 area: 22.4 cm2 RA long axis: 5.7 cm LA A4 area: 20.0 cm2 RA area: 16.4 cm2 LA length (vol): 6.2 cm RA vol: 40.2 ml LA vol: 61.8 ml RA : 20.5 ml/m2 LA vol index: 31.5 ml/m2 IVC diam: 1.7 cm RVD1 (basal): 3.3 cm RVD2 (mid): 2.6 cm TAPSE: 2.3 cm Doppler Measurements & Calculations Ao V2 max: 121.1 cm/sec LVOT Max Juan: 110.3 cm/sec Ao V2 mean: 80.7 cm/sec LV V1 max P.9 mmHg Ao max P.9 mmHg LV V1 VTI: 26.4 cm Ao mean P.0 mmHg SHERICE(I,D): 3.2 cm2 Ao V2 VTI: 27.3 cm SHERICE(V,D): 3.0 cm2 sev ratio: 0.97 SHERICE indexed to BSA (cm^2/m^2): 1.6 MV E max juan: 75.8 cm/sec TR max juan: 241.9 cm/sec MV A max juan: 79.8 cm/sec TR max P.4 mmHg MV E/A: 0.95 PA V2 max: 88.3 cm/sec Med Peak E' Juan: 5.7 cm/sec PA V2 mean: 65.1 cm/sec E/E' med: 13.3 PA mean P.8 mmHg Lat Peak E' Juan: 9.1 cm/sec PA pr(Accel): 39.6 mmHg E/E' lat: 8.3 E/e' average: 10.8 MV dec time: 0.16 sec SV(LVOT): 87.5 ml Reading Physician:12:54 PM
== END ==
LOC: ECHO 06:48
PROVIDERS: PCP Family Medicine; Referring Provider Family Medicine; Visit Provider Family Medicine
DX: Z01.818 Encounter for other preprocedural examination (principal); Z68.36 Body mass index [BMI] 36.0-36.9, adult; Z86.79 Personal history of other diseases of the circulatory system; I34.0 Nonrheumatic mitral (valve) insufficiency
CPT/HCPCS: 93306

== ENCOUNTER 2025-05-04 13:45 | Outpatient (RCR) | payer OTHER, SELFPAY ==
[2024-04-10 04:09] VITALS: BMI 35.0
--- NOTE | 2025-03-07 18:28 | PT.OIE ---
Current Diagnoses Unilateral primary osteoarthritis, right hip (03/07/25) Past Medical History (Last Updated 10/26/24 @ 11:28 by Usha Matta DO) Ankle pain, right Basal cell carcinoma (BCC) of left shoulder (08/16/17) Bladder prolapse Chronic lumbosacral pain Colon cancer Dermoid cyst Dermoid cyst of left ovary Diverticulosis of colon (10/28/17) Dysphagia (09/09/17) Elevated blood pressure reading (02/16/11) GERD (gastroesophageal reflux disease) GI bleed Hiatal hernia (10/28/17) History of gastrointestinal procedure (04/15/18) Iron deficiency anemia (07/23/17) Knee pain, right Morbid obesity with BMI of 40.0-44.9, adult Never smoked Small bowel obstruction 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 Past Surgical History (Last Reviewed 04/24/24 @ 19:15 by Vivian Silvestre PA-C) History of basal cell carcinoma excision (08/16/17) History of carpal tunnel release (~1991) History of colonoscopy with polypectomy (12/22/17) History of dermoid cyst excision History of esophagogastroduodenoscopy (EGD) (10/28/17) History of esophagogastroduodenoscopy (EGD) (03/14/18) History of repair of hiatal hernia History of right salpingo-oophorectomy Hx of hernia repair (1986) Hx of LASIK S/P colonoscopic polypectomy (10/28/17) S/P knee surgery (1979) Status post LASIK surgery Status post left foot surgery (~1996) Visit Care Team Role Provider Type Usha Matta DO Family Provider Physician Primary Care Provider Specialty: Family Practice Address: [address] [place] [address], [address], [address] Email: [email or web address] Dangelo Cerna PA-C Attending Provider Non-Staff Referring Provider Specialty: Medical Address: [facility] Orthopedics, [address] [place] [address], [phone] Email: Physical Therapy Initial Evaluation PT OP: Lower Back/Lower Extremity Start: 03/07/25 11:35 Freq: Status: Active Protocol: Document 03/07/25 11:35 TELEVISION PRODUCTION ASSISTANT (Rec: 03/07/25 12:58 TELEVISION PRODUCTION ASSISTANT Laptop) Out-Patient Physical Therapy Visit Information Visit Information Visit Type Initial Evaluation Visit Note eval charge only Visit Start Time 11:35 Visit Stop Time 12:27 Visit Number 1 Number of HOSPITALIST PROGRAM DIRECTOR Visits 0 Progress Note Due 04/06/25 Precautions Precautions Low BP, check during sessions. R post hip precautions Current Condition History of Current Condition Onset Date 02/16/25 date of surgery Current Complaints R NUVIA posterior approach History of Current Pt here to PT post op 3 weeks on 03/09, amb step to Condition pattern with FWW. Pt reports she has had a more difficult time with recovery from this hip vs L NUVIA that she got done last year. Her sister, Amena, is here to appointment with pt and pt has been staying with her for the past few days. She normally lives with , 2 A[address]UL[address] with 2 HRs but far apart and steep driveway and is having a very difficult time getting into the house. Is still needing to grab ahold of things to help her roll in bed and has been using a raised toilet seat with grab bar. Able to report post hip precautions, states she sleeps on side with pillow between knees and last night was able to roll onto stomach and sleep for a few hours. Pt reports surgeon told her LLE is longer as he believes her pelvis is tilted. Reports OA to R knee lacking full knee flexion and was recommended by surgeons for R TKA but pt would like to prolong it as long as possible. Prior Treatments and H/O L NUVIA 02/2024 and colon CA Tests Treatment Goals Patient/Caregiver walking without a cane, being able to walk for exercise Goals , being able to bend over to put shoes and socks on ind Patient Questionnaires Lower Extremity Functional Scale LEFS Score 10/80 LEFS Impairment 80 to 99% Impaired (Score 1-16) Manual Assessments Other Manual Assessments Other Manual Decreased soft tissue mobility to R quad and HF tendon, Assessments glute med OP Mobility Evaluation Bed Mobility Supine to and from spv without assist from UEs to lift leg Sit Transfers Sit to Stand lean and increased WB to L side, heavy use of BUEs OP Gait Assessment Comments Gait Comments step to pattern with FWW leaning towards LLE with R heel elevation, possibly d/t LLE longer. Forward flexed pattern in standing with noted tightness in B hip flexors Hip Strength Hip Manual Muscle Testing L Flexion (L2) 4 Good Extension (S1) 3- Fair- Abduction 4- Good- Comments weakness in L hip flex d/t increased pain in R hip R Flexion (L2) 3- Fair- Extension (S1) 2 Poor Abduction 3- Fair- Comments assist with hip flexion from supine Not measured but observed tightness to R HF tendon and quad Knee Strength Knee Manual Muscle Testing L Flexion (S2) 5 Normal Extension (L3) 5 Normal R Flexion (S2) 4 Good Extension (L3) 4 Good Comments no pain Not measured but observed chronic R knee decreased knee flex to ~90 degrees Ankle/Foot Strength Ankle and Foot Manual Muscle Testing Right Dorsiflexion (L4) 5 Normal Left Dorsiflexion (L4) 4+ Good+ Therapeutic Exercises Supine Exercises HF stretch Supine Exercise Name Laying supine with RLE fully relaxed on bed for quad and HF stretch Side right Reps/Minutes 30s x2 Comments instructed to perform as HEP Glute sets Side bilateral Comments verbal instruction for HEP with HO Hip Abd Side right Comments verbal instruction for HEP with HO SAQs Side right Reps/Minutes 10x2 Comments Added to HEP with HO Heel slides Side right Reps/Minutes 10x2 Comments Added to HEP with HO Therapeutic Activity Therapeutic Activity Stairs Name side stepping Comments Pt with 1 HR at home, observed difficult forward step to pattern with difficulty unloading RLE on descent with 1 HR, improved with side stepping with step to pattern for BUE offloading. VC for upright posture Gait Training Gait Activity Posture Description upright posture Device Used FWW Level of Assistance ind Surface even Comments VC for upright posture while amb for stretching of B hip flexors Physical Therapy Assessment Rehab Potential Rehabilitation Good Potential Evaluation Complexity Number of Personal 3 or More Factors/ Comorbidities Number of Body 1-2 Systems Impaired Clinical Evolving Presentation at Evaluation Impairments Impairments Activity Tolerance,Balance,Functional Activities, Functional Mobility,Gait,Pain,Posture,ROM,Soft Tissue Mobility,Strength,Transfers Goals 3 Impairment Sit<>stands Correction Goal (LTG) Pt will improve functional mobility to BLE strength and endurance with at least 15 on 30s STS test from 17 chair without use of BUEs. LTG Duration 05/26/25 2 Impairment Gait Short Term Goal (STG Pt will amb at least 150' on uneven surface with SPC in ) L hand with reciprocal gait pattern with even step lengths and min WB impairment ind in order to improve functional mobility. STG Duration 04/18/25 Correction Goal (LTG) Pt will amb at least 300' on uneven surface without AD with reciprocal gait pattern with even WB and step lengths ind in order to improve functional mobility to baseline. LTG Duration 05/26/25 1 Impairment LEFS Impairment on eval: Lecturer Of Portuguese Goal (LTG) Pt will score at least 60/80 on LEFS test to demonstrate improved functional mobility. LTG Duration 05/26/25 Assessment Summary Assessment Pt presents to PT s/p R NUVIA 02/16/25 with post hip precautions and found to have decreased AROM and strength throughout RLE limiting her gait, balance, bed mobility, transfers standing up from chair, and ability to negotiate stairs. Pt will highly benefit from skilled PT intervention to address deficits and improve functional mobility and safety. Physical Therapy Plan Frequency and Duration Frequency of 2x/Week Treatment Duration of 12 treatment (weeks) Plan of Care Start 03/07/25 Date Plan of Care End 05/26/25 Date Therapeutic Interventions Therapeutic Balance Training,Gait Training,Home Exercise Program, Interventions Joint Mobilizations,Manual Therapy,Neuromuscular Re- education,Orthotic/Prosthetic Management,Patient/ Caregiver Education,Self-Care/Home Management,Soft Tissue Mobilization,Taping,Therapeutic Activities, Therapeutic Exercises Modalities Cold Pack/Ice Massage,Electric Stimulation,Hot Packs, Iontophoresis,Ultrasound Next Visit Focus/Plan Next Note Type Treatment Note Next Visit Plan review HEP, STM to R quad and HFs, advance HEP as needed, 30s STS test
--- NOTE | 2025-03-09 12:45 | PT.OTN ---
Current Diagnoses Unilateral primary osteoarthritis, right hip (03/09/25) Physical Therapy Treatment Note PT OP: Lower Back/Lower Extremity Start: 03/07/25 11:35 Freq: Status: Active Protocol: Document 03/09/25 11:33 SLEEP MANAGER (Rec: 03/09/25 12:41 SLEEP MANAGER Laptop) Out-Patient Physical Therapy Visit Information Visit Information Visit Type Treatment Note Visit Start Time 11:34 Visit Stop Time 12:20 Visit Number 2 Number of BLOOM CONVEYOR OPERATOR Visits 0 Progress Note Due 04/06/25 Precautions Precautions Low BP, check during sessions. R post hip precautions OP-PT Subjective Patient Comments Patient Comments Pt ambs into session with FWW and forward flexed posture, is in more pain today 5-12/12 at R lateral hip d/t forgetting to take tylenol prior to session but reports she has not been having to take oxycodone. Functional Tests 30 Second Sit to Stand Test Score 6 Comments 17 chair with use of BUEs, prior to pain meds today Therapeutic Exercises Prone Exercises Quad stretch Prone Exercise Name manual stretch Side right Reps/Minutes 1 min x2 Comments good tolerance, educated pt's sister to assist, added to HEP with HO Standing Exercises HS stretch Standing Exercise on 6 step with HRs Name Side right Reps/Minutes 30s x3 Comments decreased tolerance d/t tightness to R gastroc, Added to HEP with HO Therapeutic Activity Therapeutic Activity Bed mobility Name supine<>prone Reps/Minutes x2 each Comments min A to rolling in and out of L sidelying with x3 pillows between knees to maintain hip px, pt demonstrated rolling into prone while maintaining hip px 30s STS Reps/Minutes 6 Comments 17 chair with BUEs, prior to pain meds Manual Therapy Treatment Consent Patient gave verbal Yes consent for manual treatment Soft Tissue Mobilization Hip Body Location R glute med, piriformis, ITB, proximal HS Mobilization Type Rolling Intensity/Depth superficial>moderate Body Position Sidelying with x3 pillows between knees Comments improved tightness after STM Physical Therapy Assessment Goals 3 Impairment Sit<>stands Rn Examiner Goal (LTG) Pt will improve functional mobility to BLE strength and endurance with at least 15 on 30s STS test from 17 chair without use of BUEs. LTG Duration 05/26/25 2 Impairment Gait Short Term Goal (STG Pt will amb at least 150' on uneven surface with SPC in ) L hand with reciprocal gait pattern with even step lengths and min WB impairment ind in order to improve functional mobility. STG Duration 04/18/25 [facility] Goal (LTG) Pt will amb at least 300' on uneven surface without AD with reciprocal gait pattern with even WB and step lengths ind in order to improve functional mobility to baseline. LTG Duration 05/26/25 1 Impairment LEFS Impairment on eval: 10/80 [facility] Goal (LTG) Pt will score at least 60/80 on LEFS test to demonstrate improved functional mobility. LTG Duration 05/26/25 Assessment Summary Assessment 30s STS test performed with use of BUEs x6, pt tolerated STM to R hip muscles with significant tightness to proximal R HS and piriformis but with improvement after STM. Prone quad stretch and standing HS stretch given as HEP with HO. Physical Therapy Plan Frequency and Duration Frequency of 2x/Week Treatment Duration of 12 treatment (weeks) Plan of Care Start 03/07/25 Date Plan of Care End 05/26/25 Date Next Visit Focus/Plan Next Note Type Treatment Note Next Visit Plan gastroc stretch, STM to R piriformis, advance glute sets to bridges and add clamshells to HEP
--- NOTE | 2025-03-14 12:20 | PT.OTN ---
Current Diagnoses Unilateral primary osteoarthritis, right hip (03/14/25) Physical Therapy Treatment Note PT OP: Lower Back/Lower Extremity Start: 03/07/25 11:35 Freq: Status: Active Protocol: Document 03/14/25 11:34 SP (Rec: 03/14/25 12:35 SP [id number]) Out-Patient Physical Therapy Visit Information Visit Information Visit Type Treatment Note Visit Note JEANETTE Mueller assisted with manual therapy and ther ex instruction to patient with patient permission while under direct instruction of SUGEY English. Visit Start Time 11:34 Visit Stop Time 12:20 Visit Number 3 Number of ELECTRICIAN DECK Visits 1 Progress Note Due 04/06/25 Precautions Precautions Low BP, check during sessions. R post hip precautions OP-PT Subjective Patient Comments Patient Comments Pt reports was really sore for 2 days after last tx, thinks the manual therapy was to much and limited her mobililty to get around. Still sore today but probably due to taking a longer walk at [place] parkinglot yesterday. She is able to lay on her back couple times and each side better with pillows between legs with less pain, she is sleeping better and actually got woke up by alarm clock vs pain waking her. She tried to use cane but not stable enough yet. She has a follow up appt with ortho in 2 weeks. Therapeutic Exercises Supine Exercises Hip ER Supine Exercise Name trailed long axis Side right Resistance tactile- 5% A Reps/Minutes 10 reps Comments challenge due to R adductor tightness Heel slides Supine Exercise Name reviewed HEP- cued for neutral pelvis and TA draw in Side right Reps/Minutes many reps alternating BLEs Comments cued knee out midline with ankle neutral postioning, for avoid valgus knee. Gait Training Gait Activity Posture Description upright posture Device Used FWW Level of Assistance ind Surface even Distance/Duration front of mirror for self feedback Comments VC for upright posture, heel toe, Glut drive with pelvis under trunk, while amb for stretching of R>L hip flexors and adductors, marching pivot step during turns with heel down. Increased walker height 1 knotch, improved more upright posture. Manual Therapy Treatment Consent Patient gave verbal Yes consent for manual treatment Soft Tissue Mobilization Hip Body Location R: glute med, ITB, TFL, quad, adductor Mobilization Type Rolling Intensity/Depth broad superficial<>moderate Body Position Hooklying Comments improved tissue mobility with broad gentle STM with ability to complete hip ER and more midline knee alignment heel slides Self-Care/Home Management Treatment Education Patient Education Body Mechanics,Home Exercise Program,Posture,Safety Other Education Education on anatomy and R knee, ankle and leg alignment, knee tends to valgus cave and tightness of R adductor with weakness of hip abductor. Much education on R LE alignment durign walkin Physical Therapy Assessment Goals 3 Impairment Sit<>stands Group Home Goal (LTG) Pt will improve functional mobility to BLE strength and endurance with at least 15 on 30s STS test from 17 chair without use of BUEs. LTG Duration 05/26/25 2 Impairment Gait Short Term Goal (STG Pt will amb at least 150' on uneven surface with SPC in ) L hand with reciprocal gait pattern with even step lengths and min WB impairment ind in order to improve functional mobility. STG Duration 04/18/25 Glass Driller Goal (LTG) Pt will amb at least 300' on uneven surface without AD with reciprocal gait pattern with even WB and step lengths ind in order to improve functional mobility to baseline. LTG Duration 05/26/25 1 Impairment LEFS Impairment on eval: 10/80 Group Home Goal (LTG) Pt will score at least 60/80 on LEFS test to demonstrate improved functional mobility. LTG Duration 05/26/25 Assessment Summary Assessment Pt good feedback response to gentle more broad manual STMs today including adductor elongation with added TA hip ER to HEP with sister anchoring foot with education on alignment for hip and ankle mobility for freedom during gait, she reported improved decreased anterior hip and groin tension. Much time spent on gait mechanics with cues for pelvis wt shift over stance RLE with glut engagement while allow heel toe mobility and march stepping during pivot turns with R heel down on floor. She tends to anterior tilt pelvis, stand on her R forefoot vs full foot and hip hike on R during swing through gait. Provided handout with gait phases for self awareness. Sister understood cueing that helped patient mobilize with better gait and will provide cues at home when needed. DIscussed she is not ready for SPC use, will perform in PT at future date and let her know when she is stronge enough to use but at this time is to heavily WB BUE On FWW to transition to SPC, pt verbalized understanding. Physical Therapy Plan Frequency and Duration Frequency of 2x/Week Treatment Duration of 12 treatment (weeks) Plan of Care Start 03/07/25 Date Plan of Care End 05/26/25 Date Therapeutic Interventions Therapeutic Balance Training,Gait Training,Home Exercise Program, Interventions Joint Mobilizations,Manual Therapy,Neuromuscular Re- education,Orthotic/Prosthetic Management,Patient/ Caregiver Education,Self-Care/Home Management,Soft Tissue Mobilization,Taping,Therapeutic Activities, Therapeutic Exercises Modalities Cold Pack/Ice Massage,Electric Stimulation,Hot Packs, Iontophoresis,Ultrasound Next Visit Focus/Plan Next Note Type Treatment Note Next Visit Plan REcheck gait with FWW and gait phases progression correcitons. POC: gastroc stretch, STM to R piriformis, advance glute sets to bridges and add clamshells to HEP
--- NOTE | 2025-03-16 16:14 | PT.OTN ---
Current Diagnoses Unilateral primary osteoarthritis, right hip (03/16/25) Physical Therapy Treatment Note PT OP: Lower Back/Lower Extremity Start: 03/07/25 11:35 Freq: Status: Active Protocol: Document 03/16/25 11:27 JEWELRY DRILLING MACHINE OPERATOR (Rec: 03/16/25 12:49 JEWELRY DRILLING MACHINE OPERATOR Laptop) Out-Patient Physical Therapy Visit Information Visit Information Visit Type Treatment Note Visit Start Time 11:36 Visit Stop Time 12:24 Visit Number 4 Number of SPORTS OFFICIAL Visits 0 Progress Note Due 04/06/25 Precautions Precautions Low BP, check during sessions. R post hip precautions OP-PT Subjective Patient Comments Patient Comments Pt reports she felt really good after last session with minimal pain, has been working on her gait pattern and finding it easier to stand up straight, move in bed, sleep, and stand up from toilet. Current pain is 2-3/10 to R hip with last pain meds taken 4 hours ago. Therapeutic Exercises Supine Exercises Clamshells Side bilateral Reps/Minutes 10x2 Comments Able to control hips with stabilization at feet only, Added to HEP with HO Bridges Side bilateral Reps/Minutes x10 Comments Progressed HEP from glute sets, with HO Adductor stretch Supine Exercise Name in hip abd and slight knee flex on FR Side right Reps/Minutes 1 min x3 Comments manual ER of hip Sidelying Exercises Clamshells Side right Equipment Used pillows between knees Reps/Minutes x10 Comments unable to raise fully against gravity, manual assist with TC at post hip Manual Therapy Treatment Consent Patient gave verbal Yes consent for manual treatment Soft Tissue Mobilization lower leg Body Location R ant tib and medial and lateral edges of gastroc/ soleus Mobilization Type Instrument Assisted,Myofascial Release Intensity/Depth Superficial Body Position Hooklying Comments cupping, fair tolerance to light suction only with positive results Hip Body Location R quad and adductors Mobilization Type Myofascial Release,Rolling Intensity/Depth broad superficial>moderate Body Position Hooklying Comments MFR with light twisting to R quad, STM to adductors while in gentle stretch with improved results into ER Physical Therapy Assessment Goals 3 Impairment Sit<>stands Residential Goal (LTG) Pt will improve functional mobility to BLE strength and endurance with at least 15 on 30s STS test from 17 chair without use of BUEs. LTG Duration 05/26/25 2 Impairment Gait Short Term Goal (STG Pt will amb at least 150' on uneven surface with SPC in ) L hand with reciprocal gait pattern with even step lengths and min WB impairment ind in order to improve functional mobility. STG Duration 04/18/25 Cashier Self Service Gasoline Goal (LTG) Pt will amb at least 300' on uneven surface without AD with reciprocal gait pattern with even WB and step lengths ind in order to improve functional mobility to baseline. LTG Duration 05/26/25 1 Impairment LEFS Impairment on eval: 10 Cashier Self Service Gasoline Goal (LTG) Pt will score at least 60/80 on LEFS test to demonstrate improved functional mobility. LTG Duration 05/26/25 Assessment Summary Assessment Pt tolerated cupping to R lower leg fairly with significant myofascial tightness noted after pt complained of pain/tightness during gait. Pt still with significant R adductor tightness limiting her ER. Able to progress HEP from glute sets to bridges and added clamshells in supine as she is not yet able to lift against gravity in sidelying. Physical Therapy Plan Frequency and Duration Frequency of 2x/Week Treatment Duration of 12 treatment (weeks) Plan of Care Start 03/07/25 Date Plan of Care End 05/26/25 Date Next Visit Focus/Plan Next Note Type Treatment Note Next Visit Plan progress hip strengthening, standing gastroc and soleus stretch, gait training, cupping to RLE
--- NOTE | 2025-03-23 14:40 | PT.OTN ---
Current Diagnoses Unilateral primary osteoarthritis, right hip (03/23/25) Physical Therapy Treatment Note PT OP: Lower Back/Lower Extremity Start: 03/07/25 11:35 Freq: Status: Active Protocol: Document 03/23/25 13:51 JZ (Rec: 03/23/25 14:39 JZ [id number]) Out-Patient Physical Therapy Visit Information Visit Information Visit Type Treatment Note Visit Start Time 01:45 Visit Stop Time 02:30 Visit Number 5 Number of DESIGN ENGINEER PRODUCTS Visits 0 Progress Note Due 04/06/25 Precautions Precautions Low BP, check during sessions. R post hip precautions OP-PT Subjective Patient Comments Patient Comments Patient reports her hip his feeling a bit sore today. She tried using a cane at home for ambulation a little but reports her hip did not tolerate it well. Cardio Equipment Recumbent Stepper (Sci-Fit) Duration (Minutes) 8 Resistance 4 Therapeutic Exercises Supine Exercises Clamshells Side bilateral Resistance level 1 resistance Reps/Minutes 2x10 Bridges Side bilateral Reps/Minutes 3x10 Sitting Exercises Seated hip abduction Side right Resistance level 1 band Reps/Minutes 2x20 Comments Manual assist for end range concentric, controlled eccentric Standing Exercises Mini squats Equipment Used UE support with RW Reps/Minutes 2x10 Comments cues for anterior knee translation Physical Therapy Assessment Goals 3 Impairment Sit<>stands Bank Runner Goal (LTG) Pt will improve functional mobility to BLE strength and endurance with at least 15 on 30s STS test from 17 chair without use of BUEs. LTG Duration 05/26/25 2 Impairment Gait Short Term Goal (STG Pt will amb at least 150' on uneven surface with SPC in ) L hand with reciprocal gait pattern with even step lengths and min WB impairment ind in order to improve functional mobility. STG Duration 04/18/25 Bank Runner Goal (LTG) Pt will amb at least 300' on uneven surface without AD with reciprocal gait pattern with even WB and step lengths ind in order to improve functional mobility to baseline. LTG Duration 05/26/25 1 Impairment LEFS Impairment on eval: Bank Runner Goal (LTG) Pt will score at least 60/80 on LEFS test to demonstrate improved functional mobility. LTG Duration 05/26/25 Assessment Summary Assessment Treatment focused on gentle hip strengthening as tolerated. Patient tolerated treatment well with no lasting increases in pain levels. She struggled to complete full range with hip abduction so manual assist was added for end range which she responded well to with improvement in range. Plan next session to trial step ups on stairs and gait training with SPC. Physical Therapy Plan Frequency and Duration Frequency of 2x/Week Treatment Duration of 12 treatment (weeks) Plan of Care Start 03/07/25 Date Plan of Care End 05/26/25 Date Next Visit Focus/Plan Next Note Type Treatment Note Next Visit Plan Progress hip strengthening, trial step ups, add gait training with SPC
--- NOTE | 2025-03-26 13:13 | PT.OTN ---
Current Diagnoses Unilateral primary osteoarthritis, right hip (03/26/25) Physical Therapy Treatment Note PT OP: Lower Back/Lower Extremity Start: 03/07/25 11:35 Freq: Status: Active Protocol: Document 03/26/25 11:21 NIGEL (Rec: 03/26/25 13:12 NIGEL [id number]) Out-Patient Physical Therapy Visit Information Visit Information Visit Type Treatment Note Visit Start Time 11:30 Visit Stop Time 12:10 Visit Number 6 Number of AUTOMATIC CLIPPER Visits 0 Progress Note Due 04/06/25 Precautions Precautions Low BP, check during sessions. R post hip precautions OP-PT Subjective Patient Comments Patient Comments Patient reports he pain levels is a 3/10 this morning. She reports she has started using her cane more and has been using it primarily since then. She reports her hip was hurting more yesterday although she reports she believes this is because she was on her feet more on Wednesday. Cardio Equipment Recumbent Stepper (Sci-Fit) Duration (Minutes) 8 Resistance 5 Therapeutic Exercises Supine Exercises Clamshells Side bilateral Resistance level 1 resistance Reps/Minutes 2x10 Bridges Side bilateral Reps/Minutes 3x10 Sitting Exercises Seated hip abduction Side right Resistance level 1 band Reps/Minutes 2x20 Comments Manual assist for end range concentric, controlled eccentric Standing Exercises Step ups Equipment Used stairs Reps/Minutes 3x6 Comments 6 step, cues for Standing hip flexion Equipment Used chair for UE support Reps/Minutes 3x10 Mini squats Equipment Used UE support with RW Reps/Minutes 2x10 Comments cues for anterior knee translation Physical Therapy Assessment Goals 3 Impairment Sit<>stands Rework Operator Goal (LTG) Pt will improve functional mobility to BLE strength and endurance with at least 15 on 30s STS test from 17 chair without use of BUEs. LTG Duration 05/26/25 2 Impairment Gait Short Term Goal (STG Pt will amb at least 150' on uneven surface with SPC in ) L hand with reciprocal gait pattern with even step lengths and min WB impairment ind in order to improve functional mobility. STG Duration 04/18/25 Rework Operator Goal (LTG) Pt will amb at least 300' on uneven surface without AD with reciprocal gait pattern with even WB and step lengths ind in order to improve functional mobility to baseline. LTG Duration 05/26/25 1 Impairment LEFS Impairment on eval: Mcfp Goal (LTG) Pt will score at least 60/80 on LEFS test to demonstrate improved functional mobility. LTG Duration 05/26/25 Assessment Summary Assessment Treatment focused on progressing hip strengthening. Patient tolerated treatment well with no increases in pain levels. Plan next session to follow up on home exercises and update HEP. Also plan to progress loads as appropriate. Physical Therapy Plan Frequency and Duration Frequency of 2x/Week Treatment Duration of 12 treatment (weeks) Plan of Care Start 03/07/25 Date Plan of Care End 05/26/25 Date Next Visit Focus/Plan Next Note Type Treatment Note Next Visit Plan Progress strengthening as tolerated, add lateral band walks
--- NOTE | 2025-03-30 13:31 | PT.OTN ---
Current Diagnoses Unilateral primary osteoarthritis, right hip (03/30/25) Physical Therapy Treatment Note PT OP: Lower Back/Lower Extremity Start: 03/07/25 11:35 Freq: Status: Active Protocol: Document 03/30/25 11:36 JAmaury (Rec: 03/30/25 12:21 NIGEL [id number]) Out-Patient Physical Therapy Visit Information Visit Information Visit Type Treatment Note Visit Start Time 11:35 Visit Stop Time 12:15 Visit Number 7 Number of INDUSTRIAL HYGIENE MANAGER Visits 0 Progress Note Due 04/06/25 Precautions Precautions Low BP, check during sessions. R post hip precautions OP-PT Subjective Patient Comments Patient Comments Patient reports her hip is feeling goof today. She reports minimal pain. Cardio Equipment Recumbent Stepper (Sci-Fit) Duration (Minutes) 8 Resistance 5 Therapeutic Exercises Sitting Exercises Seated hip abduction Side right Resistance level 1 band Reps/Minutes 2x20 Comments Manual assist for end range concentric, controlled eccentric Standing Exercises Lateral band walks Side bilateral Resistance level 1 Equipment Used band Reps/Minutes 2x[address] Hip abduction Side bilateral Equipment Used railing for UE support Step ups Equipment Used stairs Reps/Minutes 3x6 Comments 6 step, cues for Standing hip flexion Equipment Used chair for UE support Reps/Minutes 3x10 Mini squats Equipment Used UE support with RW Reps/Minutes 2x10 Comments cues for anterior knee translation Physical Therapy Assessment Goals 3 Impairment Sit<>stands Manager Membership Goal (LTG) Pt will improve functional mobility to BLE strength and endurance with at least 15 on 30s STS test from 17 chair without use of BUEs. LTG Duration 05/26/25 2 Impairment Gait Short Term Goal (STG Pt will amb at least 150' on uneven surface with SPC in ) L hand with reciprocal gait pattern with even step lengths and min WB impairment ind in order to improve functional mobility. STG Duration 04/18/25 Manager Membership Goal (LTG) Pt will amb at least 300' on uneven surface without AD with reciprocal gait pattern with even WB and step lengths ind in order to improve functional mobility to baseline. LTG Duration 05/26/25 1 Impairment LEFS Impairment on eval: 10 Manager Membership Goal (LTG) Pt will score at least 60/80 on LEFS test to demonstrate improved functional mobility. LTG Duration 05/26/25 Assessment Summary Assessment Treatment focused on progressing hip strengthening. Patient tolerated treatment well with no increases in pain levels. Plan next session to follow up on home exercises and continue with plan of care. Physical Therapy Plan Frequency and Duration Frequency of 2x/Week Treatment Duration of 12 treatment (weeks) Plan of Care Start 03/07/25 Date Plan of Care End 05/26/25 Date Next Visit Focus/Plan Next Visit Plan Continue with plan of care. Progress loading as tolerated.
--- NOTE | 2025-04-02 13:02 | PT.OTN ---
Current Diagnoses Unilateral primary osteoarthritis, right hip (04/02/25) Physical Therapy Treatment Note PT OP: Lower Back/Lower Extremity Start: 03/07/25 11:35 Freq: Status: Active Protocol: Document 04/02/25 11:37 JAmaury (Rec: 04/02/25 12:16 NIGEL [id number]) Out-Patient Physical Therapy Visit Information Visit Information Visit Type Treatment Note Visit Start Time 11:35 Visit Stop Time 12:15 Visit Number 8 Number of FLIGHT ATTENDANT/INFLIGHT MANAGER Visits 0 Progress Note Due 04/06/25 Precautions Precautions Low BP, check during sessions. R post hip precautions OP-PT Subjective Patient Comments Patient Comments Patient reports she has been doing her home exercises. She reports her pain has been around a 2/10. Cardio Equipment Recumbent Stepper (Sci-Fit) Duration (Minutes) 8 Resistance 5 Therapeutic Exercises Sitting Exercises Seated hip abduction Side right Resistance level 1 band Reps/Minutes 2x20 Comments Manual assist for end range concentric, controlled eccentric Standing Exercises Lateral band walks Side bilateral Resistance level 1 Equipment Used band Reps/Minutes 3x[address] Hip abduction Side bilateral Resistance 3# Equipment Used railing for UE support Step ups Equipment Used stairs Reps/Minutes 3x6 Comments 6 step, cues for Standing hip flexion Equipment Used chair for UE support Reps/Minutes 3x10 Mini squats Equipment Used UE support with RW Reps/Minutes 2x10 Comments cues for anterior knee translation Physical Therapy Assessment Goals 3 Impairment Sit<>stands Shelter Goal (LTG) Pt will improve functional mobility to BLE strength and endurance with at least 15 on 30s STS test from 17 chair without use of BUEs. LTG Duration 05/26/25 2 Impairment Gait Short Term Goal (STG Pt will amb at least 150' on uneven surface with SPC in ) L hand with reciprocal gait pattern with even step lengths and min WB impairment ind in order to improve functional mobility. STG Duration 04/18/25 Shelter Goal (LTG) Pt will amb at least 300' on uneven surface without AD with reciprocal gait pattern with even WB and step lengths ind in order to improve functional mobility to baseline. LTG Duration 05/26/25 1 Impairment LEFS Impairment on eval: 10/80 Shelter Goal (LTG) Pt will score at least 60/80 on LEFS test to demonstrate improved functional mobility. LTG Duration 05/26/25 Assessment Summary Assessment Treatment focused on progressing hip strengthening. Patient tolerated treatment well with no increases in pain levels. Plan next session to follow up on home exercises and continue with plan of care. Physical Therapy Plan Frequency and Duration Frequency of 2x/Week Treatment Duration of 12 treatment (weeks) Plan of Care Start 03/07/25 Date Plan of Care End 05/26/25 Date Next Visit Focus/Plan Next Visit Plan Complete progress note. Progress loading as tolerated.
--- NOTE | 2025-05-04 15:44 | PT.OPDS ---
Current Diagnoses Unilateral primary osteoarthritis, right hip (05/04/25) Visit Care Team Role Provider Type Usha Matta DO Family Provider Physician Primary Care Provider Specialty: Family Practice Address: [address] [place] [address], [address], [place], [address] Email: [email or web address] Dangelo Cerna PA-C Attending Provider Non-Staff Referring Provider Specialty: Medical Address: [address] [place] [address], [id number] Email: Visit Number Visit Number 9 Discharge Summary PT OP: Lower Back/Lower Extremity Start: 03/07/25 11:35 Freq: Status: Active Protocol: Document 05/04/25 13:59 JZ (Rec: 05/04/25 15:44 JZ [id number]) Out-Patient Physical Therapy Visit Information Visit Information Visit Type Discharge Summary Visit Start Time 13:50 Visit Stop Time 14:30 Visit Number 9 Progress Note Due 04/06/25 Precautions Precautions Low BP, check during sessions. R post hip precautions OP-PT Subjective Patient Comments Patient Comments Patient reports her hip is doing well overall. She has stopped using her SPC as of two weeks ago. She still uses her cane when walking up stairs and steep inclines . She reports her GROC is 90%. She reports improvement with ROM, putting her shoes on, going up stairs, walking. She notes that she feels limited with stepping up with her involved leg on the steps. She notes she does not have any other significant deficits at this time. She is s/p R NUVIA 02/16/25. Patient Questionnaires Lower Extremity Functional Scale LEFS Score 62 Hip Goniometric Range of Motion Hip R hip Flexion w/Knee 110 Flexed Abduction 45 Internal Rotation 15 External Rotation 20 Cardio Equipment Recumbent Stepper (Sci-Fit) Duration (Minutes) 5 Resistance 5 Therapeutic Exercises Sitting Exercises Seated hip ER stretch Reps/Minutes 2x30 Seated hip flexion stretch Reps/Minutes 3x30 Seated hamstring stretch Reps/Minutes 3x30 Physical Therapy Assessment Goals 3 Impairment Sit<>stands Mcfp Goal (LTG) Pt will improve functional mobility to BLE strength and endurance with at least 15 on 30s STS test from 17 chair without use of BUEs. 05/04/2025: 15 with hands, 13 reps without hands LTG Duration 05/26/25 2 Impairment Gait Short Term Goal (STG Pt will amb at least 150' on uneven surface with SPC in ) L hand with reciprocal gait pattern with even step lengths and min WB impairment ind in order to improve functional mobility. Met - 05/04/2025 STG Duration 04/18/25 Mcfp Goal (LTG) Pt will amb at least 300' on uneven surface without AD with reciprocal gait pattern with even WB and step lengths ind in order to improve functional mobility to baseline. LTG Duration 05/26/25 1 Impairment LEFS Impairment on eval: Mcfp Goal (LTG) Pt will score at least 60/80 on LEFS test to demonstrate improved functional mobility. Met - 62 on 05/04/2025 LTG Duration 05/26/25 Assessment Summary Assessment Patient presenting to PT s/p R NUVIA on 02/16/25 after 8 PT visits. Patient has made improvement with strength, balance, and function (see subjective section) and has transitioned away from using assistive devices. Further investigation revealed improvements in R hip ROM (see measures: flexion), gross LE strength (see measures: 30sSTS), and general LE function (See measures: LEFS). Because of progress noted above, and patient-reported confidence continuing her exercises independently, today will be her last formal PT session. Time was spent discussing progress in PT, and home exercises to continue with for continued progress. Physical Therapy Plan Frequency and Duration Frequency of 2x/Week Treatment Duration of 12 treatment (weeks) Plan of Care Start 03/07/25 Date Plan of Care End 05/26/25 Date Next Visit Focus/Plan Next Visit Plan N/A - discharge plan of care
== END 2025-05-07 08:43 | disposition home or self-care (01) ==
LOC: PHYS 13:45
PROVIDERS: Family Provider Family Medicine; PCP Family Medicine; Referring Provider Physician Assistant Surgical; Visit Provider Physician Assistant Surgical
DX: M16.11 Unilateral primary osteoarthritis, right hip (principal)
CPT/HCPCS: 97110; 97116; 97140; 97162

== ENCOUNTER 2025-05-25 08:51 | Day surgery (SDC) | payer OTHER, SELFPAY ==
[2024-04-10 04:09] VITALS: BMI 35.0
[2025-05-22 13:30] VITALS: BMI 36.8
[2025-05-25] MEDS: LACTATED RINGERS 1,000 ML 42 ML IV (09:00)
[2025-05-25 09:11] VITALS: BP 149/81; PULSE 72; RESP 20; TEMP 36.4; O2SAT 98
--- NOTE | 2025-05-25 09:57 | P.HP_ITS ---
History of Present Illness History of Present Illness Date Patient Seen: 05/25/25 Time Patient Seen: 09:57 Chief complaint: Colonoscopy Narrative: Carolyn is a 64-year-old woman who was diagnosed with a colon cancer by Dr. Ortiz about a year ago. She had a right hemicolectomy at [facility]. She is here for her 1 year colonoscopy. [facility] Medical History (Updated 05/22/25 @ 13:27 by Trini Khanna, RN) Colon cancer Small bowel obstruction Knee pain, right Chronic lumbosacral pain Ankle pain, right Dermoid cyst of left ovary Elevated blood pressure reading (02/16/11) GI bleed Bladder prolapse Uterus descensus Never smoked History of gastrointestinal procedure (04/15/18) Basal cell carcinoma (BCC) of left shoulder (08/16/17) Diverticulosis of colon (10/28/17) Morbid obesity with BMI of 40.0-44.9, adult Hiatal hernia (10/28/17) GERD (gastroesophageal reflux disease) Dermoid cyst 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) Dysphagia (09/09/17) Iron deficiency anemia (07/23/17) Surgical History (Updated 05/22/25 @ 13:27 by Trini Khanna, VERONICA) S/P colectomy (05/2024) History of total right hip arthroplasty (02/2025) S/P total left hip arthroplasty (02/04/24) History of right salpingo-oophorectomy History of repair of hiatal hernia Hx of LASIK History of dermoid cyst excision History of esophagogastroduodenoscopy (EGD) (03/14/18) History of colonoscopy with polypectomy (12/22/17) Status post LASIK surgery Status post left foot surgery (~1996) History of basal cell carcinoma excision (08/16/17) History of esophagogastroduodenoscopy (EGD) (10/28/17) Hx of hernia repair (1986) History of carpal tunnel release (~1991) S/P colonoscopic polypectomy (10/28/17) S/P knee surgery (1979) Family History Father Age: 90 Hypertension High cholesterol Mother Age: 86 Hypertension High cholesterol Sister Age: 66 Cervical cancer Social History (Updated 12/01/24 @ 07:30 by Liset Chung MA) marital status: household members: spouse lives independently: Yes housing: house Smoking Status: Never smoker second hand exposure: No alcohol intake: never substance use type: does not use Meds Home Medications and Allergies Home Medications ?Medication ?Instructions ?Recorded ?Confirmed ?Type estradiol 2 mg (7.5 mcg/24 hour) 1 vag ring vaginal Q3 MONTHS #1 ea 01/15/25 05/25/25 Rx vaginal ring (Estring) aspirin 81 mg tablet,delayed 81 mg PO BID 05/25/25 History release Allergies Allergy/AdvReac Type Severity Reaction Status Date / Time codeine (CODEINE) Allergy Intermediate Vomiting Verified 05/25/25 09:06 hydroxyzine AdvReac Mild nightmares Verified 05/25/25 09:06 Exam Vital Signs (past 8 hours): - 05/25/25 09:11 Temperature 97.5 F L Pulse Rate 72 Respiratory Rate 20 Blood Pressure 149/81 H Pulse Oximetry 98 Oxygen Delivery Method Room Air Oxygen Delivery Method Room Air Const General: No acute distress Assessment & Plan Assessment and plan (1) History of colon cancer: Status: Acute Plan Colonoscopy Time-Based Coding :: [TOTAL MINUTES] spent with patient and on the chart (including review of chart, obtaining history, exam, reviewing outside data, placing orders, documenting exam and treatment plan, and counseling patient) on [DATE]. PROFEE Manager Retention Document charge(s): No
--- NOTE | 2025-05-25 10:38 | P.OP.COLON_ITS ---
Operative Date/Time/Diagnoses Date of procedure: 05/25/25 Time of procedure: 10:38 Pre-op diagnosis: History of colon cancer Post-op diagnosis: same Procedure & Clinicians Study performed: Colonoscopy Same procedure(s) as scheduled: Yes Surgeon: Christopher Gil Anesthesia Type: MAC +/- Procedure Notes Procedure in detail: Surgeon: Christopher Gil MD Anesthesia: Zorina Kenney BRAKE REPAIRER HYDRAULIC Procedure: The patient was brought to the endoscopy suite, placed in left lateral decubitus position. The patient was connected to monitoring devices. A time-out was performed. Sedation was administered. Once the patient was adequately sedated, a digital rectal exam was performed and was normal. The scope was then inserted and advanced to the ileocolic anastomosis. The scope was then slowly withdrawn over greater than 6 minutes. The mucosa was thoroughly inspected. There was a 5 mm polyp in the sigmoid colon. There was sigmoid colon diverticulosis. The scope was retroflexed in the rectum. No other abnormalities were found. The scope was straightened and removed. The patient was awakened and brought to recovery. Scope withdrawal time: 9 minutes Sedation time: 18 minutes Findings: 5 mm polyp in the sigmoid colon, sigmoid colon diverticulosis Estimated Blood Loss: 5 Complications: none Post-procedure Disposition: PACU
[2025-05-25 10:39] VITALS: BP 116/63; PULSE 83; RESP 20; TEMP 36.7; O2SAT 99
[2025-05-25 10:43] VITALS: BP 124/66; PULSE 76; RESP 15; O2SAT 99
[2025-05-25 10:47] VITALS: BP 136/75; PULSE 70; RESP 15; TEMP 36.7; O2SAT 98
== END 2025-05-25 11:06 | disposition home or self-care (01) ==
PROVIDERS: Family Provider Family Medicine; PCP Family Medicine; Referring Provider Family Medicine; Visit Provider Surgery
PROC: 0DJD8ZZ Inspection of Lower Intestinal Tract, Via Natural or Artificial Opening Endoscopic (ICD-10-PCS; CPT 45378; principal; 2025-05-25 10:00)
DX: Z12.11 Encounter for screening for malignant neoplasm of colon (principal); K63.5 Polyp of colon; K57.30 Diverticulosis of large intestine without perforation or abscess without bleeding; Z85.038 Personal history of other malignant neoplasm of large intestine; Z98.0 Intestinal bypass and anastomosis status; E66.01 Morbid (severe) obesity due to excess calories; Z68.41 Body mass index [BMI] 40.0-44.9, adult
CPT/HCPCS: G0105; J2704; J7120